=== PATIENT | female | born 1965 | race Caucasian/White ===

== ENCOUNTER 2020-03-07 06:01 | Outpatient (REF) | payer BC, SELFPAY ==
[2020-03-07 11:52] LABS: Alanine Aminotransferase 17 U/L (0-31); Albumin Level 4.3 g/dL (3.5-5.0); Alkaline Phosphatase 74 U/L (39-117); Anion Gap 11 (12-20); Aspartate Amino Transferase 17 U/L (5-31); Bilirubin Total 0.5 mg/dL (0.0-1.0); Blood Urea Nitrogen 16 mg/dL (9-16); Carbon Dioxide 29 mmol/L (22-29); Chloride 108 mmol/L (96-108); Cholesterol 180 mg/dL; Estimated Glomerular Filt Rate > 60; Glucose Fasting 98 mg/dL (60-99); HDL Cholesterol 67 mg/dL; LDL Cholesterol Calculated 104 mg/dl; Potassium 4.6 mmol/l (3.3-5.1); Sodium 143 mmol/L (135-145); Total Protein 6.8 g/dL (6.5-8.0); Triglycerides 48 mg/dL
[2020-03-07 12:01] LABS: TSH reflex Free T4 0.71 mIU/mL (0.32-4.0)
[2020-03-08 12:53] LABS: Triiodothyronine T3 Free 2.9 pg/mL (2.3-4.2)
== END 2020-03-07 06:02 | disposition home or self-care (01) ==
LOC: HO.HMGCLDS 06:01
PROVIDERS: PCP Internal Medicine; Visit Provider Nurse Practitioner Family
DX: Z00.00 Encounter for general adult medical examination without abnormal findings (principal)
CPT/HCPCS: 80053; 80061; 84443; 84481

== ENCOUNTER 2020-03-07 16:26 | Outpatient (REF) | payer BC, SELFPAY | END 2020-03-07 16:27 | disposition home or self-care (01) | LOC: HO.LAB 16:26 | PROVIDERS: Visit Provider Nurse Practitioner Family | DX: Z20.828 Contact with and (suspected) exposure to other viral communicable diseases (principal) | CPT/HCPCS: U0003 ==

== ENCOUNTER 2020-03-08 11:19 | Outpatient (REF) | payer BC, SELFPAY | END 2020-03-08 11:20 | disposition home or self-care (01) | LOC: HO.LNP 11:19 | PROVIDERS: Visit Provider Nurse Practitioner Family | DX: Z13.89 Encounter for screening for other disorder (principal) ==

== ENCOUNTER 2022-03-24 06:05 | Outpatient (REF) | payer BC, SELFPAY ==
[2022-03-24 11:20] LABS: MANUAL DIFF FLAG NO
[2022-03-24 11:30] LABS: Basophils Absolute Auto 0.1 X10*3/uL (0.0-0.2); Basophils Percent Auto 0.8 % (0-2); Eosinophils Absolute Auto 0.4 X10*3/uL (0.0-0.4); Hematocrit 43.2 % (37.0-47.0); Hemoglobin 13.9 g/dl (12.0-16.0); Imm Gran Abs Auto 0.02 X10*3/uL (0.00-0.03); Imm Gran Pct Auto 0.2 % (0.0-0.4); Lymphocytes Absolute Auto 3.4 X10*3/uL (1.2-4.9); Lymphocytes Percent Auto 39.1 % (20-40); Mean Corpuscular HGB Conc 32.2 g/dl (31.0-35.0); Mean Corpuscular Hemoglobin 29.1 pg (27.0-33.0); Mean Corpuscular Volume 90.6 fL (80.0-98.0); Monocytes Absolute Auto 0.5 X10*3/uL (0.1-1.2); Monocytes Percent Auto 6.2 % (2-11); Neutrophils Absolute Auto 4.2 x10*3/uL (2.0-8.3); Neutrophils Percent Auto 48.7 % (45-73); Platelet Count 272 X10*3/uL (160-400); Red Blood Count 4.77 X10*6/uL (4.20-5.50); Red Cell Distribution Width 13.8 % (11.0-16.0); White Blood Count 8.6 X10*3/uL (4.8-10.8)
[2022-03-24 11:43] LABS: Appearance Urine Clear; Color Urine Yellow; Glucose Urine UA Negative (Negative); Leukocyte Esterase Urine Negative (Negative); Nitrite Urine Negative (Negative); PH 5.5 (5.0-9.0); Urine Blood Negative (Negative); Urine Ketones Negative (Negative); Urine Protein Negative (Neg-Trace)
[2022-03-24 11:46] LABS: Bacteria Urine None Seen (None Seen); Hyaline Casts Urine 0-2 /LPF (0-2); RBC Urine 0-2 /HPF (0-2); Squamous Epithelial Cell Urine 0-2 /HPF (0-2); WBC Urine 0-5 /HPF (0-5)
[2022-03-24 11:51] LABS: Anion Gap 14 (12-20)
[2022-03-24 11:56] LABS: Alanine Aminotransferase 14 U/L (0-31); Albumin Level 4.3 g/dL (3.5-5.0); Alkaline Phosphatase 80 U/L (39-117); Aspartate Amino Transferase 15 U/L (5-31); Bilirubin Total 0.3 mg/dL (0.0-1.0); Calcium 9.6 mg/dL (8.4-10.2); Carbon Dioxide 26 mmol/L (22-29); Chloride 109 mmol/L (96-108); Cholesterol 175 mg/dL; Estimated Glomerular Filt Rate 53; Glucose Fasting 96 mg/dL (60-99); HDL Cholesterol 49 mg/dL; LDL Cholesterol Calculated 109 mg/dl; Potassium 5.3 mmol/L (3.3-5.1); Sodium 144 mmol/L (135-145); Total Protein 6.9 g/dL (6.5-8.0); Triglycerides 89 mg/dL
[2022-03-24 12:28] LABS: Blood Urea Nitrogen 22 mg/dL (9-16)
[2022-03-24 12:32] LABS: TSH reflex Free T4 1.69 uIU/mL (0.32-4.0); Vitamin D 25-OH Total 51.1 ng/mL (>30)
== END 2022-03-24 06:06 | disposition home or self-care (01) ==
LOC: HO.HMGCLDS 06:05
PROVIDERS: PCP Internal Medicine; Visit Provider Internal Medicine
DX: Z00.00 Encounter for general adult medical examination without abnormal findings (principal); E03.9 Hypothyroidism, unspecified
CPT/HCPCS: 36415; 80053; 80061; 81001; 82306; 84443; 85025

== ENCOUNTER 2022-04-11 13:55 | Outpatient (REF) | payer BC, SELFPAY ==
[2022-04-11 16:49] LABS: Anion Gap 14 (12-20); Blood Urea Nitrogen 12 mg/dL (9-16); Carbon Dioxide 28 mmol/L (22-29); Chloride 106 mmol/L (96-108); Estimated Glomerular Filt Rate 54; Glucose Random 113 mg/dL (60-115); Potassium 4.9 mmol/L (3.3-5.1); Sodium 143 mmol/L (135-145)
== END 2022-04-11 13:56 | disposition home or self-care (01) ==
LOC: HO.HMGCLDS 13:55
PROVIDERS: Visit Provider Internal Medicine
DX: Z00.00 Encounter for general adult medical examination without abnormal findings (principal)
CPT/HCPCS: 36415; 80048

== ENCOUNTER 2022-10-02 11:50 | Outpatient (AMB) | payer BC, SELFPAY ==
[2022-10-02 11:59] VITALS: BP 104/64; PULSE 52; O2SAT 100; BMI 30.4
--- NOTE | 2022-10-02 11:59 | MHC.PC.OV ---
Vital Signs 10/02/22 11:59 Height 5 ft 2 in Weight 166 lb 8 oz BMI 30.4 BP 104/64 Blood Pressure Location Rt brachial Position Sitting Pulse 52 Pulse Source Pulse Oximeter Pulse Oximetry (%) 100 Oxygen Delivery Method Room Air Intake Visit Reasons: ER follow up Allergies sulfamethoxazole [From BACTRIM] Allergy (Unknown, Verified 10/02/22 11:59) RASH trimethoprim [From BACTRIM] Allergy (Unknown, Verified 10/02/22 11:59) RASH Medication List - Last Reconciled 10/02/22 by Alem Carter MD alprazolam 0.5 mg PO DAILY PRN buspirone 5 mg PO BID PRN cholecalciferol (vitamin D3) 125 mcg PO DAILY doxycycline hyclate 100 mg PO BID flu vacc [id number] 6mos up(PF) mL IM levothyroxine 88 mcg PO DAILY valacyclovir 1,000 mg PO DAILY 5 days Tobacco use date assessed: 10/02/22 Dental Screening Dental Screen Date: 10/02/22 Did you have a dental visit in the last 12 months?: Yes Did you have a dental problem in the last 6 months where you did not have access to dental care?: No Was dental information given to patient?: No HPI ER follow up HPI Details Pt presents for f/u ER visit for acute onset of bilateral shoulder pain and bilateral leg heaviness for 2 weeks. Patient denies joint swelling erythema or warmth or stiffness in hand joints. She was seen in [facility] and was given cortisone injections to both shoulders. The shoulders x-rays were negative. Patient feels better since the injections 2 days ago. Patient is concerned about PMR. Blood work including Lyme antibodies was negative. 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 How often do you have a drink containing alcohol?: Monthly or less 2. How many drinks containing alcohol do you have on a typical day when you are drinking?: 1 or 2 3. How often do you have six or more drinks on one occasion?: Never Total Score: 1 Score Reviewed/Action Taken: Yes CHARLEY-7 AMB Questionnaire CHARLEY-7 Date CHARLEY - 7 assessed: 03/21/22 Source: Developed by Drs. Esvin Marie, Radha Tello, Corky Ann and colleagues, with an educational alis from [employer]. Review of Systems Const All systems reviewed & are unremarkable except as noted in HPI and below Reports no additional complaints Eyes Reports no additional complaints ENT Reports no additional complaints Card Reports no additional complaints Resp Reports no additional complaints GI Reports no additional complaints Reports no additional complaints Physical exam (Primary Care) Vital Signs: Last Vital Signs Pulse 52 10/02/22 11:59 BP 104/64 10/02/22 11:59 Pulse Ox 100 10/02/22 11:59 Oxygen Delivery Method Room Air 10/02/22 11:59 BMI result Body Mass Index 30.4 Tobacco/Smoking Status: Tobacco use Status Tobacco use date assessed 10/02/22 10/02/22 12:02 Patient Tobacco Use Status Never used Tobacco 10/02/22 12:02 e-Cigarette/Vaping Use Never Used 10/02/22 12:02 Thrive Assessment: Date of Thrive Assessment Date Thrive assessed 03/21/22 10/02/22 12:02 Const General: no acute distress HENMT Head: Yes normal to inspection Mouth: Normal oral and palatal mucosa present Neck Neck: Yes supple Resp Effort & Inspection: normal respiratory effort Auscultation: clear to auscultation bilaterally Cardio Rhythm: regular rhythm Heart sounds: S1 normal heart sound present and S2 normal heart sound present GI Auscultation: normal bowel sounds Extrem Other: Both shoulders knees and ankles with full range of motion no joint erythema warmth or tenderness Assessment and Plan Assessment & Plan (1) Arthralgia: Code(s): M25.50 - Pain in unspecified joint Plan: Check arthritis panel including ESR Orders: Orders Rheumatoid Factor Today M25.50 - Pain in unspecified joint TSH reflex Free T4 Today M25.50 - Pain in unspecified joint Erythrocyte Sedimentation Rate Today M25.50 - Pain in unspecified joint JUHI Reflex Titer and Pattern Today M25.50 - Pain in unspecified joint Coding Level of Care Code Est Pt Level 3 (32209) Diagnoses Arthralgia M25.50
== END 2022-10-02 12:55 | disposition home or self-care (01) ==
PROVIDERS: PCP Internal Medicine; Visit Provider Internal Medicine
DX: M25.50 Pain in unspecified joint (principal)
CPT/HCPCS: 99213

== ENCOUNTER 2022-10-02 12:48 | Outpatient (REF) | payer BC, SELFPAY ==
[2022-10-02 17:00] LABS: TSH reflex Free T4 2.24 uIU/mL (0.32-4.0)
[2022-10-02 17:09] LABS: Rheumatoid Factor < 13.0 IU/mL (<15.0)
[2022-10-02 17:15] LABS: Erythrocyte Sedimentation Rate 16 MM/HR (0-20)
[2022-10-08 10:33] LABS: Anti Nuclear Antibody Screen NEGATIVE (NEGATIVE)
== END 2022-10-02 12:49 | disposition home or self-care (01) ==
LOC: HO.HMGCLDS 12:48
PROVIDERS: PCP Internal Medicine; Visit Provider Internal Medicine
DX: M25.50 Pain in unspecified joint (principal)
CPT/HCPCS: 36415; 84443; 85652; 86038; 86431

== ENCOUNTER 2022-10-06 14:54 | Outpatient (AMB) | payer BC, SELFPAY ==
--- NOTE | 2022-10-06 15:11 | AM.OFFWIN_ITS ---
Intake Vital Signs 10/06/22 15:13 Height 5 ft 2 in BP 120/70 Blood Pressure Location Lt brachial Position Sitting Pulse 78 Pulse Source Pulse Oximeter Pulse Oximetry (%) 97 Oxygen Delivery Method Room Air Intake Visit Reasons: EP weakness, body fatigue (lobby) Intake Note: Pt is here today for body ache. Patient Tobacco Use Status: Never used Tobacco Allergies sulfamethoxazole [From BACTRIM] Allergy (Unknown, Verified 10/06/22 15:15) RASH trimethoprim [From BACTRIM] Allergy (Unknown, Verified 10/06/22 15:15) RASH HPI HPI Comments History of Present Illness Details 56-year-old female presents with inability to move her arms and legs, has severe pain, and feels generally unwell and weak. She has had multiple workups at this facility, as well as an emergency department, with negative findings. Patient states that she cannot even stand, and is having a difficult time functioning. She does have a significant past medical history for factor 5 leiden deficiency, history of PE status post nephrectomy, patient was a kidney donor. She states to be cold all the time, and has a difficult time eating and drinking over the past few days. 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: House Patient Tobacco Use Status: Never used Tobacco e-Cigarette/Vaping Use: Never Used Current occupational status: employed Cognitive needs: No Hearing needs: No Vision needs: Yes Review of Systems Const Details: Constitutional: No Fever, positive Chills ENT/Mouth: No Ear Pain, No Hoarseness, No sore throat Eyes: No Eye Pain, No Swelling, No Redness, No Foreign Body Cardiovascular: No Chest Pain, No SOB Respiratory: No Cough, No Dyspnea Gastrointestinal: Positive Nausea, No Vomiting, No Diarrhea, No abdominal Pain Genitourinary: No Dysuria, No Hematuria Musculoskeletal: positive joint pain, positive Myalgias, No Joint Swelling Skin: No Skin lacerations, No rash Neuro: Positive Weakness, No Numbness, No Paresthesias, No Loss of Consciousness, No Dizziness, positive Headache All systems reviewed & are unremarkable except as noted in HPI and below Physical Exam Vital Signs: Last Vital Signs Pulse 78 10/06/22 15:13 BP 120/70 10/06/22 15:13 Pulse Ox 97 10/06/22 15:13 Oxygen Delivery Method Room Air 10/06/22 15:13 Appearance: Alert. Oriented X3. Moderate distress. Eyes: Pupils equal, round and reactive to light. EOMI. Sclera nonicteric. ENT: Pharynx normal. Moist mucous membranes. Neck: Normal inspection. Neck supple. CVS: Normal heart rate and rhythm. Pulses normal. Respiratory: No respiratory distress. Breath sounds normal. Skin: Skin warm and dry. Normal skin color. Normal skin turgor. Extremities: Decreased range of motion. Weak grasp bilaterally, decreased range of motion secondary to pain. Neuro: No motor deficit. No sensory deficit. Cranial nerves 2-12 intact. Assessment & Plan Assessment & Plan (1) Weakness: Code(s): R53.1 - Weakness Plan 56-year-old female presents for evaluation for worsening weakness, diffuse pain, inability to function, poor p.o. intake. States to have headaches, and nausea. She has worked up several times once at this facility, and in emergency department was tested negative for Lyme, and JUHI results are still pending. Patient did have some cortisone injections into her neck 2 weeks ago, which states to have improved her symptoms however, she has progressively declined to the point where she is having a difficult time walking, has a hard time lifting her legs, and can barely stand. She cannot lift her arms over her head, and she has weakened grasps. Patient states this is been progressive. She does have a significant history of factor 5 Leiden deficiency, history of PE status post nephrectomy, patient donated her kidney in June of 2021. She was given a course of doxycycline for suspicion of Lyme disease, however on 10/02/2022 her labs were reviewed and was determined that her Lyme test was negative and was discontinued on the doxycycline. While patient does not report fevers, she states to have chills, has a winter jacket even though the temperature is about 90 degrees outside. 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 At this time, patient is in moderate distress, is alert oriented x4, speaking in complete sentences with even unlabored respirations. Patient is polite, and answering questions to the best of her ability. GCS 15, NIH is 0. While patient has not reported any viral illnesses, I do have high suspicion for possible meningitis, verses Guillain-[place]. Patient states that she is too weak to drive to the emergency department. Patient would like to be treated at [facility]. I did call provider to provider report, and will be sending this patient to the emergency department by EMS. Patient does understand the emergent need for new presentation, and does understand that she needs further testing at a facility that has acute care. Orders: Orders SARS-CoV2/FLU/RSV Today R09.89 - Other specified symptoms and signs involving the circulatory and respiratory systems Patient Instructions: Please present to the emergency department for evaluation. Coding Level of Care Code Est Pt Level 3 (24119) Diagnoses Weakness R53.1
[2022-10-06 15:13] VITALS: BP 120/70; PULSE 78; O2SAT 97
== END 2022-10-06 16:14 | disposition home or self-care (01) ==
PROVIDERS: PCP Internal Medicine; Visit Provider Nurse Practitioner Family
DX: R53.1 Weakness (principal)
CPT/HCPCS: 99213

== ENCOUNTER 2022-10-06 16:33 | Emergency (ER) | payer BC, SELFPAY ==
--- NOTE | ~2022-10-06 | XR_ITS ---
EXAMINATION: XR CHEST CLINICAL INFORMATION: Weakness COMPARISON: Chest x-ray on 02/02/2018 TECHNIQUE: Frontal view of the chest was obtained. FINDINGS: No significant abnormality is noted involving the heart, lungs, mediastinum, bony thorax or soft tissues. XR/XR chest 1V IMPRESSION: Unremarkable examination.
--- NOTE | 2022-10-06 16:40 | ED_ITS ---
HPI - General Adult General Chief complaint: Weakness Stated complaint: neck, hip, and leg pain, per ems Time Seen by Provider: 10/06/22 16:35 Source: patient, EMS, RN notes reviewed and old records reviewed Mode of arrival: EMS History of Present Illness HPI narrative: 56-year-old female with a past medical history factor 5 Leiden, PE s/p nephrectomy for renal transplant, hypothyroidism, presenting to the ED via EMS from complaining bilateral shoulder and hip pain with upper and lower extremity weakness progressing over the past 6 weeks. Patient describes pain as burning. Was evaluated at [facility] ED, tested for Lyme, treated empirically with Doxycycline and lined came back negative. Has been seen by PCP, JUHI titers currently pending. Admits saw replenishment specialist last week, had bilateral shoulder steroid injections which resolved all symptoms, however symptoms returned today which prompted visit. Was transported to ED to rule out meningitis/Liza Lincoln. Admits to night sweats, mild neck soreness and low back pain. Denies fever, weight gain/loss, CP/SOB, abdominal pain, nausea/vomiting, diarrhea, incontinence/retention. Admits to suspected spider bite to right foot weeks ago, denies other new exposures or viral illness Onset (ago): week(s) Related Data Home Medications Medication Instructions Recorded Confirmed alprazolam 0.5 mg tablet 0.5 mg PO DAILY PRN 03/07/20 10/02/22 flu vacc [id number] 6mos up(PF) 60 ml IM 03/07/20 10/02/22 mcg(15 mcgx4)/0.5 mL IM syringe levothyroxine 88 mcg tablet 88 mcg PO DAILY 03/07/20 10/02/22 buspirone 5 mg tablet 5 mg PO BID PRN 03/13/21 10/02/22 cholecalciferol (vitamin D3) 125 125 mcg PO DAILY 03/13/21 10/02/22 mcg (5,000 unit) capsule doxycycline hyclate 100 mg capsule 100 mg PO BID 10/02/22 10/02/22 Previous Rx's Medication Instructions Recorded valacyclovir 1 gram tablet 1,000 mg PO DAILY 5 days #5 tabs 03/21/22 prednisone 20 mg tablet 40 mg PO DAILY 5 days #10 tabs 10/06/22 Allergies Allergy/AdvReac Type Severity Reaction Status Date / Time sulfamethoxazole Allergy Unknown RASH Verified 10/06/22 17:22 [From BACTRIM] trimethoprim [From BACTRIM] Allergy Unknown RASH Verified 10/06/22 17:22 Review of Systems Review of Systems: Constitutional: No Weight loss, No Fever, No Chills, + Night Sweats, + Fatigue, + Malaise ENT/Mouth: No Ear Pain, No Nasal Congestion, No sore throat, No Rhinorrhea, No Swallowing Difficulty Eyes: No Eye Pain, No Swelling, No Redness, No Vision Changes Cardiovascular: No Chest Pain, No SOB, No Edema, No Palpitations Respiratory: No Cough, No Sputum, No Dyspnea Gastrointestinal: No Nausea, No Vomiting, No Diarrhea, No Constipation, No Abdominal pain Genitourinary: No irregular bleeding, No Dysuria, No Urinary Frequency, No Hematuria, No Urinary Incontinence/retention, No Urgency, No Flank Pain Musculoskeletal: + joint pain, + Myalgias, No Joint Swelling Skin: No Skin Lesions, No rash Neuro: No Weakness, No Numbness, No Paresthesias, No Loss of Consciousness, No Dizziness, No Headache Yes all other systems are reviewed and are negative Constitutional: Constitutional: Reports as per HPI Neurologic: Denies Abnormal speech present and Denies Sensory deficit (Neuro) [facility] Past Medical History Attestation statement: The following information was validated with the patient. 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 Alcohol intake: current Alcohol intake frequency: holidays/special occasions only Patient Tobacco Use Status: Never used Tobacco Smoked in Last 30 Days: No e-Cigarette/Vaping Use: Never Used Use of substances other than those prescribed or required for medical reasons: No Advance Directives: No Advance Directives Information Provided: No Patient : No Current occupational status: employed Cognitive needs: No Hearing needs: No Vision needs: Yes Physical Exam ED Vital Signs: Vital Signs - 24 hr 10/06/22 17:03 10/06/22 17:22 10/06/22 19:18 Temperature 98.0 F 98.0 F Pulse Rate 73 71 73 Respiratory Rate 16 16 Blood Pressure 143/73 H 143/63 H 127/73 Pulse Oximetry 98 95 Oxygen Delivery Method Room Air Room Air 10/06/22 19:19 10/06/22 19:20 Temperature Pulse Rate 68 74 Respiratory Rate Blood Pressure 141/81 H 136/84 Pulse Oximetry Oxygen Delivery Method BMI result Body Mass Index 30.8 Const General: cooperative, healthy appearing, no acute distress, alert and awake Orientation/consciousness: patient oriented x3 Limitations: no limitations HENMT Head: Yes normal to inspection and Yes atraumatic Ears: hearing grossly normal bilaterally General nose exam: Normal external nose present Face and sinus: Yes normal facial exam Mouth: Normal oral and palatal mucosa present Throat: Yes posterior oropharynx normal, Yes tonsils normal and Yes uvula m idline Eyes General: appearance normal, both eyes and all related structures Pupils: Equal, round and reactive pupils present EOM: EOMs intact bilaterally Neck Neck: Yes normal visual inspection, Yes no meningeal signs, No anterior neck swelling and No torticollis Resp Effort & Inspection: normal respiratory effort and no respiratory distress Auscultation: clear to auscultation bilaterally, no crackles, no rales, no rhonchi and no wheezes Cardio Rate: regular rate Heart sounds: S1 normal heart sound present and S2 normal heart sound present Peripheral pulses: Peripheral pulses 2+ throughout GI Inspection: Yes normal to inspection Palpation (GI): Soft to palpation, nontender, no guarding and not rigid General: Yes no CVA tenderness Back/Spine/Pelvis Other: No midline cervical/thoracic/lumbar spinous tenderness/step-off or deformity Back: no CVA tenderness Skin Rashes: no rashes Wounds: no wounds Neuro Other: Ambulating with slow steady gait, no ataxia Mild decreased strength appreciated to LUE & LLE General: patient oriented x3, tone normal, moves all extremities, no meningeal signs, no focal motor deficits and CN's II-XI intact bilaterally Cranial nerves: Yes CN's II-XII intact bilaterally, Yes Equal, round and reactive pupils present and Yes Bilaterally intact EOM present Cognition (Neuro): normal cognition Speech: No Abnormal speech present Sensory Exam: No Sensory deficit (Neuro) Deep tendon reflexes (DTR's): Right patellar reflex intensity grade: 2+ and Left patellar reflex intensity grade: 2+ Extrem General: Yes normal to inspection, Yes full ROM and Yes capillary refill normal Course Course Course Narrative: -1907--mild leukocytosis of 13.2. BUN 22. Troponin negative. CRP mildly elevated to 3.9 -UA unremarkable. COVID-was/RSV negative XR chest 1V IMPRESSION: Unremarkable examination. ? -ESR WNL Results discussed with patient including worrisome signs and symptoms and strict return precautions, and when to return to the emergency department. Recommended close follow-up with PCP, Rheumatology and Neurology. They verbalized understanding and feel safe for discharge at this time. Medical Decision Making Medical Decision Making [facility] Narrative: 56-year-old female with a past medical history factor 5 Leiden, PE s/p nephrectomy for renal transplant, hypothyroidism, presenting to the ED via EMS from complaining bilateral shoulder and hip pain with upper and lower extremity weakness progressing over the past 6 weeks. On exam vital signs stable, NAD, nontoxic appearing, physical exam as noted above, no meningeal signs, ambulating with slow steady gait, mild left-sided weakness appreciated, patellar DTRs WNL. Concern for possible PMR vs viral syndrome. Low suspicion for meningitis, Liza Lincoln, MS, MG or ALS. Unlikely cauda equina/cord com pression. No evidence of septic joint. Case discussed with ED attending Dr. Bloom who is in agreement with assessment and plan Plan: EKG, labs, UA, CXR, tick-borne illness/Lyme, COVID/flu/RSV Please refer to course for remaining clinical decision making, interpretation of labs/imaging results, and discussions with consultants and/or family members. Differential Diagnosis Differential Diagnoses: The differential diagnosis associated with the presentation includes As above Admission/Observation Consideration of admission/observation: Escalation of care including admission/observation considered Consult Healthcare Provider ED Attending Dr. Bloom Lab Data [facility] Lab Attestation statement: I reviewed the patient's lab results. 10/06/22 18:06 10/06/22 18:06 Labs: Lab Results 10/06/22 10/06/22 10/06/22 Range/Units 18:06 18:06 18:06 WBC 13.2 H (4.8-10.8) X10*3/uL RBC 4.49 (4.20-5.50) X10*6/uL Hgb 13.0 (12.0-16.0) g/dl Hct 40.2 (37.0-47.0) % MCV 89.5 (80.0-98.0) fL MCH 29.0 (27.0-33.0) pg MCHC 32.3 (31.0-35.0) g/dl RDW 13.9 (11.0-16.0) % Plt Count 342 D (160-400) X10*3/uL MPV 10.6 (9.4-12.3) fL Immature Gran % (Auto) 0.6 H (0.0-0.4) % Neut % (Auto) 73.0 (45-73) % Lymph % (Auto) 19.3 L (20-40) % Ross % (Auto) 6.1 (2-11) % Eos % (Auto) 0.5 (0-4) % Baso % (Auto) 0.5 (0-2) % Lymph # (Auto) 2.5 (1.2-4.9) X10*3/uL Ross # (Auto) 0.8 (0.1-1.2) X10*3/uL Eos # (Auto) 0.1 (0.0-0.4) X10*3/uL Baso # (Auto) 0.1 (0.0-0.2) X10*3/uL Abs Immat Gran (auto) 0.08 H (0.00-0.03) X10*3/uL Absolute Neuts (auto) 9.6 H (2.0-8.3) x10*3/uL Absolute Nucleated RBC 0.000 (0.0-0.012) X10*3/uL Nucleated RBC % (auto) 0.0 (0.0-0.2) /100WBC ESR (0-20) MM/HR PT 10.5 (10.0-13.1) SEC INR 0.9 (0.9-1.1) Sodium 142 (135-145) mmol/L Potassium 3.8 D (3.3-5.1) mmol/L Chloride 108 (96-108) mmol/L Carbon Dioxide 25 (22-29) mmol/L Anion Gap 13 (12-20) BUN 22 H (9-16) mg/dL Creatinine 0.87 (0.5-1.4) mg/dL Estim Creat Clear Calc 70.7 Estimated GFR > 60 Random Glucose 105 (60-115) mg/dL Calcium 10.4 H (8.4-10.2) mg/dL Magnesium 2.3 (1.6-2.6) mg/dL Total Bilirubin 0.3 (0.0-1.0) mg/dL Direct Bilirubin 0.1 (0.0-0.5) mg/dL AST 17 (5-31) U/L ALT 18 (0-31) U/L Alkaline Phosphatase 84 (39-117) U/L Troponin I High Sens (<3.5-17.0) ng/L C-Reactive Protein 3.97 H (< or = 0.50) mg/dL Total Protein 7.5 (6.5-8.0) g/dL Albumin 4.3 (3.5-5.0) g/dL Urine Color Urine Appearance Urine pH (5.0-9.0) Ur Specific [place] (1.005-1.025) Urine Protein (Neg-Trace) mg/dL Urine Glucose (UA) (Negative) mg/dL Urine Ketones (Negative) mg/dL Urine Blood (Negative) Urine Nitrite (Negative) Ur Leukocyte Esterase (Negative) Urine RBC (0-2) /HPF Urine WBC (0-5) /HPF Ur Squamous Epith Cells (0-2) /HPF Urine Bacteria (None Seen) Hyaline Casts (0-2) /LPF Influenza Type A (PCR) (Negative) Influenza Type B (PCR) (Negative) RSV RNA Qual (PCR) (Negative) SARS-CoV-2 RNA (RT-PCR) (Negative) 10/06/22 10/06/22 10/06/22 Range/Units 18:18 18:19 18:19 WBC (4.8-10.8) X10*3/uL RBC (4.20-5.50) X10*6/uL Hgb (12.0-16.0) g/dl Hct (37.0-47.0) % MCV (80.0-98.0) fL MCH (27.0-33.0) pg MCHC (31.0-35.0) g/dl RDW (11.0-16.0) % Plt Count (160-400) X10*3/uL MPV (9.4-12.3) fL Immature Gran % (Auto) (0.0-0.4) % Neut % (Auto) (45-73) % Lymph % (Auto) (20-40) % Ross % (Auto) (2-11) % Eos % (Auto) (0-4) % Baso % (Auto) (0-2) % Lymph # (Auto) (1.2-4.9) X10*3/uL Ross # (Auto) (0.1-1.2) X10*3/uL Eos # (Auto) (0.0-0.4) X10*3/uL Baso # (Auto) (0.0-0.2) X10*3/uL Abs Immat Gran (auto) (0.00-0.03) X10*3/uL Absolute Neuts (auto) (2.0-8.3) x10*3/uL Absolute Nucleated RBC (0.0-0.012) X10*3/uL Nucleated RBC % (auto) (0.0-0.2) /100WBC ESR 12 (0-20) MM/HR PT (10.0-13.1) SEC INR (0.9-1.1) Sodium (135-145) mmol/L Potassium (3.3-5.1) mmol/L Chloride (96-108) mmol/L Carbon Dioxide (22-29) mmol/L Anion Gap (12-20) BUN (9-16) mg/dL Creatinine (0.5-1.4) mg/dL Estim Creat Clear Calc Estimated GFR Random Glucose (60-115) mg/dL Calcium (8.4-10.2) mg/dL Magnesium (1.6-2.6) mg/dL Total Bilirubin (0.0-1.0) mg/dL Direct Bilirubin (0.0-0.5) mg/dL AST (5-31) U/L ALT (0-31) U/L Alkaline Phosphatase (39-117) U/L Troponin I High Sens < 2.7 (<3.5-17.0) ng/L C-Reactive Protein (< or = 0.50) mg/dL Total Protein (6.5-8.0) g/dL Albumin (3.5-5.0) g/dL Urine Color Urine Appearance Urine pH (5.0-9.0) Ur Specific [place] (1.005-1.025) Urine Protein (Neg-Trace) mg/dL Urine Glucose (UA) (Negative) mg/dL Urine Ketones (Negative) mg/dL Urine Blood (Negative) Urine Nitrite (Negative) Ur Leukocyte Esterase (Negative) Urine RBC (0-2) /HPF Urine WBC (0-5) /HPF Ur Squamous Epith Cells (0-2) /HPF Urine Bacteria (None Seen) Hyaline Casts (0-2) /LPF Influenza Type A (PCR) NEGATIVE (Negative) Influenza Type B (PCR) NEGATIVE (Negative) RSV RNA Qual (PCR) NEGATIVE (Negative) SARS-CoV-2 RNA (RT-PCR) NEGATIVE (Negative) 10/06/22 Range/Units 18:19 WBC (4.8-10.8) X10*3/uL RBC (4.20-5.50) X10*6/uL Hgb (12.0-16.0) g/dl Hct (37.0-47.0) % MCV (80.0-98.0) fL MCH (27.0-33.0) pg MCHC (31.0-35.0) g/dl RDW (11.0-16.0) % Plt Count (160-400) X10*3/uL MPV (9.4-12.3) fL Immature Gran % (Auto) (0.0-0.4) % Neut % (Auto) (45-73) % Lymph % (Auto) (20-40) % Ross % (Auto) (2-11) % Eos % (Auto) (0-4) % Baso % (Auto) (0-2) % Lymph # (Auto) (1.2-4.9) X10*3/uL Ross # (Auto) (0.1-1.2) X10*3/uL Eos # (Auto) (0.0-0.4) X10*3/uL Baso # (Auto) (0.0-0.2) X10*3/uL Abs Immat Gran (auto) (0.00-0.03) X10*3/uL Absolute Neuts (auto) (2.0-8.3) x10*3/uL Absolute Nucleated RBC (0.0-0.012) X10*3/uL Nucleated RBC % (auto) (0.0-0.2) /100WBC ESR (0-20) MM/HR PT (10.0-13.1) SEC INR (0.9-1.1) Sodium (135-145) mmol/L Potassium (3.3-5.1) mmol/L Chloride (96-108) mmol/L Carbon Dioxide (22-29) mmol/L Anion Gap (12-20) BUN (9-16) mg/dL Creatinine (0.5-1.4) mg/dL Estim Creat Clear Calc Estimated GFR Random Glucose (60-115) mg/dL Calcium (8.4-10.2) mg/dL Magnesium (1.6-2.6) mg/dL Total Bilirubin (0.0-1.0) mg/dL Direct Bilirubin (0.0-0.5) mg/dL AST (5-31) U/L ALT (0-31) U/L Alkaline Phosphatase (39-117) U/L Troponin I High Sens (<3.5-17.0) ng/L C-Reactive Protein (< or = 0.50) mg/dL Total Protein (6.5-8.0) g/dL Albumin (3.5-5.0) g/dL Urine Color Yellow Urine Appearance Clear Urine pH 6.0 (5.0-9.0) Ur Specific [place] 1.020 (1.005-1.025) Urine Protein Negative (Neg-Trace) mg/dL Urine Glucose (UA) Negative (Negative) mg/dL Urine Ketones Negative (Negative) mg/dL Urine Blood Negative (Negative) Urine Nitrite Negative (Negative) Ur Leukocyte Esterase Trace H (Negative) Urine RBC 0-2 (0-2) /HPF Urine WBC 0-5 (0-5) /HPF Ur Squamous Epith Cells 0-2 (0-2) /HPF Urine Bacteria None Seen (None Seen) Hyaline Casts 0-2 (0-2) /LPF Influenza Type A (PCR) (Negative) Influenza Type B (PCR) (Negative) RSV RNA Qual (PCR) (Negative) SARS-CoV-2 RNA (RT-PCR) (Negative) Independent Interpretation I performed an independent interpretation of an: EKG (EKG normal sinus rhythm at a rate of 68. Pr interval 134. QTC 401. No significant change when compared to prior. No STEMI) Radiology Impression Discussion of test interpretation with radiology: I have reviewed the radiologist's reading. Independent Historian Clinical information obtained from an independent historian. History obtained from or confirmed by: EMS External Record Review External record reviewed: Inpatient record, Office record, Outpatient record, Prior outpatient labs, Prior outpatient radiology, Primary care record and Outside ED record Tests considered The following testing was considered but not selected: As above Prescription Management I considered prescription management with: Pain Medication Chronic Conditions Patient?s care impacted by: Other (Hypothyroid, renal transplant donor) Discharge Plan Discharge Clinical Impression: Polyarthralgia, Generalized weakness Patient Disposition: Home, Self-Care Instructions: Weakness (ED), Arthralgia (ED) Additional Instructions: Your blood work and chest x-ray were reassuring You need to follow-up with her primary care doctor, most importantly follow-up with neurology and rheumatology Prednisone as a steroid which will help with her arthralgia If symptoms persist or worsen, your unable to ambulate, have fever, or focal weakness return to the emergency department Prescriptions: New prednisone 20 mg tablet 40 mg PO DAILY 5 Days Qty: 10 0RF No Action Fluzone Quad [id number] (PF) 60 mcg (15 mcg x 4)/0.5 mL syringe IM levothyroxine 88 mcg tablet 88 mcg PO DAILY alprazolam 0.5 mg tablet 0.5 mg PO DAILY PRN buspirone 5 mg tablet 5 mg PO BID PRN cholecalciferol (vitamin D3) 125 mcg (5,000 unit) capsule 125 mcg PO DAILY valacyclovir 1 gram tablet 1,000 mg PO DAILY 5 Days Qty: 5 2RF doxycycline hyclate 100 mg capsule 100 mg PO BID Referrals: [facility] [place] [Provider Group] [facility] [place] [Provider Group] Interventions: ED Discharge Assessment Last Done: 10/06/22 20:00 Discharge Date/Time: 10/06/22 20:01
--- NOTE | 2022-10-06 17:02 | ECG_ITS ---
Test Reason : WEAKNESS Blood Pressure : / mmHG Vent. Rate : 068 BPM Atrial Rate : 068 BPM P-R Int : 134 ms QRS Dur : 086 ms QT Int : 378 ms P-R-T Axes : 037 -25 017 degrees QTc Int : 401 ms Normal sinus rhythm ST & T wave abnormality, consider anterior ischemia Abnormal ECG When compared with ECG of 10-FEB-2018 20:55, No significant change was found Referred By: Apurva Miranda Electronically Signed By:AYUSH CROWE MD
[2022-10-06 17:03] VITALS: BP 143/73; PULSE 73; RESP 16; TEMP 36.7; O2SAT 98
[2022-10-06 17:22] VITALS: BP 143/63; BP 192/120; PULSE 71; PULSE 82; RESP 16; TEMP 36.7; O2SAT 95; O2SAT 97; BMI 30.8
[2022-10-06 18:13] LABS: MANUAL DIFF FLAG NO
[2022-10-06 18:15] LABS: Basophils Absolute Auto 0.1 X10*3/uL (0.0-0.2); Basophils Percent Auto 0.5 % (0-2); Eosinophils Absolute Auto 0.1 X10*3/uL (0.0-0.4); Eosinophils Percent Auto 0.5 % (0-4); Hematocrit 40.2 % (37.0-47.0); Imm Gran Abs Auto 0.08 X10*3/uL (0.00-0.03); Imm Gran Pct Auto 0.6 % (0.0-0.4); Lymphocytes Absolute Auto 2.5 X10*3/uL (1.2-4.9); Lymphocytes Percent Auto 19.3 % (20-40); Mean Corpuscular HGB Conc 32.3 g/dl (31.0-35.0); Mean Corpuscular Volume 89.5 fL (80.0-98.0); Mean Platelet Volume 10.6 fL (9.4-12.3); Monocytes Absolute Auto 0.8 X10*3/uL (0.1-1.2); Monocytes Percent Auto 6.1 % (2-11); Neutrophils Absolute Auto 9.6 x10*3/uL (2.0-8.3); Platelet Count 342 X10*3/uL (160-400); Red Blood Count 4.49 X10*6/uL (4.20-5.50); Red Cell Distribution Width 13.9 % (11.0-16.0); White Blood Count 13.2 X10*3/uL (4.8-10.8)
[2022-10-06 18:26] LABS: INTERNATIONAL NORM RATIO 0.9 (0.9-1.1); Prothrombin Time 10.5 SEC (10.0-13.1)
[2022-10-06 18:27] LABS: Appearance Urine Clear; Color Urine Yellow; Glucose Urine UA Negative (Negative); Leukocyte Esterase Urine Trace (Negative); Nitrite Urine Negative (Negative); UMIC TRIGGER UACC YES; Urine Blood Negative (Negative); Urine Ketones Negative (Negative); Urine Protein Negative (Neg-Trace)
[2022-10-06 18:32] LABS: Bacteria Urine None Seen (None Seen); Hyaline Casts Urine 0-2 /LPF (0-2); RBC Urine 0-2 /HPF (0-2); Squamous Epithelial Cell Urine 0-2 /HPF (0-2); WBC Urine 0-5 /HPF (0-5)
[2022-10-06 18:35] LABS: Alanine Aminotransferase 18 U/L (0-31); Albumin Level 4.3 g/dL (3.5-5.0); Alkaline Phosphatase 84 U/L (39-117); Anion Gap 13 (12-20); Aspartate Amino Transferase 17 U/L (5-31); Bilirubin Direct 0.1 mg/dL (0.0-0.5); Bilirubin Total 0.3 mg/dL (0.0-1.0); Blood Urea Nitrogen 22 mg/dL (9-16); C Reactive Protein 3.97 mg/dL (< or = 0.50); Calcium 10.4 mg/dL (8.4-10.2); Carbon Dioxide 25 mmol/L (22-29); Chloride 108 mmol/L (96-108); Creatinine Clr Calc Pharmacy 70.7; Estimated Glomerular Filt Rate > 60; Glucose Random 105 mg/dL (60-115); Magnesium 2.3 mg/dL (1.6-2.6); Potassium 3.8 mmol/L (3.3-5.1); Sodium 142 mmol/L (135-145); Total Protein 7.5 g/dL (6.5-8.0)
[2022-10-06 18:52] LABS: Troponin-I High Sensitivity < 2.7 ng/L (<3.5-17.0)
[2022-10-06 19:03] LABS: Influenza A PCR NEGATIVE (Negative); Influenza B PCR NEGATIVE (Negative); Resp Syncy Virus RNA Qual PCR NEGATIVE (Negative); SARS COV2 PCR INHOUSE NEGATIVE (Negative)
[2022-10-06 19:08] LABS: Erythrocyte Sedimentation Rate 12 MM/HR (0-20)
[2022-10-06 19:18] VITALS: BP 127/73; PULSE 73
[2022-10-06 19:19] VITALS: BP 141/81; PULSE 68
[2022-10-06 19:20] VITALS: BP 136/84; PULSE 74
--- NOTE | 2022-10-06 19:59 | PC.NURSE ---
this rn assumed care of pt @ 1900. pt calm and cooperative. pt ambulatory at discharge. pt provided with discharge packet. pt verbalized understanding of discharge plan
[2022-10-07 17:18] LABS: Lyme Abs Screen <0.90 index
[2022-10-09 02:08] LABS: A. Phagocytphilium DNA,RT-PCR NOT DETECTED (NOT DETECTED); Babesia Microti DNA, RT-PCR NOT DETECTED (NOT DETECTED); Borrelia Miyamotoi,DNA RT-PCR NOT DETECTED (NOT DETECTED); E.Chaffeensis DNA RT-PCR NOT DETECTED (NOT DETECTED); Lyme(Borrelia ssp)DNA RT-PCR NOT DETECTED (NOT DETECTED)
== END 2022-10-06 20:01 | disposition home or self-care (01) ==
PROVIDERS: Physician Assistant; Emergency Provider Student in an Organized Health Care Education/Training Program
DX: R53.1 Weakness (principal); M25.512 Pain in left shoulder; M25.511 Pain in right shoulder; M25.552 Pain in left hip; M25.551 Pain in right hip; Z20.822 Contact with and (suspected) exposure to COVID-19; Z20.828 Contact with and (suspected) exposure to other viral communicable diseases; D68.51 Activated protein C resistance; Z86.711 Personal history of pulmonary embolism; Z79.899 Other long term (current) drug therapy
CPT/HCPCS: 0241U; 36415; 71045; 80048; 80076; 81001; 83735; 84484; 85025; 85610; 85652; 86140; 86617; 86618; 87798; 87801; 93005; 99283; 99285

== ENCOUNTER → 2022-10-06 17:02 | Outpatient (BNV) | payer BC, SELFPAY | PROVIDERS: Emergency Provider Student in an Organized Health Care Education/Training Program; Visit Provider Internal Medicine Cardiovascular Disease | DX: R53.1 Weakness (principal) | CPT/HCPCS: 93010 ==

== ENCOUNTER 2022-10-20 06:01 | Outpatient (REF) | payer BC, SELFPAY ==
[2022-10-20 12:29] LABS: C Reactive Protein 2.91 mg/dL (< or = 0.50)
[2022-10-20 12:52] LABS: TSH reflex Free T4 1.97 uIU/mL (0.32-4.0); Vitamin D 25-OH Total 95.8 ng/mL (>30)
[2022-10-22 13:48] LABS: Calcium (PTHI) 9.6 mg/dL (8.6-10.4); PTHI 59 pg/mL (16-77)
[2022-10-23 15:54] LABS: Calcium, Ionized 5.2 mg/dL (4.7-5.5)
== END 2022-10-20 06:02 | disposition home or self-care (01) ==
LOC: HO.HMGCLDS 06:01
PROVIDERS: PCP Internal Medicine; Visit Provider Internal Medicine
DX: E03.9 Hypothyroidism, unspecified (principal); E83.52 Hypercalcemia; M35.3 Polymyalgia rheumatica
CPT/HCPCS: 36415; 82306; 82330; 83970; 84443; 86140

== ENCOUNTER 2022-11-05 13:58 | Outpatient (AMB) | payer BC, SELFPAY ==
--- NOTE | 2022-11-05 14:10 | A.OFFPC_ITS ---
Vital Signs 11/05/22 14:11 Height 5 ft 2 in Weight 167 lb BMI 30.5 BP 120/76 Blood Pressure Location Rt brachial Position Sitting Pulse 85 Pulse Source Pulse Oximeter Pulse Oximetry (%) 99 Oxygen Delivery Method Room Air Intake Visit Reasons: ER follow up Intake Note: Pt is here today for ER follow up visit. Allergies sulfamethoxazole [From BACTRIM] Allergy (Unknown, Verified 11/05/22 14:12) RASH trimethoprim [From BACTRIM] Allergy (Unknown, Verified 11/05/22 14:12) RASH Medication List - Last Reconciled 11/05/22 by Alem Carter MD alprazolam 0.5 mg PO DAILY PRN buspirone 5 mg PO BID PRN cholecalciferol (vitamin D3) 125 mcg PO DAILY cholecalciferol (vitamin D3) 125 mcg PO DAILY flu vacc [id number] 6mos up(PF) mL IM levothyroxine (Synthroid) 88 mcg PO DAILY prednisone 10 mg PO DAILY prednisone 20 mg PO DAILY prednisone 30 mg (3 x 10 mg) PO DAILY valacyclovir 1,000 mg PO DAILY 5 days Tobacco use date assessed: 10/02/22 Dental Screening Dental Screen Date: 11/05/22 Did you have a dental visit in the last 12 months?: Yes Did you have a dental problem in the last 6 months where you did not have access to dental care?: No Was dental information given to patient?: Patient has dentist HPI ER follow up HPI Details Patient presents for the follow-up of ER visit for myalgia, general weakness. She was found to have elevated CRP level and was started on prednisone 40 mg with a rapid improvement of her symptoms. Patient has been taking 30 mg of prednisone for the last 2 weeks and feels well. She tried 20 mg for few days but developed recurrent myalgia. 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 Esvin Marie, Radha Tello, Corky Ann and colleagues, with an educational alis from [employer]. Review of Systems Const All systems reviewed & are unremarkable except as noted in HPI and below Reports no additional complaints Eyes Reports no additional complaints ENT Reports no additional complaints Card Reports no additional complaints Resp Reports no additional complaints GI Reports no additional complaints Reports no additional complaints Physical exam (Primary Care) Vital Signs: Last Vital Signs Pulse 85 11/05/22 14:11 BP 120/76 11/05/22 14:11 Pulse Ox 99 11/05/22 14:11 Oxygen Delivery Method Room Air 11/05/22 14:11 BMI result Body Mass Index 30.5 Tobacco/Smoking Status: Tobacco use Status Tobacco use date assessed 10/02/22 11/05/22 14:15 Patient Tobacco Use Status Never used Tobacco 11/05/22 14:15 e-Cigarette/Vaping Use Never Used 11/05/22 14:15 Thrive Assessment: Date of Thrive Assessment Date Thrive assessed 03/21/22 11/05/22 14:15 HENMT Head: Yes normal to inspection Face and sinus: Yes normal facial exam Eyes General: appearance normal, both eyes and all related structures Neck Neck: Yes supple Resp Effort & Inspection: normal respiratory effort Auscultation: clear to auscultation bilaterally Cardio Rhythm: regular rhythm Heart sounds: S1 normal heart sound present and S2 normal heart sound present Assessment and Plan Assessment & Plan (1) Hypothyroid: Code(s): E03.9 - Hypothyroidism, unspecified Plan: Continue levothyroxine 88 mcg and check TSH, FREE T3 and T4 in 2 months (2) PMR (polymyalgia rheumatica): Code(s): M35.3 - Polymyalgia rheumatica Plan: Continue 30 mg of prednisone. Will check CRP in 2 weeks and 1 month and patient will follow-up in 1 month. She has an appointment with solder sprayer in [facility] Orders: Orders TSH reflex Free T4 2 Months E03.9 - Hypothyroidism, unspecified, M35.3 - Polymyalgia rheumatica Free T4 (Free Thyroxine) 2 Months E03.9 - Hypothyroidism, unspecified, M35.3 - Polymyalgia rheumatica Triiodothyronine T3 Free 2 Months E03.9 - Hypothyroidism, unspecified, M35.3 - Polymyalgia rheumatica Comprehensive Met. Panel 2 Weeks E03.9 - Hypothyroidism, unspecified, M35.3 - Polymyalgia rheumatica C Reactive Protein 2 Weeks M35.3 - Polymyalgia rheumatica C Reactive Protein 1 Month M35.3 - Polymyalgia rheumatica Medications: New prednisone 30 mg (3 x 10 mg) PO DAILY 270 tabs 1RF Coding Level of Care Code Est Pt Level 3 (62341) Diagnoses Hypothyroid E03.9 PMR (polymyalgia rheumatica) M35.3
[2022-11-05 14:11] VITALS: BP 120/76; PULSE 85; O2SAT 99; BMI 30.5
== END 2022-11-05 14:43 | disposition home or self-care (01) ==
PROVIDERS: PCP Internal Medicine; Visit Provider Internal Medicine
DX: E03.9 Hypothyroidism, unspecified (principal); M35.3 Polymyalgia rheumatica
CPT/HCPCS: 99213

== ENCOUNTER 2022-11-25 06:00 | Outpatient (REF) | payer BC, SELFPAY ==
[2022-11-25 11:48] LABS: Alanine Aminotransferase 24 U/L (0-31); Albumin Level 4.1 g/dL (3.5-5.0); Alkaline Phosphatase 79 U/L (39-117); Anion Gap 12 (12-20); Aspartate Amino Transferase 16 U/L (5-31); Bilirubin Total 0.4 mg/dL (0.0-1.0); Blood Urea Nitrogen 11 mg/dL (9-16); Calcium 9.5 mg/dL (8.4-10.2); Carbon Dioxide 27 mmol/L (22-29); Chloride 109 mmol/L (96-108); Estimated Glomerular Filt Rate 58; Glucose Random 78 mg/dL (60-115); Potassium 4.3 mmol/L (3.3-5.1); Sodium 144 mmol/L (135-145); Total Protein 6.6 g/dL (6.5-8.0)
== END 2022-11-25 06:01 | disposition home or self-care (01) ==
LOC: HO.HMGCLDS 06:00
PROVIDERS: PCP Internal Medicine; Visit Provider Internal Medicine
DX: M35.3 Polymyalgia rheumatica (principal); E03.9 Hypothyroidism, unspecified
CPT/HCPCS: 36415; 80053; 86140

== ENCOUNTER 2022-12-09 14:49 | Outpatient (REF) | payer BC, SELFPAY ==
[2022-12-09 17:03] LABS: C Reactive Protein 1.65 mg/dL (< or = 0.50)
== END 2022-12-09 14:50 | disposition home or self-care (01) ==
LOC: HO.HMGCLDS 14:49
PROVIDERS: PCP Internal Medicine; Visit Provider Internal Medicine
DX: M35.3 Polymyalgia rheumatica (principal)
CPT/HCPCS: 36415; 86140

== ENCOUNTER 2022-12-15 13:40 | Outpatient (AMB) | payer BC, SELFPAY ==
--- NOTE | 2022-12-15 13:58 | A.OFFPC_ITS ---
Vital Signs 12/15/22 13:59 Height 5 ft 2 in Weight 168 lb BMI 30.7 BP 110/70 Blood Pressure Location Lt brachial Position Sitting Pulse 66 Pulse Source Pulse Oximeter Pulse Oximetry (%) 95 Oxygen Delivery Method Room Air Intake Visit Reasons: 1 month follow up PMR Intake Note: Pt is here today for 1 month follow up visit. Allergies sulfamethoxazole [From BACTRIM] Allergy (Unknown, Verified 12/15/22 14:01) RASH trimethoprim [From BACTRIM] Allergy (Unknown, Verified 12/15/22 14:01) RASH Medication List - Last Reconciled 12/15/22 by Alem Carter MD alprazolam 0.5 mg PO DAILY PRN buspirone 5 mg PO BID PRN cholecalciferol (vitamin D3) 125 mcg PO DAILY cholecalciferol (vitamin D3) 125 mcg PO DAILY flu vacc [id number] 6mos up(PF) mL IM prednisone 25 mg (2.5 x 10 mg) PO DAILY prednisone 4 mg (4 x 1 mg) PO DAILY propranolol 20 mg PO BID rivaroxaban (Xarelto) 20 mg PO DAILY valacyclovir 1,000 mg PO DAILY 5 days Tobacco use date assessed: 10/02/22 HPI 1 month follow up PMR HPI Details Pt presents for f/u visit. She was diagnosed paroxysmal A fib, started on Xarelto and Propanolol by Cardiology. Patient had Holter monitor but results are pending. Pt has been taking Prednisone 29 mg for PMR and arthralgia resolved but patient reports side effects from prednisone: gaining weight. CRP increased to 1.65 from 1.5 after decreasing prednisone dose from 30 mg to 29 mg. Pt has an appointment with rheumatology in 3 weeks. Patient follows up with psychiatrist and counselor for anxiety. 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 Esvin Marie, Radha Tello, Corky Ann and colleagues, with an educational alis from [employer]. Review of Systems Const All systems reviewed & are unremarkable except as noted in HPI and below Reports no additional complaints Eyes Reports no additional complaints ENT Reports no additional complaints Card Reports no additional complaints Resp Reports no additional complaints GI Reports no additional complaints Physical exam (Primary Care) Vital Signs: Last Vital Signs Pulse 66 12/15/22 13:59 BP 110/70 12/15/22 13:59 Pulse Ox 95 12/15/22 13:59 Oxygen Delivery Method Room Air 12/15/22 13:59 BMI result Body Mass Index 30.7 Tobacco/Smoking Status: Tobacco use Status Tobacco use date assessed 10/02/22 12/15/22 14:03 Patient Tobacco Use Status Never used Tobacco 12/15/22 14:03 e-Cigarette/Vaping Use Never Used 12/15/22 14:03 Thrive Assessment: Date of Thrive Assessment Date Thrive assessed 03/21/22 12/15/22 14:03 Const General: no acute distress HENMT Head: Yes normal to inspection Face and sinus: Yes normal facial exam Eyes General: appearance normal, both eyes and all related structures Resp Effort & Inspection: normal respiratory effort Auscultation: clear to auscultation bilaterally Cardio Rhythm: regular rhythm Heart sounds: S1 normal heart sound present and S2 normal heart sound present GI Inspection: Yes normal to inspection Palpation (GI): Soft to palpation Assessment and Plan Assessment & Plan (1) PMR (polymyalgia rheumatica): Code(s): M35.3 - Polymyalgia rheumatica Plan: cont Prednisone 29 mg for 2 weeks and recheck CRP, f/u with rheumatology for futher tx. check DEXA and start Pepcid for GI prophylaxis (2) Hypothyroid: Code(s): E03.9 - Hypothyroidism, unspecified Plan: cont Levothroxine (3) Paroxysmal A-fib: Comment: on propranolol and Xarelto, f/u with cardiology Code(s): I48.0 - Paroxysmal atrial fibrillation Orders: Orders XR DEXA axial skeleton Today Z78.0 - Asymptomatic menopausal state Coding Level of Care Code Est Pt Level 4 (80147) Diagnoses PMR (polymyalgia rheumatica) M35.3 Hypothyroid E03.9 Paroxysmal A-fib I48.0
[2022-12-15 13:59] VITALS: BP 110/70; PULSE 66; O2SAT 95; BMI 30.7
== END 2022-12-15 15:15 | disposition home or self-care (01) ==
PROVIDERS: PCP Internal Medicine; Visit Provider Internal Medicine
DX: M35.3 Polymyalgia rheumatica (principal); E03.9 Hypothyroidism, unspecified; I48.0 Paroxysmal atrial fibrillation
CPT/HCPCS: 99214

== ENCOUNTER 2022-12-31 07:16 | Outpatient (REF) | payer BC, SELFPAY ==
[2022-12-31 11:49] LABS: C Reactive Protein 1.72 mg/dL (< or = 0.50)
[2022-12-31 11:58] LABS: TSH reflex Free T4 7.38 uIU/mL (0.32-4.0)
[2023-01-01 08:20] LABS: Triiodothyronine T3 Free 2.3 pg/mL (2.3-4.2)
[2023-01-01 15:35] LABS: Alanine Aminotransferase 18 U/L (0-31); Albumin Level 3.9 g/dL (3.5-5.0); Alkaline Phosphatase 84 U/L (39-117); Anion Gap 17 (12-20); Aspartate Amino Transferase 16 U/L (5-31); Bilirubin Total 0.4 mg/dL (0.0-1.0); Blood Urea Nitrogen 18 mg/dL (9-16); Calcium 9.6 mg/dL (8.4-10.2); Carbon Dioxide 23 mmol/L (22-29); Chloride 107 mmol/L (96-108); Cholesterol 211 mg/dL (<200); Estimated Glomerular Filt Rate > 60; Glucose Fasting 70 mg/dL (60-99); HDL Cholesterol 62 mg/dL (>40); LDL Cholesterol Calculated 128 mg/dL (<100); Magnesium 2.6 mg/dL (1.6-2.6); Potassium 4.4 mmol/L (3.3-5.1); Sodium 143 mmol/L (135-145); Total Protein 6.8 g/dL (6.5-8.0); Triglycerides 106 mg/dL (<150)
[2023-01-01 15:48] LABS: Vitamin D 25-OH Total 56.3 ng/mL (>30)
== END 2022-12-31 07:17 | disposition home or self-care (01) ==
LOC: HO.HMGCLDS 07:16
PROVIDERS: PCP Internal Medicine; Visit Provider Internal Medicine
DX: E03.9 Hypothyroidism, unspecified (principal); M35.3 Polymyalgia rheumatica; M25.50 Pain in unspecified joint; R06.00 Dyspnea, unspecified; R53.1 Weakness
CPT/HCPCS: 36415; 80053; 80061; 82306; 83735; 84439; 84443; 84481; 86140

== ENCOUNTER 2023-01-02 12:40 | Outpatient (AMB) | payer BC, SELFPAY ==
[2023-01-02 12:51] VITALS: BP 118/64; PULSE 65; TEMP 36.2; O2SAT 98; BMI 30.5
--- NOTE | 2023-01-02 12:51 | MHC.OFFVIS ---
Intake Vital Signs 01/02/23 12:51 Height 5 ft 2 in Weight 166 lb 14.239 oz BMI 30.5 BP 118/64 Blood Pressure Location Rt brachial Position Sitting Pulse 65 Pulse Source Pulse Oximeter Temp 97.2 F Temp Source Skin Pulse Oximetry (%) 98 Intake Visit Reasons: PMR Intake Note: New pt presents today for PMR consult. 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 Required: No Accompanied by: Self / Same As Patient Allergies sulfamethoxazole [From BACTRIM] Allergy (Unknown, Verified 01/02/23 12:53) RASH trimethoprim [From BACTRIM] Allergy (Unknown, Verified 01/02/23 12:53) RASH Medication List - Last Reconciled 01/02/23 by Kimberly Torres MD alprazolam 0.5 mg PO DAILY PRN buspirone 5 mg PO BID PRN cholecalciferol (vitamin D3) 125 mcg PO DAILY cholecalciferol (vitamin D3) 125 mcg PO DAILY flecainide 50 mg PO BID flu vacc [id number] 6mos up(PF) mL IM levothyroxine 88 mcg PO DAILY prednisone 25 mg (2.5 x 10 mg) PO DAILY prednisone 4 mg (4 x 1 mg) PO DAILY propranolol 10 mg PO BID rivaroxaban (Xarelto) 20 mg PO DAILY valacyclovir 1,000 mg PO DAILY 5 days HPI HPI Comments History of Present Illness Details This is a 57-year-old female who presents for evaluation of PMR. In late July/early August she started having bilateral shoulder stiffness, worse in the morning, takes hours to loosen up. Then it started to affect both eyes. She was evaluated by Orthopedics and had bilateral shoulder x-rays and was told they were normal. She received bilateral shoulder injections which provided dramatic relief for about 4 days then everything came back with a vengeance. Back in September patient presented to the hospital with the same symptoms of bilateral shoulder and bilateral thigh stiffness, she denies any swollen joints. In September was found to have significantly elevated CRP and was started on prednisone. She had been on multiple doses of prednisone including 40 mg and 20 mg. She was starting to have side effects especially with mood changes and weight distribution changes. She had been on 20 mg of prednisone for 2 weeks then 27 mg for 2 weeks. Only today she started taking 25 mg daily. She would like to reduce the dose. She denies any swollen joints or skin rashes. She denies any history of psoriasis. She denies any headaches, jaw, extremity or tongue claudication. Denied blurry vision. She has a history of PE and was found to have factor 5 leiden mutation. She is currently on Xarelto. Mentions that her history has history of thyroid disease and eventually had to have thyroidectomy for thyroid cancer. In December 20 patient went to the ER and was found to be in AFib with RVR. They were getting ready to cardiovert her but she spontaneously converted back to sinus rhythm. A few days later she went back to the emergency room with AFib with RVR and had successful cardioversion. 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 [facility] Medical History (Updated 01/02/23 @ 13:51 by Kimberly Torres MD) Encounter for testing for latent tuberculosis infection Screening for viral disease COVID-19 Factor 5 Leiden mutation, heterozygous Pulmonary embolism MORGAN (dyspnea on exertion) Colon cancer screening Hypothyroidism (acquired) Normal breast exam Normal pelvic exam Anxiety Surgical History History of surgery History of rectal abscess History of hysterectomy History of lipoma [place] teeth removed History of foot surgery History of breast biopsy History of section Family History Father HTN (hypertension) Mother HTN (hypertension) Sister Cancer of thyroid Cady's disease Graves disease Social History Household Members: Family Housing: House Alcohol intake: current Alcohol intake frequency: holidays/special occasions only Patient Tobacco Use Status: Never used Tobacco e-Cigarette/Vaping Use: Never Used Current occupational status: employed 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[place] Cognitive needs: No Hearing needs: No Vision needs: Yes Female Reproductive History Menstrual Total pregnancies: 1 Number of Living Children: 1 Review of Systems Const Reports fatigue Card Reports irregular heart rhythm Musc Reports arthralgias, Denies joint swelling, Reports limited range of motion and Reports stiffness Skin/Breast Denies rash Psych Reports anxiety Endo Reports fatigue Physical Exam Vital Signs: Last Vital Signs Temp 97.2 F 01/02/23 12:51 Pulse 65 01/02/23 12:51 BP 118/64 01/02/23 12:51 Pulse Ox 98 01/02/23 12:51 BMI result Body Mass Index 30.5 Const General: cooperative, healthy appearing and comfortable Nutritional Appearance: overweight Orientation/consciousness: patient oriented x3 Limitations: no limitations HEENT Head: Yes normocephalic and Yes atraumatic Mouth: moist mucous membranes Resp Effort & Inspection: normal respiratory effort and able to speak in complete sentences Auscultation: clear to auscultation bilaterally Cardio Rate: regular rate Rhythm: regular rhythm Heart sounds: S1 normal heart sound present GI Inspection: No distended Palpation (GI): Soft to palpation Skin General skin exam: no rashes or lesions noted Neuro General: patient oriented x3 Extrem Other: Mild osteoarthritic changes of both hands with no active synovitis Normal range of motion of both hands, wrists, elbows, shoulders without pain Negative rotator cuff provocative maneuvers bilaterally Negative speed's test bilaterally Proximal muscle strength 5/5 bilaterally all 4 limbs Normal nailfold capillaroscopy Assessment & Plan Assessment & Plan (1) PMR (polymyalgia rheumatica): Code(s): M35.3 - Polymyalgia rheumatica Plan: This is a 57-year-old female who presents for evaluation of PMR. Some started in July with bilateral shoulder and thighs stiffness, symptoms improving with steroid injections and prednisone. No symptoms suggestive of GCA. No peripheral arthritis symptoms. No rashes noted. Will order comprehensive serology to rule out any overlap with other autoimmune rheumatic disease. Continue prednisone 25 mg daily for 2 weeks then reduce to 20 mg daily for 3 weeks. Labs in 2 weeks. Follow-up in 5 weeks Plan I spent 47 minutes reviewing patient's chart, evaluating patient, ordering diagnostic workup, counseling patient and documenting in the chart Orders: Orders Comprehensive Met. Panel 2 Weeks M35.3 - Polymyalgia rheumatica Hepatitis A,B,C Profile 2 Weeks Z11.59 - Encounter for screening for other viral diseases Anti Extractable Nuclear Ag 2 Weeks M25.50 - Pain in unspecified joint Complement C3 2 Weeks M25.50 - Pain in unspecified joint Protein Creatinine Ratio, Ur 2 Weeks M25.50 - Pain in unspecified joint Sjogren's Antibodies 2 Weeks M25.50 - Pain in unspecified joint Complete Blood Count Auto Diff 2 Weeks M35.3 - Polymyalgia rheumatica C Reactive Protein 2 Weeks M35.3 - Polymyalgia rheumatica Erythrocyte Sedimentation Rate 2 Weeks M35.3 - Polymyalgia rheumatica Creatine Kinase Total 2 Weeks R53.1 - Weakness ANCA Vasculitides 2 Weeks M35.3 - Polymyalgia rheumatica Immunofixation Pnl, Serum 2 Weeks M35.3 - Polymyalgia rheumatica T Spot TB 2 Weeks Z11.7 - Encounter for testing for latent tuberculosis infection Cyclic Citrullinated Peptide 2 Weeks M25.50 - Pain in unspecified joint Anti DNA DS Antibody 2 Weeks M25.50 - Pain in unspecified joint Complement C4 2 Weeks M25.50 - Pain in unspecified joint DNA Double Stranded-Crithidia 2 Weeks M25.50 - Pain in unspecified joint UA w Microscopic 2 Weeks M25.50 - Pain in unspecified joint Medications: New prednisone 20 mg (4 x 5 mg) PO DAILY 120 tabs 0RF Coding Level of Care Code New Pt Level 4 (37453) Diagnoses PMR (polymyalgia rheumatica) M35.3
== END 2023-01-02 13:37 | disposition home or self-care (01) ==
PROVIDERS: PCP Internal Medicine; Visit Provider Student in an Organized Health Care Education/Training Program
DX: M35.3 Polymyalgia rheumatica (principal)
CPT/HCPCS: 99204

== ENCOUNTER → 2023-01-02 12:40 | Outpatient (BNVA) | payer BC, SELFPAY | PROVIDERS: PCP Internal Medicine; Visit Provider Student in an Organized Health Care Education/Training Program ==

== ENCOUNTER 2023-01-06 14:37 | Outpatient (REF) | payer BC, SELFPAY ==
--- NOTE | ~2023-01-06 | MM_ITS ---
EXAMINATION: BONE DENSITOMETRY CLINICAL INDICATION: Asymptomatic menopausal state. COMPARISON: This is the patient's baseline examination. TECHNIQUE: Using a Dr [employer] DXA System (software version: 13.1) manufactured by [employer], dual-energy x-ray absorptiometry was performed of the lumbar spine and left hip. The images are of good technical quality. Summary results are attached. FINDINGS: LEFT FEMUR, NECK: BMD 0.860 g/cm2, Z-score -0.5, T-score -1.3, osteopenia. LEFT FEMUR, TOTAL: BMD 0.885 g/cm2, Z-score -0.6, T-score -1.0, normal. AP SPINE L1-L4: BMD 1.241 g/cm2, Z-score 1.0, T-score 0.5, normal. IDENTIFIED RISK FACTORS: Early menopause, secondary osteoporosis, hysterectomy, left oophorectomy, glucocorticoids. HISTORY OF FRACTURE: None listed. MEDICATIONS: Vitamin D. MM/XR DEXA axial skeleton IMPRESSION: 1. DIAGNOSIS: Osteopenia based on the lowest T-score value of -1.3 in the femoral neck applying World Health Organization criteria. 2. 10-YEAR FRACTURE RISK PREDICTION, FRAX: Major osteoporotic fracture (clinical spine, forearm, hip or shoulder) 9.8%. Hip fracture 0.7%. 3. Treatment Recommendations: NOF guidelines recommend consideration for treatment in postmenopausal women and men age 50 and older presenting with the following: -A hip or vertebral (clinical or morphometric) fracture. -T-score less than or equal to -2.5 at the femoral neck or spine after appropriate evaluation to exclude secondary causes. -Low bone mass at the hip or spine and a 10-year fracture probability by FRAX of greater than or equal to 3% for hip fracture or greater than or equal to 20% for major osteoporotic fracture based on the [place] adapted WHO algorithm. 4. Other Recommendations: All treatment decisions require clinical judgment and consideration of individual patient factors, including patient preferences, comorbidities, previous drug use, risk factors not captured in the FRAX model (e.g. frailty, falls, vitamin D deficiency, increased bone turnover, interval significant decline in bone density) and possible under or overestimation of fracture risk by FRAX. Additional medical evaluation for secondary cause of low bone mineral density may be appropriate. FUTURE SCAN RECOMMENDATION: People with diagnosed cases of osteoporosis or at high risk for fracture should have regular bone mineral density tests. For patients eligible for Medicare, routine testing is allowed once every 2 years. The testing frequency can be increased to one year for patients who have rapidly progressing disease, those who are receiving or discontinuing medical therapy to restore bone mass, or have additional risk factors.
== END 2023-01-06 14:38 | disposition home or self-care (01) ==
LOC: HO.MAMMO 14:37
PROVIDERS: PCP Internal Medicine; Visit Provider Internal Medicine
DX: Z13.820 Encounter for screening for osteoporosis (principal); Z78.0 Asymptomatic menopausal state
CPT/HCPCS: 77080

== ENCOUNTER 2023-01-16 14:38 | Outpatient (REF) | payer BC, SELFPAY ==
[2023-01-16 16:06] LABS: MANUAL DIFF FLAG NO
[2023-01-16 16:15] LABS: Basophils Percent Auto 0.2 % (0-2); Eosinophils Percent Auto 0.1 % (0-4); Hematocrit 43.4 % (37.0-47.0); Hemoglobin 13.6 g/dl (12.0-16.0); Imm Gran Abs Auto 0.11 X10*3/uL (0.00-0.03); Lymphocytes Absolute Auto 1.4 X10*3/uL (1.2-4.9); Lymphocytes Percent Auto 13.2 % (20-40); Mean Corpuscular HGB Conc 31.3 g/dl (31.0-35.0); Mean Corpuscular Hemoglobin 29.2 pg (27.0-33.0); Mean Corpuscular Volume 93.1 fL (80.0-98.0); Mean Platelet Volume 10.6 fL (9.4-12.3); Monocytes Absolute Auto 0.5 X10*3/uL (0.1-1.2); Monocytes Percent Auto 4.3 % (2-11); Neutrophils Absolute Auto 8.8 x10*3/uL (2.0-8.3); Neutrophils Percent Auto 81.2 % (45-73); Platelet Count 308 X10*3/uL (160-400); Red Blood Count 4.66 X10*6/uL (4.20-5.50); Red Cell Distribution Width 15.2 % (11.0-16.0); White Blood Count 10.8 X10*3/uL (4.8-10.8)
[2023-01-16 16:27] LABS: Appearance Urine Clear; Color Urine Yellow; Glucose Urine UA Negative (Negative); Leukocyte Esterase Urine Negative (Negative); Nitrite Urine Negative (Negative); Specific Gravity - Urine 1.015 (1.005-1.025); Urine Blood Negative (Negative); Urine Ketones Negative (Negative); Urine Protein Negative (Neg-Trace)
[2023-01-16 16:35] LABS: Bacteria Urine None Seen (None Seen); Hyaline Casts Urine 0-2 /LPF (0-2); RBC Urine 0-2 /HPF (0-2); Squamous Epithelial Cell Urine 0-2 /HPF (0-2); WBC Urine 0-5 /HPF (0-5)
[2023-01-16 16:41] LABS: Alanine Aminotransferase 16 U/L (0-31); Albumin Level 4.4 g/dL (3.5-5.0); Alkaline Phosphatase 90 U/L (39-117); Anion Gap 12 (12-20); Aspartate Amino Transferase 12 U/L (5-31); Bilirubin Total 0.3 mg/dL (0.0-1.0); Blood Urea Nitrogen 19 mg/dL (9-16); C Reactive Protein 1.79 mg/dL (< or = 0.50); Calcium 9.9 mg/dL (8.4-10.2); Carbon Dioxide 28 mmol/L (22-29); Chloride 104 mmol/L (96-108); Estimated Glomerular Filt Rate > 60; Glucose Random 95 mg/dL (60-115); Potassium 4.2 mmol/L (3.3-5.1); Sodium 140 mmol/L (135-145); Total Protein 7.1 g/dL (6.5-8.0)
[2023-01-16 17:08] LABS: Erythrocyte Sedimentation Rate 11 MM/HR (0-20)
[2023-01-16 17:19] LABS: Creatinine Urine 57.52 mg/dL; Total Protein Urine Random < 7 mg/dL (<12)
[2023-01-19 05:43] LABS: HBS Num1 52.23 mIU/mL (0-7.99); HBc Num1 0.05 S/CO (0.00-0.79); HBsAGNum1 0.43 S/CO (0.00-0.99); Hepatitis B Core Antibody Nonreactive (Nonreactive); Hepatitis B Surface Antigen Negative (Negative); ~HepC Num1 0.03 S/CO (0.00-0.79); ~Hepatitis A Antibody IgM Nonreactive (Nonreactive); ~Hepatitis B Surface Antibody REACTIVE (Nonreactive); ~Hepatitis C Antibody Nonreactive (Nonreactive)
[2023-01-19 11:48] LABS: Complement C3 147 mg/dL (83-193)
[2023-01-19 12:33] LABS: Cyclic Citrullinated Peptide <16 UNITS
[2023-01-20 12:38] LABS: IgA 164 mg/dL (47-310); IgG 637 mg/dL (600-1640); IgM 66 mg/dL (50-300)
[2023-01-20 13:14] LABS: Anti DNA DS Antibody <1 IU/mL; Antibody to SS-A Antigen <1.0 NEG AI (<1.0 NEG); Antibody to SS-B Antigen <1.0 NEG AI (<1.0 NEG); Myeloperoxidase Antibody <1.0 AI; Proteinase 3 PR3 Antibodies <1.0 AI; SM/Ribonucleoprotein Ab <1.0 NEG AI (<1.0 NEG); Smith Protein <1.0 NEG AI (<1.0 NEG)
[2023-01-21 14:43] LABS: DNAds, Crithidia Antibody Negative (Negative)
== END 2023-01-16 14:39 | disposition home or self-care (01) ==
LOC: HO.HMGCLDS 14:38
PROVIDERS: PCP Internal Medicine; Visit Provider Student in an Organized Health Care Education/Training Program
DX: Z11.59 Encounter for screening for other viral diseases (principal); M35.3 Polymyalgia rheumatica; R53.1 Weakness; M25.50 Pain in unspecified joint; Z72.89 Other problems related to lifestyle
CPT/HCPCS: 36415; 80053; 81001; 82550; 82570; 82784; 84156; 85025; 85652; 86021; 86140; 86160; 86200; 86225; 86235; 86255; 86334; 86704; 86706; 86709; 86803; 87340

== ENCOUNTER 2023-02-09 10:47 | Outpatient (REF) | payer BC, SELFPAY ==
[2023-02-11 17:19] LABS: TS Negative Control Passed; TS Panel A 0; TS Panel B 0; TS Positive Control Passed; TSpotTB Negative (Negative)
== END 2023-02-09 10:48 | disposition home or self-care (01) ==
LOC: HO.HMGCLDS 10:47
PROVIDERS: PCP Internal Medicine; Visit Provider Student in an Organized Health Care Education/Training Program
DX: Z11.7 Encounter for testing for latent tuberculosis infection (principal)
CPT/HCPCS: 36415; 86481

== ENCOUNTER 2023-02-13 15:27 | Outpatient (AMB) | payer BC, SELFPAY ==
--- NOTE | 2023-02-13 15:29 | MHC.OFFVIS ---
Intake Vital Signs 02/13/23 15:32 Height 5 ft 2 in Weight 171 lb 15.369 oz BMI 31.4 BP 116/64 Blood Pressure Location Rt brachial Position Sitting Temp 97.5 F Temp Source Skin Intake Visit Reasons: PMR Intake Note: Pt last seen 01/02/23, presents today for follow up and test results. States she feels better but states she does not like the weight gain and the fact that prednisone is messing with her mood. 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 Accompanied by: Self / Same As Patient Allergies sulfamethoxazole [From BACTRIM] Allergy (Unknown, Verified 02/13/23 15:42) RASH trimethoprim [From BACTRIM] Allergy (Unknown, Verified 02/13/23 15:42) RASH Medication List - Last Reconciled 02/13/23 by Kimberly Torres MD alprazolam 0.5 mg PO DAILY PRN buspirone 5 mg PO BID cholecalciferol (vitamin D3) 125 mcg PO DAILY flecainide 100 mg PO BID flu vacc [id number] 6mos up(PF) mL IM levothyroxine 88 mcg PO DAILY prednisone 20 mg (4 x 5 mg) PO DAILY propranolol 10 mg PO BID rivaroxaban (Xarelto) 20 mg PO DAILY valacyclovir 1,000 mg PO DAILY 5 days HPI HPI Comments History of Present Illness Details 57-year-old female with PMR returns for follow-up. She is on 20 mg daily for the last 3-4 weeks. States that the stiffness and pain of her shoulders has not recurred. She has minimal right thigh stiffness, slightly worse in the morning. She feels that she wants to unlock her right hip all the time. She denies any significant joint pain or stiffness. Per patient in 2016 she had bilateral breast reduction surgery, in the operative specimen, LCIS was found. She was evaluated by an oncologist and she had 3 options either do bilateral mastectomy, take tamoxifen for 5 years or just to active surveillance. In 2018 she was found to have a lesion in 1 of her breasts, she does not remember which side, she had a biopsy and it turned out to be benign. This year however, breast MRI showed a 4 mm nodule on the right breast, this could not be confirmed by ultrasound . Patient states that she might be going for a breast biopsy sometime soon. Initial history: This is a 57-year-old female who presents for evaluation of PMR. In late July/early August she started having bilateral shoulder stiffness, worse in the morning, takes hours to loosen up. Then it started to affect both eyes. She was evaluated by Orthopedics and had bilateral shoulder x-rays and was told they were normal. She received bilateral shoulder injections which provided dramatic relief for about 4 days then everything came back with a vengeance. Back in September patient presented to the hospital with the same symptoms of bilateral shoulder and bilateral thigh stiffness, she denies any swollen joints. In September was found to have significantly elevated CRP and was started on prednisone. She had been on multiple doses of prednisone including 40 mg and 20 mg. She was starting to have side effects especially with mood changes and weight distribution changes. She had been on 20 mg of prednisone for 2 weeks then 27 mg for 2 weeks. Only today she started taking 25 mg daily. She would like to reduce the dose. She denies any swollen joints or skin rashes. She denies any history of psoriasis. She denies any headaches, jaw, extremity or tongue claudication. Denied blurry vision. She has a history of PE and was found to have factor 5 leiden mutation. She is currently on Xarelto. Mentions that her history has history of thyroid disease and eventually had to have thyroidectomy for thyroid cancer. In December 20 patient went to the ER and was found to be in AFib with RVR. They were getting ready to cardiovert her but she spontaneously converted back to sinus rhythm. A few days later she went back to the emergency room with AFib with RVR and had successful cardioversion. Currently she follows up with a forging machine hand and is wearing a monitor. [facility] Medical History (Updated 02/13/23 @ 16:07 by Kimberly Torres MD) Lobular carcinoma in situ (LCIS) of left breast COVID-19 Factor 5 Leiden mutation, heterozygous Pulmonary embolism MORGAN (dyspnea on exertion) Colon cancer screening Hypothyroidism (acquired) Normal breast exam Normal pelvic exam Anxiety Surgical History History of surgery History of rectal abscess History of hysterectomy History of lipoma [place] teeth removed History of foot surgery History of breast biopsy History of section Family History Father HTN (hypertension) Mother HTN (hypertension) Sister Cancer of thyroid Cady's disease Graves disease Social History Household Members: Family Housing: House Alcohol intake: current Alcohol intake frequency: holidays/special occasions only Patient Tobacco Use Status: Never used Tobacco e-Cigarette/Vaping Use: Never Used Current occupational status: employed 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[place] Cognitive needs: No Hearing needs: No Vision needs: Yes Review of Systems Musc Denies joint swelling and Reports stiffness Skin/Breast Denies rash Psych Reports anxiety Physical Exam Vital Signs: Last Vital Signs Temp 97.5 F 02/13/23 15:32 BP 116/64 02/13/23 15:32 BMI result Body Mass Index 31.4 Const General: cooperative, healthy appearing and comfortable Nutritional Appearance: overweight Orientation/consciousness: patient oriented x3 Limitations: no limitations HEENT Head: Yes normocephalic and Yes atraumatic Mouth: moist mucous membranes Resp Effort & Inspection: normal respiratory effort and able to speak in complete sentences Auscultation: clear to auscultation bilaterally Cardio Rate: regular rate Rhythm: regular rhythm Heart sounds: S1 normal heart sound present GI Inspection: No distended Palpation (GI): Soft to palpation Skin General skin exam: no rashes or lesions noted Neuro General: patient oriented x3 Extrem Other: Mild osteoarthritic changes of both hands with no active synovitis Normal range of motion of both hands, wrists, elbows, shoulders without pain Negative rotator cuff provocative maneuvers bilaterally Negative speed's test bilaterally Proximal muscle strength 5/5 bilaterally all 4 limbs Normal range of motion of both hips without pain Normal nailfold capillaroscopy Assessment & Plan Assessment & Plan (1) PMR (polymyalgia rheumatica): Code(s): M35.3 - Polymyalgia rheumatica Plan: This is a 57-year-old female who presents for evaluation of PMR. Symptoms started in July with bilateral shoulder and thighs stiffness, symptoms improving with steroid injections and prednisone. No symptoms suggestive of GCA. No peripheral arthritis symptoms. No rashes noted. Comprehensive serology is unrevealing. Patient mentions that she was found to have LCIS left breast incidentally after breast reduction surgery in 2016, since then she has been doing active surveillance. Most recently breast MRI showed a right breast mass. Patient states that she will be going for a biopsy soon. Request records from patient's oncologist Today patient is on prednisone 20 mg daily for the last 3-4 weeks. I do not see any signs of inflammatory arthritis on exam. Will reduce prednisone to 15 mg daily for 1 month then 10 mg daily for 1 month. Labs before next visit in 2 weeks Plan I spent 27 minutes reviewing patient's chart, evaluating patient, ordering diagnostic workup, counseling patient and documenting in the chart Orders: Orders Comprehensive Met. Panel 2 Months M35.3 - Polymyalgia rheumatica Complete Blood Count Auto Diff 2 Months M35.3 - Polymyalgia rheumatica C Reactive Protein 2 Months M35.3 - Polymyalgia rheumatica Erythrocyte Sedimentation Rate 2 Months M35.3 - Polymyalgia rheumatica Coding Level of Care Code Est Pt Level 4 (93096) Diagnoses PMR (polymyalgia rheumatica) M35.3
[2023-02-13 15:32] VITALS: BP 116/64; TEMP 36.4; BMI 31.4
== END 2023-02-13 16:00 | disposition home or self-care (01) ==
PROVIDERS: PCP Internal Medicine; Visit Provider Student in an Organized Health Care Education/Training Program
DX: M35.3 Polymyalgia rheumatica (principal)
CPT/HCPCS: 99214

== ENCOUNTER → 2023-02-13 15:27 | Outpatient (BNVA) | payer BC, SELFPAY | PROVIDERS: PCP Internal Medicine; Visit Provider Student in an Organized Health Care Education/Training Program ==

== ENCOUNTER 2023-03-24 15:07 | Outpatient (REF) | payer BC, SELFPAY ==
[2023-03-24 17:11] LABS: MANUAL DIFF FLAG NO
[2023-03-24 17:30] LABS: Basophils Absolute Auto 0.1 X10*3/uL (0.0-0.2); Basophils Percent Auto 0.6 % (0-2); Eosinophils Absolute Auto 0.1 X10*3/uL (0.0-0.4); Eosinophils Percent Auto 0.9 % (0-4); Hematocrit 45.2 % (37.0-47.0); Hemoglobin 14.6 g/dl (12.0-16.0); Imm Gran Abs Auto 0.06 X10*3/uL (0.00-0.03); Imm Gran Pct Auto 0.5 % (0.0-0.4); Lymphocytes Absolute Auto 2.8 X10*3/uL (1.2-4.9); Lymphocytes Percent Auto 23.9 % (20-40); Mean Corpuscular HGB Conc 32.3 g/dl (31.0-35.0); Mean Corpuscular Hemoglobin 29.4 pg (27.0-33.0); Mean Corpuscular Volume 91.1 fL (80.0-98.0); Mean Platelet Volume 10.7 fL (9.4-12.3); Monocytes Absolute Auto 0.7 X10*3/uL (0.1-1.2); Monocytes Percent Auto 6.1 % (2-11); Neutrophils Absolute Auto 7.9 x10*3/uL (2.0-8.3); Platelet Count 296 X10*3/uL (160-400); Red Blood Count 4.96 X10*6/uL (4.20-5.50); Red Cell Distribution Width 13.2 % (11.0-16.0); White Blood Count 11.6 X10*3/uL (4.8-10.8)
[2023-03-24 17:45] LABS: Alanine Aminotransferase 16 U/L (0-31); Albumin Level 4.3 g/dL (3.5-5.0); Alkaline Phosphatase 83 U/L (39-117); Anion Gap 15 (12-20); Aspartate Amino Transferase 16 U/L (5-31); Bilirubin Total 0.3 mg/dL (0.0-1.0); Blood Urea Nitrogen 17 mg/dL (9-16); C Reactive Protein 2.94 mg/dL (< or = 0.50); Carbon Dioxide 26 mmol/L (22-29); Chloride 104 mmol/L (96-108); Estimated Glomerular Filt Rate 59; Glucose Random 97 mg/dL (60-115); Potassium 4.1 mmol/L (3.3-5.1); Sodium 141 mmol/L (135-145); Total Protein 7.4 g/dL (6.5-8.0)
[2023-03-24 18:18] LABS: Erythrocyte Sedimentation Rate 11 MM/HR (0-20)
== END 2023-03-24 15:08 | disposition home or self-care (01) ==
LOC: HO.HMGCLDS 15:07
PROVIDERS: PCP Internal Medicine; Visit Provider Student in an Organized Health Care Education/Training Program
DX: M35.3 Polymyalgia rheumatica (principal)
CPT/HCPCS: 36415; 80053; 85025; 85652; 86140

== ENCOUNTER 2023-03-30 13:19 | Outpatient (AMB) | payer BC, SELFPAY ==
--- NOTE | 2023-03-30 13:21 | MHC.OFFVIS ---
Intake Vital Signs 03/30/23 13:22 Height 5 ft 2 in Weight 169 lb 12.095 oz BMI 31.0 BP 110/70 Blood Pressure Location Rt brachial Position Sitting Pulse 84 Pulse Source Pulse Oximeter Temp 97 F Temp Source Skin Pulse Oximetry (%) 96 Oxygen Delivery Method Room Air Intake Visit Reasons: PMR Intake Note: Pt last seen 02/13/23 presents today due to flare up. Currently on Prednisone 10 mg QD. Nail Technician Required: No Accompanied by: Self / Same As Patient Allergies sulfamethoxazole [From BACTRIM] Allergy (Unknown, Verified 03/30/23 13:25) RASH trimethoprim [From BACTRIM] Allergy (Unknown, Verified 03/30/23 13:25) RASH Medication List - Last Reconciled 03/30/23 by Kimberly Torres MD alprazolam 0.5 mg PO DAILY PRN buspirone 5 mg PO BID cholecalciferol (vitamin D3) 125 mcg PO DAILY flecainide 100 mg PO BID flu vacc [id number] 6mos up(PF) mL IM levothyroxine 88 mcg PO DAILY prednisone 20 mg (4 x 5 mg) PO DAILY propranolol 10 mg PO BID rivaroxaban (Xarelto) 20 mg PO DAILY valacyclovir 1,000 mg PO DAILY 5 days HPI HPI Comments History of Present Illness Details 57-year-old female with PMR returns for follow-up. Patient states that since she lowered prednisone to 15 mg daily she has been having significant aching and weakness of her shoulders, both lower extremities, worse on the right. He is having morning stiffness lasting 8 hours or so. Recently she has been having right ankle swelling, pain and stiffness. Denies any rashes. She states that she had a breast biopsy and it was benign. Initial history: This is a 57-year-old female who presents for evaluation of PMR. In late July/early August she started having bilateral shoulder stiffness, worse in the morning, takes hours to loosen up. Then it started to affect both eyes. She was evaluated by Orthopedics and had bilateral shoulder x-rays and was told they were normal. She received bilateral shoulder injections which provided dramatic relief for about 4 days then everything came back with a vengeance. Back in September patient presented to the hospital with the same symptoms of bilateral shoulder and bilateral thigh stiffness, she denies any swollen joints. In September was found to have significantly elevated CRP and was started on prednisone. She had been on multiple doses of prednisone including 40 mg and 20 mg. She was starting to have side effects especially with mood changes and weight distribution changes. She had been on 20 mg of prednisone for 2 weeks then 27 mg for 2 weeks. Only today she started taking 25 mg daily. She would like to reduce the dose. She denies any swollen joints or skin rashes. She denies any history of psoriasis. She denies any headaches, jaw, extremity or tongue claudication. Denied blurry vision. She has a history of PE and was found to have factor 5 leiden mutation. She is currently on Xarelto. Mentions that her history has history of thyroid disease and eventually had to have thyroidectomy for thyroid cancer. In December 20 patient went to the ER and was found to be in AFib with RVR. They were getting ready to cardiovert her but she spontaneously converted back to sinus rhythm. A few days later she went back to the emergency room with AFib with RVR and had successful cardioversion. Currently she follows up with a scientific photographer and is wearing a monitor. [facility] Medical History Lobular carcinoma in situ (LCIS) of left breast COVID-19 Factor 5 Leiden mutation, heterozygous Pulmonary embolism MORGAN (dyspnea on exertion) Colon cancer screening Hypothyroidism (acquired) Normal breast exam Normal pelvic exam Anxiety Surgical History History of surgery History of rectal abscess History of hysterectomy History of lipoma [place] teeth removed History of foot surgery History of breast biopsy History of section Family History Father HTN (hypertension) Mother HTN (hypertension) Sister Cancer of thyroid Cady's disease Graves disease Social History Household Members: Family Housing: House Alcohol intake: current Alcohol intake frequency: a few times a week Patient Tobacco Use Status: Never used Tobacco e-Cigarette/Vaping Use: Never Used Current occupational status: employed 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[place] Cognitive needs: No Hearing needs: No Vision needs: Yes Review of Systems Const Reports weakness Musc Reports arthralgias, Reports joint swelling, Reports limited range of motion and Reports stiffness Neuro Reports weakness Physical Exam Vital Signs: Last Vital Signs Temp 97 F 03/30/23 13:22 Pulse 84 03/30/23 13:22 BP 110/70 03/30/23 13:22 Pulse Ox 96 03/30/23 13:22 Oxygen Delivery Method Room Air 03/30/23 13:22 BMI result Body Mass Index 31.0 Const General: cooperative, healthy appearing and comfortable Nutritional Appearance: overweight Orientation/consciousness: patient oriented x3 Limitations: no limitations HEENT Head: Yes normocephalic and Yes atraumatic Mouth: moist mucous membranes Resp Effort & Inspection: normal respiratory effort and able to speak in complete sentences Auscultation: clear to auscultation bilaterally Cardio Rate: regular rate Rhythm: regular rhythm Heart sounds: S1 normal heart sound present GI Inspection: No distended Palpation (GI): Soft to palpation Skin General skin exam: no rashes or lesions noted Neuro General: patient oriented x3 Extrem Other: Mild osteoarthritic changes of both hands with no active synovitis Pain with active and passive range of motion of both shoulders but able to fully abduct her shoulders Bilateral anterior deltoid tenderness Positive Speed's test bilaterally Negative rotator cuff productive maneuvers bilaterally Right knee pain with full flexion Right ankle swelling and warmth Negative MTP tenderness Normal range of motion of both hands, wrists, elbows without pain Proximal muscle strength 5/5 bilaterally all 4 limbs Normal range of motion of both hips without pain Normal nailfold capillaroscopy Assessment & Plan Assessment & Plan (1) PMR (polymyalgia rheumatica): Comment: onset 07/2022 ESR nl elevated CRP improved with prednisone Code(s): M35.3 - Polymyalgia rheumatica Plan: This is a 57-year-old female who presents for PMR follow-up. Patient is having recurrent bilateral shoulder and hip pain and stiffness and she is also developed peripheral synovitis including right knee and right ankle. This happened when prednisone was tapered down from 20 mg to 15 mg, symptoms worse on 10 mg. CRP significantly elevated. ESR normal. Her serologies are negative Her clinical picture at this point is rather consistent with a seronegative arthritis such as seronegative RA or a seronegative spondyloarthropathy such as psoriatic arthritis Will need to start DMARDs. Discussed risks and benefits of methotrexate. Patient is agreeable but will have to discuss with her oncologist Dr. Rodriguez given her history of LCIS. Increase prednisone to 20 mg daily for 2 weeks then 17.5 mg daily for 2 weeks then remain on 15 mg daily Check baseline x-rays of involved joints. Labs before next visit in 2 months Plan I spent 27 minutes reviewing patient's chart, evaluating patient, ordering diagnostic workup, counseling patient and documenting in the chart Orders: Orders XR ankle LT min 3V Today M13.80 - Other specified arthritis, unspecified site XR ankle RT min 3V Today M13.80 - Other specified arthritis, unspecified site Complete Blood Count Auto Diff 2 Months M13.80 - Other specified arthritis, unspecified site C Reactive Protein 2 Months M13.80 - Other specified arthritis, unspecified site XR hand wrist LT Today M13.80 - Other specified arthritis, unspecified site XR hand wrist RT Today M13.80 - Other specified arthritis, unspecified site XR foot LT min 3V Today M13.80 - Other specified arthritis, unspecified site XR foot RT min 3V Today M13.80 - Other specified arthritis, unspecified site Comprehensive Met. Panel 2 Months M13.80 - Other specified arthritis, unspecified site Erythrocyte Sedimentation Rate 2 Months M13.80 - Other specified arthritis, unspecified site Medications: New prednisone Take 4 tabs by mouth daily for 2 weeks then 3.5 tabs daily for 2 weeks then remain on 3 tabs daily 189 tabs 0RF Coding Level of Care Code Est Pt Level 4 (59364) Diagnoses PMR (polymyalgia rheumatica) M35.3
[2023-03-30 13:22] VITALS: BP 110/70; PULSE 84; TEMP 36.1; O2SAT 96; BMI 31.0
== END 2023-03-30 14:17 | disposition home or self-care (01) ==
PROVIDERS: PCP Internal Medicine; Visit Provider Student in an Organized Health Care Education/Training Program
DX: M35.3 Polymyalgia rheumatica (principal)
CPT/HCPCS: 99214

== ENCOUNTER → 2023-03-30 13:19 | Outpatient (BNVA) | payer BC, SELFPAY | PROVIDERS: PCP Internal Medicine; Visit Provider Student in an Organized Health Care Education/Training Program ==

== ENCOUNTER 2023-04-03 12:35 | Outpatient (REF) | payer BC, SELFPAY ==
--- NOTE | ~2023-04-03 | XR_ITS ---
EXAMINATION: XR WRIST, HAND, FOOT, ANKLE, RIGHT XR WRIST, HAND, FOOT, ANKLE, LEFT CLINICAL INFORMATION: Other specified arthritis. COMPARISON: None available. TECHNIQUE: 5 views each of the bilateral hands and feet. 3 views each of the bilateral hands. FINDINGS: LEFT ANKLE/FOOT: Minimal calcification at the dorsal aspect of the calcaneus at the site of the Achilles tendon insertion. There is wavy cortical/periosteal thickening and irregularity with step off along the lateral aspect of the distal diaphysis of the tibia of uncertain etiology, possibly due to prior trauma or other process. Mild degenerative changes with hypertrophic change in the 1st metatarsophalangeal joint. Alignment preserved. Amorphous soft tissue calcifications/ossicles along the medial aspects of the 2nd and 5th metatarsal heads. RIGHT ANKLE/FOOT: Prominent spur along the lateral aspect of the talus. Mild degenerative changes 1st metatarsophalangeal joint with mild hypertrophic change. Alignment preserved. Ossicle along the base of the 5th metatarsal of indeterminate age and etiology, possibly related to prior trauma. Amorphous soft tissue calcifications/ossicles along the medial aspects of the 2nd and 5th metatarsal heads. LEFT HAND: Moderate degenerative changes in the 1st carpometacarpal joint with joint space narrowing and hypertrophic change. Ossicle along the radial aspect of the left wrist of indeterminate age, possibly related to prior trauma or chronic process. Punctate calcification in the soft tissue at the volar aspect of the wrist. Correlation with clinical exam recommended to determine further management. RIGHT HAND: Advanced degenerative changes in the 1st carpometacarpal joint with joint space narrowing and hypertrophic change. Corticated ossicle distal to the right ulnar styloid may represent prior avulsion fracture. XR/XR ankle LT min 3V IMPRESSION: 1. Advanced degenerative changes in bilateral 1st metatarsophalangeal joints. 2. Amorphous soft tissue calcifications/ossicles along the medial aspects of the 2nd and 5th metatarsal heads bilaterally. 3. Ossicle along the radial aspect of the left wrist of indeterminate age, possibly related to prior trauma or chronic process. 4. Corticated ossicle distal to the right ulnar styloid may represent prior avulsion fracture. 5. Correlation with clinical exam recommended to determine further management including possible additional imaging with follow up films in 10-14 days or MRI.
== END 2023-04-03 12:36 | disposition home or self-care (01) ==
LOC: HO.HMGCX 12:35
PROVIDERS: PCP Internal Medicine; Visit Provider Student in an Organized Health Care Education/Training Program
DX: M13.80 Other specified arthritis, unspecified site (principal)
CPT/HCPCS: 73110; 73130; 73610; 73630

== ENCOUNTER 2023-05-07 13:52 | Outpatient (AMB) | payer BC, SELFPAY ==
[2023-05-07 13:52] VITALS: BP 120/78; PULSE 94; TEMP 36.4; O2SAT 97; BMI 30.5
--- NOTE | 2023-05-07 13:52 | AM.OFFWIN_ITS ---
Intake Vital Signs 05/07/23 13:52 Height 5 ft 2 in Weight 167 lb BMI 30.5 BP 120/78 Blood Pressure Location Lt brachial Position Sitting Pulse 94 Pulse Source Pulse Oximeter Temp 97.6 F Temp Source Temporal Artery Scan Pulse Oximetry (%) 97 Oxygen Delivery Method Room Air Intake Visit Reasons: EP sore throat ear pain cough Intake Note: pt is here today sore throat ear pain cough started 1 week ago Patient Tobacco Use Status: Never used Tobacco Allergies sulfamethoxazole [From BACTRIM] Allergy (Unknown, Verified 05/07/23 13:52) RASH trimethoprim [From BACTRIM] Allergy (Unknown, Verified 05/07/23 13:52) RASH nsaid Allergy (Unknown, Uncoded 05/07/23 14:03) Unknown Do you need a note to return to daycare/school/sports/work: No HPI EP sore throat ear pain cough HPI Details This is a 57-year-old female patient who presents today with a 10 day history of sore throat, ear pain, and cough. Also having some sinus pressure. Reports cough is usually dry, however occasionally is able to bring up some yellow sputum. This is worse at nighttime. On Xarelto for history of DVT and AFib. 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 She denies any shortness of breath. Denies any fever or chills. Denies GI symptoms. [facility] Medical History Lobular carcinoma in situ (LCIS) of left breast COVID-19 Factor 5 Leiden mutation, heterozygous Pulmonary embolism MORGAN (dyspnea on exertion) Colon cancer screening Hypothyroidism (acquired) Normal breast exam Normal pelvic exam Anxiety Surgical History History of surgery History of rectal abscess History of hysterectomy History of lipoma [employer] teeth removed History of foot surgery History of breast biopsy History of section Family History Father HTN (hypertension) Mother HTN (hypertension) Sister Cancer of thyroid Cady's disease Graves disease Social History Household Members: Family Housing: House Alcohol intake: current Alcohol intake frequency: a few times a week Patient Tobacco Use Status: Never used Tobacco e-Cigarette/Vaping Use: Never Used Current occupational status: employed 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[place] Cognitive needs: No Hearing needs: No Vision needs: Yes Review of Systems Const All systems reviewed & are unremarkable except as noted in HPI and below Physical Exam Const General: cooperative and no acute distress Nutritional Appearance: average body habitus HEENT Head: Yes normal to inspection Ears: hearing grossly normal bilaterally, external ears normal and TM's normal bilaterally General nose exam: Normal external nose present and Normal nasal mucous membranes and turbinates present Face and sinus: Yes normal facial exam and Yes sinus tenderness (maxillary) Mouth: Normal oral and palatal mucosa present Throat: Yes posterior oropharynx abnormal (mild erythema) Neck Neck: Yes no lymphadenopathy Resp Effort & Inspection: normal respiratory effort Auscultation: clear to auscultation bilaterally Cardio Palpation: normal PMI Rate: regular rate Rhythm: regular rhythm Skin General skin exam: no rashes or lesions noted Extrem General: Yes capillary refill normal and Yes no clubbing, cyanosis or edema Psych Appearance: grossly normal Mental Status: mental status grossly normal Speech and movement: Normal speech and movement present Results AMB Rapid Strep AMB Rapid Strep Negative Last Edit by Santo Moody CMA on 05/07/23 14 :13 Assessment & Plan Assessment & Plan (1) Upper respiratory infection: Code(s): J06.9 - Acute upper respiratory infection, unspecified Qualifiers: URI type: unspecified URI Qualified Code(s): J06.9 - Acute upper respiratory infection, unspecified Plan: Patient has done well previously on azithromycin. Will send over Z-pack. We reviewed indications, use, possible risks/side effects of this. Also encouraged her to continue with adequate hydration, rest, vitamin and healthy food intake. Can use [id number] Tylenol as needed. If she does not improve with time and these measures, she can return to the clinic for further evaluation. She verbalizes understanding and agrees to plan. Orders: Orders AMB Rapid Strep Screen Today Z13.9 - Encounter for screening, unspecified Medications: New azithromycin For 250 mg dose pack: take 500 mg today (day 1), then 250 mg for 4 days (days 2-5) PO 6 tabs 0RF J06.9 - Acute upper respiratory infection, unspecified Coding Level of Care Code Est Pt Level 3 (02121) Diagnoses Upper respiratory tract infection, unspecified type J06.9 URI type: unspecified URI
== END 2023-05-07 14:51 | disposition home or self-care (01) ==
PROVIDERS: PCP Internal Medicine; Visit Provider Nurse Practitioner Family
DX: J06.9 Acute upper respiratory infection, unspecified (principal); J02.9 Acute pharyngitis, unspecified
CPT/HCPCS: 87880; 99213

== ENCOUNTER 2023-05-25 06:45 | Outpatient (REF) | payer BC, SELFPAY ==
[2023-05-25 11:21] LABS: MANUAL DIFF FLAG NO
[2023-05-25 11:48] LABS: Basophils Absolute Auto 0.1 X10*3/uL (0.0-0.2); Basophils Percent Auto 0.5 % (0-2); Eosinophils Absolute Auto 0.2 X10*3/uL (0.0-0.4); Eosinophils Percent Auto 2.2 % (0-4); Hematocrit 41.9 % (37.0-47.0); Hemoglobin 13.5 g/dl (12.0-16.0); Imm Gran Abs Auto 0.04 X10*3/uL (0.00-0.03); Imm Gran Pct Auto 0.4 % (0.0-0.4); Lymphocytes Absolute Auto 4.3 X10*3/uL (1.2-4.9); Lymphocytes Percent Auto 41.3 % (20-40); Mean Corpuscular HGB Conc 32.2 g/dl (31.0-35.0); Mean Corpuscular Hemoglobin 29.8 pg (27.0-33.0); Mean Corpuscular Volume 92.5 fL (80.0-98.0); Mean Platelet Volume 10.6 fL (9.4-12.3); Monocytes Absolute Auto 0.6 X10*3/uL (0.1-1.2); Monocytes Percent Auto 5.7 % (2-11); Neutrophils Absolute Auto 5.2 x10*3/uL (2.0-8.3); Neutrophils Percent Auto 49.9 % (45-73); Platelet Count 291 X10*3/uL (160-400); Red Blood Count 4.53 X10*6/uL (4.20-5.50); Red Cell Distribution Width 15.3 % (11.0-16.0); White Blood Count 10.4 X10*3/uL (4.8-10.8)
[2023-05-25 12:19] LABS: Alanine Aminotransferase 17 U/L (0-31); Albumin Level 3.9 g/dL (3.5-5.0); Alkaline Phosphatase 69 U/L (39-117); Anion Gap 13 (12-20); Aspartate Amino Transferase 15 U/L (5-31); Bilirubin Total 0.3 mg/dL (0.0-1.0); Blood Urea Nitrogen 19 mg/dL (9-16); Calcium 9.3 mg/dL (8.4-10.2); Carbon Dioxide 26 mmol/L (22-29); Chloride 111 mmol/L (96-108); Estimated Glomerular Filt Rate 54; Glucose Random 75 mg/dL (60-115); Potassium 3.8 mmol/L (3.3-5.1); Sodium 146 mmol/L (135-145); Total Protein 6.5 g/dL (6.5-8.0)
[2023-05-25 12:44] LABS: Erythrocyte Sedimentation Rate 12 MM/HR (0-20)
== END 2023-05-25 06:46 | disposition home or self-care (01) ==
LOC: HO.HMGCLDS 06:45
PROVIDERS: PCP Internal Medicine; Visit Provider Student in an Organized Health Care Education/Training Program
DX: M13.80 Other specified arthritis, unspecified site (principal)
CPT/HCPCS: 36415; 80053; 85025; 85652; 86140

== ENCOUNTER 2023-06-02 15:22 | Outpatient (AMB) | payer BC, SELFPAY ==
--- NOTE | 2023-06-02 15:31 | MHC.OFFVIS ---
Intake Vital Signs 06/02/23 15:32 Height 5 ft 2 in Weight 166 lb 0.129 oz BMI 30.4 BP 118/62 Blood Pressure Location Rt brachial Position Sitting Pulse 90 Pulse Source Pulse Oximeter Pulse Oximetry (%) 98 Oxygen Delivery Method Room Air Intake Visit Reasons: RA Intake Note: Patient last seen 03/30/23 presents today for follow up and test results. Public Works Director Required: No Allergies sulfamethoxazole [From BACTRIM] Allergy (Unknown, Verified 06/02/23 15:42) RASH trimethoprim [From BACTRIM] Allergy (Unknown, Verified 06/02/23 15:42) RASH nsaid Allergy (Unknown, Uncoded 06/02/23 15:42) Unknown Medication List - Last Reconciled 06/02/23 by Kimberly Torres MD alprazolam 0.5 mg PO DAILY PRN bupropion HCl 150 mg PO QAM buspirone 5 mg PO BID cholecalciferol (vitamin D3) 125 mcg PO DAILY flecainide 100 mg PO BID folic acid 1 mg PO DAILY levothyroxine 88 mcg PO DAILY methotrexate sodium 20 mg (8 x 2.5 mg) PO QWEEK prednisone Take 4 tabs by mouth daily for 2 weeks then 3.5 tabs daily for 2 weeks then remain on 3 tabs daily propranolol 20 mg PO BID rivaroxaban (Xarelto) 20 mg PO DAILY HPI HPI Comments History of Present Illness Details 57-year-old female with PMR/seronegative RA returns for follow-up. She is currently on prednisone 15 mg daily and methotrexate 20 mg weekly plus folic acid 1 mg daily. She stated that for the 1st couple of doses of methotrexate she felt some fatigue that lasts until the next day. No other side effects reported. They she is doing well with no joint pain, swelling or stiffness. Initial history: This is a 57-year-old female who presents for evaluation of PMR. In late July/early August she started having bilateral shoulder stiffness, worse in the morning, takes hours to loosen up. Then it started to affect both eyes. She was evaluated by Orthopedics and had bilateral shoulder x-rays and was told they were normal. She received bilateral shoulder injections which provided dramatic relief for about 4 days then everything came back with a vengeance. Back in September patient presented to the hospital with the same symptoms of bilateral shoulder and bilateral thigh stiffness, she denies any swollen joints. In September was found to have significantly elevated CRP and was started on prednisone. She had been on multiple doses of prednisone including 40 mg and 20 mg. She was starting to have side effects especially with mood changes and weight distribution changes. She had been on 20 mg of prednisone for 2 weeks then 27 mg for 2 weeks. Only today she started taking 25 mg daily. She would like to reduce the dose. She denies any swollen joints or skin rashes. She denies any history of psoriasis. She denies any headaches, jaw, extremity or tongue claudication. Denied blurry vision. She has a history of PE and was found to have factor 5 leiden mutation. She is currently on Xarelto. Mentions that her history has history of thyroid disease and eventually had to have thyroidectomy for thyroid cancer. In December 20 patient went to the ER and was found to be in AFib with RVR. They were getting ready to cardiovert her but she spontaneously converted back to sinus rhythm. A few days later she went back to the emergency room with AFib with RVR and had successful cardioversion. Currently she follows up with a test lab technician and is wearing a monitor. [facility] Medical History Lobular carcinoma in situ (LCIS) of left breast COVID-19 Factor 5 Leiden mutation, heterozygous Pulmonary embolism MORGAN (dyspnea on exertion) Colon cancer screening Hypothyroidism (acquired) Normal breast exam Normal pelvic exam Anxiety Surgical History History of surgery History of rectal abscess History of hysterectomy History of lipoma [place] teeth removed History of foot surgery History of breast biopsy History of section Family History Father HTN (hypertension) Mother HTN (hypertension) Sister Cancer of thyroid Cady's disease Graves disease Social History Household Members: Family Housing: House Alcohol intake: current Alcohol intake frequency: a few times a week Patient Tobacco Use Status: Never used Tobacco e-Cigarette/Vaping Use: Never Used Current occupational status: employed 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[place] Cognitive needs: No Hearing needs: No Vision needs: Yes Review of Systems Musc Denies arthralgias, Denies joint swelling, Denies limited range of motion and Denies stiffness Physical Exam Vital Signs: Last Vital Signs Pulse 90 06/02/23 15:32 BP 118/62 06/02/23 15:32 Pulse Ox 98 06/02/23 15:32 Oxygen Delivery Method Room Air 06/02/23 15:32 BMI result Body Mass Index 30.4 Const General: cooperative, healthy appearing and comfortable Nutritional Appearance: overweight Orientation/consciousness: patient oriented x3 Limitations: no limitations HEENT Head: Yes normocephalic and Yes atraumatic Resp Effort & Inspection: normal respiratory effort and able to speak in complete sentences Skin General skin exam: no rashes or lesions noted Neuro General: patient oriented x3 Extrem Other: Mild osteoarthritic changes of both hands with no active synovitis Normal range of motion of hands, fingers, wrists, elbows and shoulders without pain Negative empty can test and negative Speed's test bilaterally Proximal muscle strength 5/5 bilaterally all 4 limbs Normal range of motion of both hips without pain No ankle swelling or tenderness bilaterally No MTP tenderness Negative MTP squeeze test Normal nailfold capillaroscopy Assessment & Plan Assessment & Plan (1) PMR (polymyalgia rheumatica): Comment: ? Seroneg RA onset 07/2022 ESR nl elevated CRP improved with prednisone Code(s): M35.3 - Polymyalgia rheumatica Plan: This is a 57-year-old female with PMR/seronegative RA who returns for follow-up. She is on methotrexate 20 mg weekly, folic acid 1 mg daily and prednisone 15 mg daily. She is doing well overall with no active synovitis on exam. Inflammatory markers improving. Continue with methotrexate 20 mg weekly plus folic acid 1 mg daily Reduce prednisone to 12.5 mg daily for 2 weeks, 10 mg daily for 2 weeks then remain on 7.5 mg daily Labs before next visit in 2 months (2) group home methotrexate user: Code(s): Z79.631 - superintendent container terminal (current) use of antimetabolite agent Plan: Monitor safety labs Plan I spent 27 minutes reviewing patient's chart, evaluating patient, ordering diagnostic workup, counseling patient and documenting in the chart Orders: Orders Complete Blood Count Auto Diff 2 Months M13.80 - Other specified arthritis, unspecified site, Z79.631 - group home (current) use of antimetabolite agent Comprehensive Met. Panel 2 Months M13.80 - Other specified arthritis, unspecified site, Z79.631 - superintendent container terminal (current) use of antimetabolite agent C Reactive Protein 2 Months M13.80 - Other specified arthritis, unspecified site, Z79.631 - group home (current) use of antimetabolite agent Erythrocyte Sedimentation Rate 2 Months M13.80 - Other specified arthritis, unspecified site, Z79.631 - superintendent container terminal (current) use of antimetabolite agent Medications: New prednisone 2.5 mg PO DAILY 100 tabs 0RF Refilled methotrexate sodium 20 mg (8 x 2.5 mg) PO QWEEK 104 tabs 0RF Discontinued prednisone Discontinued Reason: Doctor's Order Take 4 tabs by mouth daily for 2 weeks then 3.5 tabs daily for 2 weeks then remain on 3 tabs daily 189 tabs 0RF Coding Level of Care Code Est Pt Level 4 (87615) Diagnoses PMR (polymyalgia rheumatica) M35.3 superintendent container terminal methotrexate user Z79.636
[2023-06-02 15:32] VITALS: BP 118/62; PULSE 90; O2SAT 98; BMI 30.4
== END 2023-06-02 16:05 | disposition home or self-care (01) ==
PROVIDERS: PCP Internal Medicine; Visit Provider Student in an Organized Health Care Education/Training Program
DX: M35.3 Polymyalgia rheumatica (principal); Z79.631 Long term (current) use of antimetabolite agent
CPT/HCPCS: 99214

== ENCOUNTER → 2023-06-02 15:22 | Outpatient (BNVA) | payer BC, SELFPAY | PROVIDERS: PCP Internal Medicine; Visit Provider Student in an Organized Health Care Education/Training Program ==

== ENCOUNTER 2023-06-16 08:54 | Outpatient (AMB) | payer BC, SELFPAY ==
[2023-06-16 08:59] VITALS: BP 106/74; PULSE 61; O2SAT 99; BMI 30.2
--- NOTE | 2023-06-16 08:59 | A.OFFPC_ITS ---
Vital Signs 06/16/23 08:59 Height 5 ft 2 in Weight 165 lb BMI 30.2 BP 106/74 Blood Pressure Location Lt brachial Position Sitting Pulse 61 Pulse Source Pulse Oximeter Pulse Oximetry (%) 99 Oxygen Delivery Method Room Air Intake Visit Reasons: PE Intake Note: Pt is here today for PE. Allergies sulfamethoxazole [From BACTRIM] Allergy (Unknown, Verified 06/16/23 09:02) RASH trimethoprim [From BACTRIM] Allergy (Unknown, Verified 06/16/23 09:02) RASH nsaid Allergy (Unknown, Uncoded 06/16/23 09:02) Unknown Medication List - Last Reconciled 06/16/23 by Alem Carter MD alprazolam 0.5 mg PO DAILY PRN bupropion HCl 150 mg PO QAM buspirone 5 mg PO BID cholecalciferol (vitamin D3) 125 mcg PO DAILY flecainide 100 mg PO BID folic acid 1 mg PO DAILY levothyroxine 88 mcg PO DAILY methotrexate sodium 20 mg (8 x 2.5 mg) PO QWEEK prednisone 10 mg PO DAILY propranolol 10 mg PO BID rivaroxaban (Xarelto) 20 mg PO DAILY Tobacco use date assessed: 06/16/23 Dental Screening Dental Screen Date: 06/16/23 Did you have a dental visit in the last 12 months?: Yes Did you have a dental problem in the last 6 months where you did not have access to dental care?: No Was dental information given to patient?: Patient has dentist HPI PE HPI Details Patient presents for a physical. She is feeling better arthralgia or muscle stiffness improved since patient started taking methotrexate with prednisone. 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 Patient denies any recurrent palpitations chest pain no shortness of breath. she follows up with cardiology for paroxysmal AFib, controlled on flecainide and propranolol. [facility] Medical History (Updated 06/16/23 @ 09:45 by Alem Carter MD) Lobular carcinoma in situ (LCIS) of left breast COVID-19 Factor 5 Leiden mutation, heterozygous Pulmonary embolism MORGAN (dyspnea on exertion) Colon cancer screening Hypothyroidism (acquired) Normal breast exam Normal pelvic exam Anxiety Surgical History History of surgery History of rectal abscess History of hysterectomy History of lipoma [place] teeth removed History of foot surgery History of breast biopsy History of section Family History Father HTN (hypertension) Mother HTN (hypertension) Sister Cancer of thyroid Cady's disease Graves disease Social History Household Members: Family Housing: House Alcohol intake: current Alcohol intake frequency: a few times a week Patient Tobacco Use Status: Never used Tobacco e-Cigarette/Vaping Use: Never Used Current occupational status: employed 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 1. Little interest or pleasure in doing things: several days 2. Feeling down, depressed, or hopeless: several days 3. Trouble falling or staying asleep, or sleeping too much: nearly every day 4. Feeling tired or having little energy: not at all 5. Poor appetite or overeating: not at all 6. Feeling bad about yourself - or that you are a failure or have let yourself or your family down: not at all 7. Trouble concentrating on things, such as reading the newspaper or watching television: not at all 8. Moving or speaking so slowly that other people could have noticed. Or the opposite - being so fidgety or restless that you have been moving around a lot more than usual: not at all 9. Thoughts that you would be better off or of hurting yourself in some way: not at all Total score: 5 Depression Screening Interpretation: Negative Depression Screening Done: Yes Source: Developed by Drs. Esvin Marie, Radha Tello, Corky Ann and colleagues, with an educational alis from [employer]. Thrive Questionnaire Date Thrive assessed: 06/16/23 I am a: Patient What is your living situation today?: I have a steady place to live Within the past 12 months, did the food you bought not last and you didn't have the money to get more?: Never true Within the past 12 months, did you worry whether your food would run out before you got money to buy more?: Never true Do you have trouble paying for medicines?: No Do you have trouble getting transportation to medical appointments?: No Do you have trouble paying your heating and electricity bill?: No Do you have trouble taking care of your child, family member or friend?: No Do you have trouble with day-to-day activities such as bathing, preparing meals, shopping, managing finances, etc.?: No Are you currently unemployed and looking for a job?: No Are you interested in more education?: No Please select the resources that you would like help with: None Currently or been in a relationship where the following occur: no concerns reported THRIVE Score: 0 AUDIT C Alcohol Use Questionnaire (AUDIT-C) 1. How often do you have a drink containing alcohol?: Monthly or less 2. How many drinks containing alcohol do you have on a typical day when you are drinking?: 1 or 2 3. How often do you have six or more drinks on one occasion?: Never Total Score: 1 CHARLEY-7 AMB Questionnaire CHARLEY-7 Date CHARLEY - 7 assessed: 06/16/23 Feeling nervous, anxious, or on edge: 2 = More than half the days Not being able to stop or control worryin = More than half the days Worrying too much about different things: 2 = More than half the days Trouble relaxin = More than half the days Being so restless that it is hard to sit still: 0 = Not at all Becoming easily annoyed or irritable: 2 = More than half the days Feeling afraid as if something awful might happen: 0 = Not at all Total CHARLEY-7 score (0-4 normal; 5-9 mild; 10-14 moderate; 15-21 severe): 10 Source: Developed by Drs. Esvin Marie, Radha Tello, Corky Ann and colleagues, with an educational alis from [employer]. CHARLEY-7 Assessment Billing CHARLEY-7 Assessment Tool: CHARLEY-7 Assessment 24635 Review of Systems Const All systems reviewed & are unremarkable except as noted in HPI and below Reports no additional complaints Eyes Reports no additional complaints ENT Reports no additional complaints Card Reports no additional complaints Resp Reports no additional complaints GI Reports no additional complaints Reports no additional complaints Physical exam (Primary Care) Vital Signs: Last Vital Signs Pulse 61 06/16/23 08:59 BP 106/74 06/16/23 08:59 Pulse Ox 99 06/16/23 08:59 Oxygen Delivery Method Room Air 06/16/23 08:59 BMI result Body Mass Index 30.2 Tobacco/Smoking Status: Tobacco use Status Tobacco use date assessed 06/16/23 06/16/23 09:05 Patient Tobacco Use Status Never used Tobacco 06/16/23 09:05 e-Cigarette/Vaping Use Never Used 06/16/23 09:01 PHQ-9: PHQ-9 Score PHQ-9: Total score 5 06/16/23 09:11 Depression Screening Interpretation: Negative Thrive Assessment: Date of Thrive Assessment Date Thrive assessed 06/16/23 06/16/23 09:11 Currently or been in a relationship where the following occur: no concerns reported Const General: no acute distress HENMT Head: Yes normal to inspection Ears: hearing grossly normal bilaterally General nose exam: Normal external nose present Face and sinus: Yes normal facial exam Mouth: Normal oral and palatal mucosa present Throat: Yes posterior oropharynx normal Eyes General: appearance normal, both eyes and all related structures Neck Neck: Yes no lymphadenopathy and Yes supple Resp Effort & Inspection: normal respiratory effort Auscultation: clear to auscultation bilaterally Cardio Rhythm: regular rhythm Heart sounds: S1 normal heart sound present and S2 normal heart sound present GI Inspection: Yes normal to inspection Palpation (GI): Soft to palpation Percussion: Yes normal to percussion Auscultation: normal bowel sounds Assessment and Plan Assessment & Plan (1) Paroxysmal A-fib: Comment: on propranolol flecainide and Xarelto, f/u with cardiology Code(s): I48.0 - Paroxysmal atrial fibrillation Plan: Follow-up with cardiology (2) Factor 5 Leiden mutation, heterozygous: Comment: On Xarelto Code(s): D68.51 - Activated protein C resistance (3) Physical exam: Code(s): Z00.00 - Encounter for general adult medical examination without abnormal findings Plan: Well-balanced diet regular physical activity discussed with the patient she is up-to-date with mammogram pelvic exam by union steward. Patient declined colonoscopy Cologuard will be ordered (4) Anxiety: Comment: Code(s): F41.9 - Anxiety disorder, unspecified Plan: Follow-up with Psychiatry continue current medications (5) Postmenopausal: Code(s): Z78.0 - Asymptomatic menopausal state Plan: Check FSH (6) Colon cancer screening: Comment: negative Cologuard 03/2020 Code(s): Z12.11 - Encounter for screening for malignant neoplasm of colon Plan: Cologuard ordered (7) Hypothyroidism (acquired): Comment: s/p thyroidectomy 2019, for Graves disease, follows up with [facility] Code(s): E03.9 - Hypothyroidism, unspecified (8) PMR (polymyalgia rheumatica): Comment: ? Seroneg RA onset 07/2022 ESR nl elevated CRP improved with prednisone Code(s): M35.3 - Polymyalgia rheumatica Plan: Follow-up with rheumatology Orders: Orders Lipid Panel Today D68.51 - Activated protein C resistance, F41.9 - Anxiety disorder, unspecified, I48.0 - Paroxysmal atrial fibrillation, Z00.00 - Encounter for general adult medical examination without abnormal findings Vitamin D 25-OH Total Today D68.51 - Activated protein C resistance, F41.9 - Anxiety disorder, unspecified, I48.0 - Paroxysmal atrial fibrillation, Z00.00 - Encounter for general adult medical examination without abnormal findings Complete Blood Count Auto Diff Today D68.51 - Activated protein C resistance, F41.9 - Anxiety disorder, unspecified, I48.0 - Paroxysmal atrial fibrillation, Z00.00 - Encounter for general adult medical examination without abnormal findings Comprehensive [place]. Panel Fast Today D68.51 - Activated protein C resistance, F41.9 - Anxiety disorder, unspecified, I48.0 - Paroxysmal atrial fibrillation, Z00.00 - Encounter for general adult medical examination without abnormal findings Follicle Stimulating Hormone Today Z78.0 - Asymptomatic menopausal state Referrals Cologuard Test Z12.11 - Encounter for screening for malignant neoplasm of colon, Z12.12 - Encounter for screening for malignant neoplasm of rectum Medications: Changed From prednisone 2.5 mg PO DAILY 100 tabs 0RF To prednisone 10 mg PO DAILY Coding Level of Care Code Est Pt Prev Care 40-64y(97137) Diagnoses Paroxysmal A-fib I48.0 Factor 5 Leiden mutation, heterozygous D68.51 Physical exam Z00.00 Anxiety F41.9 Postmenopausal Z78.0 Colon cancer screening Z12.11 Hypothyroidism (acquired) E03.9 PMR (polymyalgia rheumatica) M35.3 Additional Codes CHARLEY-7 Assessment Billing - CHARLEY-7 Assessment Tool: CHARLEY-7 Assessment 36074 ([id number])
== END 2023-06-16 09:47 | disposition home or self-care (01) ==
PROVIDERS: PCP Internal Medicine; Visit Provider Internal Medicine
DX: Z00.00 Encounter for general adult medical examination without abnormal findings (principal); I48.0 Paroxysmal atrial fibrillation; D68.51 Activated protein C resistance; M35.3 Polymyalgia rheumatica; F41.9 Anxiety disorder, unspecified; Z78.0 Asymptomatic menopausal state; E03.9 Hypothyroidism, unspecified
CPT/HCPCS: 99396

== ENCOUNTER 2023-06-20 09:08 | Outpatient (REF) | payer BC, SELFPAY ==
[2023-06-20 11:23] LABS: Basophils Absolute Auto 0.1 X10*3/uL (0.0-0.2); Basophils Percent Auto 0.6 % (0-2); Eosinophils Absolute Auto 0.3 X10*3/uL (0.0-0.4); Eosinophils Percent Auto 3.3 % (0-4); Hemoglobin 13.8 g/dl (12.0-16.0); Imm Gran Abs Auto 0.03 X10*3/uL (0.00-0.03); Imm Gran Pct Auto 0.3 % (0.0-0.4); Lymphocytes Absolute Auto 3.8 X10*3/uL (1.2-4.9); Lymphocytes Percent Auto 38.4 % (20-40); MANUAL DIFF FLAG NO; Mean Corpuscular HGB Conc 32.1 g/dl (31.0-35.0); Mean Corpuscular Volume 93.5 fL (80.0-98.0); Mean Platelet Volume 10.6 fL (9.4-12.3); Monocytes Absolute Auto 0.5 X10*3/uL (0.1-1.2); Neutrophils Absolute Auto 5.1 x10*3/uL (2.0-8.3); Neutrophils Percent Auto 52.4 % (45-73); Platelet Count 288 X10*3/uL (160-400); Red Cell Distribution Width 16.3 % (11.0-16.0); White Blood Count 9.8 X10*3/uL (4.8-10.8)
[2023-06-20 11:42] LABS: Alanine Aminotransferase 19 U/L (0-31); Albumin Level 4.1 g/dL (3.5-5.0); Alkaline Phosphatase 84 U/L (39-117); Anion Gap 13 (12-20); Aspartate Amino Transferase 16 U/L (5-31); Bilirubin Total 0.4 mg/dL (0.0-1.0); Blood Urea Nitrogen 21 mg/dL (9-16); Calcium 9.6 mg/dL (8.4-10.2); Carbon Dioxide 29 mmol/L (22-29); Chloride 109 mmol/L (96-108); Cholesterol 194 mg/dL (<200); Estimated Glomerular Filt Rate 48; Glucose Fasting 81 mg/dL (60-99); HDL Cholesterol 56 mg/dL (>40); LDL Cholesterol Calculated 119 mg/dL (<100); Potassium 4.2 mmol/L (3.3-5.1); Sodium 147 mmol/L (135-145); Total Protein 6.7 g/dL (6.5-8.0); Triglycerides 97 mg/dL (<150)
[2023-06-20 11:59] LABS: Vitamin D 25-OH Total 106.5 ng/mL (>30)
[2023-06-21 10:18] LABS: Follicle Stimulating Hormone 102.6 mIU/mL
== END 2023-06-20 09:09 | disposition home or self-care (01) ==
LOC: HO.HMGCLDS 09:08
PROVIDERS: PCP Internal Medicine; Visit Provider Internal Medicine
DX: Z00.00 Encounter for general adult medical examination without abnormal findings (principal); Z13.6 Encounter for screening for cardiovascular disorders; I48.0 Paroxysmal atrial fibrillation; D68.51 Activated protein C resistance; F41.9 Anxiety disorder, unspecified; Z78.0 Asymptomatic menopausal state
CPT/HCPCS: 36415; 80053; 80061; 82306; 83001; 85025

== ENCOUNTER 2023-06-30 14:50 | Outpatient (REF) | payer BC, SELFPAY ==
[2023-06-30 16:51] LABS: Anion Gap 13 (12-20); Blood Urea Nitrogen 20 mg/dL (9-16); Calcium 9.9 mg/dL (8.4-10.2); Carbon Dioxide 27 mmol/L (22-29); Chloride 107 mmol/L (96-108); Estimated Glomerular Filt Rate 49; Glucose Random 90 mg/dL (60-115); Potassium 4.8 mmol/L (3.3-5.1); Sodium 142 mmol/L (135-145)
== END 2023-06-30 14:51 | disposition home or self-care (01) ==
LOC: HO.HMGCLDS 14:50
PROVIDERS: PCP Internal Medicine; Visit Provider Internal Medicine
DX: E87.0 Hyperosmolality and hypernatremia (principal)
CPT/HCPCS: 36415; 80048

== ENCOUNTER 2023-07-04 10:37 | Outpatient (REF) | payer BC, SELFPAY ==
[2023-07-04 14:00] LABS: Appearance Urine Clear; Color Urine Yellow; Glucose Urine UA Negative (Negative); Leukocyte Esterase Urine Negative (Negative); Nitrite Urine Negative (Negative); Specific Gravity - Urine <= 1.005 (1.005-1.025); Urine Blood Negative (Negative); Urine Ketones Negative (Negative); Urine Protein Negative (Neg-Trace)
[2023-07-04 14:03] LABS: Bacteria Urine None Seen (None Seen); Hyaline Casts Urine 0-2 /LPF (0-2); RBC Urine 0-2 /HPF (0-2); Squamous Epithelial Cell Urine 0-2 /HPF (0-2); WBC Urine 0-5 /HPF (0-5)
== END 2023-07-04 10:38 | disposition home or self-care (01) ==
LOC: HO.HMGCLDS 10:37
PROVIDERS: PCP Internal Medicine; Visit Provider Internal Medicine
DX: N28.9 Disorder of kidney and ureter, unspecified (principal)
CPT/HCPCS: 81001

== ENCOUNTER 2023-07-07 16:04 | Outpatient (REF) | payer BC, SELFPAY ==
--- NOTE | ~2023-07-07 | US_ITS ---
EXAMINATION: US RETROPERITONEAL LIMITED (RENAL ONLY) CLINICAL INFORMATION: Disorder of kidney and ureter, unspecified. Donated right kidney. COMPARISON: CT abdomen and pelvis 02/09/2018. TECHNIQUE: Real-time imaging of the solitary left kidney. FINDINGS: RIGHT KIDNEY: Surgically absent. LEFT KIDNEY: 10.4 x 5 x 4.4 cm (SAG x AP x TRV). The kidney is normal in size, contour, and echogenicity. Renal cortical thickness is normal. No calculi or focal parenchymal lesions. No hydronephrosis. US/US renal BI IMPRESSION: Right nephrectomy no visible abnormality in the right renal fossa. Normal-appearing left kidney.
== END 2023-07-07 16:05 | disposition home or self-care (01) ==
LOC: HO.US 16:04
PROVIDERS: PCP Internal Medicine; Visit Provider Internal Medicine
DX: N28.9 Disorder of kidney and ureter, unspecified (principal)
CPT/HCPCS: 76775

== ENCOUNTER 2023-07-08 14:04 | Outpatient (AMB) | payer BC, SELFPAY ==
[2023-07-08 14:09] VITALS: BP 98/64; PULSE 65; O2SAT 98; BMI 30.4
--- NOTE | 2023-07-08 14:09 | HO.NEPHOV ---
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 She also developed atrial fibrillation and she is on beta blockers for rate control. Her baseline creatinine has been around 0.8 or 0.9 mg/dL. Recently she was started on prednisone for seronegative rheumatoid arthritis. BUN is bumped up to 20 mg/dL the creatinine was 1.17 which is slightly higher than her baseline. Corresponding serum sodium was 147 mg/dL. She has been increased see her fluid intake the repeat serum creatinine was 1.15 and she is here for further evaluation. She underwent a renal ultrasonogram which showed solitary kidney without any hydronephrosis or masses. Today she has no specific complaints. No headache nausea vomiting. No polyuria polydipsia. No diarrhea. No abdominal pain. No edema no fever no rash. [facility] Medical History (Updated 07/08/23 @ 14:46 by John Barajas MD) Lobular carcinoma in situ (LCIS) of left breast COVID-19 Factor 5 Leiden mutation, heterozygous Pulmonary embolism MORGAN (dyspnea on exertion) Colon cancer screening Hypothyroidism (acquired) Normal breast exam Normal pelvic exam Anxiety Surgical History History of surgery History of rectal abscess History of hysterectomy History of lipoma [place] teeth removed History of foot surgery History of breast biopsy History of section Family History Father HTN (hypertension) Mother HTN (hypertension) Sister Cancer of thyroid Cady's disease Graves disease Social History Household Members: Family Housing: House Alcohol intake: current Alcohol intake frequency: a few times a week Patient Tobacco Use Status: Never used Tobacco e-Cigarette/Vaping Use: Never Used Current occupational status: employed 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[place] Cognitive needs: No Hearing needs: No Vision needs: Yes Physical Exam Vital Signs: Last Vital Signs Pulse 65 07/08/23 14:09 BP 98/64 07/08/23 14:09 Pulse Ox 98 07/08/23 14:09 Oxygen Delivery Method Room Air 07/08/23 14:09 BMI result Body Mass Index 30.4 Const General: comfortable Nutritional Appearance: well nourished Orientation/consciousness: patient oriented x3 HEENT Head: No normal to inspection Mouth: moist mucous membranes Neck Neck: Yes supple and Yes no JVD Resp Auscultation: clear to auscultation bilaterally, no rales and rub present Cardio Jugular venous distension: no JVD Palpation: no palpable S3 and no palpable S4 Heart sounds: no rubs GI Palpation (GI): Soft to palpation and nontender Percussion: No Fluid wave present General: Yes no CVA tenderness Back/Spine/Pelvis Back: no CVA tenderness Skin General skin exam: no rashes or lesions noted Neuro General: patient oriented x3 Extrem General: Yes no pedal edema and No clubbing Results Reviewed Nephrology Results: Hgb 13.8 g/dl (12.0-16.0) 06/20/23 WBC 9.8 X10*3/uL (4.8-10.8) 06/20/23 Plt Count 288 X10*3/uL (160-400) 06/20/23 Sodium 142 mmol/L (135-145) 06/30/23 Potassium 4.8 mmol/L (3.3-5.1) 06/30/23 Chloride 107 mmol/L (96-108) 06/30/23 Carbon Dioxide 27 mmol/L (22-29) 06/30/23 BUN 20 mg/dL (9-16) H 06/30/23 Creatinine 1.15 mg/dL (0.5-1.4) 06/30/23 Calcium 9.9 mg/dL (8.4-10.2) 06/30/23 Urine Protein Negative mg/dL (Neg-Trace) 07/04/23 Renal US 07/07/23 Assessment & Plan Assessment & Plan (1) Hypernatremia: Code(s): E87.0 - Hyperosmolality and hypernatremia Category: Medical (2) Elevated serum creatinine: Code(s): R79.89 - Other specified abnormal findings of blood chemistry Category: Medical Plan Destiny is a 56-year-old woman with the solitary kidney with mild elevation serum creatinine and mild hypernatremia. Destiny most likely has elevation in serum creatinine due to volume depletion. Free water deficit could explain hypernatremia Workup initiated including 24 hour urine collection for total volume and creatinine clearance. Encouraged her to increase her fluid intake. Further workup will be based on the 24 hour urine collection. Once the prednisone is tapered and discontinued the BUN should return to baseline. Orders: Orders Basic Metabolic Panel 1 Week E87.0 - Hyperosmolality and hypernatremia, R79.89 - Other specified abnormal findings of blood chemistry Creatinine Clearance Urine 24U 1 Week E87.0 - Hyperosmolality and hypernatremia, R79.89 - Other specified abnormal findings of blood chemistry Creatinine, 24 Hr Group 1 Week E87.0 - Hyperosmolality and hypernatremia, R79.89 - Other specified abnormal findings of blood chemistry Coding Level of Care Code New Pt Level 4 (05469) Diagnoses Hypernatremia E87.0 Elevated serum creatinine R79.89
== END 2023-07-08 14:58 | disposition home or self-care (01) ==
PROVIDERS: PCP Internal Medicine; Referring Provider Internal Medicine; Visit Provider Internal Medicine Hypertension Specialist
DX: E87.0 Hyperosmolality and hypernatremia (principal); R79.89 Other specified abnormal findings of blood chemistry
CPT/HCPCS: 99204

== ENCOUNTER → 2023-07-08 14:04 | Outpatient (BNVA) | payer BC, SELFPAY | PROVIDERS: PCP Internal Medicine; Referring Provider Internal Medicine; Visit Provider Internal Medicine Hypertension Specialist ==

== ENCOUNTER 2023-07-20 06:01 | Outpatient (REF) | payer BC, SELFPAY ==
[2023-07-20 10:32] LABS: MANUAL DIFF FLAG NO
[2023-07-20 10:46] LABS: Basophils Absolute Auto 0.1 X10*3/uL (0.0-0.2); Basophils Percent Auto 0.7 % (0-2); Eosinophils Absolute Auto 0.3 X10*3/uL (0.0-0.4); Eosinophils Percent Auto 2.7 % (0-4); Hematocrit 43.9 % (37.0-47.0); Hemoglobin 14.1 g/dl (12.0-16.0); Imm Gran Abs Auto 0.04 X10*3/uL (0.00-0.03); Imm Gran Pct Auto 0.3 % (0.0-0.4); Lymphocytes Absolute Auto 4.4 X10*3/uL (1.2-4.9); Lymphocytes Percent Auto 37.7 % (20-40); Mean Corpuscular HGB Conc 32.1 g/dl (31.0-35.0); Mean Corpuscular Hemoglobin 31.1 pg (27.0-33.0); Mean Corpuscular Volume 96.7 fL (80.0-98.0); Monocytes Absolute Auto 0.8 X10*3/uL (0.1-1.2); Monocytes Percent Auto 6.9 % (2-11); Neutrophils Percent Auto 51.7 % (45-73); Platelet Count 298 X10*3/uL (160-400); Red Blood Count 4.54 X10*6/uL (4.20-5.50); Red Cell Distribution Width 16.1 % (11.0-16.0); White Blood Count 11.6 X10*3/uL (4.8-10.8)
[2023-07-20 10:55] LABS: Alanine Aminotransferase 23 U/L (0-31); Albumin Level 4.3 g/dL (3.5-5.0); Alkaline Phosphatase 75 U/L (39-117); Anion Gap 17 (12-20); Aspartate Amino Transferase 20 U/L (5-31); Bilirubin Total 0.4 mg/dL (0.0-1.0); Blood Urea Nitrogen 16 mg/dL (9-16); C Reactive Protein 1.11 mg/dL (< or = 0.50); Calcium 10.6 mg/dL (8.4-10.2); Carbon Dioxide 28 mmol/L (22-29); Chloride 107 mmol/L (96-108); Estimated Glomerular Filt Rate 48; Glucose Random 81 mg/dL (60-115); Potassium 4.5 mmol/L (3.3-5.1); Sodium 147 mmol/L (135-145); Total Protein 7.2 g/dL (6.5-8.0)
[2023-07-20 11:43] LABS: Erythrocyte Sedimentation Rate 7 MM/HR (0-20)
[2023-07-20 11:58] LABS: Total Volume 24 Hour Urine 2450 mL
[2023-07-20 11:59] LABS: Creatinine (CrCl) 1.18 mg/dL (0.5-1.4)
[2023-07-20 12:13] LABS: Creatinine Clearance 50.6 mL/min (85-125); Creatinine, 24Hr Urine 0.9 G/Day (1.0-2.0); Creatinine, mg/dL 35.11
== END 2023-07-20 06:02 | disposition home or self-care (01) ==
LOC: HO.HMGCLDS 06:01
PROVIDERS: PCP Internal Medicine; Referring Provider Internal Medicine Hypertension Specialist; Visit Provider Student in an Organized Health Care Education/Training Program
DX: M13.80 Other specified arthritis, unspecified site (principal); Z79.631 Long term (current) use of antimetabolite agent; E87.0 Hyperosmolality and hypernatremia; R79.89 Other specified abnormal findings of blood chemistry
CPT/HCPCS: 36415; 80053; 82575; 85025; 85652; 86140

== ENCOUNTER → 2023-07-22 15:47 | Outpatient (AMB) | payer BC, SELFPAY ==
--- NOTE | 2023-07-22 15:49 | MHC.OFFVIS ---
Vital Signs 07/22/23 15:52 Height 5 ft 2 in Weight 165 lb 5.547 oz BMI 30.2 BP 118/58 L Blood Pressure Location Lt brachial Position Sitting Pulse 64 Intake Visit Reasons: Colonoscopy screening Intake Note: Destiny presents in the office as a new patient colonoscopy screening CC: Rajinder Aleman attempted her colonoscopy at 52 and it was a whole ordeal. She was told that her colon has a sharp curve and was unable to get in there and she ended up with aspiration pneumonia. She tried again with another office but she cancelled due to being unable to finish the prep so now she has anxiety about it. Allergies sulfamethoxazole [From BACTRIM] Allergy (Unknown, Verified 07/30/23 15:35) RASH trimethoprim [From BACTRIM] Allergy (Unknown, Verified 07/30/23 15:35) RASH nsaid Allergy (Unknown, Uncoded 07/30/23 15:35) Unknown HPI HPI Colonoscopy screening: Details: 57-year-old female with past medical history of hypernatremia, PAF, acute renal insufficiency, hypercalcemia, PMR, hypothyroidism after thyroidectomy, factor 5 hassan den mutation on Xarelto, PE after nephrectomy in 2021 after renal transplant (kidney donor) is here today for initial consultation. Patient is due for colonoscopy. Patient reports that she had colonoscopy when she turned 52 and the colonoscopy was unable to be finished. Patient reports that she was sick after and was what admitted with aspiration pneumonia. Patient reports that she was told that her colon had sharp turn and they were not able to intubate further. Patient is fearful about going for colonoscopy at this time and would rather do Cologuard. [facility] Medical History (Updated 08/13/23 @ 20:05 by Hazel Lema, [facility]) Lobular carcinoma in situ (LCIS) of left breast COVID-19 Factor 5 Leiden mutation, heterozygous Pulmonary embolism MORGAN (dyspnea on exertion) Colon cancer screening Hypothyroidism (acquired) Normal breast exam Normal pelvic exam Anxiety Surgical History History of surgery History of rectal abscess History of hysterectomy History of lipoma [place] teeth removed History of foot surgery History of breast biopsy History of section Family History Father HTN (hypertension) Mother HTN (hypertension) Sister Cancer of thyroid Cady's disease Graves disease Social History Household Members: Family Housing: House Alcohol intake: current Alcohol intake frequency: a few times a week Patient Tobacco Use Status: Never used Tobacco e-Cigarette/Vaping Use: Never Used Current occupational status: employed 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[place] Cognitive needs: No Hearing needs: No Vision needs: Yes Review of Systems Const Denies weight gain and Denies weight loss ENT Reports no additional complaints, Denies dysphagia and Denies odynophagia Card Reports no additional complaints Resp Reports no additional complaints GI Denies abdominal pain, Denies belching, Denies melena, Denies bloating, Denies change in bowel habits, Denies dysphagia, Denies excessive flatus, Denies dyspepsia, Denies heartburn, Denies diarrhea, Denies loose stools, Denies nausea, Denies odynophagia and Denies vomiting Reports no additional complaints Musc Reports no additional complaints Neuro Reports no additional complaints Psych Reports no additional complaints Endo Reports no additional complaints Physical Exam Vital Signs: Last Vital Signs Pulse 64 07/22/23 15:52 BP 118/58 L 07/22/23 15:52 BMI result Body Mass Index 30.2 Const General: healthy appearing and no acute distress Nutritional Appearance: obese Orientation/consciousness: patient oriented x3 Resp Effort & Inspection: normal respiratory effort, able to speak in complete sentences, no tracheal deviation and symmetric chest movement Auscultation: clear to auscultation bilaterally Cardio Rate: regular rate GI Inspection: Yes normal to inspection, No distended and Yes obesity Palpation (GI): Soft to palpation, not firm, nontender and No hepatosplenomegaly present Auscultation: normal bowel sounds General: Yes no CVA tenderness Back/Spine/Pelvis Back: no CVA tenderness Skin General skin exam: elasticity normal, turgor normal and dry skin Neuro General: patient oriented x3 Psych Appearance: grossly normal Mental Status: mental status grossly normal Assessment & Plan Assessment & Plan (1) Colon cancer screening: Code(s): Z12.11 - Encounter for screening for malignant neoplasm of colon Category: Medical Plan Patient wants Cologuard and will think about going for colonoscopy. Patient will follow-up in 3 months, sooner on as needed basis. She is agreeable to this plan and verbalizes understanding of instructions. She was given the opportunity to ask questions and all questions answered. Thank you for allowing me to participate in her care Coding Level of Care Code New Pt Level 3 (42635) Diagnoses Colon cancer screening Z12.11 Time Spent (min) 40 Comment 30 minutes spent with patient and additional 10 minutes spent reviewing her records
[2023-07-22 15:52] VITALS: BP 118/58; PULSE 64; BMI 30.2
== END ==
PROVIDERS: PCP Internal Medicine; Visit Provider Nurse Practitioner Family
DX: Z01.818 Encounter for other preprocedural examination (principal); Z12.11 Encounter for screening for malignant neoplasm of colon
CPT/HCPCS: S0285

== ENCOUNTER → 2023-07-22 15:47 | Outpatient (BNVA) | payer BC, SELFPAY | PROVIDERS: PCP Internal Medicine; Visit Provider Nurse Practitioner Family ==

== ENCOUNTER 2023-07-28 14:08 | Outpatient (REF) | payer BC, SELFPAY ==
[2023-07-28 16:37] LABS: Anion Gap 12 (12-20); Blood Urea Nitrogen 17 mg/dL (9-16); Calcium 9.5 mg/dL (8.4-10.2); Carbon Dioxide 26 mmol/L (22-29); Chloride 108 mmol/L (96-108); Estimated Glomerular Filt Rate > 60; Glucose Random 88 mg/dL (60-115); Phosphorus 3.3 mg/dL (2.7-4.5); Potassium 4.3 mmol/L (3.3-5.1); Sodium 142 mmol/L (135-145)
[2023-07-28 16:47] LABS: Parathyroid Hormone Intact 93.9 pg/mL (8.7-77.1)
== END 2023-07-28 14:09 | disposition home or self-care (01) ==
LOC: HO.HMGCLDS 14:08
PROVIDERS: PCP Internal Medicine; Visit Provider Internal Medicine Hypertension Specialist
DX: E83.52 Hypercalcemia (principal); E87.0 Hyperosmolality and hypernatremia
CPT/HCPCS: 36415; 80048; 83970; 84100

== ENCOUNTER 2023-07-30 14:45 | Outpatient (AMB) | payer BC, SELFPAY ==
[2023-07-30 14:46] VITALS: BP 110/70; PULSE 61; O2SAT 98; BMI 30.2
--- NOTE | 2023-07-30 14:46 | HO.NEPHOV_ITS ---
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 She also developed atrial fibrillation and she is on beta blockers for rate control. Her baseline creatinine has been around 0.8 or 0.9 mg/dL. Recently she was started on prednisone for seronegative rheumatoid arthritis. BUN is bumped up to 20 mg/dL the creatinine was 1.17 which is slightly higher than her baseline. Corresponding serum sodium was 147 mg/dL. She has been increased see her fluid intake the repeat serum creatinine was 1.15 and she is here for further evaluation. She underwent a renal ultrasonogram which showed solitary kidney without any hydronephrosis or masses. Today she has no specific complaints. No headache nausea vomiting. No polyuria polydipsia. No diarrhea. No abdominal pain. No edema no fever no rash. [facility] Medical History Lobular carcinoma in situ (LCIS) of left breast COVID-19 Factor 5 Leiden mutation, heterozygous Pulmonary embolism MORGAN (dyspnea on exertion) Colon cancer screening Hypothyroidism (acquired) Normal breast exam Normal pelvic exam Anxiety Surgical History History of surgery History of rectal abscess History of hysterectomy History of lipoma [place] teeth removed History of foot surgery History of breast biopsy History of section Family History Father HTN (hypertension) Mother HTN (hypertension) Sister Cancer of thyroid Cady's disease Graves disease Social History Household Members: Family Housing: House Alcohol intake: current Alcohol intake frequency: a few times a week Patient Tobacco Use Status: Never used Tobacco e-Cigarette/Vaping Use: Never Used Current occupational status: employed 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[place] Cognitive needs: No Hearing needs: No Vision needs: Yes Physical Exam Vital Signs: Last Vital Signs Pulse 61 07/30/23 14:46 BP 110/70 07/30/23 14:46 Pulse Ox 98 07/30/23 14:46 Oxygen Delivery Method Room Air 07/30/23 14:46 BMI result Body Mass Index 30.2 Const General: comfortable Nutritional Appearance: well nourished Orientation/consciousness: patient oriented x3 HEENT Head: No normal to inspection Mouth: moist mucous membranes Neck Neck: Yes supple and Yes no JVD Resp Auscultation: clear to auscultation bilaterally, no rales and rub present Cardio Jugular venous distension: no JVD Palpation: no palpable S3 and no palpable S4 Heart sounds: no rubs GI Palpation (GI): Soft to palpation and nontender Percussion: No Fluid wave present General: Yes no CVA tenderness Back/Spine/Pelvis Back: no CVA tenderness Skin General skin exam: no rashes or lesions noted Neuro General: patient oriented x3 Extrem General: Yes no pedal edema and No clubbing Results Reviewed Nephrology Results: Hgb 14.1 g/dl (12.0-16.0) 07/20/23 WBC 11.6 X10*3/uL (4.8-10.8) H 07/20/23 Plt Count 298 X10*3/uL (160-400) 07/20/23 Sodium 142 mmol/L (135-145) 07/28/23 Potassium 4.3 mmol/L (3.3-5.1) 07/28/23 Chloride 108 mmol/L (96-108) 07/28/23 Carbon Dioxide 26 mmol/L (22-29) 07/28/23 BUN 17 mg/dL (9-16) H 07/28/23 Creatinine 0.95 mg/dL (0.5-1.4) 07/28/23 Calcium 9.5 mg/dL (8.4-10.2) 07/28/23 Phosphorus 3.3 mg/dL (2.7-4.5) 07/28/23 PTH Intact 93.9 pg/mL (8.7-77.1) H 07/28/23 Urine Protein Negative mg/dL (Neg-Trace) 07/04/23 Renal US 07/07/23 Assessment & Plan Assessment & Plan (1) Elevated serum creatinine: Code(s): R79.89 - Other specified abnormal findings of blood chemistry Category: Medical (2) Hypercalcemia: Code(s): E83.52 - Hypercalcemia Category: Medical (3) Hypernatremia: Code(s): E87.0 - Hyperosmolality and hypernatremia Category: Medical Plan Destiny is a 56-year-old woman with the solitary kidney with mild elevation serum creatinine and mild hypernatremia. Destiny most likely has elevation in serum creatinine due to volume depletion. Free water deficit could explain hypernatremia Renal ultrasonogram was unremarkable She was on high dose of vitamin-D supplementation. This lead to hypercalcemia. Once vitamin-D was discontinued hypercalcemia resolved. Repeat PTH level was 96. Serum creatinine is returned to baseline of 0.96 once hypercalcemia resolved. At this point we will hold off on using vitamin-D and monitor the serum calcium and PTH. I will monitor renal function every 6 months. Encouraged her to increase her p.o. fluid intake and stay on low-sodium diet. Orders: Orders Basic Metabolic Panel 2 Weeks E83.52 - Hypercalcemia, R79.89 - Other specified abnormal findings of blood chemistry Parathyroid Hormone Intact 6 Months E83.52 - Hypercalcemia Parathyroid Hormone Intact 1 Year E83.52 - Hypercalcemia Parathyroid Hormone Intact 2 Weeks E83.52 - Hypercalcemia, R79.89 - Other specified abnormal findings of blood chemistry Basic Metabolic Panel 6 Months E83.52 - Hypercalcemia Basic Metabolic Panel 1 Year E83.52 - Hypercalcemia Coding Level of Care Code Est Pt Level 4 (02018) Diagnoses Elevated serum creatinine R79.89 Hypercalcemia E83.52 Hypernatremia E87.0
== END 2023-07-30 15:03 | disposition home or self-care (01) ==
PROVIDERS: PCP Internal Medicine; Visit Provider Internal Medicine Hypertension Specialist
DX: R79.89 Other specified abnormal findings of blood chemistry (principal); E83.52 Hypercalcemia; E87.0 Hyperosmolality and hypernatremia
CPT/HCPCS: 99214

== ENCOUNTER → 2023-07-30 14:45 | Outpatient (BNVA) | payer BC, SELFPAY | PROVIDERS: PCP Internal Medicine; Visit Provider Internal Medicine Hypertension Specialist ==

== ENCOUNTER 2023-07-30 15:05 | Outpatient (AMB) | payer BC, SELFPAY ==
--- NOTE | 2023-07-30 15:27 | A.OFFVIS_ITS ---
Vital Signs 07/30/23 15:35 Height 5 ft 2 in Weight 165 lb BMI 30.2 BP 124/62 Blood Pressure Location Rt brachial Position Sitting Pulse 64 Pulse Source Pulse Oximeter Pulse Oximetry (%) 98 Oxygen Delivery Method Room Air Intake Visit Reasons: RA Intake Note: Patient last seen 06/02/23 presents today for follow up and test results. 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 Accompanied by: Self / Same As Patient Allergies sulfamethoxazole [From BACTRIM] Allergy (Unknown, Verified 07/30/23 15:35) RASH trimethoprim [From BACTRIM] Allergy (Unknown, Verified 07/30/23 15:35) RASH nsaid Allergy (Unknown, Uncoded 07/30/23 15:35) Unknown Medication List - Last Reconciled 07/30/23 by Kimberly Torres MD acetaminophen (Tylenol Extra Strength) 500 mg PO Q6H PRN alprazolam 0.5 mg PO DAILY PRN bupropion HCl XL 150 mg PO QAM buspirone 5 mg PO BID PRN flecainide 100 mg PO BID levothyroxine 88 mcg PO DAILY prednisone 7.5 mg PO DAILY propranolol 10 mg PO BID rivaroxaban (Xarelto) 20 mg PO DAILY HPI Comments Details: 57-year-old female with PMR returns for follow-up. She is currently on prednisone 7.5 mg daily. Last month there was a bump in her creatinine, at that time it was suspected to be due to methotrexate. Methotrexate has been discontinued now. Her creatinine has recovered. She states that since methotrexate was discontinued she has been feeling worse. She has been having worsening stiffness of her shoulders, lasting 3-4 hours. Continues to have fatigue. Initial history: This is a 57-year-old female who presents for evaluation of PMR. In late July/early August she started having bilateral shoulder stiffness, worse in the morning, takes hours to loosen up. Then it started to affect both eyes. She was evaluated by Orthopedics and had bilateral shoulder x-rays and was told they were normal. She received bilateral shoulder injections which provided dramatic relief for about 4 days then everything came back with a vengeance. Back in September patient presented to the hospital with the same symptoms of bilateral shoulder and bilateral thigh stiffness, she denies any swollen joints. In September was found to have significantly elevated CRP and was st arted on prednisone. She had been on multiple doses of prednisone including 40 mg and 20 mg. She was starting to have side effects especially with mood changes and weight distribution changes. She had been on 20 mg of prednisone for 2 weeks then 27 mg for 2 weeks. Only today she started taking 25 mg daily. She would like to reduce the dose. She denies any swollen joints or skin rashes. She denies any history of psoriasis. She denies any headaches, jaw, extremity or tongue claudication. Denied blurry vision. She has a history of PE and was found to have factor 5 leiden mutation. She is currently on Xarelto. Mentions that her history has history of thyroid disease and eventually had to have thyroidectomy for thyroid cancer. In December 20 patient went to the ER and was found to be in AFib with RVR. They were getting ready to cardiovert her but she spontaneously converted back to sinus rhythm. A few days later she went back to the emergency room with AFib with RVR and had successful cardioversion. Currently she follows up with a auger press operator and is wearing a monitor. [facility] Medical History (Updated 07/30/23 @ 16:21 by Kimberly Torres MD) Lobular carcinoma in situ (LCIS) of left breast COVID-19 Factor 5 Leiden mutation, heterozygous Pulmonary embolism MORGAN (dyspnea on exertion) Colon cancer screening Hypothyroidism (acquired) Normal breast exam Normal pelvic exam Anxiety Surgical History History of surgery History of rectal abscess History of hysterectomy History of lipoma [place] teeth removed History of foot surgery History of breast biopsy History of section Family History Father HTN (hypertension) Mother HTN (hypertension) Sister Cancer of thyroid Cady's disease Graves disease Social History Household Members: Family Housing: House Alcohol intake: current Alcohol intake frequency: a few times a week Patient Tobacco Use Status: Never used Tobacco e-Cigarette/Vaping Use: Never Used Current occupational status: employed 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[place] Cognitive needs: No Hearing needs: No Vision needs: Yes Review of Systems Musc Denies arthralgias, Denies joint swelling, Denies limited range of motion and Reports stiffness Physical Exam Vital Signs: Last Vital Signs Pulse 64 07/30/23 15:35 BP 124/62 07/30/23 15:35 Pulse Ox 98 07/30/23 15:35 Oxygen Delivery Method Room Air 07/30/23 15:35 BMI result Body Mass Index 30.2 Const General: cooperative, healthy appearing and comfortable Nutritional Appearance: overweight Orientation/consciousness: patient oriented x3 Limitations: no limitations HEENT Head: Yes normocephalic and Yes atraumatic Resp Effort & Inspection: normal respiratory effort and able to speak in complete sentences Skin General skin exam: no rashes or lesions noted Neuro General: patient oriented x3 Extrem Other: Mild osteoarthritic changes of both hands with no active synovitis Normal range of motion of hands, fingers, wrists, elbows and shoulders without pain Negative empty can test and negative Speed's test bilaterally Proximal muscle strength 5/5 bilaterally all 4 limbs Normal range of motion of both hips without pain No ankle swelling or tenderness bilaterally No MTP tenderness Negative MTP squeeze test Normal nailfold capillaroscopy Assessment & Plan Assessment & Plan (1) PMR (polymyalgia rheumatica): Comment: onset 07/2022 ESR nl elevated CRP improved with prednisone MTX 03/2023 DC 06/2023 due to Cr elevation Code(s): M35.3 - Polymyalgia rheumatica Category: Medical Plan: This is a 57-year-old female with PMR/seronegative RA who returns for follow-up. She is on prednisone 7.5 mg daily. Methotrexate was discontinued last month due to creatinine elevation. Her creatinine has recovered back to her baseline now. However she is having return of the morning stiffness of her shoulders and thighs. She is having morning stiffness lasting 3-4 hours. CRP remains elevated. Patient needs another DMARD. Kevzara was approved for PMR. As risks and benefits of Kevzara. Patient agreed to proceed. Will start prior authorization for Kevzara Continue prednisone 7.5 mg daily until 2 weeks after the 1st Kevzara injection then reduce to 5 mg daily Labs before next visit 2 months (2) High risk medication use: Code(s): Z79.899 - Other intermediate (current) drug therapy Category: Medical Plan: Discussed risks and benefits of Kevzara including increased risk of infections, slightly increased risk of malignancy, injection site reactions. Patient is aware of risk. Plan I spent 27 minutes reviewing patient's chart, evaluating patient, ordering diagnostic workup, counseling patient and documenting in the chart Coding Level of Care Code Est Pt Level 4 (76412) Diagnoses PMR (polymyalgia rheumatica) M35.3 High risk medication use Z79.899
[2023-07-30 15:35] VITALS: BP 124/62; PULSE 64; O2SAT 98; BMI 30.2
== END 2023-07-30 16:15 | disposition home or self-care (01) ==
PROVIDERS: PCP Internal Medicine; Visit Provider Student in an Organized Health Care Education/Training Program
DX: M35.3 Polymyalgia rheumatica (principal); Z79.899 Other long term (current) drug therapy
CPT/HCPCS: 99214

== ENCOUNTER 2023-08-12 14:55 | Outpatient (REF) | payer BC, SELFPAY ==
[2023-08-12 17:13] LABS: Anion Gap 12 (12-20); Blood Urea Nitrogen 20 mg/dL (9-16); Calcium 9.8 mg/dL (8.4-10.2); Carbon Dioxide 28 mmol/L (22-29); Chloride 106 mmol/L (96-108); Estimated Glomerular Filt Rate 55; Glucose Random 114 mg/dL (60-115); Potassium 4.5 mmol/L (3.3-5.1); Sodium 141 mmol/L (135-145)
[2023-08-12 17:30] LABS: Parathyroid Hormone Intact 92.6 pg/mL (8.7-77.1)
== END 2023-08-12 14:56 | disposition home or self-care (01) ==
LOC: HO.HMGCLDS 14:55
PROVIDERS: PCP Internal Medicine; Visit Provider Internal Medicine Hypertension Specialist
DX: R79.89 Other specified abnormal findings of blood chemistry (principal); E83.52 Hypercalcemia
CPT/HCPCS: 36415; 80048; 83970

== ENCOUNTER 2023-08-28 11:52 | Outpatient (AMB) | payer BC, SELFPAY ==
[2023-08-28 11:55] VITALS: BP 118/70; PULSE 61; TEMP 36.4; O2SAT 99; BMI 30.4
--- NOTE | 2023-08-28 11:55 | MHC.OFFWIV ---
Intake Vital Signs 08/28/23 11:55 Height 5 ft 2 in Weight 166 lb BMI 30.4 BP 118/70 Blood Pressure Location Lt brachial Position Sitting Pulse 61 Pulse Source Pulse Oximeter Temp 97.5 F Temp Source Temporal Artery Scan Pulse Oximetry (%) 99 Oxygen Delivery Method Room Air Intake Visit Reasons: EP Right Groin Pain Intake Note: pt is here today for rt groin pain started 2 weeks ago Patient Tobacco Use Status: Never used Tobacco Allergies sulfamethoxazole [From BACTRIM] Allergy (Unknown, Verified 08/28/23 11:59) RASH trimethoprim [From BACTRIM] Allergy (Unknown, Verified 08/28/23 11:59) RASH nsaid Allergy (Unknown, Uncoded 08/28/23 11:59) Unknown Do you need a note to return to daycare/school/sports/work: No HPI HPI Comments History of Present Illness Details This is a 57-year-old female with past medical history significant for pulmonary embolism and paroxysmal atrial fibrillation with secondary hypercoagulable state on anti-coagulation with rivaroxaban, polymyalgia rheumatica versus rheumatoid arthritis who presents with recurrent right-sided groin pain. Patient states her pain first started approximately 1 year ago. Patient was evaluated by dean of girls who diagnosed her with polymyalgia rheumatica versus rheumatoid arthritis. Patient was placed on steroid therapy with prednisone and she states that the pain essentially resolved. However, the patient's dean of girls has been tapering her prednisone and her pain has been worsening as her prednisone dose is lowered. Patient does report occasional swelling of her right lower extremity. She states the pain is constant without any alleviating factors. She states the pain is exacerbated with certain movements. She denies any fevers or chills. She denies any chest pain or shortness of breath. [facility] Medical History (Updated 08/13/23 @ 20:05 by Hazel Lema [facility]) Lobular carcinoma in situ (LCIS) of left breast COVID-19 Factor 5 Leiden mutation, heterozygous Pulmonary embolism MORGAN (dyspnea on exertion) Colon cancer screening Hypothyroidism (acquired) Normal breast exam Normal pelvic exam Anxiety Surgical History History of surgery History of rectal abscess History of hysterectomy History of lipoma [place] teeth removed History of foot surgery History of breast biopsy History of section Family History Father HTN (hypertension) Mother HTN (hypertension) Sister Cancer of thyroid Cady's disease Graves disease Social History Household Members: Family Housing: House Alcohol intake: current Alcohol intake frequency: a few times a week Patient Tobacco Use Status: Never used Tobacco e-Cigarette/Vaping Use: Never Used Current occupational status: employed 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[place] Cognitive needs: No Hearing needs: No Vision needs: Yes Review of Systems Const All systems reviewed & are unremarkable except as noted in HPI and below Reports no additional complaints Eyes Reports no additional complaints ENT Reports no additional complaints Card Reports no additional complaints Resp Reports no additional complaints GI Reports no additional complaints Reports no additional complaints Musc Reports no additional complaints Skin/Breast Reports system reviewed and no additional complaints, except as documented Neuro Reports no additional complaints Psych Reports no additional complaints Endo Reports no additional complaints Carroll/Lymph Reports no additional complaints Aller/Immun Reports no additional complaints Physical Exam Vital Signs: Last Vital Signs Temp 97.5 F 08/28/23 11:55 Pulse 61 08/28/23 11:55 BP 118/70 08/28/23 11:55 Pulse Ox 99 08/28/23 11:55 Oxygen Delivery Method Room Air 08/28/23 11:55 BMI result Body Mass Index 30.4 Const Other: Vital signs reviewed. Constitutional: Non-toxic appearing. No acute distress. Well-developed and well-nourished. HEENT: Normocephalic and atraumatic. EOMI. Skin: Warm and dry. No rashes or lesions noted. Neck: Full and painless range of motion. No cervical lymphadenopathy. Cardio: Regular rate. No lower extremity edema. Pulmonary: No respiratory distress. No accessory muscle usage. Gastrointestinal: Soft, nontender, and nondistended in all 4 quadrants. Musculoskeletal: Decreased range of motion of the right hip with flexion and abduction. She has a slightly antalgic gait. Neuro: Alert and oriented x4. Cranial nerves 2-12 grossly intact. No focal deficits appreciated. Psych: Normal mood and affect. Assessment & Plan Assessment & Plan (1) Pain and swelling of right lower extremity: Code(s): M79.604 - Pain in right leg; M79.89 - Other specified soft tissue disorders Plan: 57-year-old female with past medical history significant for pulmonary embolism and paroxysmal atrial fibrillation with secondary hypercoagulable state on anti-coagulation with rivaroxaban, polymyalgia rheumatica versus rheumatoid arthritis who presents with recurrent right-sided groin pain and occasional swelling of the right lower extremity. Patient states that her right groin has worsened as her prednisone dose has been lowered; however, she states it feels different than her PMR versus RA pain and it is unilateral which is different than her PMR-related pain. Patient is very concerned that she could possibly have a blood clot. I explained to the patient that it is very unlikely that she has a blood clot given she is on anticoagulation and does not currently have any swelling of her right lower extremity at this time. However, patient is requesting an ultrasound to rule out a blood clot. A stat ultrasound venous duplex of the right lower extremity was ordered to rule out a blood clot. If negative, I have encouraged the patient to follow-up with her primary care physician as well as her dean of girls for further management. I also offered the patient a physical therapy referral; however, she declined at this time. Orders: Orders US venous duplex LE RT Today M79.604 - Pain in right leg, M79.89 - Other specified soft tissue disorders Coding Level of Care Code Est Pt Level 3 (99912) Diagnoses Pain and swelling of right lower extremity M79.604; M79.89
== END 2023-08-28 13:06 | disposition home or self-care (01) ==
PROVIDERS: PCP Internal Medicine; Visit Provider Physician Assistant Medical
DX: M79.604 Pain in right leg (principal); M79.89 Other specified soft tissue disorders
CPT/HCPCS: 99213

== ENCOUNTER 2023-08-28 12:28 | Outpatient (REF) | payer BC, SELFPAY ==
--- NOTE | ~2023-08-28 | US_ITS ---
EXAMINATION: US VENOUS ULTRASOUND WITH DOPPLER LOWER EXTREMITY, RIGHT CLINICAL INFORMATION: Pain and swelling COMPARISON: None available. TECHNIQUE: Ultrasound of the deep veins is performed from the hip to the calf with compression sonography and color and pulse Doppler assessment. Spectral analysis with color-flow imaging is performed. FINDINGS: There is normal venous compression and respiratory variation and augmented flow. The visualized common femoral vein, superficial femoral vein, profunda femoral vein, popliteal vein, and the trifurcation region shows no evidence of deep venous thrombosis. There is no significant popliteal fossa cyst. If the patient's symptoms persist, followup ultrasound in 5 days 7 days might be of value to exclude proximal propagation from a non-visualized calf vein. US/US venous duplex LE RT IMPRESSION: No DVT demonstrated in the right lower extremity.
== END 2023-08-28 12:29 | disposition home or self-care (01) ==
LOC: HO.HMGCX 12:28
PROVIDERS: PCP Internal Medicine; Visit Provider Physician Assistant Medical
DX: M79.604 Pain in right leg (principal); M79.89 Other specified soft tissue disorders
CPT/HCPCS: 93971

== ENCOUNTER 2023-09-25 06:01 | Outpatient (REF) | payer BC, SELFPAY ==
[2023-09-25 10:21] LABS: MANUAL DIFF FLAG NO
[2023-09-25 10:33] LABS: Basophils Absolute Auto 0.1 X10*3/uL (0.0-0.2); Eosinophils Absolute Auto 0.1 X10*3/uL (0.0-0.4); Eosinophils Percent Auto 2.3 % (0-4); Hematocrit 41.2 % (37.0-47.0); Hemoglobin 13.5 g/dl (12.0-16.0); Imm Gran Abs Auto 0.01 X10*3/uL (0.00-0.03); Imm Gran Pct Auto 0.2 % (0.0-0.4); Lymphocytes Absolute Auto 3.2 X10*3/uL (1.2-4.9); Lymphocytes Percent Auto 54.3 % (20-40); Mean Corpuscular HGB Conc 32.8 g/dl (31.0-35.0); Mean Corpuscular Hemoglobin 31.3 pg (27.0-33.0); Mean Corpuscular Volume 95.4 fL (80.0-98.0); Mean Platelet Volume 10.9 fL (9.4-12.3); Monocytes Absolute Auto 0.5 X10*3/uL (0.1-1.2); Monocytes Percent Auto 7.9 % (2-11); Neutrophils Absolute Auto 2.1 x10*3/uL (2.0-8.3); Neutrophils Percent Auto 34.3 % (45-73); Platelet Count 228 X10*3/uL (160-400); Red Blood Count 4.32 X10*6/uL (4.20-5.50); Red Cell Distribution Width 13.9 % (11.0-16.0)
[2023-09-25 10:36] LABS: Alanine Aminotransferase 16 U/L (0-31); Alkaline Phosphatase 73 U/L (39-117); Anion Gap 10 (12-20); Aspartate Amino Transferase 16 U/L (5-31); Bilirubin Total 0.2 mg/dL (0.0-1.0); Blood Urea Nitrogen 23 mg/dL (9-16); C Reactive Protein 0.87 mg/dL (< or = 0.50); Calcium 9.7 mg/dL (8.4-10.2); Carbon Dioxide 26 mmol/L (22-29); Chloride 111 mmol/L (96-108); Cholesterol 195 mg/dL (<200); Estimated Glomerular Filt Rate 51; Glucose Random 87 mg/dL (60-115); HDL Cholesterol 51 mg/dL (>40); LDL Cholesterol Calculated 118 mg/dL (<100); Potassium 4.2 mmol/L (3.3-5.1); Sodium 143 mmol/L (135-145); Total Protein 6.4 g/dL (6.5-8.0); Triglycerides 134 mg/dL (<150)
[2023-09-25 11:08] LABS: Erythrocyte Sedimentation Rate 4 MM/HR (0-20)
== END 2023-09-25 06:02 | disposition home or self-care (01) ==
LOC: HO.HMGCLDS 06:01
PROVIDERS: PCP Internal Medicine; Visit Provider Student in an Organized Health Care Education/Training Program
DX: M35.3 Polymyalgia rheumatica (principal); E78.5 Hyperlipidemia, unspecified; Z79.899 Other long term (current) drug therapy
CPT/HCPCS: 36415; 80053; 80061; 85025; 85652; 86140

== ENCOUNTER 2023-09-29 14:40 | Outpatient (AMB) | payer BC, SELFPAY ==
--- NOTE | 2023-09-29 14:52 | MHC.OFFVIS ---
Vital Signs 09/29/23 14:58 Height 5 ft 2 in Weight 165 lb 12.602 oz BMI 30.3 BP 116/62 Blood Pressure Location Lt brachial Position Sitting Pulse 63 Pulse Source Pulse Oximeter Pulse Oximetry (%) 97 Oxygen Delivery Method Room Air Intake Visit Reasons: PMR/cm Intake Note: Patient presents for PMR. for the past three nights feeling itching all over Allergies sulfamethoxazole [From BACTRIM] Allergy (Unknown, Verified 09/29/23 14:56) RASH trimethoprim [From BACTRIM] Allergy (Unknown, Verified 09/29/23 14:56) RASH nsaid Allergy (Unknown, Uncoded 08/28/23 11:59) Unknown Medication List - Last Reconciled 09/29/23 by Kimberly Torres MD acetaminophen (Tylenol Extra Strength) 500 mg PO Q6H PRN alprazolam 0.5 mg PO DAILY PRN bupropion HCl XL 150 mg PO QAM buspirone 5 mg PO BID PRN flecainide 100 mg PO BID Kevzara (sarilumab) 200 mg (1.14 mL) subcut Q2W NS levothyroxine 88 mcg PO DAILY prednisone 5 mg PO DAILY propranolol 10 mg PO BID rivaroxaban (Xarelto) 20 mg PO DAILY HPI Comments Details: 57-year-old female with PMR returns for follow-up. After last visit she started Kevzara. She took a couple of doses, last of which was 08/25, then it was held in preparation for her right thumb surgery which will performed on 09/10. She resumed her Kevzara on 09/22. She can not think of any side effects related to Kevzara. She is on prednisone 5 mg daily for about a month now. She states that her overall stiffness and pain has improved. She feels that she gets stiff if she remains take down for some time. She has noticed itching overall over for the last 3 nights. She does not believe she has hives. Initial history: This is a 57-year-old female who presents for evaluation of PMR. In late July/early August she started having bilateral shoulder stiffness, worse in the morning, takes hours to loosen up. Then it started to affect both eyes. She was evaluated by Orthopedics and had bilateral shoulder x-rays and was told they were normal. She received bilateral shoulder injections which provided dramatic relief for about 4 days then everything came back with a vengeance. Back in September patient presented to the hospital with the same symptoms of bilateral shoulder and bilateral thigh stiffness, she denies any swollen joints. In September was found to have significantly elevated CRP and was started on prednisone. She had been on multiple doses of prednisone including 40 mg and 20 mg. She was starting to have side effects especially with mood changes and weight distribution changes. She had been on 20 mg of prednisone for 2 weeks then 27 mg for 2 weeks. Only today she started taking 25 mg daily. She would like to reduce the dose. She denies any swollen joints or skin rashes. She denies any history of psoriasis. She denies any headaches, jaw, extremity or tongue claudication. Denied blurry vision. She has a history of PE and was found to have factor 5 leiden mutation. She is currently on Xarelto. Mentions that her history has history of thyroid disease and eventually had to have thyroidectomy for thyroid cancer. In December 20 patient went to the ER and was found to be in AFib with RVR. They were getting ready to cardiovert her but she spontaneously converted back to sinus rhythm. A few days later she went back to the emergency room with AFib with RVR and had successful cardioversion. Currently she follows up with a mental health social worker and is wearing a monitor. [facility] Medical History Lobular carcinoma in situ (LCIS) of left breast COVID-19 Factor 5 Leiden mutation, heterozygous Pulmonary embolism MORGAN (dyspnea on exertion) Colon cancer screening Hypothyroidism (acquired) Normal breast exam Normal pelvic exam Anxiety Surgical History H/O thumb surgery History of surgery History of rectal abscess History of hysterectomy History of lipoma [place] teeth removed History of foot surgery History of breast biopsy History of section Family History Father HTN (hypertension) Mother HTN (hypertension) Sister Cancer of thyroid Cady's disease Graves disease Social History Household Members: Family Housing: House Alcohol intake: current Alcohol intake frequency: a few times a week Patient Tobacco Use Status: Never used Tobacco e-Cigarette/Vaping Use: Never Used Current occupational status: employed 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[place] Cognitive needs: No Hearing needs: No Vision needs: Yes Female Reproductive History Menstrual Total pregnancies: 1 Number of Living Children: 1 Review of Systems Musc Denies arthralgias, Denies joint swelling, Denies limited range of motion and Reports stiffness Skin/Breast Reports pruritus and Reports rash Physical Exam Vital Signs: Last Vital Signs Pulse 63 09/29/23 14:58 BP 116/62 09/29/23 14:58 Pulse Ox 97 09/29/23 14:58 Oxygen Delivery Method Room Air 09/29/23 14:58 BMI result Body Mass Index 30.3 Const General: cooperative, healthy appearing and comfortable Nutritional Appearance: overweight Orientation/consciousness: patient oriented x3 Limitations: no limitations HEENT Head: Yes normocephalic and Yes atraumatic Resp Effort & Inspection: normal respiratory effort and able to speak in complete sentences Skin General skin exam: no rashes or lesions noted Neuro General: patient oriented x3 Extrem Other: Mild osteoarthritic changes of both hands with no active synovitis Normal range of motion of hands, fingers, wrists, elbows and shoulders without pain Negative empty can test and negative Speed's test bilaterally Proximal muscle strength 5/5 bilaterally all 4 limbs Normal range of motion of both hips without pain No ankle swelling or tenderness bilaterally No MTP tenderness Negative MTP squeeze test Normal nailfold capillaroscopy Assessment & Plan Assessment & Plan (1) PMR (polymyalgia rheumatica): Comment: onset 07/2022 ESR nl elevated CRP improved with prednisone MTX 03/2023 DC 06/2023 due to Cr elevation Kevzara 08/2023 Code(s): M35.3 - Polymyalgia rheumatica Category: Medical Plan: This is a 57-year-old female with PMR/seronegative RA who returns for follow-up. She is on prednisone 5 mg daily and Kevzara every other week. She has not been taking her Kevzara regularly as it had to be held for her right thumb surgery. She is doing better overall however. Less overall stiffness. 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 Patient is aware of risk. Plan I spent 27 minutes reviewing patient's chart, evaluating patient, ordering diagnostic workup, counseling patient and documenting in the chart Orders: Orders C Reactive Protein 2 Months M35.3 - Polymyalgia rheumatica Erythrocyte Sedimentation Rate 2 Months M35.3 - Polymyalgia rheumatica Complete Blood Count Auto Diff 2 Months M35.3 - Polymyalgia rheumatica Comprehensive Met. Panel 2 Months M35.3 - Polymyalgia rheumatica Coding Level of Care Code Est Pt Level 4 (44917) Diagnoses PMR (polymyalgia rheumatica) M35.3 High risk medication use Z79.899
[2023-09-29 14:58] VITALS: BP 116/62; PULSE 63; O2SAT 97; BMI 30.3
== END 2023-09-29 15:22 | disposition home or self-care (01) ==
PROVIDERS: PCP Internal Medicine; Visit Provider Student in an Organized Health Care Education/Training Program
DX: M35.3 Polymyalgia rheumatica (principal); Z79.899 Other long term (current) drug therapy
CPT/HCPCS: 99214

== ENCOUNTER → 2023-09-29 14:40 | Outpatient (BNVA) | payer BC, SELFPAY | PROVIDERS: PCP Internal Medicine; Visit Provider Student in an Organized Health Care Education/Training Program ==

== ENCOUNTER 2023-10-26 15:17 | Outpatient (AMB) | payer BC, SELFPAY ==
[2023-10-26 15:20] VITALS: BP 101/56; PULSE 66; BMI 30.7
--- NOTE | 2023-10-26 15:20 | MHC.OFFVIS ---
Vital Signs 10/26/23 15:20 Height 5 ft 2 in Weight 167 lb 15.876 oz BMI 30.7 BP 101/56 L Blood Pressure Location Lt brachial Position Sitting Pulse 66 Intake Visit Reasons: Follow up 3 months Intake Note: Destiny returns to in office 3 months follow up of Cologuard. CC: Patient denies having any GI symptoms today. 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 Patient will follow-up in 3 months, sooner on as needed basis. She is agreeable to this plan and verbalizes understanding of instructions. She was given the opportunity to ask questions and all questions answered. ? TODAY'S VISIT Patient is here today for follow-up and to discuss her Cologuard results. Patient had negative Cologuard. She will hold off on going for colonoscopy at this time. Patient denies any melena, hematochezia, unintentional weight loss or ribbon like stools. Patient denies any acid reflux, dyspepsia, dysphagia or odynophagia. Patient reports that she has been doing fairly well and denies any GI concerning symptoms. [facility] TO [facility] Medical History Lobular carcinoma in situ (LCIS) of left breast COVID-19 Factor 5 Leiden mutation, heterozygous Pulmonary embolism MORGAN (dyspnea on exertion) Colon cancer screening Hypothyroidism (acquired) Normal breast exam Normal pelvic exam Anxiety Surgical History H/O thumb surgery History of surgery History of rectal abscess History of hysterectomy History of lipoma [place] teeth removed History of foot surgery History of breast biopsy History of section Family History Father HTN (hypertension) Mother HTN (hypertension) Sister Cancer of thyroid Cady's disease Graves disease Social History Household Members: Family Housing: House Alcohol intake: current Alcohol intake frequency: a few times a week Patient Tobacco Use Status: Never used Tobacco e-Cigarette/Vaping Use: Never Used Current occupational status: employed 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[place] Cognitive needs: No Hearing needs: No Vision needs: Yes Review of Systems Const Denies weight gain and Denies weight loss ENT Reports no additional complaints, Denies dysphagia and Denies odynophagia Card Reports no additional complaints Resp Reports no additional complaints GI Denies abdominal pain, Denies belching, Denies melena, Denies bloating, Denies change in bowel habits, Denies dysphagia, Denies excessive flatus, Denies dyspepsia, Denies heartburn, Denies diarrhea, Denies loose stools, Denies nausea, Denies odynophagia and Denies vomiting Reports no additional complaints Musc Reports no additional complaints Neuro Reports no additional complaints Psych Reports no additional complaints Endo Reports no additional complaints Physical Exam Vital Signs: Last Vital Signs Pulse 66 10/26/23 15:20 BP 101/56 L 10/26/23 15:20 BMI result Body Mass Index 30.7 Const General: healthy appearing and no acute distress Nutritional Appearance: obese Orientation/consciousness: patient oriented x3 Resp Effort & Inspection: normal respiratory effort, able to speak in complete sentences, no tracheal deviation and symmetric chest movement Auscultation: clear to auscultation bilaterally Cardio Rate: regular rate GI Inspection: Yes normal to inspection, No distended and Yes obesity Palpation (GI): Soft to palpation, not firm, nontender and No hepatosplenomegaly present Auscultation: normal bowel sounds General: Yes no CVA tenderness Back/Spine/Pelvis Back: no CVA tenderness Skin General skin exam: elasticity normal, turgor normal and dry skin Neuro General: patient oriented x3 Psych Appearance: grossly normal Mental Status: mental status grossly normal Assessment & Plan Assessment & Plan (1) Colon cancer screening: Code(s): Z12.11 - Encounter for screening for malignant neoplasm of colon Category: Medical Plan Follow-up in the office on as needed basis. Another Cologuard in 3 years unless patient will decide going for colonoscopy. Patient was encouraged to try to think about it. She is agreeable to current plan of care and verbalizes understanding of instructions. She was given the opportunity to ask questions and all questions answered thank for allowing me to participate in her care Coding Level of Care Code Est Pt Level 3 (02504) Diagnoses Colon cancer screening Z12.11 Time Spent (min) 25 Comment 15 minutes spent with patient and additional 10 minutes spent reviewing her records
== END 2023-10-26 16:07 | disposition home or self-care (01) ==
PROVIDERS: PCP Internal Medicine; Visit Provider Nurse Practitioner Family
DX: Z01.818 Encounter for other preprocedural examination (principal); Z12.11 Encounter for screening for malignant neoplasm of colon
CPT/HCPCS: 99024

== ENCOUNTER → 2023-10-26 15:17 | Outpatient (BNVA) | payer BC, SELFPAY | PROVIDERS: PCP Internal Medicine; Visit Provider Nurse Practitioner Family ==

== ENCOUNTER 2023-11-09 13:07 | Outpatient (REF) | payer BC, SELFPAY ==
--- NOTE | ~2023-11-09 | XR_ITS ---
EXAMINATION: XR hip RT min 2V (accession [id number]), XR hip LT min 2V (accession [id number]) CLINICAL INFORMATION: M25.50 - Pain in unspecified joint COMPARISON: None. TECHNIQUE: Two views of the bilateral hips FINDINGS: * No acute fracture or dislocation. * Joint spaces are maintained without significant degenerative change. * No soft tissue abnormality. XR/XR hip RT min 2V IMPRESSION: Unremarkable examination of the bilateral hips. Electronically signed by: Lazara Prince MD 11/09/2023 06:19 PM EDT
--- NOTE | ~2023-11-09 | XR_ITS ---
EXAMINATION: XR SACROILIAC JOINTS CLINICAL INFORMATION: Pain COMPARISON: None available. TECHNIQUE: 3 views of the sacroiliac joints FINDINGS: Bones and soft tissues are normal. No fracture. Alignment is anatomic. Sacroiliac joint spaces are well-maintained without erosions or surrounding sclerosis. XR/XR sacroiliac joint min 3V IMPRESSION: Normal sacroiliac joints. Electronically signed by: Lazara Prince MD 11/09/2023 06:19 PM EDT
--- NOTE | ~2023-11-09 | XR_ITS ---
EXAMINATION: XR lumbar spine 4V min CLINICAL INFORMATION: M25.50 - Pain in unspecified joint COMPARISON: None TECHNIQUE: 5 views of the lumbar spine FINDINGS: Transitional anatomy. There are 4 nonrib-bearing lumbar-type vertebral bodies with sacralization of L5 and rudimentary L5-S1 disc space. Vertebral body heights are maintained. Alignment is maintained. Disc space heights are maintained. Surgical clips adjacent to the right aspect L2 vertebral body. XR/XR lumbar spine 4V min IMPRESSION: * Sacralization of the L5 vertebral body. * No significant spondylosis, as above detailed. Electronically signed by: Lazara Prince MD 11/09/2023 06:21 PM EDT
--- NOTE | ~2023-11-09 | XR_ITS ---
EXAMINATION: XR hip RT min 2V (accession [id number]), XR hip LT min 2V (accession [id number]) CLINICAL INFORMATION: M25.50 - Pain in unspecified joint COMPARISON: None. TECHNIQUE: Two views of the bilateral hips FINDINGS: * No acute fracture or dislocation. * Joint spaces are maintained without significant degenerative change. * No soft tissue abnormality. XR/XR hip LT min 2V IMPRESSION: Unremarkable examination of the bilateral hips. Electronically signed by: Lazara Prince MD 11/09/2023 06:19 PM EDT
== END 2023-11-09 13:08 | disposition home or self-care (01) ==
LOC: HO.XRAY 13:07
PROVIDERS: PCP Internal Medicine; Visit Provider Student in an Organized Health Care Education/Training Program
DX: M25.551 Pain in right hip (principal); M25.552 Pain in left hip; M54.50 Low back pain, unspecified; M53.3 Sacrococcygeal disorders, not elsewhere classified
CPT/HCPCS: 72110; 72202; 73502

== ENCOUNTER 2023-11-30 15:09 | Outpatient (REF) | payer BC, SELFPAY ==
[2023-11-30 15:57] LABS: MANUAL DIFF FLAG NO
[2023-11-30 16:12] LABS: Basophils Absolute Auto 0.1 X10*3/uL (0.0-0.2); Eosinophils Absolute Auto 0.1 X10*3/uL (0.0-0.4); Eosinophils Percent Auto 1.9 % (0-4); Hematocrit 40.7 % (37.0-47.0); Hemoglobin 13.5 g/dl (12.0-16.0); Imm Gran Abs Auto 0.02 X10*3/uL (0.00-0.03); Imm Gran Pct Auto 0.3 % (0.0-0.4); Lymphocytes Absolute Auto 2.6 X10*3/uL (1.2-4.9); Lymphocytes Percent Auto 42.3 % (20-40); Mean Corpuscular HGB Conc 33.2 g/dl (31.0-35.0); Mean Corpuscular Hemoglobin 31.3 pg (27.0-33.0); Mean Corpuscular Volume 94.2 fL (80.0-98.0); Monocytes Absolute Auto 0.6 X10*3/uL (0.1-1.2); Neutrophils Absolute Auto 2.7 x10*3/uL (2.0-8.3); Neutrophils Percent Auto 44.5 % (45-73); Platelet Count 200 X10*3/uL (160-400); Red Blood Count 4.32 X10*6/uL (4.20-5.50); Red Cell Distribution Width 13.7 % (11.0-16.0); White Blood Count 6.2 X10*3/uL (4.8-10.8)
[2023-11-30 16:47] LABS: Alanine Aminotransferase 25 U/L (0-31); Albumin Level 4.3 g/dL (3.5-5.0); Alkaline Phosphatase 68 U/L (39-117); Anion Gap 11 (12-20); Aspartate Amino Transferase 19 U/L (5-31); Bilirubin Total 0.3 mg/dL (0.0-1.0); Blood Urea Nitrogen 21 mg/dL (9-16); C Reactive Protein 0.12 mg/dL (< or = 0.50); Calcium 9.8 mg/dL (8.4-10.2); Carbon Dioxide 26 mmol/L (22-29); Chloride 109 mmol/L (96-108); Estimated Glomerular Filt Rate 47; Glucose Random 99 mg/dL (60-115); Potassium 4.1 mmol/L (3.3-5.1); Sodium 142 mmol/L (135-145); Total Protein 6.4 g/dL (6.5-8.0)
[2023-11-30 17:22] LABS: Erythrocyte Sedimentation Rate 2 MM/HR (0-20)
[2023-12-01 23:19] LABS: Rubella IgG Antibody 1.57 Index
== END 2023-11-30 15:10 | disposition home or self-care (01) ==
LOC: HO.HMGCLDS 15:09
PROVIDERS: PCP Internal Medicine; Visit Provider Student in an Organized Health Care Education/Training Program
DX: M35.3 Polymyalgia rheumatica (principal); Z78.9 Other specified health status
CPT/HCPCS: 36415; 80053; 85025; 85652; 86140; 86735; 86762; 86765; 86787

== ENCOUNTER 2023-12-07 15:05 | Outpatient (AMB) | payer BC, SELFPAY ==
[2023-12-07 15:27] VITALS: BP 124/64; PULSE 66; O2SAT 98; BMI 30.8
--- NOTE | 2023-12-07 15:27 | A.OFFVIS_ITS ---
Vital Signs 12/07/23 15:27 Height 5 ft 2 in Weight 168 lb 3.403 oz BMI 30.8 BP 124/64 Blood Pressure Location Lt brachial Position Sitting Pulse 66 Pulse Source Pulse Oximeter Pulse Oximetry (%) 98 Intake Visit Reasons: PMR Intake Note: Patient last seen by Doctor Kimberly Torres on 09/29/23. Patient presents today for PMR follow up and test results. Allergies NSAIDS (Non-Steroidal Anti-Inflamma Allergy (Unknown, Verified 12/07/23 15:30) Unknown sulfamethoxazole [From BACTRIM] Allergy (Unknown, Verified 12/07/23 15:30) RASH trimethoprim [From BACTRIM] Allergy (Unknown, Verified 12/07/23 15:30) RASH Medication List - Last Reconciled 12/07/23 by Kimberly Torres MD acetaminophen (Tylenol Extra Strength) 500 mg PO Q6H PRN alprazolam 0.5 mg PO DAILY PRN bupropion HCl XL 150 mg PO QAM buspirone 5 mg PO BID PRN flecainide 100 mg PO BID Kevzara (sarilumab) 200 mg (1.14 mL) subcut Q2W NS levothyroxine 88 mcg PO DAILY prednisone 5 mg PO DAILY propranolol 10 mg PO BID rivaroxaban (Xarelto) 20 mg PO DAILY HPI Comments Details: 58-year-old female with PMR returns for follow-up. She is on Kevzara 200 mg every other week and prednisone 2.5 mg daily. About a month ago after patient lowered her prednisone to 2.5 mg daily she starting having right hip pain, discomfort, difficulty with movement. Pain is in the inside of her right hip, towards the groin as well as the outside of her right hip, she has minimal pain on the outside of her left hip. Is worse with activity and certain movements. She walks with difficultly and can not run. She denies any lower back pain. She denies any stiffness or pain of her shoulders. Initial history: This is a 57-year-old female who presents for evaluation of PMR. In late July/early August she started having bilateral shoulder stiffness, worse in the morning, takes hours to loosen up. Then it started to affect both eyes. She was evaluated by Orthopedics and had bilateral shoulder x-rays and was told they were normal. She received bilateral shoulder injections which provided dramatic relief for about 4 days then everything came back with a vengeance. Back in September patient presented to the hospital with the same symptoms of bilateral shoulder and bilateral thigh stiffness, she denies any swollen joints. In September was found to have significantly elevated CRP and was started on prednisone. She had been on multiple doses of prednisone including 40 mg and 20 mg. She was starting to have side effects especially with mood changes and weight distribution changes. She had been on 20 mg of prednisone for 2 weeks then 27 mg for 2 weeks. Only today she started taking 25 mg daily. She would like to reduce the dose. She denies any swollen joints or skin rashes. She denies any history of psoriasis. She denies any headaches, jaw, extremity or tongue claudication. Denied blurry vision. She has a history of PE and was found to have factor 5 leiden mutation. She is currently on Xarelto. Mentions that her history has history of thyroid disease and eventually had to have thyroidectomy for thyroid cancer. In December 20 patient went to the ER and was found to be in AFib with RVR. They were getting ready to cardiovert her but she spontaneously converted back to sinus rhythm. A few days later she went back to the emergency room with AFib with RVR and had successful cardioversion. 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 [facility] Medical History Lobular carcinoma in situ (LCIS) of left breast COVID-19 Factor 5 Leiden mutation, heterozygous Pulmonary embolism MORGAN (dyspnea on exertion) Colon cancer screening Hypothyroidism (acquired) Normal breast exam Normal pelvic exam Anxiety Surgical History H/O thumb surgery History of surgery History of rectal abscess History of hysterectomy History of lipoma [place] teeth removed History of foot surgery History of breast biopsy History of section Family History Father HTN (hypertension) Mother HTN (hypertension) Sister Cancer of thyroid Cady's disease Graves disease Social History Household Members: Family Housing: House Alcohol intake: current Alcohol intake frequency: a few times a week Patient Tobacco Use Status: Never used Tobacco e-Cigarette/Vaping Use: Never Used Current occupational status: employed 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[place] Cognitive needs: No Hearing needs: No Vision needs: Yes Female Reproductive History Menstrual Total pregnancies: 1 Number of Living Children: 1 Review of Systems [facility] Reports arthralgias, Denies joint swelling, Reports limited range of motion and Reports stiffness Physical Exam Vital Signs: Last Vital Signs Pulse 66 12/07/23 15:27 BP 124/64 12/07/23 15:27 Pulse Ox 98 12/07/23 15:27 BMI result Body Mass Index 30.8 Const General: cooperative, healthy appearing and comfortable Nutritional Appearance: overweight Orientation/consciousness: patient oriented x3 Limitations: no limitations HEENT Head: Yes normocephalic and Yes atraumatic Resp Effort & Inspection: normal respiratory effort and able to speak in complete sentences Auscultation: clear to auscultation bilaterally Cardio Rate: regular rate Rhythm: regular rhythm Skin General skin exam: no rashes or lesions noted Neuro General: patient oriented x3 Extrem Other: Mild osteoarthritic changes of both hands with no active synovitis Normal range of motion of hands, fingers, wrists, elbows and shoulders without pain Negative empty can test bilaterally Proximal muscle strength 5/5 bilaterally all 4 limbs Left hip crepitus with manipulation, minimal left trochanteric bursa area tenderness with negative Guru's test Right groin pain with hip manipulation Right trochanteric bursa area tenderness with negative Guru's test No knee pain with flexion-extension bilaterally No ankle swelling or tenderness bilaterally negative straight leg raise test bilaterally Normal nailfold capillaroscopy Results Reviewed Results Reviewed: Ordering Physician: Kimberly Torres MD Date of Service: 11/09/23 Procedure(s): XR sacroiliac joint min 3V Accession Number(s): [id number] cc: Alem Carter MD; Kimberly Torres MD~ EXAMINATION: XR SACROILIAC JOINTS CLINICAL INFORMATION: Pain COMPARISON: None available. TECHNIQUE: 3 views of the sacroiliac joints FINDINGS: Bones and soft tissues are normal. No fracture. Alignment is anatomic. Sacroiliac joint spaces are well-maintained without erosions or surrounding sclerosis. XR/XR sacroiliac joint min 3V IMPRESSION: Normal sacroiliac joints. XR/XR lumbar spine 4V min IMPRESSION: * Sacralization of the L5 vertebral body. * No significant spondylosis, as above detailed. EXAMINATION: XR hip RT min 2V (accession [id number]), XR hip LT min 2V (accession [id number]) CLINICAL INFORMATION: M25.50 - Pain in unspecified joint COMPARISON: None. TECHNIQUE: Two views of the bilateral hips FINDINGS: * No acute fracture or dislocation. * Joint spaces are maintained without significant degenerative change. * No soft tissue abnormality. XR/XR hip LT min 2V IMPRESSION: Unremarkable examination of the bilateral hips. Assessment & Plan Assessment & Plan (1) PMR (polymyalgia rheumatica): Comment: onset 07/2022 ESR nl elevated CRP improved with prednisone MTX 03/2023 DC 06/2023 due to Cr elevation Kevzara 08/2023 Code(s): M35.3 - Polymyalgia rheumatica Category: Medical Plan: This is a 57-year-old female with PMR/seronegative RA who returns for follow-up. She is on prednisone 2.5 mg daily and Kevzara 200 mg every other week. Since patient lowered her prednisone to 2.5 mg daily last month she has noted some right hip pain and stiffness, pain with certain movements. Bilateral hip x- rays, bilateral SI joint x-rays and L-spine x-rays are unremarkable. This may be an internal derangement of her right hip joints such as a labral tear versus a mild PMR flare. I will order right hip MRI to evaluate for internal derangement Increase prednisone to 5 mg daily and reduce by 1 mg every 3 weeks Continue Kevzara 200 mg every other week Labs before next visit 2 months (2) High risk medication use: Code(s): Z79.899 - Other correction (current) drug therapy Category: Medical Plan: Discussed risks and benefits of Kevzara including increased risk of infections, slightly increased risk of malignancy, injection site reactions. Patient is aware of risk. (3) Pain in right hip: Code(s): M25.551 - Pain in right hip Category: Medical Plan: There is definitely a component of trochanteric bursitis however patient has pain on the inside of the hip towards the groin, x-rays were unremarkable, I would like to rule out internal derangement. Right hip MRI ordered Plan I spent 27 minutes reviewing patient's chart, evaluating patient, ordering diagnostic workup, counseling patient and documenting in the chart Orders: Orders Comprehensive Met. Panel 10 Weeks M35.3 - Polymyalgia rheumatica MR hip RT wo con Today S73.191A - Other sprain of right hip, initial encounter Complete Blood Count Auto Diff 10 Weeks M35.3 - Polymyalgia rheumatica C Reactive Protein 10 Weeks M35.3 - Polymyalgia rheumatica Erythrocyte Sedimentation Rate 10 Weeks M35.3 - Polymyalgia rheumatica Medications: Changed From prednisone 2.5 mg PO DAILY To prednisone 5 mg PO DAILY 21 tabs 0RF Coding Level of Care Code Est Pt Level 4 (34762) Diagnoses PMR (polymyalgia rheumatica) M35.3 High risk medication use Z79.899 Pain in right hip M25.551
== END 2023-12-07 16:13 | disposition home or self-care (01) ==
PROVIDERS: PCP Internal Medicine; Visit Provider Student in an Organized Health Care Education/Training Program
DX: M35.3 Polymyalgia rheumatica (principal); Z79.899 Other long term (current) drug therapy; M25.551 Pain in right hip
CPT/HCPCS: 99214

== ENCOUNTER → 2023-12-07 15:05 | Outpatient (BNVA) | payer BC, SELFPAY | PROVIDERS: PCP Internal Medicine; Visit Provider Student in an Organized Health Care Education/Training Program ==

== ENCOUNTER 2024-01-02 19:16 | Outpatient (REF) | payer BC, SELFPAY ==
--- NOTE | ~2024-01-02 | MR_ITS ---
EXAMINATION: MR HIP WITHOUT CONTRAST, RIGHT CLINICAL INFORMATION: Right hip pain and limited range of motion. Increasing symptoms. COMPARISON: Right hip radiographs dated 11/09/2023. CT abdomen/pelvis dated 02/09/2018. TECHNIQUE: MRI of the right hip was obtained using routine sequences on a high-field strength magnet. FINDINGS: ACETABULAR LABRUM: Mild degenerative intrasubstance signal without a displaced labral tear. ARTICULAR CARTILAGE/BONE: Diffuse articular cartilage thinning with full thickness loss at the superolateral aspect of the femoral head as well as at the adjacent lateral aspect of the acetabulum. Underlying acetabular subchondral cystic change and marrow edema. Small to moderate marginal osteophytes. No femoral stress reaction, fracture, or avascular necrosis. No concerning lytic or blastic osseous lesion. More mild left hip osteoarthritis. Degenerative disc disease and facet arthropathy partially visualized within the lower lumbar spine. MUSCLES/TENDONS: Mild gluteus medius and gluteus minimus tendinosis. No transverse tendon tear or tendon retraction. JOINT FLUID/BURSA: Small to moderate right hip joint effusion. INTRAPELVIC STRUCTURES: Unremarkable. MR/MR hip RT wo con IMPRESSION: 1. Moderate right hip osteoarthritis with a small to moderate joint effusion. No femoral stress reaction, fracture, or avascular necrosis. More mild left hip osteoarthritis. 2. Mild degenerative intrasubstance signal within the labrum without a displaced labral tear. 3. Mild gluteus medius and gluteus minimus tendinosis. 4. Partially visualized degenerative disc disease and facet arthropathy within the lower lumbar spine. Electronically signed by: Eriberto Pascal MD 01/07/2024 11:52 AM EDT
== END 2024-01-02 19:17 | disposition home or self-care (01) ==
LOC: HO.MRI 19:16
PROVIDERS: PCP Internal Medicine; Visit Provider Student in an Organized Health Care Education/Training Program
DX: S73.191A Other sprain of right hip, initial encounter (principal)
CPT/HCPCS: 73721

== ENCOUNTER 2024-01-25 08:03 | Outpatient (REF) | payer BC, SELFPAY ==
[2024-01-25] MEDS: Triamcinolone Acetonide 40 MG/ML VIAL INTRAARTIC (09:09)
[2024-01-25] MEDS: Lidocaine HCl 1 % MPF 5 ML VIAL SUBCUT (09:19)
--- NOTE | 2024-01-25 11:01 | PM.PROC ---
Brief Operative Note Date of procedure: 01/25/24 Pre-op diagnosis: Arthritis of right hip Post-op diagnosis: same Procedure: Date: 01/25/2024 Study Type: Limited Ultrasound with Guidance of needle placement Indication: Right hip pain Study Site: Right hip Equipment: Findings: ?Orthogonal views of the anterior aspect of the right hip was obtained in grayscale and Doppler. There was a small fluid collection noted at the right femoral neck The femur was intact with no erosions or osterophytes noted The overlying iliopsoas was intact Procedure: ?After obtaining informed consent for an ultrasound-guided aspiration and glucocorticoid injection of the right hip, the femoral neck was imaged with ultrasound and revealed minimal effusion. The area of interest was marked with a sterile skin pen. The right groin was sterilely prepped with chlorhexidine and anesthetized with lidocaine spray. ?A 22 gauge 1.5 in needle was advanced into the synovial cavity under direct ultrasound visualization using in plane technique. ?2cc of 2% Lidocaine was used to anesthetize the needle track and the subcutaneous tissue. Less than 0.5cc bloody fluid was aspirated and 40mg of triamcinolone was injected through the same needle. ?The procedure was well tolerated. Impressions: ?Small fluid collection that when aspirated was bloody. ?Prior muscle or labral tear. Fluid not sent for evaluation. No evidence of OA Anesthesia: local Pathology: none sent Condition: stable
== END 2024-01-25 08:04 | disposition home or self-care (01) ==
LOC: HO.US 08:03
PROVIDERS: PCP Internal Medicine; Visit Provider Student in an Organized Health Care Education/Training Program
DX: M16.11 Unilateral primary osteoarthritis, right hip (principal)
CPT/HCPCS: 20611; J2003; J3301

== ENCOUNTER → 2024-01-25 08:03 | Outpatient (BNV) | payer BC, SELFPAY | PROVIDERS: PCP Internal Medicine; Visit Provider Student in an Organized Health Care Education/Training Program | DX: M16.11 Unilateral primary osteoarthritis, right hip (principal) | CPT/HCPCS: 76942 ==

== ENCOUNTER 2024-02-12 09:52 | Outpatient (REF) | payer BC, SELFPAY ==
[2024-02-12 13:38] LABS: MANUAL DIFF FLAG NO
[2024-02-12 13:45] LABS: Basophils Absolute Auto 0.1 X10*3/uL (0.0-0.2); Eosinophils Absolute Auto 0.1 X10*3/uL (0.0-0.4); Eosinophils Percent Auto 2.3 % (0-4); Hematocrit 44.7 % (37.0-47.0); Imm Gran Abs Auto 0.01 X10*3/uL (0.00-0.03); Imm Gran Pct Auto 0.2 % (0.0-0.4); Lymphocytes Absolute Auto 3.1 X10*3/uL (1.2-4.9); Lymphocytes Percent Auto 49.8 % (20-40); Mean Corpuscular HGB Conc 33.6 g/dl (31.0-35.0); Mean Corpuscular Hemoglobin 32.1 pg (27.0-33.0); Mean Corpuscular Volume 95.5 fL (80.0-98.0); Monocytes Absolute Auto 0.5 X10*3/uL (0.1-1.2); Monocytes Percent Auto 8.8 % (2-11); Neutrophils Absolute Auto 2.3 x10*3/uL (2.0-8.3); Neutrophils Percent Auto 37.9 % (45-73); Platelet Count 203 X10*3/uL (160-400); Red Blood Count 4.68 X10*6/uL (4.20-5.50); Red Cell Distribution Width 12.7 % (11.0-16.0); White Blood Count 6.2 X10*3/uL (4.8-10.8)
[2024-02-12 14:12] LABS: Parathyroid Hormone Intact 55.5 pg/mL (8.7-77.1)
[2024-02-12 14:21] LABS: Alanine Aminotransferase 33 U/L (0-31); Albumin Level 4.2 g/dL (3.5-5.0); Alkaline Phosphatase 59 U/L (39-117); Anion Gap 13 (12-20); Aspartate Amino Transferase 29 U/L (5-31); Bilirubin Total 0.5 mg/dL (0.0-1.0); Blood Urea Nitrogen 17 mg/dL (9-16); C Reactive Protein < 0.10 mg/dL (< or = 0.50); Calcium 9.1 mg/dL (8.4-10.2); Carbon Dioxide 24 mmol/L (22-29); Chloride 109 mmol/L (96-108); Estimated Glomerular Filt Rate 45; Glucose Random 109 mg/dL (60-115); Potassium 4.1 mmol/L (3.3-5.1); Sodium 142 mmol/L (135-145); Total Protein 6.7 g/dL (6.5-8.0)
[2024-02-12 14:27] LABS: Erythrocyte Sedimentation Rate 1 MM/HR (0-20)
== END 2024-02-12 09:53 | disposition home or self-care (01) ==
LOC: HO.HMGCLDS 09:52
PROVIDERS: PCP Internal Medicine; Referring Provider Student in an Organized Health Care Education/Training Program; Visit Provider Internal Medicine Hypertension Specialist
DX: M35.3 Polymyalgia rheumatica (principal); E83.52 Hypercalcemia
CPT/HCPCS: 36415; 80053; 83970; 85025; 85652; 86140

== ENCOUNTER 2024-02-17 14:38 | Outpatient (AMB) | payer BC, SELFPAY ==
--- NOTE | 2024-02-17 14:56 | A.OFFVIS_ITS ---
Vital Signs 02/17/24 14:59 Height 5 ft 2 in Weight 172 lb 2.896 oz BMI 31.5 BP 112/70 Blood Pressure Location Rt brachial Position Sitting Respiration 16 Pulse 71 Pulse Source Pulse Oximeter Pulse Oximetry (%) 97 Oxygen Delivery Method Room Air Intake Visit Reasons: PMR Intake Note: Patient presents for PMR. Allergies NSAIDS (Non-Steroidal Anti-Inflamma Allergy (Unknown, Verified 12/07/23 15:30) Unknown sulfamethoxazole [From BACTRIM] Allergy (Unknown, Verified 12/07/23 15:30) RASH trimethoprim [From BACTRIM] Allergy (Unknown, Verified 12/07/23 15:30) RASH Medication List - Last Reconciled 02/17/24 by Kibmerly Torres MD acetaminophen (Tylenol Extra Strength) 500 mg PO Q6H PRN alprazolam 0.5 mg PO DAILY PRN bupropion HCl XL 150 mg PO QAM buspirone 5 mg PO BID PRN flecainide 100 mg PO BID Kevzara (sarilumab) 200 mg (1.14 mL) subcut Q2W NS levothyroxine 88 mcg PO DAILY prednisone 5 mg PO DAILY propranolol 10 mg PO BID rivaroxaban (Xarelto) 20 mg PO DAILY HPI Comments Details: 58-year-old female with PMR returns for follow-up. She is on Kevzara 200 mg every other week and prednisone 2 mg daily. Just lowered her prednisone to 2 mg yesterday. She has been tapering by 1 mg every 3 weeks. She received an injection by Dr. Lopez last month and has noticed about 95% improvement in her right hip pain. She feels well otherwise Initial history: This is a 57-year-old female who presents for evaluation of PMR. In late July/early August she started having bilateral shoulder stiffness, worse in the morning, takes hours to loosen up. Then it started to affect both eyes. She was evaluated by Orthopedics and had bilateral shoulder x-rays and was told they were normal. She received bilateral shoulder injections which provided dramatic relief for about 4 days then everything came back with a vengeance. Back in September patient presented to the hospital with the same symptoms of bilateral shoulder and bilateral thigh stiffness, she denies any swollen joints. In September was found to have significantly elevated CRP and was started on prednisone. She had been on multiple doses of prednisone including 40 mg and 20 mg. She was starting to have side effects especially with mood changes and weight distribution changes. She had been on 20 mg of prednisone for 2 weeks then 27 mg for 2 weeks. Only today she started taking 25 mg daily. She would like to reduce the dose. She denies any swollen joints or skin rashes. She denies any history of psoriasis. She denies any headaches, jaw, extremity or tongue claudication. Denied blurry vision. She has a history of PE and was found to have factor 5 leiden mutation. She is currently on Xarelto. Mentions that her history has history of thyroid disease and eventually had to have thyroidectomy for thyroid cancer. In December 20 patient went to the ER and was found to be in AFib with RVR. They were getting ready to cardiovert her but she spontaneously converted back to sinus rhythm. A few days later she went back to the emergency room with AFib with RVR and had successful cardioversion. Currently she follows up with a toll lineman and is wearing a monitor. [facility]LY [facility], [facility] Medical History Lobular carcinoma in situ (LCIS) of left breast COVID-19 Factor 5 Leiden mutation, heterozygous Pulmonary embolism MORGAN (dyspnea on exertion) Colon cancer screening Hypothyroidism (acquired) Normal breast exam Normal pelvic exam Anxiety Surgical History H/O thumb surgery History of surgery History of rectal abscess History of hysterectomy History of lipoma [place] teeth removed History of foot surgery History of breast biopsy History of section Family History Father HTN (hypertension) Mother HTN (hypertension) Sister Cancer of thyroid Cady's disease Graves disease Social History Household Members: Family Housing: House Alcohol intake: current Alcohol intake frequency: a few times a week Patient Tobacco Use Status: Never used Tobacco e-Cigarette/Vaping Use: Never Used Current occupational status: employed 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[place] Cognitive needs: No Hearing needs: No Vision needs: Yes Review of Systems [place] Reports arthralgias, Denies joint swelling and Reports stiffness Physical Exam Vital Signs: Last Vital Signs Pulse 71 02/17/24 14:59 Resp 16 12/04/24 14:59 BP 112/70 02/17/24 14:59 Pulse Ox 97 02/17/24 14:59 Oxygen Delivery Method Room Air 02/17/24 14:59 BMI result Body Mass Index 31.5 Const General: cooperative, healthy appearing and comfortable Nutritional Appearance: overweight Orientation/consciousness: patient oriented x3 Limitations: no limitations HEENT Head: Yes normocephalic and Yes atraumatic Resp Effort & Inspection: normal respiratory effort and able to speak in complete sentences Cardio Rate: regular rate Rhythm: regular rhythm Skin General skin exam: no rashes or lesions noted Neuro General: patient oriented x3 Extrem Other: Mild osteoarthritic changes of both hands with no active synovitis Normal range of motion of hands, fingers, wrists, elbows and shoulders without pain Negative empty can test bilaterally Proximal muscle strength 5/5 bilaterally all 4 limbs Bilateral hip crepitus with range of motion of the hip Minimal right groin pain with hip manipulation No knee pain with flexion-extension bilaterally No ankle swelling or tenderness bilaterally negative straight leg raise test bilaterally Normal nailfold capillaroscopy Assessment & Plan Assessment & Plan (1) PMR (polymyalgia rheumatica): Comment: onset 07/2022 ESR nl elevated CRP improved with prednisone MTX 03/2023 DC 06/2023 due to Cr elevation Kevzara 08/2023 Code(s): M35.3 - Polymyalgia rheumatica Category: Medical Plan: This is a 58-year-old female with PMR/seronegative RA who returns for follow-up. She is on prednisone 2 mg daily and Kevzara 200 mg every other week. Doing well overall. Inflammatory markers are normal. Continue current meds. Continues with taper prednisone by 1 mg every 3 weeks It was unclear whether the pain in her right hip is precipitated by inflammatory arthritis versus degenerative arthritis, unfortunately no hip fluid could be aspirated. 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 Patient is aware of risk. (3) Arthritis of right hip: Code(s): M16.11 - Unilateral primary osteoarthritis, right hip Category: Medical Plan: Right hip MRI did not show labral tear, it did show moderate osteoarthritis and a hip effusion. She has received a steroid injection last month with 95% improvement Start for right hip osteoarthritis Plan I spent 27 minutes reviewing patient's chart, evaluating patient, ordering diagnostic workup, counseling patient and documenting in the chart Orders: Orders Complete Blood Count Auto Diff 3 Months M35.3 - Polymyalgia rheumatica Comprehensive Met. Panel 3 Months M35.3 - Polymyalgia rheumatica C Reactive Protein 3 Months M35.3 - Polymyalgia rheumatica Erythrocyte Sedimentation Rate 3 Months M35.3 - Polymyalgia rheumatica PT Evaluation and Treatment Today M16.11 - Unilateral primary osteoarthritis, right hip Coding Level of Care Code Est Pt Level 4 (92138) Complex EM visit Add On G2211 Diagnoses PMR (polymyalgia rheumatica) M35.3 High risk medication use Z79.899 Arthritis of right hip M16.11
[2024-02-17 14:59] VITALS: BP 112/70; PULSE 71; RESP 16; O2SAT 97; BMI 31.5
== END 2024-02-17 15:38 | disposition home or self-care (01) ==
PROVIDERS: PCP Internal Medicine; Visit Provider Student in an Organized Health Care Education/Training Program
DX: M35.3 Polymyalgia rheumatica (principal); Z79.899 Other long term (current) drug therapy; M16.11 Unilateral primary osteoarthritis, right hip
CPT/HCPCS: 99214

== ENCOUNTER 2024-03-11 13:42 | Outpatient (REF) | payer BC, SELFPAY ==
[2024-03-11 16:18] LABS: Blood Urea Nitrogen 18 mg/dL (9-16); Estimated Glomerular Filt Rate 57
== END 2024-03-11 13:43 | disposition home or self-care (01) ==
LOC: HO.HMGCLDS 13:42
PROVIDERS: PCP Internal Medicine; Visit Provider Internal Medicine Hypertension Specialist
DX: N18.4 Chronic kidney disease, stage 4 (severe) (principal); R79.89 Other specified abnormal findings of blood chemistry
CPT/HCPCS: 36415; 82565; 84520

== ENCOUNTER 2024-03-14 14:39 | Outpatient (REF) | payer BC, SELFPAY ==
[2024-03-14 15:24] LABS: MANUAL DIFF FLAG NO
[2024-03-14 15:32] LABS: Basophils Absolute Auto 0.1 X10*3/uL (0.0-0.2); Basophils Percent Auto 0.9 % (0-2); Eosinophils Absolute Auto 0.1 X10*3/uL (0.0-0.4); Eosinophils Percent Auto 1.9 % (0-4); Hemoglobin 14.2 g/dl (12.0-16.0); Imm Gran Abs Auto 0.01 X10*3/uL (0.00-0.03); Imm Gran Pct Auto 0.2 % (0.0-0.4); Lymphocytes Absolute Auto 2.3 X10*3/uL (1.2-4.9); Lymphocytes Percent Auto 39.3 % (20-40); Mean Corpuscular HGB Conc 33.8 g/dl (31.0-35.0); Mean Corpuscular Hemoglobin 31.9 pg (27.0-33.0); Mean Corpuscular Volume 94.4 fL (80.0-98.0); Mean Platelet Volume 10.4 fL (9.4-12.3); Monocytes Absolute Auto 0.7 X10*3/uL (0.1-1.2); Monocytes Percent Auto 12.3 % (2-11); Neutrophils Absolute Auto 2.6 x10*3/uL (2.0-8.3); Neutrophils Percent Auto 45.4 % (45-73); Platelet Count 200 X10*3/uL (160-400); Red Blood Count 4.45 X10*6/uL (4.20-5.50); Red Cell Distribution Width 12.6 % (11.0-16.0); White Blood Count 5.8 X10*3/uL (4.8-10.8)
[2024-03-14 16:18] LABS: Erythrocyte Sedimentation Rate 2 MM/HR (0-20)
== END 2024-03-14 14:40 | disposition home or self-care (01) ==
LOC: HO.LAB 14:39
PROVIDERS: PCP Internal Medicine; Visit Provider Student in an Organized Health Care Education/Training Program
DX: M35.3 Polymyalgia rheumatica (principal); M45.9 Ankylosing spondylitis of unspecified sites in spine; E87.0 Hyperosmolality and hypernatremia; R79.89 Other specified abnormal findings of blood chemistry
CPT/HCPCS: 36415; 85025; 85652; 86812

== ENCOUNTER 2024-03-23 11:01 | Outpatient (AMB) | payer BC, SELFPAY ==
--- NOTE | 2024-03-23 11:18 | A.OFFVIS_ITS ---
Vital Signs 03/23/24 11:21 Height 5 ft 2 in Weight 172 lb BMI 31.5 BP 112/70 Blood Pressure Location Rt brachial Position Sitting Pulse 59 Pulse Source Pulse Oximeter Pulse Oximetry (%) 97 Oxygen Delivery Method Room Air Intake Visit Reasons: PMR Intake Note: Patient presents for PMR. Allergies NSAIDS (Non-Steroidal Anti-Inflamma Allergy (Unknown, Verified 03/23/24 11:21) Unknown sulfamethoxazole [From BACTRIM] Allergy (Unknown, Verified 03/23/24 11:21) RASH trimethoprim [From BACTRIM] Allergy (Unknown, Verified 03/23/24 11:21) RASH Medication List - Last Reconciled 03/23/24 by Kimberly Torres MD acetaminophen (Tylenol Extra Strength) 500 mg PO Q6H PRN alprazolam 0.5 mg PO DAILY PRN bupropion HCl XL 150 mg PO QAM buspirone 5 mg PO BID PRN flecainide 100 mg PO BID Kevzara (sarilumab) 200 mg (1.14 mL) subcut Q2W NS levothyroxine 88 mcg PO DAILY propranolol 10 mg PO BID rivaroxaban (Xarelto) 20 mg PO DAILY tramadol 50 mg PO DAILY PRN HPI Comments Details: 58-year-old female with PMR returns for follow-up. She is on Kevzara 200 mg every other week and tapered prednisone off a few days ago. She is here for an urgent visit. Her right hip pain is back. The right hip steroid injection helped for 3-4 weeks. Now her right hip pain is back. It is more anteriorly towards the groin associated with significantly limited range of motion, needs a cane walking long distances. She denies any other joint pain swelling or stiffness Initial history: This is a 57-year-old female who presents for evaluation of PMR. In late July/early August she started having bilateral shoulder stiffness, worse in the morning, takes hours to loosen up. Then it started to affect both eyes. She was evaluated by Orthopedics and had bilateral shoulder x-rays and was told they were normal. She received bilateral shoulder injections which provided dramatic relief for about 4 days then everything came back with a vengeance. Back in September patient presented to the hospital with the same symptoms of bilateral shoulder and bilateral thigh stiffness, she denies any swollen joints. In September was found to have significantly elevated CRP and was started on prednisone. She had been on multiple doses of prednisone including 40 mg and 20 mg. She was starting to have side effects especially with mood changes and weight distribution changes. She had been on 20 mg of prednisone for 2 weeks then 27 mg for 2 weeks. Only today she started taking 25 mg daily. She would like to reduce the dose. She denies any swollen joints or skin rashes. She denies any history of psoriasis. She denies any headaches, jaw, extremity or tongue claudication. Denied blurry vision. She has a history of PE and was found to have factor 5 leiden mutation. She is currently on Xarelto. Mentions that her history has history of thyroid disease and eventually had to have thyroidectomy for thyroid cancer. In December 20 patient went to the ER and was found to be in AFib with RVR. They were getting ready to cardiovert her but she spontaneously converted back to sinus rhythm. A few days later she went back to the emergency room with AFib with RVR and had successful cardioversion. Currently she follows up with a quality technician and is wearing a monitor. [facility] Medical History Lobular carcinoma in situ (LCIS) of left breast COVID-19 Factor 5 Leiden mutation, heterozygous Pulmonary embolism MORGAN (dyspnea on exertion) Colon cancer screening Hypothyroidism (acquired) Normal breast exam Normal pelvic exam Anxiety Surgical History H/O thumb surgery History of surgery History of rectal abscess History of hysterectomy History of lipoma [place] teeth removed History of foot surgery History of breast biopsy History of section Family History Father HTN (hypertension) Mother HTN (hypertension) Sister Cancer of thyroid Cady's disease Graves disease Social History Household Members: Family Housing: House Alcohol intake: current Alcohol intake frequency: a few times a week Patient Tobacco Use Status: Never used Tobacco e-Cigarette/Vaping Use: Never Used Current occupational status: employed 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[place] Cognitive needs: No Hearing needs: No Vision needs: Yes Female Reproductive History Menstrual Total pregnancies: 1 Number of Living Children: 1 Review of Systems [facility] Reports arthralgias, Denies joint swelling, Reports limited range of motion and Reports stiffness Physical Exam Vital Signs: Last Vital Signs Pulse 59 03/23/24 11:21 BP 112/70 03/23/24 11:21 Pulse Ox 97 03/23/24 11:21 Oxygen Delivery Method Room Air 03/23/24 11:21 BMI result Body Mass Index 31.5 Const General: cooperative, healthy appearing and comfortable Nutritional Appearance: overweight Orientation/consciousness: patient oriented x3 Limitations: ambulation with cane HEENT Head: Yes normocephalic and Yes atraumatic Resp Effort & Inspection: normal respiratory effort and able to speak in complete sentences Cardio Rate: regular rate Rhythm: regular rhythm Skin General skin exam: no rashes or lesions noted Neuro General: patient oriented x3 Extrem Other: Antalgic gait Mild osteoarthritic changes of both hands with no active synovitis Normal range of motion of hands, fingers, wrists, elbows and shoulders without pain Negative empty can test bilaterally Bilateral hip crepitus with range of motion of the hip Right groin pain with any range of motion of the hip Tenderness elicited with right hip flexion and external rotation No knee pain with flexion-extension bilaterally No ankle swelling or tenderness bilaterally negative straight leg raise test bilaterally Normal nailfold capillaroscopy Assessment & Plan Assessment & Plan (1) PMR (polymyalgia rheumatica): Comment: onset 07/2022 ESR nl elevated CRP improved with prednisone MTX 03/2023 DC 06/2023 due to Cr elevation Kevzara 08/2023, prednisone tapered off 03/2024 Code(s): M35.3 - Polymyalgia rheumatica Category: Medical Plan: This is a 58-year-old female with PMR/seronegative RA who returns for follow-up. She is on Kevzara 200 mg every other week. Prednisone has been tapered off. Her main complaint today is her right hip pain, the steroid injection only helped for about 3-4 weeks. Otherwise patient is doing well. I do not see any signs suggestive of inflammatory arthritis. I think her right hip symptomatology is likely degenerative and mechanical in nature. I will refer her to Orthopedics for eval uation I have a low suspicion that patient may be having some form of inflammatory spondyloarthropathy potentially involving 1 joint, can consider switching to a different DMARDs in the future such as a TNF inhibitor. 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 Patient is aware of risk. (3) Arthritis of right hip: Code(s): M16.11 - Unilateral primary osteoarthritis, right hip Category: Medical Plan: Right hip MRI did not show labral tear, it did show moderate osteoarthritis and a hip effusion. As mentioned above she had significant improvement with steroid injection but symptoms returned after 3-4 weeks. I referred her to Orthopedics for evaluation Can take tramadol 50 mg once daily as needed for significant pain Plan I spent 27 minutes reviewing patient's chart, evaluating patient, ordering diagnostic workup, counseling patient and documenting in the chart Orders: Orders Complete Blood Count Auto Diff 2 Months M35.3 - Polymyalgia rheumatica Erythrocyte Sedimentation Rate 2 Months M35.3 - Polymyalgia rheumatica HLA B27 2 Months M45.9 - Ankylosing spondylitis of unspecified sites in spine Comprehensive Met. Panel 2 Months M35.3 - Polymyalgia rheumatica C Reactive Protein 2 Months M35.3 - Polymyalgia rheumatica Referrals Orthopedics Referral M16.11 - Unilateral primary osteoarthritis, right hip Medications: New tramadol 50 mg PO DAILY PRN 15 tabs 0RF pain Discontinued prednisone Discontinued Reason: Doctor's Order 5 mg PO DAILY 21 tabs 0RF prednisone Discontinued Reason: Patient Completed Course 1 mg PO DAILY 30 tabs 0RF Coding Level of Care Code Est Pt Level 4 (43174) Complex EM visit Add On G2211 Diagnoses PMR (polymyalgia rheumatica) M35.3 High risk medication use Z79.899 Arthritis of right hip M16.11
[2024-03-23 11:21] VITALS: BP 112/70; PULSE 59; O2SAT 97; BMI 31.5
== END 2024-03-23 12:22 | disposition home or self-care (01) ==
PROVIDERS: PCP Internal Medicine; Visit Provider Student in an Organized Health Care Education/Training Program
DX: M35.3 Polymyalgia rheumatica (principal); Z79.899 Other long term (current) drug therapy; M16.11 Unilateral primary osteoarthritis, right hip
CPT/HCPCS: 99214

== ENCOUNTER 2024-04-18 13:15 | Outpatient (AMB) | payer BC, SELFPAY ==
--- NOTE | 2024-04-18 13:32 | MHC.OFFVIS ---
Vital Signs 04/18/24 13:39 Height 5 ft 2 in Weight 172 lb BMI 31.5 Intake Visit Reasons: [employer]-OA right hip Intake Note: Destiny is a 58 year old female who presents today for a new patient evaluation of right hip pain. Patient reports bilateral hip pain with the right hip being the worse. She was seen by her Health Economist who ordered x-rays and an MRI. She was also given prednisone and a cortisone injection that provided her with relief for about 2 weeks. Her pain is constant that fluctuates in intensity and is located in her groin area. Limited ROM. She has difficulty with stair use and uses a cane with prolong walking. Allergies NSAIDS (Non-Steroidal Anti-Inflamma Allergy (Unknown, Verified 04/18/24 13:42) Unknown sulfamethoxazole [From BACTRIM] Allergy (Unknown, Verified 04/18/24 13:42) RASH trimethoprim [From BACTRIM] Allergy (Unknown, Verified 04/18/24 13:42) RASH Medication List - Last Reconciled 04/18/24 by Lyndsay Perez PA-C acetaminophen (Tylenol Extra Strength) 500 mg PO Q6H PRN alprazolam 0.5 mg PO DAILY PRN bupropion HCl XL 150 mg PO QAM buspirone 5 mg PO BID PRN flecainide 100 mg PO BID Kevzara (sarilumab) 200 mg (1.14 mL) subcut Q2W NS levothyroxine 88 mcg PO DAILY propranolol 10 mg PO BID rivaroxaban (Xarelto) 20 mg PO DAILY tramadol 50 mg PO DAILY PRN HPI HPI [employer]-OA right hip: Details: 58-year-old female presents to the office today for right hip pain. She sees rheumatology for PMR and was also seen them for her right hip pain. They diagnosed her with right hip arthritis and performed an intra-articular injection on her right hip which she states she had full relief for 3 days. Shortly after the pain returned. She states the pain is worse with prolonged standing walking and lifting the leg. Pain is located in the anterior portion of the hip but it does not extend into the deep groin region of the joint. No pain laterally or along the buttock region. No numbness or tingling. [facility] Medical History Lobular carcinoma in situ (LCIS) of left breast COVID-19 Factor 5 Leiden mutation, heterozygous Pulmonary embolism MORGAN (dyspnea on exertion) Colon cancer screening Hypothyroidism (acquired) Normal breast exam Normal pelvic exam Anxiety Surgical History H/O thumb surgery History of surgery History of rectal abscess History of hysterectomy History of lipoma [place] teeth removed History of foot surgery History of breast biopsy History of section Family History Father HTN (hypertension) Mother HTN (hypertension) Sister Cancer of thyroid Cady's disease Graves disease Social History Household Members: Family Housing: House Alcohol intake: current Alcohol intake frequency: a few times a week Patient Tobacco Use Status: Never used Tobacco e-Cigarette/Vaping Use: Never Used Current occupational status: employed 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 She has no pain with range of motion of the hip. She does have tenderness along the hip flexors and discomfort with flexion of the right leg at the level of the hip. No pain with hip abduction or adduction. No tenderness over the greater troch. Neurovascularly intact. Results Reviewed Results Reviewed: XR hip RT min 2V IMPRESSION: Unremarkable examination of the bilateral hips. XR hip LT min 2V IMPRESSION: Unremarkable examination of the bilateral hips. MR hip RT wo con IMPRESSION: 1. Moderate right hip osteoarthritis with a small to moderate joint effusion. No femoral stress reaction, fracture, or avascular necrosis. More mild left hip osteoarthritis. 2. Mild degenerative intrasubstance signal within the labrum without a displaced labral tear. 3. Mild gluteus medius and gluteus minimus tendinosis. 4. Partially visualized degenerative disc disease and facet arthropathy within the lower lumbar spine. Assessment & Plan Assessment & Plan (1) Tendonitis of right hip flexor: Code(s): M76.891 - Other specified enthesopathies of right lower limb, excluding foot Category: Medical Plan: We discussed options today which include physical therapy to help work on strengthening and stretching exercises. I did explain the it I do not feel the source of her pain is in the deep groin/joint region. I feel as though this is the hip flexors of the leg given I am able to reproduce the pain with flexion and deep palpation. Therapy order was placed today and she will contact our office if symptoms persist or worsen otherwise follow-up as needed. Orders: Orders PT Evaluation and Treatment Today M76.891 - Other specified enthesopathies of right lower limb, excluding foot Coding Level of Care Code New Pt Level 3 (46957) Complex EM visit Add On G2211 Diagnoses Tendonitis of right hip flexor M76.891
[2024-04-18 13:39] VITALS: BMI 31.5
--- OUTSIDE RECORDS SUMMARY | 2024-04-18 14:31 | XMS_ITS | Clinical Summary ---
Author Organization [facility] Address [address] [place] [address] Phone Care Team Providers Care Veteran Appeals Reviewer Name Role Phone Alem Carter MD Primary Care Provider Allergies Active Allergy Reactions Criticality Noted Date Comments Nsaids (Non-Steroidal Anti-Inflammatory Drug) 06/04/2023 only has 1 kidney Sulfamethoxazole-Trimethoprim Other 2018 Medications Medication Sig Dispensed Refills Start Date End Date Status ALPRAZolam (XANAX) 0.5 mg tablet TAKE 1 TABLET BY MOUTH TWICE A DAY NEEDED 10/17/2021 Active buPROPion XL (WELLBUTRIN XL) 150 mg 24 hr tablet TAKE 1 TABLET BY MOUTH EVERY DAY IN THE MORNING 04/14/2023 Active buspirone HCl (BUSPAR ORAL) Take 5 mg by mouth. 04/16/2021 Activ e busPIRone (BUSPAR) 5 mg tablet TAKE 1 TABLET BY MOUTH TWICE A DAY NEEDED 10/17/2021 Active flecainide (TAMBOCOR) 100 mg tablet Take 1 Tablet by mouth 2 times daily. 01/28/2023 Active hydrOXYzine pamoate (VISTARIL) 25 mg capsule TAKE 1-2 CAPSULES BY MOUTH EVERY DAY AT BEDTIME NEEDED 11/10/2023 Active levothyroxine (Synthroid) 88 mcg tablet Take 1 Tablet by mouth daily. 10/15/2023 Active oxyCODONE (ROXICODONE) 5 mg immediate release tablet TAKE 1 TABLET BY MOUTH EVERY 4 HOURS NEEDED FOR 3 DAYS 09/11/2023 Active predniSONE 5 mg tablets,dose pack Take 1 Tablet by mouth daily. Active propranoloL (INDERAL) 10 mg tablet Take 1 Tablet by mouth 2 Times Daily. 12/05/2022 Active rivaroxaban (XARELTO) 20 mg tablet Take by mouth. Active sarilumab (Kevzara) 150 mg/1.14 mL injection Inject 1 Dose into the skin every 14 days. Active Active Problems Problem Noted Date Diagnosed Date Factor V Leiden 11/19/2021 Pulmonary embolism 11/19/2021 Hypothyroidism 04/20/2019 Overview (02/23/2024): S/P Thyroidectomy; Dr. 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 Atypical lobular hyperplasia (ALH) of left breas t 05/06/2018 Lobular carcinoma in situ (LCIS) of breast 05/06 Encounters Date Type Department Care Team Description 03/10/2024 3:33 PM EST - 03/10/2024 11:59 PM EST Hospital Encounter [facility] MRI [address] [place] [address] At high risk for breast cancer; History of lobular carcinoma in situ (LCIS) of breast Discharge Disposition: Home or Self Care from Last 3 Months Surgical History Surgery Date Site/Laterality Comments BREAST REDUCTION 02/25/2016 Bilateral PROCEDURE: CO BREAST REDUCTION HYSTERECTOMY 2011 PROCEDURE: HISTORICAL HYSTERECTOMY; COMMENT: Removal of 1 ovary SECTION PROCEDURE: HISTORICAL STEREOTACTIC BREAST BIOPSY 05/27/2012 Right PROCEDURE: STEREOTACTIC BREAST BIOPSY; COMMENT: FEA BREAST BIOPSY 2011 Left PROCEDURE: BX BREAST; PERC NEEDLE CORE W/IMAG GUID; COMMENT: Benign Medical History Medical History Date Comments Lobular carcinoma in situ (L CIS) of breast 05/06/2018 DX:Lobular carcinoma in situ (LCIS) of breast At high risk for breast cancer 05/06/2018 D X:At high risk for breast cancer Atypical lobular hyperplasia (ALH) of left breast 05/06/2018 DX:Atypical lobular hyperpla nadia (ALH) of left breast BRCA gene mutation negative 10/22/2018 DX:B RCA gene mutation negative; COMMENT: BRCA 1 and BRCA 2 Family History Medical History Relation Name Comments Breast cancer Aunt 1 paternal 40s Colon cancer Aunt 2 paternal in her 60's 50s Lung cancer Maternal Grandmother age 57 Breast cancer Mother lobular carcinoma Other: thyroid ca Sister Relation Name Status Comments Aunt 1 paternal Alive Aunt 2 paternal in her 60's Alive Maternal Grandmother age 57 Mother lobular carcinoma Alive Sister Social History Tobacco Use Types Packs/Day Years Used Date Smoking Tobacco: Never Smokeless Tobacco: Never Alcohol Use Standard Drinks/Week Comments Yes 0 (1 standard drink = 0.6 oz pur e alcohol) Sex and Gender Information Value Date Recorded Sex Assigned at Not on file Gender Identity Not on file Sexual Orientation Not on file Obstetrics History Last Filed Vital Signs Vital Sign Reading Time Taken Comments Blood Pressure 105/72 12/08/2023 3:08 PM EDT Pulse 70 12/08/2023 3:08 PM EDT Temperature - - Respiratory Rate - - Oxygen Saturation - - Inhaled Oxygen Concentration - - Weight 74.4 kg (164 lb) 12/08/2023 3:08 PM EDT Height 157.5 cm (5' 2 ) 10/15/2023 2:48 PM EDT Body Mass Index 30 10/15/2023 2:48 PM EDT Plan of Treatment Upcoming Encounters Date Type Department Care Team (Late st Contact Info) Description 06/07/2024 3:40 PM EDT Office Visit [facility] [address] [place] [id number] Avery Rodriguez MD [address] [facility] [address] [place] [address] Health Maintenance Due Date Last Done Comments Pneumococcal Vaccine: Pediatrics (0 to 5 Years) and At-Risk Patients (6 to 64 Years) (1 of 2 - PCV) 11/26/1973 Hepatitis B Vaccines (1 of 3 - 19+ 3-dose series) 11/26/1986 Zoster Vaccines (1 of 2) 11/26/1986 Cervical Cancer Screening: Pap Smear 11/26/1988 Depression Screening 02/22/2022 HIV Screening 02/22/2022 Hepatitis C Screening 02/22/2022 Social Influencers of Health Screening 02/22/2022 COVID-19 Vaccine ( season) 2023 09/30/2021, 01/13/2021, 04/27/2020, Additional history exists Influenza Vaccine (#1) 2023 02/05/2020 Breast Cancer Screening 12/13/2025 12/14/19 24, 05/18/2023, 05/08/2022, Additional history exists DTaP,Tdap,and Td Vaccines (2 - Td or Tdap) 02/12/2026 02/13/2016 Colorectal Cancer Screening: FIT-DNA (Cologuard) 08/01/2026 08/02/2023, 08/02/2023, 04/15/2020 HIB Vaccines Aged Out No longer eligi ble based on patient's age to complete this topic HPV Vaccines Aged Out No longer eligi ble based on patient's age to complete this topic Hepatitis A Vaccines Aged Out No long er eligible based on patient's age to complete this topic IPV Vaccines Aged Out No longer eligi ble based on patient's age to complete this topic MMR Vaccines Aged Out No longer eligi ble based on patient's age to complete this topic Meningococcal ACWY Vaccine Aged Out N o longer eligible based on patient's age to complete this topic RSV Immunization Patients Under 20 months Aged Out No longer eligible based on patient's age to complete this topic Varicella Vaccines Aged Out No longer eligible based on patient's age to complete this topic Procedures Procedure Name Priority Date/Time Associated Diagnosis Comments MR BREAST WO AND W CONTRAST BILAT Routine 03/10/2024 4:52 PM EST At high risk for breast cancer History of lobular carcinoma in situ (LCIS) of breast DOREEN SCREENING DIGITAL Routine 05/18/2023 3:52 PM EST Encounter for screening mammogram for malignant neoplasm of breast from Last 3 Months or Most Recently Relevant to Health Maintenance Results * MR Breast wo and w Contrast bilat (03/10/2024 4:52 PM EST) Anatomical Region Laterality Modality Breast Bilateral Magnetic Resonan ce 03/15/2024 2:34 PM EST Impressions 03/15/2024 3:04 PM EST No evidence of malignancy in the breasts. ??BIRADS 2-benign. BI-RADS 2 -- benign findings -------- FINAL REPORT -------- Dictated By: JESENIA YOUNG Dictated Date: 03/15/2024 14:34 ET Assigned Physician: JESENIA YOUNG Reviewed and Electronically Signed By: JESENIA YOUNG Signed Date: 03/15/2024 15:04 ET Workstation ID: [id number] Transcribed By: Self Edit Transcribed Date: 03/15/2024 14:34 ET Narrative 03/15/2024 3:04 PM EST PROCEDURE: Breast MRI INDICATION: Breast cancer screening, high-risk screening, prior LCIS on biopsy TECHNIQUE: Multiplanar, multisequence MRI of the breast without and with contrast. ??20 mL Dotarem injected intravenously without complication COMPARISON: ??MRI 01/15/2023 FINDINGS: Right: The right breast is almost entirely fat. ??No significant background parenchymal enhancement. ??No suspicious mass or nonmass enhancement. ??Previously previously described enhancing focus in the right breast is no longer visualized and there is a postbiopsy tissue marker in its place. ??No significant cystic change. ??Foci of susceptibility artifact within the upper breast compatible with prior postbiopsy tissue markers and/or surgical clips. Left: The left breast is almost entirely fat. ??No significant background parenchymal enhancement. ??No suspicious mass or nonmass enhancement. ??No significant cystic change. ??Foci of susceptibility artifact in the upper right breast compatible with postbiopsy tissue marker or surgical clips. Other: No axillary or internal mammary lymphadenopathy. ??The visualized upper abdominal and intrathoracic structures are within normal limits. ??No suspicious bone lesions Procedure Note Jesenia Young MD - 03/15/2024 PROCEDURE: Breast MRI INDICATION: Breast cancer screening, high-risk screening, prior LCIS onbiopsy TECHNIQUE: Multiplanar, multisequence MRI of the breast without and withcontrast. 20 mL Dotarem injected intravenously without complication COMPARISON: MRI 01/15/2023 FINDINGS: Right: The right breast is almost entirely fat. No significant backgroundparenchymal enhancement. No suspicious mass or nonmass enhancement.Previously previously described enhancing focus in the right breast is nolonger visualized and there is a postbiopsy tissue marker in its place.No significant cystic change. Foci of susceptibility artifact within theupper breast compatible with prior postbiopsy tissue markers and/orsurgical clips. Left: The left breast is almost entirely fat. No significant backgroundparenchymal enhancement. No suspicious mass or nonmass enhancement. Nosignificant cystic change. Foci of susceptibility artifact in the upperright breast compatible with postbiopsy tissue marker or surgical clips. Other: No axillary or internal mammary lymphadenopathy. The visualized upperabdominal and intrathoracic structures are within normal limits. Nosuspicious bone lesions IMPRESSION: No evidence of malignancy in the breasts. BIRADS 2-benign. BI-RADS 2 -- benign findings -------- FINAL REPORT -------- Dictated By: JESENIA YOUNG Dictated Date: 03/15/2024 14:34 ET Assigned Physician: JESENIA YOUNG Reviewed and Electronically Signed By: JESENIA YOUNG Signed Date: 03/15/2024 15:04 ET Workstation ID: [id number] Transcribed By: Self Edit Transcribed Date: 03/15/2024 14:34 ET Avery Rodriguez MD IMG MRI PROCEDURES * DORENE SCREENING DIGITAL (05/18/2023 3:52 PM EST) Anatomical Region Laterality Modality Mammography 05/18/2023 3:01 PM EST Narrative 05/18/2023 3:52 PM EST [facility] Diagnostic Imaging Department [address] [place] [address] Patient: ??DEL LEON ?/Age/Sex: 1965 - 57 - F Unit#: ??[id number] ? Location/Status: ??SPDIMAM/REG CLI ? Mnemonic/Ordering Site: ??DIGSC/SPMAM Ordering Physician: ??AVERY RODRIGUEZ MD [facility] Screening Digital - 05/18/23 - 9572 Report Status:Signed EXAM: [facility] Screening Digital EXAM DATE AND TIME: 05/18/2023 3:26 PM HISTORY: ??Screening. Reduction mammoplasty in 2016. Left breast LCIS found during reduction mammoplasty procedure. Patient declined tamoxifen. Previous MR guided right breast biopsies yielding benign pathology. COMPARISON: ??02/27/23, 05/07/22, 04/25/21, 04/23/20, 04/20/19 TECHNIQUE: Bilateral digital breast tomosynthesis was performed in the CC and MLO projections. Computer aided detection with Nifti 3D 3.1 was employed. TISSUE DENSITY: a. The breasts are almost entirely fatty. FINDINGS: Reduction mammoplasty sequelae are again noted. No suspicious masses, grouped microcalcifications, or developing architectural distortion are seen. Biopsy markers are again seen in the anterior right breast. The skin and vascularity are unremarkable. IMPRESSION: Stable mammographic appearance of the breasts. ??No evidence of malignancy is seen. A negative mammogram in the presence of a clinically suspicious palpable abnormality does not preclude the possibility of malignancy or alter the indications for biopsy. BI-RADS: ??Category 2: Benign RECOMMENDATION(S): 1: Routine screening mammogram BILATERAL in 1 year. Dictating Physician: ??ANNETTE AGUSTIN MD Electronically Signed by: ??ANNETTE AGUSTIN MD Dic Date/Time: ??05/18/23 1551 Sign date/Time: ??05/18/23 1552 Procedure Note Annette Agustin MD - 11/02/2023 [facility] Diagnostic Imaging Department [address] [place] [id number] Patient: DEL LEON/Age/Sex: 1965 - 57 - F Unit#: [id number] Location/Status: SPDIMAM/REG CLI Mnemonic/Ordering Site: [facility] Ordering Physician: AVERY RODRIGUEZ MD [facility] Screening Digital - 05/18/23 - 1525 Report Status:Signed EXAM: [facility] Screening Digital EXAM DATE AND TIME: 05/18/2023 3:26 PM HISTORY: Screening. Reduction mammoplasty in 2015. Left breast LCISfound during reduction mammoplasty procedure. Patient declined tamoxifen.Previous MR guided right breast biopsies yielding benign pathology. COMPARISON: 02/27/23, 05/07/22, 04/25/21, 04/23/20, 04/20/19 TECHNIQUE: Bilateral digital breast tomosynthesis was performed in the CCand MLO projections. Computer aided detection with Nifti 3D 3.1was employed. TISSUE DENSITY: a. The breasts are almost entirely fatty. FINDINGS: Reduction mammoplasty sequelae are again noted. No suspicious masses,grouped microcalcifications, or developing architectural distortion are seen.Biopsy markers are again seen in the anterior right breast. The skin andvascularity are unremarkable. IMPRESSION: Stable mammographic appearance of the breasts. No evidence of malignancyis seen. A negative mammogram in the presence of a clinically suspicious palpable abnormality does not preclude the possibility of malignancy or alter the indications for biopsy. BI-RADS: Category 2: Benign RECOMMENDATION(S): 1: Routine screening mammogram BILATERAL in 1 year. Dictating Physician: ANNETTE AGUSTIN MD Electronically Signed by: ANNETTE AGUSTIN MD Dic Date/Time: 05/18/23 155 Sign date/Time: 05/18/231551 Avery Rodriguez MD IMG BI PROCEDURES from Last 3 Months or Most Recently Relevant to Health Maintenance Care Teams Veteran Appeals Reviewer Relationship Specialty Start Date End Date Alem Carter MD PCP - General Internal Medicine 04/12/19
--- OUTSIDE RECORDS SUMMARY | 2024-04-18 14:31 | XMS_ITS | Clinical Summary ---
Author Organization [facility] Address [address] [place] [address] Care Team Providers Care Break Out Worker Name Role Phone Unavailable Primary Care Provider Unavailabl e Social History Tobacco Use Types Packs/Day Years Used Date Smoking Tobacco: Never Assessed Comments Unknown Sex and Gender Information Value Date Recorded Sex Assigned at Not on file Legal Sex Female 7:56 AM EDT Gender Identity Not on file Sexual Orientation Not on file Plan of Treatment Health Maintenance Due Date Last Done Comments Breast Cancer Screening 1965 Hepatitis B Vaccine (1 of 3 - 19+ 3-dose series) 11/26/1986 Colorectal Cancer Screening: Annual FOBT 11/26/2016 Colorectal Cancer Screening: Colonoscopy 11/26/2016 Colorectal Cancer Screening: Sigmoidoscopy 11/26/2016 Influenza Vaccine (#1) 2023 Pneumococcal Vaccine: Pediat rics (0 to 5 Years) and At-Risk Patients (6 to 64 Years) Aged Out No longer eligible b ased on patient's age to complete [place] [id number] [facility] [employer] ATTN: [place] [address] [facility] [address] [facility] [employer] [place] [place] [address] Amanda PETERMEHRDADBrenda JAY [id number]
== END 2024-04-18 14:19 | disposition home or self-care (01) ==
PROVIDERS: PCP Internal Medicine; Visit Provider Physician Assistant
DX: M76.891 Other specified enthesopathies of right lower limb, excluding foot (principal)
CPT/HCPCS: 99203

== ENCOUNTER 2024-05-17 11:46 | Outpatient (REF) | payer BC, SELFPAY ==
[2024-05-17 13:19] LABS: MANUAL DIFF FLAG NO
[2024-05-17 13:26] LABS: Basophils Absolute Auto 0.1 X10*3/uL (0.0-0.2); Eosinophils Absolute Auto 0.1 X10*3/uL (0.0-0.4); Eosinophils Percent Auto 1.6 % (0-4); Hematocrit 42.8 % (37.0-47.0); Hemoglobin 14.4 g/dl (12.0-16.0); Imm Gran Abs Auto 0.02 X10*3/uL (0.00-0.03); Imm Gran Pct Auto 0.3 % (0.0-0.4); Lymphocytes Absolute Auto 2.1 X10*3/uL (1.2-4.9); Lymphocytes Percent Auto 35.7 % (20-40); Mean Corpuscular HGB Conc 33.6 g/dl (31.0-35.0); Mean Corpuscular Hemoglobin 31.9 pg (27.0-33.0); Mean Corpuscular Volume 94.9 fL (80.0-98.0); Mean Platelet Volume 11.4 fL (9.4-12.3); Monocytes Absolute Auto 0.5 X10*3/uL (0.1-1.2); Neutrophils Absolute Auto 3.1 x10*3/uL (2.0-8.3); Neutrophils Percent Auto 53.4 % (45-73); Platelet Count 182 X10*3/uL (160-400); Red Blood Count 4.51 X10*6/uL (4.20-5.50); Red Cell Distribution Width 12.3 % (11.0-16.0); White Blood Count 5.8 X10*3/uL (4.8-10.8)
[2024-05-17 13:50] LABS: Alanine Aminotransferase 32 U/L (0-31); Albumin Level 4.2 g/dL (3.5-5.0); Alkaline Phosphatase 59 U/L (39-117); Anion Gap 11 (12-20); Aspartate Amino Transferase 25 U/L (5-31); Bilirubin Total 0.6 mg/dL (0.0-1.0); Blood Urea Nitrogen 17 mg/dL (9-16); C Reactive Protein < 0.10 mg/dL (< or = 0.50); Calcium 9.2 mg/dL (8.4-10.2); Carbon Dioxide 28 mmol/L (22-29); Chloride 110 mmol/L (96-108); Estimated Glomerular Filt Rate 53; Glucose Random 106 mg/dL (60-115); Potassium 4.7 mmol/L (3.3-5.1); Sodium 144 mmol/L (135-145); Total Protein 6.7 g/dL (6.5-8.0)
[2024-05-17 14:14] LABS: Erythrocyte Sedimentation Rate 1 MM/HR (0-20)
--- OUTSIDE RECORDS SUMMARY | 2024-05-17 14:59 | XMS_ITS | Clinical Summary ---
Author Organization [facility] Address [address] [place] [address] Phone Care Team Providers Care Lan Manager Name Role Phone Alem Carter MD Primary Care Provider [phone] Allergies Active Allergy Reactions Criticality Noted Date Comments Nsaids (Non-Steroidal Anti-Inflammatory Drug) 06/04/2023 only has 1 kidney Sulfamethoxazole-Trimethoprim Other 2018 Medications ALPRAZolam (XANAX) 0.5 mg tablet TAKE 1 TABLET BY MOUTH TWICE A DAY NEEDED 10/17/2021 Active buPROPion XL (WELLBUTRIN XL) 150 mg 24 hr tablet TAKE 1 TABLET BY MOUTH EVERY DAY IN THE MORNING 04/14/2023 Active buspirone HCl (BUSPAR ORAL) Take 5 mg by mouth. 04/16/2021 Active busPIRone (BUSPAR) 5 mg tablet TAKE 1 [...] - 03/10/2024 11:59 PM EST Hospital Encounter [facility] MRI [address] [place] [address] At high risk for breast cancer; History of lobular carcinoma in situ (LCIS) of breast Discharge Disposition: Home or Self Care from Last 3 Months Surgical History Surgery Date Site/Laterality Comments BREAST REDUCTION 02/25/2016 Bilateral PROCEDURE: DC BREAST REDUCTION HYSTERECTOMY 2011 PROCEDURE: HISTORICAL HYSTERECTOMY; [...] drink = 0.6 oz pur e alcohol) Comments Unknown Sex and Gender Information Value Date Recorded Sex Assigned at Not on file Legal Sex Female 3:46 PM EST Gender Identity Not on file Sexual Orientation [...] PM EDT Office Visit [facility] [address] [place] [id number] Avery Rodriguez MD [address] [place] [address] Health Maintenance Due Date Last Done Comments Hepatitis B Vaccines (1 of 3 - 19+ 3-dose series) 11/26/1986 Pneumococcal Vaccine: 50+ Years (1 of 2 - PCV) 11/26/1986 Pneumococcal Vaccine: Pediatrics (0 to 5 Years) and At-Risk Patients (6 to 64 Years) (1 of 2 - PCV) 11/26/1986 Zoster Vaccines (1 of 2) 11/26/1986 [...] patient's age to complete this topic Meningococcal B Vacine Aged Out No lo nger eligible based on patient's age to complete [...] lobular carcinoma in situ (LCIS) of breast CELINA SCREENING DIGITAL Routine 05/18/2023 3:52 PM EST [...] Signed Date: 03/15/2024 15:04 ET Workstation ID: [id number] Transcribed By: Self Edit Transcribed Date: 03/15/2024 [...] Signed Date: 03/15/2024 15:04 ET Workstation ID: [id number] Transcribed By: Self Edit Transcribed Date: 03/15/2024 14:34 ET Avery Rodriguez MD IMG MRI PROCEDURES Final Result * CELINA SCREENING DIGITAL (05/18/2023 3:52 PM EST) Anatomical Region Laterality Modality Mammography 05/18/2023 3:01 PM EST Narrative 05/18/2023 3:52 PM EST [facility] Diagnostic Imaging Department [address] [place] [address] Patient: ??DEL LEON ?/Age/Sex: 1965 - 57 - F Unit#: ??[id number] ? Location/Status: ??SPDIMAM/REG CLI ? Mnemonic/Ordering Site: ??DIGSC/SPMAM Ordering Physician: ??AVERY RODRIGUEZ MD Celina Screening Digital - 05/18/23 - 1525 Report Status:Signed EXAM: [facility] Screening Digital EXAM DATE AND TIME: 05/18/2023 3:26 PM HISTORY: ??Screening. Reduction mammoplasty in 2016. Left breast LCIS found during reduction mammoplasty procedure. Patient declined tamoxifen. Previous MR guided right breast biopsies yielding benign pathology. COMPARISON: ??02/27/23, 05/07/22, 04/25/21, 04/23/20, 04/20/19 TECHNIQUE: Bilateral digital breast tomosynthesis was performed in the CC and MLO projections. Computer aided detection with [employer] 3D 3.1 was employed. TISSUE DENSITY: a. [...] Procedure Note Annette Agustin MD - 11/02/2023 [facility] Diagnostic Imaging Department [address] [place] [address] Patient: DEL LEON /Age/Sex: 1965 - 57 - F Unit#: [id number] Location/Status: SPDIMAM/REG CLI Mnemonic/Ordering Site: [facility] Ordering Physician: AVERY RODRIGUEZ MD [facility] Screening Digital - 05/18/23 - 1525 Report Status:Signed EXAM: [facility] Screening Digital EXAM DATE AND TIME: 05/18/2023 3:26 PM HISTORY: Screening. Reduction mammoplasty in 2015. Left breast LCISfound during reduction mammoplasty procedure. Patient declined tamoxifen.Previous MR guided right breast biopsies yielding benign pathology. COMPARISON: 02/27/23, 05/07/22, 04/25/21, 04/23/20, 04/20/19 TECHNIQUE: Bilateral digital breast tomosynthesis was performed in the CCand MLO projections. Computer aided detection with [employer] 3D 3.1was employed. TISSUE DENSITY: a. The [...] by: ANNETTE AGUSTIN MD Dic Date/Time: 05/18/23 1551 Sign date/Time: 05/18/23 1552 Avery Rodriugez MD IMG BI PROCEDURES Final Result from Last 3 Months or Most Recently Relevant to Health Maintenance Insurance ([facility]) Care Teams Lan Manager Relationship Specialty Start Date End Date Alem Carter MD PCP - General Internal Medicine 04/12/19
--- OUTSIDE RECORDS SUMMARY | 2024-05-17 14:59 | XMS_ITS | Clinical Summary ---
Author Organization [facility] Address [address] [place] [address] Care Team Providers Care Personal Lines Sales Rep Name Role Phone Unavailable Primary Care Provider [...] complete [place] [address] [facility] TRANS[employer] PROGRAM ATTN: [place] [address] [facility] [address] [facility] TRANS[employer] PROGRAM ATTN: [place] [address] Amanda PETERMEHRDADBrenda JAY [id number]
--- OUTSIDE RECORDS SUMMARY | 2024-05-17 14:59 | XMS_ITS | Patient Health Record ---
Author Organization [facility] Address [address] [place] [address] Care Team Providers Care Bartenders Name Role Phone DR ISACC PICKARD Primary Care Provider Unavaila Jennifer Paul Unavailable [phone] Allergies Allergen (clinical drug ingredient) Drug/Non Drug Allergy documented on EMR Reaction Allergy Type Onset Date Status Bactrim DS Rash Drug Allergy Active Reason For Referral No Information Medications Medication SIG (Take, Route, Frequency, Duration) Notes Start Date End Date Status Ventolin HFA 108 (90 Base) MCG/ACT 2 puffs as needed Inhalation every 6 hrs Active Temovate 0.05 % 1 application to aff ected area Externally ONCE DAILY for 30 days 03/26/2018 Active Social History Tobacco Use: Social History Observation Description Date Details (start date - stop date) Never Smoker NA - NA Tobacco Use/Smoking Question Answer Notes Are you a nonsmoker Alcohol Screen (Audit-C) Question Answer Notes Did you have a drink contain ing alcohol in the past year? Yes How often did you have a dri nk containing alcohol in the past year? 2 to 3 times a week (3 points) How many drinks did you have on a typical day when you were drinking in the past year? 3 or 4 drinks (1 point) Points 4 Interpretation Positive Sexual History Question Answer Notes Had sex in the past 12 months (vaginal, oral, or anal)? No Problems Problem Type SNOMED Code ICD Code Onset Dates Problem Status W/U Status Risk Notes Problem Depressive disorder (23842562) Depressive disorder, not elsewhere classified (311) Active confirmed Problem Human papilloma virus deoxyribonucleic acid test positive, high risk on vaginal specimen (286678588504466) Cervical high risk human papillomavirus (HPV) DNA test positive (R87.810) Active confirmed Problem Carcinoma in situ of breast (295076144) Lobular carcinoma in situ of unspecified breast (D05.00) Active confirmed Problem Lobular carcinoma in situ of right breast (751275078026239) Lobular carcinoma in situ of right breast (D05.01) Active confirmed Problem Localized morphea (644193652) 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) Active confirmed Problem Unspecified menopausal and perimenopausal disorder (N95.9) Active confirmed Problem Abnormal findings on diagnostic imaging of breast (926769351) Other abnormal and inconclusive findings on diagnostic imaging of breast (R92.8) Active confirmed Problem History of dysplasia of cervix (816374871) Personal history of cervical dysplasia (Z87.410) Active confirmed Problem Leiomyoma of uterus (77017640) Leiomyoma of uterus, unspecified (218.9) Active confirmed Major Problem Mild dysplasia of cervix (005672250) Mild dysplasia of cervix (622.11) Active confirmed Diag Problem Gynecological examination normal (018344768720990) Routine gynecological examination (V72.31) Active confirmed Diag Problem Screening for malignant neoplasm of cervix (469321962) Screening for malignant neoplasm of the cervix (V76.2) Active confirmed Diag Plan Of Treatment Pending Test Test Name Order Date CEA 04/12/2014 hCG,Beta Subunit,Qnt,Serum 04/12/2014 CA 125, Serum (Serial) 04/12/2014 MM Digital Mammo Screening 01/28/2017 MM Digital Mammo Screening 01/24/2016 Screening Bilateral Mammogra m, Right Diagnostic Mammogram, Right Breast Ultrasound 03/30/2017 Insurance Providers Payer Name Payer Address Payer Phone Subscriber Number Group Number Insured Name Patient Relationship to Insured Coverage Start Date Coverage End Date [employer] [address] [place] [phone] [id number] DEL LEON Self - patient is the insured Medical (General) History Medical History History ICD Code Mild cervical dysplasia N87.0 Major depressive disorder, single episod e, unspecified F32.9 Leiomyoma of uterus, unspecified D25.9 Follicular cyst of ovary, unspecified si de N83.00 Moderate cervical dysplasia N87.1 Low grade squamous intraepit helial lesion on cytologic smear of cervix (LGSIL) R87.612 Other ovarian cyst, right side N83.291 Lobular carcinoma in situ of right breas t D05.01 Lichen sclerosus et atrophicus L90.0 Unspecified menopausal and perimenopausa l disorder N95.9 Surgical History Surgery Date(Month/Year) x1 Colposcopy Left Foot Surgery Right Foot Surgery Lumpectomy 06/2012 SLOANE/LSO For Fibroma of Left Ovary & Fibr oids Leep 2001 Right Breast Biopsy, Precancerous LCIS 1 04/27/15 Breast Reduction 02/25/16 Hospitalization History Reason Date(Month/Year) See Surgical Hx Aspirated During Colonoscopy, ASP Pnumon itis 02/09/18
[2024-05-23 10:58] LABS: HLA B27 Negative (Negative)
== END 2024-05-17 11:47 | disposition home or self-care (01) ==
LOC: HO.HMGCLDS 11:46
PROVIDERS: PCP Internal Medicine; Visit Provider Student in an Organized Health Care Education/Training Program
DX: M35.3 Polymyalgia rheumatica (principal); M45.9 Ankylosing spondylitis of unspecified sites in spine
CPT/HCPCS: 36415; 80053; 85025; 85652; 86140; 86812

== ENCOUNTER 2024-05-24 15:34 | Outpatient (AMB) | payer BC, SELFPAY ==
--- NOTE | 2024-05-24 15:40 | A.OFFVIS_ITS ---
Vital Signs 05/24/24 15:44 Height 5 ft 2 in Weight 174 lb 9.698 oz BMI 31.9 BP 115/80 Blood Pressure Location Lt brachial Position Sitting Pulse 71 Pulse Source Pulse Oximeter Pulse Oximetry (%) 95 Oxygen Delivery Method Room Air Intake Visit Reasons: PMR Intake Note: Patient presents for PMR. Allergies NSAIDS (Non-Steroidal Anti-Inflamma Allergy (Unknown, Verified 05/24/24 15:43) Unknown sulfamethoxazole [From BACTRIM] Allergy (Unknown, Verified 05/24/24 15:43) RASH trimethoprim [From BACTRIM] Allergy (Unknown, Verified 05/24/24 15:43) RASH Medication List - Last Reconciled 05/24/24 by Ivette Lopez MD acetaminophen (Tylenol Extra Strength) 500 mg PO Q6H PRN alprazolam 0.5 mg PO DAILY PRN bupropion HCl XL 150 mg PO QAM buspirone 5 mg PO BID PRN flecainide 100 mg PO BID Kevzara (sarilumab) 200 mg (1.14 mL) subcut Q2W NS levothyroxine 88 mcg PO DAILY propranolol 10 mg PO BID rivaroxaban (Xarelto) 20 mg PO DAILY tramadol 50 mg PO DAILY PRN HPI Comments Details: Patient is a 58-year-old female with hypothyroidism, paroxysmal AFib on Eliquis, factor 5 Leiden mutation complicated by PE, and polyarthralgias attributed to PMR here today for follow up Interval History: Patient last seen 03/23/[address] Torres. At that time she was on Kevzara 200 mg every other week and prednisolone has been tapered off a few days prior to the visit. She was there for an urgent visit due to right hip pain returning. At that time there was no evidence of acute inflammation or synovitis She then referred to ortho for further eval Saw ortho 04/2024 who evaluated and thought patient had mainly a right hip flexor tendonitis and was sent to PT States that PT has been having some progress but still with days that she can't get out of bed because she is so sore. Of note her dad was recently diagnosed with incurable lung cancer and she has had to assume a care giving role as well Rheumatologic History: Initial history: This is a 57-year-old female who presents for evaluation of PMR. In late July/early August she started having bilateral shoulder stiffness, worse in the morning, takes hours to loosen up. Then it started to affect both eyes. She was evaluated by Orthopedics and had bilateral shoulder x-rays and was told they were normal. She received bilateral shoulder injections which provided dramatic relief for about 4 days then everything came back with a vengeance. Back in September patient presented to the hospital with the same symptoms of bilateral shoulder and bilateral thigh stiffness, she denies any swollen joints. In September was found to have significantly elevated CRP and was started on prednisone. She had been on multiple doses of prednisone including 40 mg and 20 mg. She was starting to have side effects especially with mood changes and weight distribution changes. She had been on 20 mg of prednisone for 2 weeks then 27 mg for 2 weeks. Only today she started taking 25 mg daily. She would like to reduce the dose. She denies any swollen joints or skin rashes. She denies any history of psoriasis. She denies any headaches, jaw, extremity or tongue claudication. Denied blurry vision. She has a history of PE and was found to have factor 5 leiden mutation. She is currently on Xarelto. Mentions that her history has history of thyroid disease and eventually had to have thyroidectomy for thyroid cancer. In December 20 patient went to the ER and was found to be in AFib with RVR. They were getting ready to cardiovert her but she spontaneously converted back to sinus rhythm. A few days later she went back to the emergency room with AFib with RVR and had successful cardioversion. Currently she follows up with a dashboard developer and is wearing a monitor. Current Rheumatology Medication(s): Kevzara 200mg every other week Tylenol prn OTC Tramadol 50mg bid prn PFSH Medical History Lobular carcinoma in situ (LCIS) of left breast COVID-19 Factor 5 Leiden mutation, heterozygous Pulmonary embolism MORGAN (dyspnea on exertion) Colon cancer screening Hypothyroidism (acquired) Normal breast exam Normal pelvic exam Anxiety Surgical History H/O thumb surgery History of surgery History of rectal abscess History of hysterectomy History of lipoma [place] teeth removed History of foot surgery History of breast biopsy History of section Family History (Updated 05/24/24 @ 15:43 by JESSE Copeland) Father HTN (hypertension) Cancer Mother HTN (hypertension) Sister Cancer of thyroid Cady's disease Graves disease Social History Household Members: Family Housing: House Alcohol intake: current Alcohol intake frequency: a few times a week Patient Tobacco Use Status: Never used Tobacco e-Cigarette/Vaping Use: Never Used Current occupational status: employed 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[place] Cognitive needs: No Hearing needs: No Vision needs: Yes Review of Systems Const Details: Review of Systems Constitutional: Denies fever, chills, weight loss ENT: Denies vision changes, eye pain or eye redness, dental caries, dry mouth GI: Denies nausea, vomiting, diarrhea, abdominal pain, change in BM Pulm: Denies SOB, MORGAN, hemoptysis, wheezing Cards: Denies chest pain, palpitations Skin: Denies Raynaud's, rash, nail changes, photosensitivity, ADULT FAMILY HOME PROGRAM MANAGER: Denies headaches, weakness, paresthesias, recurrent falls MSK: as per HPI All other systems reviewed and are unremarkable except noted above Physical Exam Vital Signs: Last Vital Signs Pulse 71 05/24/24 15:44 BP 115/80 05/24/24 15:44 Pulse Ox 95 05/24/24 15:44 Oxygen Delivery Method Room Air 05/24/24 15:44 BMI result Body Mass Index 31.9 Vital signs reviewed Physical Examination CONSTITUITIONAL Patient alert and cooperative. Well appearing and in no apparent painful distress HEENT Conjunctiva and sclera clear. ?Pupils equal round and reactive to light. ?No lymphadenopathy. ? CHEST/RESPIRATORY SYSTEM Normal respiratory effort and able to speak in complete sentences. ?Clear to auscultation bilaterally. ?No crackles, rales, rhonchi, wheezes heard. CARDIAC SYSTEM Regular rate and rhythm. ?S1 and S2 heard no murmurs. ?Radial pulses intact bilaterally MSK Hands: ?Good dish up person strength bilaterally. No deformities noted. ?No synovitis noted to the MCPs, PIPs or DIPs. ?No tenderness to palpation of these joints. Wrists: ?Full range of motion at the wrists without pain. ?No tenderness to palpation or synovitis noted to the wrists. Elbows: Full range of motion without pain. No tenderness, weakness, swelling, increased warmth or erythema. Shoulders: Full range of motion without pain. No tenderness, weakness, swelling, increased warmth or erythema. Hips: Full range of motion. No pain elicited on STEPHEN maneuver but FLAIR maneuver reproduced pain in the groin and not in the SI joint Hip bursa: No tenderness to palpation Knees: ?Full range of motion. ?No tenderness, swelling, increased warmth or erythema.?No effusion or crepitations Ankles: Full range of motion. ?No tenderness, swelling, increased warmth or erythema.? Feet: ?Negative squeeze test. ?No tenderness to palpation or swelling of the MTPs. Tender points:?No tenderness to palpation of the bilateral trapezius, supraspinatus, greater trochanters, anterior costochondral junctions, bilateral gluteal areas, bilateral suboccipital muscle insertions SKIN Skin intact without rashes. Results Reviewed Results Reviewed: Laboratory Tests 05/17/24 11:50 WBC 5.8 RBC 4.51 Hgb 14.4 Hct 42.8 Plt Count 182 ESR 1 Sodium 144 Potassium 4.7 Chloride 110 H Carbon Dioxide 28 BUN 17 H Creatinine 1.07 AST 25 ALT 32 H C-Reactive Protein < 0.10 Infectious serologies 01/16/23 02/09/23 14:45 10:50 Hepatitis A IgM Ab Nonreactive Hep Bs Antigen Negative Hep Bs Antibody REACTIVE Hep B Core Total Ab Nonreactive Hepatitis C Ab (EIA) Nonreactive TB Test (T-Spot) Com Negative Assessment & Plan Assessment & Plan (1) PMR (polymyalgia rheumatica): Comment: onset 07/2022 ESR nl elevated CRP improved with prednisone MTX 03/2023 DC 06/2023 due to Cr elevation Kevzara 08/2023, prednisone tapered off 03/2024 Code(s): M35.3 - Polymyalgia rheumatica Category: Medical Plan: #PMR Patient is a 58-year-old female with polymyalgia rheumatica currently on Kevzara and has been tapered off of Prednisone since 03/2024. Remains in remission. ESR and CRP are both normal. Her current hip pains are currently being evaluated by Orthopedics and she is currently undergoing physical therapy. I do not believe these pains are related to her PMR. Discussed with the patient that ideally we will at least need to be on Kevzara for 1 year without prednisolone and then we can possibly consider tapering. Plan - Continue Kevzara 200mg every 2 weeks SC - Monitor off prednisone - RTC 4 months - Labs before visit: CBC, CMP, ESR, CRP, hepatitis panel, T spot, lipid panel (2) Arthritis of right hip: Code(s): M16.11 - Unilateral primary osteoarthritis, right hip Category: Medical Plan: #OA of the right hip Patient with relief from the steroid injection however this was transient. 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 ? Benefits include decreased pain, improved mortality, improved quality of life Risks include LFT abnormalities, elevated triglycerides, GI perforations Contraindicated in a patient with history of diverticulitis Monitoring: ?CBC, CMP, triglycerides Plan I spent 30 minutes reviewing the record and labs, taking a history, examining the patient, discussing the treatment plan, ordering diagnostic work up and documenting in the medical record Orders: Orders Comprehensive Met. Panel 3 Months M35.3 - Polymyalgia rheumatica C Reactive Protein 3 Months M35.3 - Polymyalgia rheumatica Complete Blood Count Auto Diff 3 Months M35.3 - Polymyalgia rheumatica Lipid Panel 3 Months M35.3 - Polymyalgia rheumatica Erythrocyte Sedimentation Rate 3 Months M35.3 - Polymyalgia rheumatica Hepatitis A,B,C Profile 3 Months M35.3 - Polymyalgia rheumatica T Spot TB 3 Months M35.3 - Polymyalgia rheumatica Medications: Changed From Kevzara (sarilumab) 200 mg (1.14 mL) subcut Q2W 2 mL 2RF NS M35.3 - Polymyalgia rheumatica To Kevzara (sarilumab) 200 mg (1.14 mL) subcut Q2W 28 days 2.28 mL 4RF NS M35.3 - Polymyalgia rheumatica Coding Level of Care Code Est Pt Level 4 (81180) Complex EM visit Add On G2211 Diagnoses PMR (polymyalgia rheumatica) M35.3 Arthritis of right hip M16.11 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
[2024-05-24 15:44] VITALS: BP 115/80; PULSE 71; O2SAT 95; BMI 31.9
--- OUTSIDE RECORDS SUMMARY | 2024-05-24 18:55 | XMS_ITS | Clinical Summary ---
Author Organization [facility] Address [address] [place] [address] Phone Care Team Providers Care Strategic Client Executive Name Role Phone Alem Carter MD Primary Care Provider [phone] Allergies Active Allergy Reactions Criticality Noted Date [...] Dr. 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's thyroiditis 11/05/2018 Atypical lobular hyperplasia (ALH) of left breas t 05/06/2018 Lobular carcinoma in situ (LCIS) of breast 05/06 Encounters Date Type Department Care Team Description 03/10/2024 3:33 PM EST - 03/10/2024 11:59 PM EST Hospital Encounter [facility] MRI [address] [place] [address] At high risk for breast cancer; History of lobular carcinoma in situ (LCIS) of breast Discharge Disposition: Home or Self Care from Last 3 Months Surgical History Surgery Date Site/Laterality Comments BREAST REDUCTION 02/25/2016 Bilateral PROCEDURE: MO BREAST REDUCTION HYSTERECTOMY 2011 PROCEDURE: HISTORICAL HYSTERECTOMY; [...] EDT Office Visit [facility] [address] [place] [id number] Avery Rodriguez MD [address] [place] [address] Health Maintenance Due Date Last Done Comments [...] Signed Date: 03/15/2024 15:04 ET Workstation ID: [id number] Transcribed By: Self Edit Transcribed Date: 03/15/2024 [...] Signed Date: 03/15/2024 15:04 ET Workstation ID: [id number] Transcribed By: Self Edit Transcribed Date: 03/15/2024 14:34 ET Avery Rodriguez MD IMG MRI PROCEDURES Final Result * CELINA SCREENING DIGITAL (05/18/2023 3:52 PM EST) Anatomical Region Laterality Modality Mammography 05/18/2023 3:01 PM EST Narrative 05/18/2023 3:[address] [facility] Diagnostic Imaging Department [address] [place] [address] Patient: ??DEL LEON ?/Age/Sex: 1965 - 57 - F Unit#: ??[id number] ? Location/Status: ??SPDIMAM/REG CLI ? Mnemonic/Ordering Site: ??DIGSC/SPMAM Ordering Physician: ??AVERY RODRIGUEZ MD Celina Screening Digital - 05/18/23 - 1525 Report Status:Signed EXAM: [facility] Screening Digital EXAM DATE AND TIME: 05/18/2023 3:26 PM HISTORY: ??Screening. Reduction mammoplasty in 2016. Left breast LCIS found during reduction mammoplasty procedure. Patient declined tamoxifen. Previous MR guided right breast biopsies yielding benign pathology. COMPARISON: ??02/27/23, 05/07/22, 04/25/21, 04/23/20, 04/20/19 TECHNIQUE: Bilateral digital breast tomosynthesis was performed in the CC and MLO projections. Computer aided detection with Gozent 3D 3.1 was employed. TISSUE DENSITY: a. [...] Procedure Note Annette Agustin MD - 11/02/2023 [facility] Diagnostic Imaging Department [address] [place] [address] Patient: DEL LEON /Age/Sex: 1965 - 57 - F Unit#: [id number] Location/Status: SPDIMAM/REG CLI Mnemonic/Ordering Site: [facility] Ordering Physician: AVERY RODRIGUEZ MD [facility] Screening Digital - 05/18/23 - 1525 Report Status:Signed EXAM: [facility] Screening Digital EXAM DATE AND TIME: 05/18/2023 3:26 PM HISTORY: Screening. Reduction mammoplasty in 2015. Left breast LCISfound during reduction mammoplasty procedure. Patient declined tamoxifen.Previous MR guided right breast biopsies yielding benign pathology. COMPARISON: 02/27/23, 05/07/22, 04/25/21, 04/23/20, 04/20/19 TECHNIQUE: Bilateral digital breast tomosynthesis was performed in the CCand MLO projections. Computer aided detection with Gozent 3D 3.1was employed. TISSUE DENSITY: a. The [...] 05/18/23 1551 Sign date/Time: 05/18/23 1552 Avery Rodriguez MD IMG BI PROCEDURES Final Result from Last 3 Months or Most Recently Relevant to Health Maintenance Insurance ([facility]) Care Teams Strategic Client Executive Relationship Specialty Start Date End Date Alem Carter MD PCP - General Internal Medicine 04/12/19
--- OUTSIDE RECORDS SUMMARY | 2024-05-24 18:55 | XMS_ITS | Clinical Summary ---
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 [address] [facility] [employer] ATTN: [place] [address] Amanda PETERMEHRDADBrenda JAY [id number]
--- OUTSIDE RECORDS SUMMARY | 2024-05-24 18:55 | XMS_ITS ---
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
--- OUTSIDE RECORDS SUMMARY | 2024-05-24 18:55 | XMS_ITS | Patient Health Record ---
Author Organization [facility] Address [address] [place] [address] Care Team Providers Care Edge Beader Name Role Phone DR ISACC PICKARD Primary Care Provider Unavaila Jennifer Paul Unavailable [phone] Allergies Allergen (clinical drug ingredient) Drug/Non Drug [...] W/U Status Risk Notes Problem Depressive disorder (27754157) Depressive disorder, not elsewhere classified (311) Active confirmed Problem Human papilloma virus deoxyribonucleic acid test positive, high risk on vaginal specimen (575286345869755) Cervical high risk human papillomavirus (HPV) DNA test positive (R87.810) Active confirmed Problem Carcinoma in situ of breast (655466021) Lobular carcinoma in situ of unspecified breast (D05.00) Active confirmed Problem Lobular carcinoma in situ of right breast (556739306268022) Lobular carcinoma in situ of right breast (D05.01) Active confirmed Problem Localized morphea (789295497) 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) Active confirmed Problem Unspecified menopausal and perimenopausal disorder (N95.9) Active confirmed Problem Abnormal findings on diagnostic imaging of breast (436247370) Other abnormal and inconclusive findings on diagnostic imaging of breast (R92.8) Active confirmed Problem History of dysplasia of cervix (554585890) Personal history of cervical dysplasia (Z87.410) Active confirmed Problem Leiomyoma of uterus (99284255) Leiomyoma of uterus, unspecified (218.9) Active confirmed Major Problem Mild dysplasia of cervix (046471667) Mild dysplasia of cervix (622.11) Active confirmed Diag Problem Gynecological examination normal (866797185491842) Routine gynecological examination (V72.31) Active confirmed Diag Problem Screening for malignant neoplasm of cervix (168154308) Screening for malignant neoplasm of the cervix (V76.2) Active confirmed Diag Plan Of Treatment Pending Test Test Name Order Date CEA 04/12/2014 hCG,Beta Subunit,Qnt,Serum 04/12/2014 CA 125, Serum (Serial) 04/12/2014 MM Digital Mammo Screening 01/24/2016 MM Digital Mammo Screening 01/28/2017 Screening Bilateral Mammogra m, Right Diagnostic Mammogram, Right Breast Ultrasound 03/30/2017 Insurance Providers Payer Name Payer Address Payer Phone Subscriber Number Group Number Insured Name Patient Relationship to Insured Coverage Start Date Coverage End Date [employer] [place] [address] [place] [address] [id number] DEL LEON Self - patient is the [...]
== END 2024-05-24 16:30 | disposition home or self-care (01) ==
PROVIDERS: PCP Internal Medicine; Visit Provider Student in an Organized Health Care Education/Training Program
DX: M35.3 Polymyalgia rheumatica (principal); M16.11 Unilateral primary osteoarthritis, right hip; Z79.620 Long term (current) use of immunosuppressive biologic
CPT/HCPCS: 99214

== ENCOUNTER 2024-05-30 13:11 | Outpatient (AMB) | payer BC, SELFPAY ==
--- NOTE | 2024-05-30 13:14 | MHC.OFFVIS ---
Vital Signs 05/30/24 13:19 Height 5 ft 2 in Weight 174 lb BMI 31.8 Intake Visit Reasons: OV: Tendonitis of right hip flexor Intake Note: Destiny is a 58 year old female who presents today for a follow up visit for her tendonitis of right hip flexor. Patient has been attending physical therapy with very little relief. States PT and Rheumatology suggested she return due to ongoing bilateral hip pain, as well as lower back pain. She had a RT hip injection with Rheumatology in January, which provided only about 2 weeks of relief. Allergies NSAIDS (Non-Steroidal Anti-Inflamma Allergy (Unknown, Verified 05/30/24 13:19) Unknown sulfamethoxazole [From BACTRIM] Allergy (Unknown, Verified 05/30/24 13:19) RASH trimethoprim [From BACTRIM] Allergy (Unknown, Verified 05/30/24 13:19) RASH Medication List - Last Reconciled 05/30/24 by Lyndsay Perez PA-C acetaminophen (Tylenol Extra Strength) 500 mg PO Q6H PRN alprazolam 0.5 mg PO DAILY PRN bupropion HCl XL 150 mg PO QAM buspirone 5 mg PO BID PRN flecainide 100 mg PO BID Kevzara (sarilumab) 200 mg (1.14 mL) subcut Q2W 28 days NS levothyroxine 88 mcg PO DAILY propranolol 10 mg PO BID rivaroxaban (Xarelto) 20 mg PO DAILY tramadol 50 mg PO DAILY PRN HPI HPI OV: Tendonitis of right hip flexor: Details: 58-year-old female presents to the office today for a follow-up right hip pain. I had seen her in the past for right hip pain and send her to physical therapy for hip flexor tendinitis. She had some relief however she continues to have discomfort in the low back which radiates down the leg she also has continued discomfort in the anterior portion of the hip which is worse with any type of lifting. She had an injection in the hip joint with Rheumatology back in January which she will helped for a couple of days. [facility] Medical History Lobular carcinoma in situ (LCIS) of left breast COVID-19 Factor 5 Leiden mutation, heterozygous Pulmonary embolism MORGAN (dyspnea on exertion) Colon cancer screening Hypothyroidism (acquired) Normal breast exam Normal pelvic exam Anxiety Surgical History H/O thumb surgery History of surgery History of rectal abscess History of hysterectomy History of lipoma [place] teeth removed History of foot surgery History of breast biopsy History of section Family History (Updated 05/24/24 @ 15:43 by Eloisa Kunz [facility]) Father HTN (hypertension) Cancer Mother HTN (hypertension) Sister Cancer of thyroid Cady's disease Graves disease Social History (Reviewed 05/30/24 @ 13:19 by Mindy Schaeffer [facility]) Household Members: Family Housing: House Alcohol intake: current Alcohol intake frequency: a few times a week Patient Tobacco Use Status: Never used Tobacco e-Cigarette/Vaping Use: Never Used Current occupational status: employed 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 She has no pain with range of motion of the hip. She does have tenderness along the hip flexors and discomfort with flexion of the right leg at the level of the hip. No pain with hip abduction or adduction. No tenderness over the greater troch. Neurovascularly intact. Assessment & Plan Assessment & Plan (1) Tendonitis of right hip flexor: Code(s): M76.891 - Other specified enthesopathies of right lower limb, excluding foot Category: Medical Plan: We have exhausted all conservative management of her right hip pain as she continues to have discomfort in the hip which also stems from the SI joint region. I did recommend an appointment with Dr. Livingston for further assessment. She is content with this plan. Coding Level of Care Code Est Pt Level 3 (40969) Complex EM visit Add On G2211 Diagnoses Tendonitis of right hip flexor M76.891
[2024-05-30 13:19] VITALS: BMI 31.8
== END 2024-05-30 13:59 | disposition home or self-care (01) ==
LOC: HO.HOS 13:12
PROVIDERS: PCP Internal Medicine; Visit Provider Physician Assistant
DX: M76.891 Other specified enthesopathies of right lower limb, excluding foot (principal)
CPT/HCPCS: 99213

== ENCOUNTER → 2024-05-30 13:11 | Outpatient (BNVA) | payer BC, SELFPAY | PROVIDERS: PCP Internal Medicine; Visit Provider Physician Assistant ==

== ENCOUNTER 2024-06-18 10:16 | Outpatient (REF) | payer BC, SELFPAY ==
--- OUTSIDE RECORDS SUMMARY | 2024-06-18 10:19 | XMS_ITS | Patient Health Record ---
Author Organization [facility] Address [address] [place] [address] Care Team Providers Care Test Engine Operator Name Role Phone DR ISACC PICKARD Primary Care Provider UnavailJennifer Eugene Unavailable [phone] Allergies Allergen (clinical drug ingredient) Drug/Non Drug Allergy documented on EMR Reaction Allergy Type Onset Date Status sulfamethoxazole / trimethoprim Bactrim DS Rash Drug Allergy Active Reason [...] W/U Status Risk Notes Problem Depressive disorder (51428082) Depressive disorder, not elsewhere classified (311) Active confirmed Problem Human papilloma virus deoxyribonucleic acid test positive, high risk on vaginal specimen (383226113096622) Cervical high risk human papillomavirus (HPV) DNA test positive (R87.810) Active confirmed Problem Carcinoma in situ of breast (555117467) Lobular carcinoma in situ of unspecified breast (D05.00) Active confirmed Problem Lobular carcinoma in situ of right breast (532367930695138) Lobular carcinoma in situ of right breast (D05.01) Active confirmed Problem Localized morphea (695192410) 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) Active confirmed Problem Unspecified menopausal and perimenopausal disorder (N95.9) Active confirmed Problem Abnormal findings on diagnostic imaging of breast (716553030) Other abnormal and inconclusive findings on diagnostic imaging of breast (R92.8) Active confirmed Problem History of dysplasia of cervix (766256411) Personal history of cervical dysplasia (Z87.410) Active confirmed Problem Leiomyoma of uterus (96000505) Leiomyoma of uterus, unspecified (218.9) Active confirmed Major Problem Mild dysplasia of cervix (189878710) Mild dysplasia of cervix (622.11) Active confirmed Diag Problem Gynecological examination normal (219260767387704) Routine gynecological examination (V72.31) Active confirmed Diag Problem Screening for malignant neoplasm of cervix (667988695) Screening for malignant neoplasm of the cervix [...] End Date [employer] [place] [address] [place] [address] [id number] DEL LEON Self - patient is the [...]
--- OUTSIDE RECORDS SUMMARY | 2024-06-18 10:19 | XMS_ITS | Clinical Summary ---
Author Organization [facility] Address [address] [place] [address] Care Team Providers Care Director Of Program Management Name Role Phone Unavailable Primary Care Provider [...] Colorectal Cancer Screening: Sigmoidoscopy 11/26/2016 Influenza Vaccine (Season Ended) 2024 Pneumococcal Vaccine: Pediat rics (0 to 5 Years) and At-Risk Patients (6 to 64 Years) Aged Out No longer eligible b ased on patient's age to complete [place] [id number] [facility] [employer] ATTN: [place] [address] [facility] [address] [facility] [employer] ATTN: [place] [address] Amanda PETERMEHRDADBrenda JAY [id number]
--- OUTSIDE RECORDS SUMMARY | 2024-06-18 10:19 | XMS_ITS | Clinical Summary ---
Author Organization [facility] Address [address] [place] [address] Phone Care Team Providers Care Senior Sales Assistant Name Role Phone Alem Carter MD Primary Care Provider [phone] Allergies Active Allergy Reactions Criticality Noted Date Comments Nsaids (Non-Steroidal Anti-Inflammatory Drug) 06/04/2023 only has 1 kidney Sulfamethoxazole-Trimethoprim Other 2018 Medications ALPRAZolam (XANAX) 0.5 mg tablet TAKE 1 TABLET BY MOUTH TWICE A DAY NEEDED 2 Active buPROPion XL (WELLBUTRIN XL) 150 mg 24 hr tablet TAKE 1 TABLET BY MOUTH EVERY DAY IN THE MORNING 4 Active busPIRone (BUSPAR) 5 mg tablet TAKE 1 TABLET BY MOUTH TWICE A DAY NEEDED 2 Active flecainide (TAMBOCOR) 100 mg tablet Take 1 Tablet by mouth 2 times daily. 3 Active hydrOXYzine pamoate (VISTARIL) 25 mg capsule TAKE 1-2 CAPSULES BY MOUTH EVERY DAY AT BEDTIME NEEDED 4 Active levothyroxine (Synthroid) 88 mcg tablet Take 1 Tablet by mouth daily. 4 Active propranoloL (INDERAL) 10 mg tablet Take 1 Tablet by mouth 2 Times Daily. 3 Active rivaroxaban (XARELTO) 20 mg tablet Take by mouth. Active sarilumab (Kevzara) 150 mg/1.14 mL injection Inject 1 Dose into the skin every 14 days. Active buspirone HCl (BUSPAR ORAL) Take 5 mg by mouth. 2 025 Discontinued oxyCODONE (ROXICODONE) 5 mg immediate release tablet TAKE 1 TABLET BY MOUTH EVERY 4 HOURS NEEDED FOR 3 DAYS 4 025 Discontinued predniSONE 5 mg tablets,dose pack Take 1 Tablet by mouth daily. 025 Discontinued Active Problems Problem Noted Date Diagnosed Date Factor V Leiden 11/19/2021 Pulmonary embolism 11/19/2021 Hypothyroidism 04/20/2019 Overview (02/23/2024): S/P Thyroidectomy; Dr. 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 Atypical lobular hyperplasia (ALH) of left breas t 05/06/2018 Lobular carcinoma in situ (LCIS) of breast 05/06 Encounters Date Type Department Care Team Description 06/07/2024 3:40 PM EDT Office Visit [address] [place] [address] Avery Rodriguez MD [place] of upper inner quadrant of left breast (Primary Dx); At high risk for breast cancer; Lobular carcinoma in situ (LCIS) of left breast from Last 3 Months Surgical History Surgery Date Site/Laterality Comments BREAST REDUCTION 02/25/2016 Bilateral PROCEDURE: [place] BREAST REDUCTION HYSTERECTOMY 2011 PROCEDURE: HISTORICAL HYSTERECTOMY; [...] Family History Medical History Relation Name Comments Lung cancer Father Breast cancer Father's Sister 1 40s Colon cancer Father's Sister 2 50s Lung cancer Maternal Grandmother age 57 Breast cancer Mother Lobular carcin gale Thyroid cancer Sister Relation Name Status Comments Father Alive Father's Sister 1 Alive Father's Sister 2 Alive Maternal Grandmother age 57 Mother Alive Sister Social History Tobacco Use Types [...] Sign Reading Time Taken Comments Blood Pressure 112/70 06/07/2024 3:31 PM EDT Pulse 59 06/07/2024 3:31 PM EDT Temperature 35.9 ??C (96.7 ??F) 06/07/2024 3:31 PM ED T Respiratory Rate - - Oxygen Saturation - - Inhaled Oxygen Concentration - - Weight 74.4 kg (164 lb) 06/07/2024 3:31 PM EDT Height 157.5 cm (5' 2 ) 10/15/2023 2:48 PM EDT Body Mass Index 30 10/15/2023 2:48 PM EDT Plan of Treatment Upcoming Encounters Date Type Department Care Team (Late st Contact Info) Description 06/30/2024 10:00 AM EDT Procedure visit [facility] [address] [place] [phone] Avery Rodriguez MD [address] [place] [address] Health Maintenance Due Date Last Done Comments [...] Procedure Name Priority Date/Time Associated Diagnosis Comments [facility] SCREENING DIGITAL Routine 05/18/2023 3:52 PM EST Encounter for screening mammogram for malignant neoplasm of breast from Last 3 Months or Most Recently Relevant to Health Maintenance Results * DOREEN SCREENING DIGITAL (05/18/2023 3:52 PM EST) Anatomical Region Laterality Modality Mammography 05/18/2023 3:01 PM EST Narrative 05/18/2023 3:52 PM EST [facility] Diagnostic Imaging Department [address] [place] [id number] Patient: ??DEL LEON ?/Age/Sex: 1965 - 57 - F Unit#: ??[id number] ? Location/Status: ??SPDIMAM/REG CLI ? Mnemonic/Ordering Site: ??DIGSC/SPMAM Ordering Physician: ??AVERY RODRIGUEZ MD [facility] Screening Digital - 05/18/23 - 1525 Report Status:Signed EXAM: [facility] Screening Digital EXAM DATE AND TIME: 05/18/2023 3:26 PM HISTORY: ??Screening. Reduction mammoplasty in 2016. Left breast LCIS found during reduction mammoplasty procedure. Patient declined tamoxifen. Previous MR guided right breast biopsies yielding benign pathology. COMPARISON: ??02/27/23, 05/07/22, 04/25/21, 04/23/20, 04/20/19 TECHNIQUE: Bilateral digital breast tomosynthesis was performed in the CC and MLO projections. Computer aided detection with No Chains 3D 3.1 was employed. TISSUE DENSITY: a. [...] Procedure Note Annette Agustin MD - 11/02/2023 [facility] Diagnostic Imaging Department [address] [place] [id number] Patient: CAROLYNDEL /Age/Sex: 1965 - 57 - F Unit#: [id number] Location/Status: [facility] CLI Mnemonic/Ordering Site: [facility] Ordering Physician: AVERY RODRIGUEZ MD [facility] Screening Digital - 05/18/23 - 1525 Report Status:Signed EXAM: [facility] Screening Digital EXAM DATE AND TIME: 05/18/2023 3:26 PM HISTORY: Screening. Reduction mammoplasty in 2016. Left breast LCISfound during reduction mammoplasty procedure. Patient declined tamoxifen.Previous MR guided right breast biopsies yielding benign pathology. COMPARISON: 02/27/23, 05/07/22, 04/25/21, 04/23/20, 04/20/19 TECHNIQUE: Bilateral digital breast tomosynthesis was performed in the CCand MLO projections. Computer aided detection with No Chains 3D 3.1was employed. TISSUE DENSITY: a. The [...] Dic Date/Time: 05/18/23 1551 Sign date/Time: 05/18/23 155 Avery Rodriguez MD IMG BI PROCEDURES Final Result from Last 3 Months or Most Recently Relevant to Health Maintenance Insurance [employer] [place] ([place]) Care Teams Senior Sales Assistant Relationship Specialty Start Date End Date Alem Carter MD PCP - General Internal Medicine 04/12/19
[2024-06-18 11:46] LABS: MANUAL DIFF FLAG NO
[2024-06-18 12:06] LABS: Basophils Absolute Auto 0.1 X10*3/uL (0.0-0.2); Eosinophils Absolute Auto 0.1 X10*3/uL (0.0-0.4); Eosinophils Percent Auto 1.2 % (0-4); Hematocrit 42.3 % (37.0-47.0); Hemoglobin 14.2 g/dl (12.0-16.0); Imm Gran Abs Auto 0.01 X10*3/uL (0.00-0.03); Imm Gran Pct Auto 0.2 % (0.0-0.4); Lymphocytes Percent Auto 38.2 % (20-40); Mean Corpuscular HGB Conc 33.6 g/dl (31.0-35.0); Mean Corpuscular Hemoglobin 31.5 pg (27.0-33.0); Mean Corpuscular Volume 93.8 fL (80.0-98.0); Mean Platelet Volume 11.7 fL (9.4-12.3); Monocytes Absolute Auto 0.4 X10*3/uL (0.1-1.2); Monocytes Percent Auto 7.8 % (2-11); Neutrophils Absolute Auto 2.7 x10*3/uL (2.0-8.3); Neutrophils Percent Auto 51.6 % (45-73); Platelet Count 178 X10*3/uL (160-400); Red Blood Count 4.51 X10*6/uL (4.20-5.50); Red Cell Distribution Width 12.4 % (11.0-16.0); White Blood Count 5.2 X10*3/uL (4.8-10.8)
[2024-06-18 12:21] LABS: Alanine Aminotransferase 28 U/L (0-31); Albumin Level 4.2 g/dL (3.5-5.0); Alkaline Phosphatase 59 U/L (39-117); Anion Gap 11 (12-20); Aspartate Amino Transferase 25 U/L (5-31); Bilirubin Total 0.5 mg/dL (0.0-1.0); Blood Urea Nitrogen 15 mg/dL (9-16); C Reactive Protein < 0.10 mg/dL (< or = 0.50); Calcium 9.4 mg/dL (8.4-10.2); Carbon Dioxide 24 mmol/L (22-29); Chloride 112 mmol/L (96-108); Estimated Glomerular Filt Rate 49; Glucose Random 103 mg/dL (60-115); Potassium 4.1 mmol/L (3.3-5.1); Sodium 143 mmol/L (135-145); Total Protein 6.3 g/dL (6.5-8.0)
[2024-06-18 12:48] LABS: Erythrocyte Sedimentation Rate 1 MM/HR (0-20)
== END 2024-06-18 10:17 | disposition home or self-care (01) ==
LOC: HO.HMGCLDS 10:16
PROVIDERS: PCP Internal Medicine; Visit Provider Student in an Organized Health Care Education/Training Program
DX: M16.12 Unilateral primary osteoarthritis, left hip (principal)
CPT/HCPCS: 36415; 80053; 85025; 85652; 86140

== ENCOUNTER → 2024-06-23 19:00 | Outpatient (BNV) | payer BC, SELFPAY | PROVIDERS: PCP Internal Medicine; Visit Provider Radiology Diagnostic Radiology | DX: M51.16 Intervertebral disc disorders with radiculopathy, lumbar region (principal); M16.12 Unilateral primary osteoarthritis, left hip; M67.452 Ganglion, left hip | CPT/HCPCS: 72148; 73721 ==

== ENCOUNTER 2024-06-23 19:11 | Outpatient (REF) | payer BC, SELFPAY ==
--- NOTE | ~2024-06-23 | MR_ITS ---
EXAMINATION: MR LUMBAR SPINE WITHOUT CONTRAST CLINICAL INFORMATION: Back pain with radiculopathy. COMPARISON: No prior MRI. Lumbar radiographs 11/09/2023. TECHNIQUE: Multiplanar multisequence MR imaging of the lumbar spine was done without IV contrast. Examination was performed on a 1.5 Michelle Siemens magnet, utilizing standard sequences. FINDINGS: CORONAL ALIGNMENT: -There is a mild right convex scoliosis, apex at L3. SAGITTAL ALIGNMENT: -There is a normal lordosis. -There is a 2 mm degenerative type retrolisthesis of L2 on L3, and L4 on L5. Alignment is otherwise anatomic. LUMBOSACRAL JUNCTION: -Normal. There are 5 [id number] lumbar-type vertebral bodies. VERTEBRAL BODIES/BONE MARROW: -There is mild endplate edema at L2-3. There is no additional regional bone marrow edema, or abnormal infiltrating bone marrow signal. -There are fatty type endplate changes at L4-5. DISCS: -Severe loss of disc height and signal at L4-5. There is moderate loss at L2-3, L3-4, and L5-S1. -T12-L1, and L1-L2 discs appear normal. SPINAL CANAL: -No abnormal developmental findings. CONUS MEDULLARIS: -Terminates at superior endplate L2. Morphology and signal is normal. INTRADURAL NERVE ROOTS: - Within normal limits. Axial Disc Space Images: T12-L1: No central canal or neural foraminal narrowing. Normal facets. L1-L2: No central canal or neural foraminal narrowing. Normal facets. L2-L3: Shallow concentric disc bulge extending into both foraminal zones. There is a superimposed small left lateral protrusion of disc material. This contacts but does not impinge the traversing left L3 roots. There is a mild central canal stenosis. There is mild left neural foraminal stenosis. L3-L4: Shallow concentric disc bulge present, minimally indenting upon the ventral thecal sac but not contacting nerve roots. There is minimal central canal stenosis. There is mild hypertrophic facet change bilaterally. There is mild bilateral neural foraminal narrowing. L4-L5: There is a shallow concentric disc bulge which is asymmetrically prominent to the right, into the right neural foramen and lateral to foramen. This indents upon the ventral thecal sac, but does not contact nerve roots. Mild hypertrophic facet changes bilaterally. There is mild central canal stenosis, mild right subarticular recess stenosis, and mild right greater than left neural foraminal stenosis. L5-S1: Shallow concentric disc bulge present with central annular fissuring. No significant mass effect upon the thecal sac or nerve roots. Mild degenerative hypertrophic facet changes bilaterally. No central canal stenosis, no subarticular recess stenosis, and there is mild to moderate left and mild right neural foraminal stenosis. There is contact of the exiting left L5 nerve root without evidence of nerve root impingement. IMAGED SI JOINTS: -Mild degenerative arthritis bilaterally. PARAVERTEBRAL AND INCLUDED EXTRASPINAL SOFT TISSUES: -The right kidney is not seen. -The paravertebral and paraspinous soft tissues appear normal. --- Aorta is normal in caliber. MR/MR lumbar spine wo con IMPRESSION: 1. Mild to moderate spondylosis of the lumbar spine as detailed above. There is no high-grade central canal or neural foraminal stenosis. 2. At L2-3, a left lateral disc protrusion contacts but does not impinge the traversing left L3 roots. 3. At L5-S1, there is mild to moderate left neural foraminal stenosis, with contact but no impingement of the exiting left L5 nerve root. Electronically signed by: Trey Sierra MD 06/24/2024 09:05 AM EDT
--- NOTE | ~2024-06-23 | MR_ITS ---
CLINICAL HISTORY: M16.12 - Unilateral primary osteoarthritis, left hip MR left hip without gadolinium Comparison: CR/SR - XR HIP LT MIN 2V - 11/09/23 13:34 EDT Findings: No fractures. No pathologic bone lesions. Acetabulum and femoral neck unremarkable. No acetabular retroversion. No effusion. Ganglion cysts are seen along the anterosuperior aspect of the acetabulum possibly paralabral. A discrete tear of the labrum is not identified. There is tendinosis of the gluteus minimus tendon associated with mild peritrochanteric edema and splitting of some of the distal fibers of the tendon. IMPRESSION: 1. Ganglion cysts are seen along the anterosuperior aspect of the acetabulum possibly paralabral. A discrete tear of the labrum is not identified. 2. There is tendinosis of the gluteus minimus tendon associated with mild peritrochanteric edema and splitting of some of the distal fibers of the tendon. This document has been electronically signed by: Abdoulaye Acuna MD on 06/24/2024 11:19:32
== END 2024-06-23 19:12 | disposition home or self-care (01) ==
LOC: HO.MRI 19:11
PROVIDERS: PCP Internal Medicine; Visit Provider Student in an Organized Health Care Education/Training Program
DX: M51.16 Intervertebral disc disorders with radiculopathy, lumbar region (principal); M16.12 Unilateral primary osteoarthritis, left hip
CPT/HCPCS: 72148; 73721

== ENCOUNTER 2024-06-27 11:46 | Outpatient (AMB) | payer BC, SELFPAY ==
[2024-06-27 12:14] VITALS: BP 100/66; PULSE 68; RESP 18; TEMP 36.8; O2SAT 97; BMI 31.6
--- NOTE | 2024-06-27 12:14 | MHC.PC.OV ---
Vital Signs 06/27/24 12:14 Height 5 ft 2 in Weight 173 lb BMI 31.6 BP 100/66 Blood Pressure Location Rt brachial Position Sitting Respiration 18 Pulse 68 Pulse Source Pulse Oximeter Temp 98.2 F Temp Source Oral Pulse Oximetry (%) 97 Oxygen Delivery Method Room Air Intake Visit Reasons: Annual PE Intake Note: Pt is here today for PE. Allergies NSAIDS (Non-Steroidal Anti-Inflamma Allergy (Unknown, Verified 06/27/24 12:20) Unknown sulfamethoxazole [From BACTRIM] Allergy (Unknown, Verified 06/27/24 12:20) RASH trimethoprim [From BACTRIM] Allergy (Unknown, Verified 06/27/24 12:20) RASH Medication List - Last Reconciled 06/27/24 by Alem Carter MD acetaminophen (Tylenol Extra Strength) 500 mg PO Q6H PRN alprazolam 0.5 mg PO DAILY PRN bupropion HCl XL 150 mg PO QAM buspirone 5 mg PO BID PRN flecainide 100 mg PO BID Kevzara (sarilumab) 200 mg (1.14 mL) subcut Q2W 28 days NS levothyroxine 88 mcg PO DAILY propranolol 10 mg PO BID rivaroxaban (Xarelto) 20 mg PO DAILY tramadol 50 mg PO DAILY PRN Tobacco use date assessed: 06/27/24 Dental Screening Dental Screen Date: 06/27/24 Did you have a dental visit in the last 12 months?: Yes Did you have a dental problem in the last 6 months where you did not have access to dental care?: No Was dental information given to patient?: Patient has dentist HPI Annual PE HPI Details Patient presents for physical. She complains of persistent pain in the left leg and lower back. Patient tried physical therapy was evaluated by golf cart repairer and orthopedic surgeon. Patient had a MRI of left hip consistent with tendinitis but no osteoarthritis and lumbar spine MRI showed degenerative changes but no significant disc herniation or nerve compression. 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 She would like to apply for 3 month continous FMLA. [facility] Medical History (Updated 06/27/24 @ 15:20 by Alem Carter MD) Lobular carcinoma in situ (LCIS) of left breast Factor 5 Leiden mutation, heterozygous Pulmonary embolism MORGAN (dyspnea on exertion) Colon cancer screening Hypothyroidism (acquired) Normal pelvic exam Anxiety Surgical History H/O thumb surgery History of surgery History of rectal abscess History of hysterectomy History of lipoma [place] teeth removed History of foot surgery History of breast biopsy History of section Family History Father HTN (hypertension) Cancer Mother HTN (hypertension) Sister Cancer of thyroid Cady's disease Graves disease Social History Household Members: Family Housing: House Alcohol intake: current Alcohol intake frequency: a few times a week Patient Tobacco Use Status: Never used Tobacco e-Cigarette/Vaping Use: Never Used service: No Current occupational status: employed 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 1. Little interest or pleasure in doing things: several days 2. Feeling down, depressed, or hopeless: several days 3. Trouble falling or staying asleep, or sleeping too much: nearly every day 4. Feeling tired or having little energy: not at all 5. Poor appetite or overeating: not at all 6. Feeling bad about yourself - or that you are a failure or have let yourself or your family down: not at all 7. Trouble concentrating on things, such as reading the newspaper or watching television: not at all 8. Moving or speaking so slowly that other people could have noticed. Or the opposite - being so fidgety or restless that you have been moving around a lot more than usual: not at all 9. Thoughts that you would be better off or of hurting yourself in some way: not at all Total score: 5 Depression Screening Interpretation: Negative Depression Screening Done: Yes 96996 - PHQ-9 Billing: Yes Source: Developed by Drs. Esvin Marie, Radha Tello, Corky Ann and colleagues, with an educational alis from [employer]. Thrive Questionnaire Date Thrive assessed: 06/27/24 I am a: Patient What is your living situation today?: I have a steady place to live Within the past 12 months, did the food you bought not last and you didn't have the money to get more?: Never true Within the past 12 months, did you worry whether your food would run out before you got money to buy more?: Never true Do you have trouble paying for medicines?: No Do you have trouble getting transportation to medical appointments?: No Do you have trouble paying your heating and electricity bill?: No Do you have trouble taking care of your child, family member or friend?: No Do you have trouble with day-to-day activities such as bathing, preparing meals, shopping, managing finances, etc.?: Yes Are you currently unemployed and looking for a job?: No Are you interested in more education?: No Please select the resources that you would like help with: None Currently or been in a relationship where the following occur: No concerns reported THRIVE Score: 0 AUDIT C Alcohol Use Questionnaire (AUDIT-C) 1. How often do you have a drink containing alcohol?: 2-3 times a week 2. How many drinks containing alcohol do you have on a typical day when you are drinking?: 1 or 2 3. How often do you have six or more drinks on one occasion?: Never Total Score: 3 CHARLEY-7 AMB Questionnaire CHARLEY-7 Date CHARLEY - 7 assessed: 06/27/24 Feeling nervous, anxious, or on edge: 2 = More than half the days Not being able to stop or control worryin = More than half the days Worrying too much about different things: 2 = More than half the days Trouble relaxin = Nearly every day Being so restless that it is hard to sit still: 1 = Several days Becoming easily annoyed or irritable: 1 = Several days Feeling afraid as if something awful might happen: 0 = Not at all Total CHARLEY-7 score (0-4 normal; 5-9 mild; 10-14 moderate; 15-21 severe): 11 Source: Developed by Drs. Esvin Marie, Radha Tello, Corky Ann and colleagues, with an educational alis from [employer]. CHARLEY-7 Assessment Billing CHARLEY-7 Assessment Tool: CHARLEY-7 Assessment 67323 Review of Systems Const All systems reviewed & are unremarkable except as noted in HPI and below Eyes Reports no additional complaints ENT Reports no additional complaints Card Reports no additional complaints Resp Reports no additional complaints GI Reports no additional complaints Reports no additional complaints Physical exam (Primary Care) Vital Signs: Last Vital Signs Temp 98.2 F 06/27/24 12:14 Pulse 68 06/27/24 12:14 Resp 18 06/27/24 12:14 BP 100/66 06/27/24 12:14 Pulse Ox 97 06/27/24 12:14 Oxygen Delivery Method Room Air 06/27/24 12:14 BMI result Body Mass Index 31.6 Tobacco/Smoking Status: Tobacco use Status Tobacco use date assessed 06/27/24 06/27/24 12:25 Patient Tobacco Use Status Never used Tobacco 06/27/24 12:15 e-Cigarette/Vaping Use Never Used 06/27/24 12:15 PHQ-9: PHQ-9 Score PHQ-9: Total score 5 06/27/24 12:25 Depression Screening Interpretation: Negative Thrive Assessment: Date of Thrive Assessment Date Thrive assessed 06/27/24 06/27/24 12:25 Currently or been in a relationship where the following occur: No concerns reported Const General: no acute distress HENMT Head: Yes normal to inspection Ears: hearing grossly normal bilaterally Throat: Yes posterior oropharynx normal Neck Neck: Yes no lymphadenopathy and Yes supple Resp Effort & Inspection: normal respiratory effort Auscultation: clear to auscultation bilaterally Cardio Rhythm: regular rhythm Heart sounds: S1 normal heart sound present and S2 normal heart sound present GI Inspection: Yes normal to inspection Palpation (GI): Soft to palpation Percussion: Yes normal to percussion Auscultation: normal bowel sounds Coding Level of Care Code Complex EM visit Add On G2211 Diagnoses Factor 5 Leiden mutation, heterozygous D68.51 Hypothyroidism (acquired) E03.9 Annual physical exam Z00.00 Paroxysmal A-fib I48.0 Anxiety and depression F41.9; F32.A PMR (polymyalgia rheumatica) M35.3 Chronic kidney disease, stage 3 N18.30 Lyudmila-trochanteric left hip tendinitis M70.62 Additional Codes CHARLEY-7 Assessment Billing - CHARLEY-7 Assessment Tool: CHARLEY-7 Assessment 88811 ([id number]) PHQ-9 - 95542 - PHQ-9 Billing: Yes ([id number]) Assessment & Plan Assessment & Plan (1) Factor 5 Leiden mutation, heterozygous: Comment: On Xarelto Code(s): D68.51 - Activated protein C resistance Category: Medical Plan: Continue Xarelto (2) Hypothyroidism (acquired): Comment: s/p thyroidectomy 2019, for Graves disease, follows up with [facility] Code(s): E03.9 - Hypothyroidism, unspecified Category: Medical Plan: Continue levothyroxine (3) Annual physical exam: Code(s): Z00.00 - Encounter for general adult medical examination without abnormal findings Category: Medical Plan: Well-balanced diet regular physical activity discussed with the patient she is up-to-date with the mammogram and colonoscopy and established with loading and unloading supervisor for Pap smear (4) Paroxysmal A-fib: Comment: on propranolol flecainide and Xarelto, f/u with cardiology Code(s): I48.0 - Paroxysmal atrial fibrillation Category: Medical Plan: controlled on flecainide and propranolol, established with Cardiology (5) Anxiety and depression: Comment: Established with Psychiatry Code(s): F41.9 - Anxiety disorder, unspecified; F32.A - Depression, unspecified Category: Medical Plan: Continue current medications (6) PMR (polymyalgia rheumatica): Comment: onset 07/2022 ESR nl elevated CRP improved with prednisone MTX 03/2023 DC 06/2023 due to Cr elevation Kevzara 08/2023, prednisone tapered off 03/2024 Code(s): M35.3 - Polymyalgia rheumatica Category: Medical Plan: Continue Kevzara established with Rheumatology (7) Chronic kidney disease, stage 3: Comment: 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 Panel Fast 1 Year E03.9 - Hypothyroidism, unspecified, I26.99 - Other pulmonary embolism without acute cor pulmonale, N18.30 - Chronic kidney disease, stage 3 unspecified TSH reflex Free T4 1 Year E03.9 - Hypothyroidism, unspecified, I26.99 - Other pulmonary embolism without acute cor pulmonale, N18.30 - Chronic kidney disease, stage 3 unspecified Lipid Panel 1 Year E03.9 - Hypothyroidism, unspecified, I26.99 - Other pulmonary embolism without acute cor pulmonale, N18.30 - Chronic kidney disease, stage 3 unspecified Complete Blood Count Auto Diff 1 Year E03.9 - Hypothyroidism, unspecified, I26.99 - Other pulmonary embolism without acute cor pulmonale, N18.30 - Chronic kidney disease, stage 3 unspecified Vitamin D 25-OH Total 1 Year E03.9 - Hypothyroidism, unspecified, I26.99 - Other pulmonary embolism without acute cor pulmonale, N18.30 - Chronic kidney disease, stage 3 unspecified
--- OUTSIDE RECORDS SUMMARY | 2024-06-27 13:49 | XMS_ITS | Clinical Summary ---
Author Organization [facility] [place] [facility] Address [address] [place] [address] Phone Care Team Providers Care Dimensional Integration Engineer Name Role Phone Alem Carter MD Primary Care Provider [phone] Allergies Active Allergy Reactions Criticality Noted Date [...] Noted Date Diagnosed Date Factor V Leiden ([facility] V24) 11/19/2021 Pulmonary embolism ([facility] V24, [facility] V28) Hypothyroidism 04/20/2019 Overview (02/23/2024): S/P Thyroidectomy; Dr. 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 Atypical lobular hyperplasia (ALH) of left breas t 05/06/2018 Lobular carcinoma in situ (LCIS) of breast 05/06 Encounters Date Type Department Care Team Description 06/07/2024 3:40 PM EDT Office Visit Breast [address] [place] [address] Avery Rodriguez MD [place] of upper inner quadrant of left breast (Primary Dx); At high risk for breast cancer; Lobular carcinoma in situ (LCIS) of left breast from Last 3 Months Surgical History Surgery Date Site/Laterality Comments BREAST REDUCTION 02/25/2016 Bilateral PROCEDURE: OR BREAST REDUCTION HYSTERECTOMY 2011 PROCEDURE: HISTORICAL HYSTERECTOMY; [...] AM EDT Procedure visit [facility] [address] [place] [phone] Avery Rodriguez MD [address] [place] [address] Health Maintenance Due Date Last Done Comments [...] 01/13/2021, 04/27/2020, Additional history exists Influenza Vaccine (Season Ended) 2024 02/05/2020 Breast Cancer Screening 12/13/2025 12/14/19 24, [...] age to complete this topic Meningococcal B Vaccine Aged Out No l onger eligible based on patient's age to complete this topic RSV Immunization Patients Under 20 months Aged Out No longer eligible based on patient's age to complete this topic Varicella Vaccines Aged Out No longer eligible based on patient's age to complete this topic Procedures Procedure Name Priority Date/Time Associated Diagnosis Comments DOREEN SCREENING DIGITAL Routine 05/18/2023 3:52 PM EST Encounter for screening mammogram for malignant neoplasm of breast from Last 3 Months or Most Recently Relevant to Health Maintenance Results * DOREEN SCREENING DIGITAL (05/18/2023 3:52 PM EST) Anatomical Region Laterality Modality Mammography 05/18/2023 3:01 PM EST Narrative 05/18/2023 3:52 PM EST [facility] Diagnostic Imaging Department [address] [place] [id number] Patient: ??DEL LEON ?/Age/Sex: 1965 - 57 - F Unit#: ??[id number] ? Location/Status: ??SPDIMAM/REG CLI ? Mnemonic/Ordering Site: ??DIGSC/SPMAM Ordering Physician: ??AVERY RODRIGUEZ MD [facility] Screening Digital - 05/18/23 - 1525 Report Status:Signed EXAM: [facility] Screening Digital EXAM DATE AND TIME: 05/18/2023 3:26 PM HISTORY: ??Screening. Reduction mammoplasty in 2015. Left breast LCIS found during reduction mammoplasty procedure. Patient declined tamoxifen. Previous MR guided right breast biopsies yielding benign pathology. COMPARISON: ??02/27/23, 05/07/22, 04/25/21, 04/23/20, 04/20/19 TECHNIQUE: Bilateral digital breast tomosynthesis was performed in the CC and MLO projections. Computer aided detection with [employer] 3D 3.1 was employed. TISSUE DENSITY: a. [...] Procedure Note Annette Agustin MD - 11/02/2023 [facility] Diagnostic Imaging Department [address] [place] [address] Patient: CAROLYNDEL /Age/Sex: 1965 - 57 - F Unit#: [id number] Location/Status: [facility] Mnemonic/Ordering Site: [facility] Ordering Physician: AVERY RODRIGUEZ MD [facility] Screening Digital - 05/18/23 - 1525 Report Status:Signed EXAM: [facility] Screening Digital EXAM DATE AND TIME: 05/18/2023 3:26 PM HISTORY: Screening. Reduction mammoplasty in 2015. Left breast LCISfound during reduction mammoplasty procedure. Patient declined tamoxifen.Previous MR guided right breast biopsies yielding benign pathology. COMPARISON: 02/27/23, 05/07/22, 04/25/21, 04/23/20, 04/20/19 TECHNIQUE: Bilateral digital breast tomosynthesis was performed in the CCand MLO projections. Computer aided detection with [employer] 3D 3.1was employed. TISSUE DENSITY: a. The [...] Most Recently Relevant to Health Maintenance Insurance [facility]) Care Teams Dimensional Integration Engineer Relationship Specialty Start Date End Date Alem Carter MD PCP - General Internal Medicine 04/12/19
--- OUTSIDE RECORDS SUMMARY | 2024-06-27 13:49 | XMS_ITS | Clinical Summary ---
Author Organization [facility] Facility Address [address] [place] [id number] Care Team Providers Care Street Light Mechanic Name Role Phone Unavailable Primary Care [...] (1 of 3 - 19+ 3-dose series) 11/26 Colorectal Cancer Screening: Annual FOBT 11/26/2016 Colorectal Cancer Screening: Colonoscopy 11/26/2016 Colorectal Cancer Screening: Sigmoidoscopy 11/26/2016 Pneumococcal Vaccine: 50+ Years (1 of 1 - PCV) 018 Influenza Vaccine (Season Ended) [address] [place] [address] [facility] [address] ATTN: [place] [address] [place] [address] [facility] ATTN: [place] [address]
--- OUTSIDE RECORDS SUMMARY | 2024-06-27 13:49 | XMS_ITS | Patient Health Record ---
Author Organization [facility] Address [address] [place] [address] Care Team Providers Care Pharmacology Teacher Name Role Phone DR ISACC PICKARD Primary Care Provider UnavailJennifer Eugene Unavailable [phone] Allergies Allergen (clinical drug ingredient) Drug/Non Drug [...] W/U Status Risk Notes Problem Depressive disorder (68072260) Depressive disorder, not elsewhere classified (311) Active confirmed Problem Human papilloma virus deoxyribonucleic acid test positive, high risk on vaginal specimen (333310647176062) Cervical high risk human papillomavirus (HPV) DNA test positive (R87.810) Active confirmed Problem Carcinoma in situ of breast (566558083) Lobular carcinoma in situ of unspecified breast (D05.00) Active confirmed Problem Lobular carcinoma in situ of right breast (477435021373689) Lobular carcinoma in situ of right breast (D05.01) Active confirmed Problem Localized morphea (518444916) 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) Active confirmed Problem Unspecified menopausal and perimenopausal disorder (N95.9) Active confirmed Problem Abnormal findings on diagnostic imaging of breast (784488455) Other abnormal and inconclusive findings on diagnostic imaging of breast (R92.8) Active confirmed Problem History of dysplasia of cervix (823015755) Personal history of cervical dysplasia (Z87.410) Active confirmed Problem Leiomyoma of uterus (80292027) Leiomyoma of uterus, unspecified (218.9) Active confirmed Major Problem Mild dysplasia of cervix (160535499) Mild dysplasia of cervix (622.11) Active confirmed Diag Problem Gynecological examination normal (080772997772532) Routine gynecological examination (V72.31) Active confirmed Diag Problem Screening for malignant neoplasm of cervix (691551415) Screening for malignant neoplasm of the cervix [...] End Date [employer] [place] [address] [place] [phone] [id number] DEL LEON Self - patient is the [...]
== END 2024-06-27 13:07 | disposition home or self-care (01) ==
LOC: HO.HMCC 11:46
PROVIDERS: PCP Internal Medicine; Visit Provider Internal Medicine
DX: D68.51 Activated protein C resistance (principal); E03.9 Hypothyroidism, unspecified; Z00.00 Encounter for general adult medical examination without abnormal findings; I48.0 Paroxysmal atrial fibrillation; F41.9 Anxiety disorder, unspecified; F32.A Depression, unspecified; M35.3 Polymyalgia rheumatica; N18.30 Chronic kidney disease, stage 3 unspecified; M70.62 Trochanteric bursitis, left hip

== ENCOUNTER → 2024-06-27 11:46 | Outpatient (BNVA) | payer BC, SELFPAY | PROVIDERS: PCP Internal Medicine; Visit Provider Internal Medicine | DX: Z00.00 Encounter for general adult medical examination without abnormal findings (principal); D68.51 Activated protein C resistance; E89.0 Postprocedural hypothyroidism; I48.0 Paroxysmal atrial fibrillation; F41.9 Anxiety disorder, unspecified; F32.A Depression, unspecified; M35.3 Polymyalgia rheumatica; N18.30 Chronic kidney disease, stage 3 unspecified; M70.62 Trochanteric bursitis, left hip; Z79.01 Long term (current) use of anticoagulants; Z79.899 Other long term (current) drug therapy | CPT/HCPCS: 96127 ==

== ENCOUNTER 2024-07-14 09:15 | Outpatient (AMB) | payer BC, SELFPAY ==
[2024-07-14 09:30] VITALS: BP 108/70; PULSE 69; RESP 18; TEMP 36.8; O2SAT 95; BMI 31.6
--- NOTE | 2024-07-14 09:30 | MHC.PC.OV ---
Vital Signs 07/14/24 09:30 Height 5 ft 2 in Weight 173 lb BMI 31.6 BP 108/70 Blood Pressure Location Rt brachial Position Sitting Respiration 18 Pulse 69 Pulse Source Pulse Oximeter Temp 98.2 F Temp Source Oral Pulse Oximetry (%) 95 Oxygen Delivery Method Room Air Intake Visit Reasons: Leg and Hip Pain Intake Note: Pt is here today for a sick visit. Pt c/o bilateral hip pain L worst. Allergies NSAIDS (Non-Steroidal Anti-Inflamma Allergy (Unknown, Verified 07/14/24 09:37) Unknown sulfamethoxazole [From BACTRIM] Allergy (Unknown, Verified 07/14/24 09:37) RASH trimethoprim [From BACTRIM] Allergy (Unknown, Verified 07/14/24 09:37) RASH Tobacco use date assessed: 06/27/24 Dental Screening Dental Screen Date: 06/27/24 HPI Leg and Hip Pain HPI Details Patient presents complaining of worsening for few weeks chronic lower extremities weakness and pain mainly in the left groin radiating to left inner thigh, worse when trying to walk and also at night. Patient has an appointment with break up worker and 2nd opinion orthopedic surgeon next month. She has been in physical therapy for 2 months and has not noticed any significant improvement. She had a MRI of lumbar spine consistent with chronic degenerative changes but spinal stenosis. Left hip MRI without significant osteoarthritis, showed ganglion cysts in the anterior superior of aspect acetabulum and tendinosis of gluteus minimus. [facility] Medical History (Updated 07/14/24 @ 10:54 by Alem Carter MD) Lobular carcinoma in situ (LCIS) of left breast Factor 5 Leiden mutation, heterozygous Pulmonary embolism MORGAN (dyspnea on exertion) Colon cancer screening Hypothyroidism (acquired) Normal pelvic exam Anxiety Surgical History H/O thumb surgery History of surgery History of rectal abscess History of hysterectomy History of lipoma [place] teeth removed History of foot surgery History of breast biopsy History of section Family History Father HTN (hypertension) Cancer Mother HTN (hypertension) Sister Cancer of thyroid Cady's disease Graves disease Social History Household Members: Family Housing: House Alcohol intake: current Alcohol intake frequency: a few times a week Patient Tobacco Use Status: Never used Tobacco e-Cigarette/Vaping Use: Never Used service: No Current occupational status: employed 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[place] Cognitive needs: No Hearing needs: No Vision needs: Yes Questionnaire Thrive Questionnaire Date Thrive assessed: 06/24/24 I am a: Patient What is your living situation today?: I have a steady place to live Within the past 12 months, did the food you bought not last and you didn't have the money to get more?: Never true Within the past 12 months, did you worry whether your food would run out before you got money to buy more?: Never true Do you have trouble paying for medicines?: No Do you have trouble getting transportation to medical appointments?: No Do you have trouble paying your heating and electricity bill?: No Do you have trouble taking care of your child, family member or friend?: No Do you have trouble with day-to-day activities such as bathing, preparing meals, shopping, managing finances, etc.?: Yes Are you currently unemployed and looking for a job?: No Are you interested in more education?: No Please select the resources that you would like help with: None Currently or been in a relationship where the following occur: No concerns reported THRIVE Score: 0 CHARLEY-7 AMB Questionnaire CHARLEY-7 Date CHARLEY - 7 assessed: 06/27/24 Source: Developed by Drs. Esvin Marie, Radha Tello, Corky Ann and colleagues, with an educational alis from [employer] Review of Systems Const All systems reviewed & are unremarkable except as noted in HPI and below Eyes Reports no additional complaints ENT Reports no additional complaints Card Reports no additional complaints Resp Reports no additional complaints GI Reports no additional complaints Reports no additional complaints Physical exam (Primary Care) Vital Signs: Last Vital Signs Temp 98.2 F 07/14/24 09:30 Pulse 69 07/14/24 09:30 Resp 18 07/14/24 09:30 BP 108/70 07/14/24 09:30 Pulse Ox 95 07/14/24 09:30 Oxygen Delivery Method Room Air 07/14/24 09:30 BMI result Body Mass Index 31.6 Tobacco/Smoking Status: Tobacco use Status Tobacco use date assessed 06/27/24 07/14/24 09:32 Patient Tobacco Use Status Never used Tobacco 07/14/24 09:32 e-Cigarette/Vaping Use Never Used 07/14/24 09:32 PHQ-9: PHQ-9 Score PHQ-9: Total score 12 07/14/24 09:32 Thrive Assessment: Date of Thrive Assessment Date Thrive assessed 06/24/24 07/14/24 09:32 Currently or been in a relationship where the following occur: No concerns reported Const General: no acute distress HENMT Head: Yes normal to inspection Face and sinus: Yes normal facial exam Neck Neck: Yes supple Resp Effort & Inspection: normal respiratory effort Auscultation: clear to auscultation bilaterally Cardio Rhythm: regular rhythm Heart sounds: S1 normal heart sound present and S2 normal heart sound present Neuro Other: Motor strength 4/5 in proximal lower extremities left less than right, deep tendon reflexes 2+ bilaterally Coding Level of Care Code Est Pt Level 4 (68392) Diagnoses Weakness of both lower extremities R29.898 Paroxysmal A-fib I48.0 Lyudmila-trochanteric left hip tendinitis M70.62 Assessment & Plan Assessment & Plan (1) Weakness of both lower extremities: Code(s): R29.898 - Other symptoms and signs involving the musculoskeletal system Category: Medical Plan: for bilateral progressing lower extremity weakness obtain EMG to evaluate (2) Paroxysmal A-fib: Comment: on propranolol flecainide and Xarelto, f/u with cardiology Code(s): I48.0 - Paroxysmal atrial fibrillation Category: Medical Plan: Continue current medications and follow-up with the Cardiology (3) Lyudmila-trochanteric left hip tendinitis: Code(s): M70.62 - Trochanteric bursitis, left hip Category: Medical Plan: Follow-up with physiatry and orthopedic surgeons Orders: Orders NE nerve conduction velocity Today R29.898 - Other symptoms and signs involving the musculoskeletal system NE electromyogram (EMG) Today R29.898 - Other symptoms and signs involving the musculoskeletal system
--- OUTSIDE RECORDS SUMMARY | 2024-07-14 10:01 | XMS_ITS | Clinical Summary ---
Author Organization [facility] Address [address] [place] [address] Phone Care Team Providers Care Automotive Buyer Name Role Phone Alem Carter MD Primary Care Provider [phone] Allergies Active Allergy Reactions Criticality Noted Date Comments Nsaids (Non-Steroidal Anti-Inflammatory Drug) 06/04/2023 only has 1 kidney Sulfamethoxazole-Trimethoprim Other,Rash 2018 Medications ALPRAZolam (XANAX) 0.5 mg tablet [...] 20 mg tablet Take by mouth. Active acetaminophen (Tylenol Arthritis Pain) 650 mg 8 hr tablet Take 2 tablets (1,300 mg total) by mouth. 4 Active traMADoL (ULTRAM) 50 mg tablet Take 1 tablet (50 mg total) by mouth 1 (one) time each day if needed. for pain Max Daily Amount: 50 mg 5 Active sarilumab (Kevzara) 150 mg/1.14 mL injection Inject 1 Dose into the skin every 14 days. 025 Discontinued Active Problems Problem Noted Date Diagnosed Date Factor V Leiden ([facility]) 11/19/2021 Pulmonary embolism ([facility], [facility] V28) Hypothyroidism 04/20/2019 Overview (02/23/2024): S/P Thyroidectomy; Dr. 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 Atypical lobular hyperplasia (ALH) of left breas t 05/06/2018 Lobular carcinoma in situ (LCIS) of breast 05/06 Encounters Date Type Department Care Team Description 06/30/2024 10:00 AM EDT Procedure visit [address] [place] [phone] Avery Rodriguez MD Mass of upper inner quadrant of left breast (Primary Dx); Lobular carcinoma in situ (LCIS) of left breast; At high risk for breast cancer 06/07/2024 3:40 PM EDT Office Visit [address] [phone] Avery Rodriguez MD Mass of upper inner quadrant of left breast (Primary Dx); At high risk for breast cancer; Lobular carcinoma in situ (LCIS) of left breast from Last 3 Months Surgical History Surgery Date Site/Laterality Comments BREAST REDUCTION 02/25/2016 Bilateral PROCEDURE: [place] BREAST REDUCTION HYSTERECTOMY 2011 PROCEDURE: HISTORICAL HYSTERECTOMY; [...] Sign Reading Time Taken Comments Blood Pressure 114/70 06/30/2024 10:02 AM EDT Pulse 58 06/30/2024 10:02 AM EDT Temperature 35.8 ??C (96.4 ??F) 06/30/2024 10:02 AM E DT Respiratory Rate - - Oxygen Saturation - - Inhaled Oxygen Concentration - - Weight 74.4 kg (164 lb) 06/30/2024 10:02 AM EDT Height 157.5 cm (5' 2 ) 10/15/2023 2:48 PM EDT Body Mass Index 30 10/15/2023 2:48 PM EDT Plan of Treatment Upcoming Encounters Date Type Department Care Team (Late st Contact Info) Description 10/18/2024 1:15 PM EDT Office Visit Endocrinology - [address] [phone] Chika Benedict PA [address] [place] [address] 12/13/2024 9:00 AM EDT Office Visit [facility] [place] [address] [facility] [address] [facility] [address] [place] [phone] Avery Rodriguez MD [address] [facility] [address] [place] [address] Health Maintenance Due Date Last Done Comments [...] Procedure Name Priority Date/Time Associated Diagnosis Comments TISSUE EXAM Routine 06/30/2024 11:14 AM EDT Lobular carcinoma in situ (LCIS) of left breast Mass of upper inner quadrant of left breast BIOPSY BREAST Routine 06/30/2024 10:36 AM EDT Lobular carcinoma in situ (LCIS) of left breast Mass of upper inner quadrant of left breast At high risk for breast cancer CELINA SCREENING DIGITAL Routine 05/18/2023 3:52 PM EST Encounter for screening mammogram for malignant neoplasm of breast from Last 3 Months or Most Recently Relevant to Health Maintenance Results * Tissue exam (06/30/2024 11:14 AM EDT) Final Diagnosis Left breast, upper inner quadrant, core biopsy: - Predominantly adipose tissue with scant collagenous stroma and delicate, branching blood vessels that lack intravascular thrombi. - A rare benign-appearing terminal duct lobular unit. (See note.) - No atypical hyperplasia, no carcinoma in situ, and no invasive carcinoma identified. Note: Although the predominance of mature adipose tissue raises the consideration of sampling of an adipocytic lesion (such as a lipoma), a definite mass lesion is not identified. Correlation with clinical and imaging findings is recommended to ensure that the targeted area has been adequately sampled. 07/01/2024 9:46 AM EDT [facility] Gross Description A. Breast, Left, upper inner quadrant core biopsy: Labeled breast L . Received in formalin, is a 1.0 x 0.7 x 0.1 cm aggregate of soft to friable yellow-white, thin, fibrofatty tissue cores, which are submitted in toto, between sponges, in one cassette, multiple pieces, x 3. Time put in formalin (cold ischemia ends): 11:14 AM (per container) Time tissue exits final stage of formalin on tissue processor: 12:00 PM 07/01/2024 Total fixation time (Ideally greater than 6 hours and less than 72 hours): Approximately 12.5 hours TS 07/01/2024 9:[address] [facility] Disclaimer Unless otherwise specified, all tissue is 10% NB formalin fixed and paraffin embedded. 07/01/2024 9:[address] [facility] Tissue Left breast structure / Unknown Non-blood Collection / Unknown 06/30/2024 11:14 AM EDT 06/30/2024 12:11 PM EDT us Avery Rodriguez MD LAB PATHOLOGY ORDERABLES Final R esult [facility]) [facility] [address] [place] [address], * Core needle biopsy of left breast mass (06/30/2024 10:36 AM EDT) Narrative Avery Rodriguez MD - 06/30/2024 10:36 AM EDT Avery Rodriguez MD ? 06/30/2024 ??6:16 PM Core needle biopsy of left breast mass Date/Time: 06/30/2024 10:36 AM Performed by: Avery Rodriguez MD Authorized by: Avery Rodriguez MD ?? Consent: ??Consent obtained: ??Written ??Consent given by: ??Patient ??Risks, benefits, and alternatives were discussed: yes ?Risks discussed: ??Bleeding, infection and pain Indications: ??Indications: ??Left breast mass, enlarging in size, no radiology correlate, pain to palpation. Pre-procedure details: ??Skin preparation: ??Chlorhexidine ??Preparation: Patient was prepped and draped in the usual sterile fashion Sedation: ??Sedation type: ??None Anesthesia: ??Anesthesia method: ??Local infiltration ??Local anesthetic: ??Lidocaine 2% WITH epi Procedure specific details: ?? The indication, risks, benefits of procedure were discussed with the patient and consent was obtained. Breast exam demonstrated the previously identified mass at 11:00-12:00, 5cm FN. This appears more prominent, measure 3-4 cm, and increased in size from previous exam. ??The mass is tender to palpation. ?? The overlying skin was cleansed with Chlorhexidine 4%. ??Local anesthetic with 2% lidocaine with epinephrine was used to infiltrate the skin and subcutaneous tissues. ??A 3 mm skin incision was made with scalpel for introduction of the biopsy device. ?? 14G core needle biopsy device was used to obtain 4 biopsy cores ??fanning across the palpable mass. ?? Specimens were placed in formalin. ??Biopsy clip was not placed. There was minimal bleeding from the skin incision. ??Steri-strips were placed to re-approximate the skin incision, and was dressed with gauze and Tegaderm. ??Ice pack applied to breast for comfort. ??There were no immediate complications. ??The patient tolerated the procedure well. Specimen: 1. Left breast mass, 11:00, 5 cm from nipple. Post-procedure details: ??Procedure completion: ??Tolerated well, no immediate complications us Avery Rodriguez MD IN CLINIC/BEDSIDE ORDERABLES Fin al Result * CELINA SCREENING DIGITAL (05/18/2023 3:52 PM EST) Anatomical Region Laterality Modality Mammography 05/18/2023 3:01 PM EST Narrative 05/18/2023 3:52 PM EST [facility] Diagnostic Imaging Department [address] [place] [address] Patient: ??DESTINY LEON ?/Age/Sex: 1965 - 57 - F Unit#: ??[id number] ? Location/Status: ??SPDIMAM/REG CLI ? Mnemonic/Ordering Site: ??DIGSC/SPMAM Ordering Physician: ??AVERY RODRIGUEZ MD Celina Screening Digital - 05/18/23 - 1525 Report Status:Signed EXAM: [facility] Screening Digital EXAM DATE AND TIME: 05/18/2023 3:26 PM HISTORY: ??Screening. Reduction mammoplasty in 2016. Left breast LCIS found during reduction mammoplasty procedure. Patient declined tamoxifen. Previous MR guided right breast biopsies yielding benign pathology. COMPARISON: ??02/27/23, 05/07/22, 04/25/21, 04/23/20, 04/20/19 TECHNIQUE: Bilateral digital breast tomosynthesis was performed in the CC and MLO projections. Computer aided detection with [employer] 3D 3.1 was employed. TISSUE DENSITY: a. [...] mammogram BILATERAL in 1 year. Dictating Physician: ??ELHAM AGUSTIN MD Electronically Signed by: ??ELHAM AGUSTIN MD Dic Date/Time: ??05/18/23 1551 Sign date/Time: ??05/18/23 1552 Procedure Note Elham Agustin MD - 11/02/2023 [facility] Diagnostic Imaging Department [address] [place] [address] Patient: DESTINY LEON /Age/Sex: 1965 - 57 - F Unit#: [id number] Location/Status: SPDIMAM/REG CLI Mnemonic/Ordering Site: [facility] Ordering Physician: AVERY RODRIGUEZ MD [facility] Screening Digital - 05/18/23 - 1525 Report Status:Signed EXAM: [facility] Screening Digital EXAM DATE AND TIME: 05/18/2023 3:26 PM HISTORY: Screening. Reduction mammoplasty in 2015. Left breast LCISfound during reduction mammoplasty procedure. Patient declined tamoxifen.Previous MR guided right breast biopsies yielding benign pathology. COMPARISON: 02/27/23, 05/07/22, 04/25/21, 04/23/20, 04/20/19 TECHNIQUE: Bilateral digital breast tomosynthesis was performed in the CCand MLO projections. Computer aided detection with [employer] 3D 3.1was employed. TISSUE DENSITY: a. The [...] mammogram BILATERAL in 1 year. Dictating Physician: ELHAM AGUSTIN MD Electronically Signed by: ELHAM AGUSTIN MD Dic Date/Time: 05/18/23 1551 Sign date/Time: 05/18/23 1552 Avery Rodriguez MD IMG BI PROCEDURES Final Result from Last 3 Months or Most Recently Relevant to Health Maintenance Insurance [facility] ([place]) Care Teams Automotive Buyer Relationship Specialty Start Date End Date Alem Carter MD PCP - General Internal Medicine 04/12/19
--- OUTSIDE RECORDS SUMMARY | 2024-07-14 10:01 | XMS_ITS | Clinical Summary ---
Author Organization [facility] Address [address] [place] [id number] Care Team Providers Care Insole Lip Turner Name Role Phone Unavailable Primary Care Provider [...] (Season Ended) 2024 [place] [address] [facility] [address] ATTN: [place] [phone] [place] [address] [facility] ATTN: [place] [phone]
== END 2024-07-14 10:55 | disposition home or self-care (01) ==
LOC: HO.HMCC 09:16
PROVIDERS: PCP Internal Medicine; Visit Provider Internal Medicine
DX: R29.898 Other symptoms and signs involving the musculoskeletal system (principal); I48.0 Paroxysmal atrial fibrillation; M70.62 Trochanteric bursitis, left hip

== ENCOUNTER → 2024-07-14 09:15 | Outpatient (BNVA) | payer BC, SELFPAY | PROVIDERS: PCP Internal Medicine; Visit Provider Internal Medicine ==

== ENCOUNTER 2024-07-18 06:56 | Outpatient (REF) | payer BC, SELFPAY ==
--- OUTSIDE RECORDS SUMMARY | 2024-07-18 06:59 | XMS_ITS | Clinical Summary ---
Author Organization [facility] Address [address] [place] [address] Phone Care Team Providers Care Correspondent Name Role Phone Alem Carter MD Primary Care Provider [phone] Allergies Active Allergy Reactions Criticality Noted Date [...] Noted Date Diagnosed Date Factor V Leiden ([facility]24) 11/19/2021 Pulmonary embolism ([facility], [facility]28) Hypothyroidism 04/20/2019 Overview (02/23/2024): S/P Thyroidectomy; Dr. 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 Atypical lobular hyperplasia (ALH) of left breas t 05/06/2018 Lobular carcinoma in situ (LCIS) of breast 05/06 Encounters Date Type Department Care Team Description 06/30/2024 10:00 AM EDT Procedure visit [address] [place] [phone] Avery Rodriguez MD Mass of upper inner quadrant of left breast (Primary Dx); Lobular carcinoma in situ (LCIS) of left breast; At high risk for breast cancer 06/07/2024 3:40 PM EDT Office Visit [address] [phone] Avery Rodriguez MD Mass of upper inner quadrant of left breast (Primary Dx); At high risk for breast cancer; Lobular carcinoma in situ (LCIS) of left breast from Last 3 Months Surgical History Surgery Date Site/Laterality Comments BREAST REDUCTION 02/25/2016 Bilateral PROCEDURE: [place] BREAST REDUCTION HYSTERECTOMY 2011 PROCEDURE: HISTORICAL HYSTERECTOMY; [...] 1:15 PM EDT Office Visit Endocrinology - [address] [phone] Chika Benedict PA [address] [place] [address] 12/13/2024 9:00 AM EDT Office Visit [facility] [place] [address] [facility] [address] [facility] [address] [place] [phone] Avrey Rodriguez MD [address] [facility] [address] [facility] [address] [place] [address] Health Maintenance Due Date Last Done Comments [...] been adequately sampled. 07/01/2024 9:46 AM EDT [facility] Gross Description A. Breast, Left, upper [...] 12.5 hours TS 07/01/2024 9:46 AM EDT [facility] Disclaimer Unless otherwise specified, all tissue is 10% NB formalin fixed and paraffin embedded. 07/01/2024 9:46 AM EDT [facility] Tissue Left breast structure / Unknown Non-blood Collection / Unknown 06/30/2024 11:14 AM EDT 06/30/2024 12:11 PM EDT us Avery Rodriguez MD LAB PATHOLOGY ORDERABLES Final R esult [facility] [address] [place] [address], * Core needle biopsy of left breast [...] PM EST Narrative 05/18/2023 3:52 PM EST [facility] Diagnostic Imaging Department [address] [place] [address] Patient: ??DESTINY LEON ?/Age/Sex: 1965 - 57 - F Unit#: ??[id number] ? Location/Status: ??SPDIMAM/REG CLI ? Mnemonic/Ordering Site: ??DIGSC/SPMAM Ordering Physician: ??AVERY RODRIGUEZ MD Celina Screening Digital - 05/18/23 - 1525 Report Status:Signed EXAM: [facility] Screening Digital EXAM DATE AND TIME: 05/18/2023 3:26 PM HISTORY: ??Screening. Reduction mammoplasty in 2016. Left breast LCIS found during reduction mammoplasty procedure. Patient declined tamoxifen. Previous MR guided right breast biopsies yielding benign pathology. COMPARISON: ??02/27/23, 05/07/22, 04/25/21, 04/23/20, 04/20/19 TECHNIQUE: Bilateral digital breast tomosynthesis was performed in the CC and MLO projections. Computer aided detection with [employer] 3D 3.1 was employed. TISSUE DENSITY: a. [...] Procedure Note Elham Agustin MD - 11/02/2023 [facility] Diagnostic Imaging Department [address] [place] [address] Patient: DESTINY LEON /Age/Sex: 1965 - 57 - F Unit#: [id number] Location/Status: SPDIMAM/REG CLI Mnemonic/Ordering Site: [facility] Ordering Physician: AVERY RODRIGUEZ MD [facility] Screening Digital - 05/18/23 - 1525 Report Status:Signed EXAM: [facility] Screening Digital EXAM DATE AND TIME: 05/18/2023 3:26 PM HISTORY: Screening. Reduction mammoplasty in 2015. Left breast LCISfound during reduction mammoplasty procedure. Patient declined tamoxifen.Previous MR guided right breast biopsies yielding benign pathology. COMPARISON: 02/27/23, 05/07/22, 04/25/21, 04/23/20, 04/20/19 TECHNIQUE: Bilateral digital breast tomosynthesis was performed in the CCand MLO projections. Computer aided detection with [employer] 3D 3.1was employed. TISSUE DENSITY: a. The [...] Most Recently Relevant to Health Maintenance Insurance [facility] ([place]) Care Teams Correspondent Relationship Specialty Start Date End Date Alem Carter MD PCP - General Internal Medicine 04/12/19
--- OUTSIDE RECORDS SUMMARY | 2024-07-18 06:59 | XMS_ITS | Clinical Summary ---
Author Organization [facility] Facility Address [address] [place] [address] Care Team Providers Care Pss Delivery Professional Name Role Phone Unavailable Primary Care Provider [...] (Season Ended) 2024 [place] [address] [facility] [address] ATTN: [place] [phone] [place] [address] [facility] [place]: [place] [phone]
[2024-07-18 10:40] LABS: Anion Gap 13 (12-20); Blood Urea Nitrogen 17 mg/dL (9-16); Calcium 9.1 mg/dL (8.4-10.2); Carbon Dioxide 25 mmol/L (22-29); Chloride 109 mmol/L (96-108); Estimated Glomerular Filt Rate > 60; Glucose Random 86 mg/dL (60-115); Potassium 4.1 mmol/L (3.3-5.1); Sodium 143 mmol/L (135-145)
[2024-07-18 11:09] LABS: Parathyroid Hormone Intact 107.7 pg/mL (8.7-77.1)
[2024-07-18 13:01] LABS: Creatinine, mg/dL 40.52
[2024-07-18 14:10] LABS: Creatinine (CrCl) 0.94 mg/dL (0.5-1.4); Creatinine Clearance 68.1 mL/min (85-125); Creatinine, 24Hr Urine 0.9 G/Day (1.0-2.0); Total Volume 24 Hour Urine 2275 mL
[2024-07-19 10:59] LABS: Vitamin D 25-OH Total 24.4 ng/mL (>30)
== END 2024-07-18 06:57 | disposition home or self-care (01) ==
LOC: HO.HMGCLDS 06:56
PROVIDERS: PCP Internal Medicine; Visit Provider Internal Medicine Hypertension Specialist
DX: E87.0 Hyperosmolality and hypernatremia (principal); N18.30 Chronic kidney disease, stage 3 unspecified; Z78.0 Asymptomatic menopausal state
CPT/HCPCS: 36415; 80048; 82306; 82575; 83970

== ENCOUNTER 2024-07-19 07:38 | Outpatient (REF) | payer BC, SELFPAY ==
--- OUTSIDE RECORDS SUMMARY | 2024-07-19 07:41 | XMS_ITS | Patient Health Record ---
Author Organization [facility] Address [address] [place] [address] Care Team Providers Care Concentrator Operator Name Role Phone DR ISACC PICKARD Primary Care Provider UnavailJennifer Eugene Unavailable [phone] Allergies Allergen (clinical drug ingredient) Drug/Non Drug [...] W/U Status Risk Notes Problem Depressive disorder (31221742) Depressive disorder, not elsewhere classified (311) Active confirmed Problem Human papilloma virus deoxyribonucleic acid test positive, high risk on vaginal specimen (676380369643575) Cervical high risk human papillomavirus (HPV) DNA test positive (R87.810) Active confirmed Problem Carcinoma in situ of breast (123924842) Lobular carcinoma in situ of unspecified breast (D05.00) Active confirmed Problem Lobular carcinoma in situ of right breast (462375615185315) Lobular carcinoma in situ of right breast (D05.01) Active confirmed Problem Localized morphea (492245947) 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) Active confirmed Problem Unspecified menopausal and perimenopausal disorder (N95.9) Active confirmed Problem Abnormal findings on diagnostic imaging of breast (536353241) Other abnormal and inconclusive findings on diagnostic imaging of breast (R92.8) Active confirmed Problem History of dysplasia of cervix (603812680) Personal history of cervical dysplasia (Z87.410) Active confirmed Problem Leiomyoma of uterus (93795602) Leiomyoma of uterus, unspecified (218.9) Active confirmed Major Problem Mild dysplasia of cervix (780057574) Mild dysplasia of cervix (622.11) Active confirmed Diag Problem Gynecological examination normal (867535122539422) Routine gynecological examination (V72.31) Active confirmed Diag Problem Screening for malignant neoplasm of cervix (732641024) Screening for malignant neoplasm of the cervix [...] End Date [employer] [address] [place] [phone] [id number] DEL LEON Self - patient is the [...]
--- OUTSIDE RECORDS SUMMARY | 2024-07-19 07:41 | XMS_ITS | Clinical Summary ---
Author Organization [facility] Facility Address [address] [place] [address] Care Team Providers Care Woodwork Teacher Name Role Phone Unavailable Primary Care Provider [...] (Season Ended) [address] [place] [address] [facility] [address] ATTN: [place] [address] [place] [address] [facility] ATTN: [place] [address]
--- OUTSIDE RECORDS SUMMARY | 2024-07-19 07:41 | XMS_ITS | Clinical Summary ---
Author Organization [facility] Address [address] [place] [address] Phone Care Team Providers Care Manager Practice Name Role Phone Alem Carter MD Primary Care Provider [phone] Allergies Active Allergy Reactions Criticality Noted Date [...] Noted Date Diagnosed Date Factor V Leiden ([facility] V24) 11/19/2021 Pulmonary embolism ([facility] V24, [facility] V28) Hypothyroidism 04/20/2019 Overview (02/23/2024): S/P Thyroidectomy; Dr. 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 Atypical lobular hyperplasia (ALH) of left breas t 05/06/2018 Lobular carcinoma in situ (LCIS) of breast 05/06 Encounters Date Type Department Care Team Description 06/30/2024 10:00 AM EDT Procedure visit [address] [place] [phone] Avery Rodriguez MD Mass of upper inner quadrant of left breast (Primary Dx); Lobular carcinoma in situ (LCIS) of left breast; At high risk for breast cancer 06/07/2024 3:40 PM EDT Office Visit [address] [address] Avery Rodriguez MD Mass of upper inner quadrant of left breast (Primary Dx); At high risk for breast cancer; Lobular carcinoma in situ (LCIS) of left breast from Last 3 Months Surgical History Surgery Date Site/Laterality Comments BREAST REDUCTION 02/25/2016 Bilateral PROCEDURE: [place] BREAST REDUCTION HYSTERECTOMY 2011 PROCEDURE: HISTORICAL HYSTERECTOMY; [...] 1:15 PM EDT Office Visit Endocrinology - [address] [address] Chika Benedict PA [address] [place] [address] 12/13/2024 9:00 AM EDT Office Visit [facility] [place] [address] [place] [phone] Avery Rodriguez MD [address] [place] [address] Health Maintenance Due Date Last Done Comments [...] been adequately sampled. 07/01/2024 9:46 AM EDT [facility] Gross Description A. Breast, [...] 12.5 hours TS 07/01/2024 9:46 AM EDT [facility] Disclaimer Unless otherwise specified, all tissue is 10% NB formalin fixed and paraffin embedded. 07/01/2024 9:46 AM EDT [facility] Tissue Left breast structure / Unknown Non-blood Collection / Unknown 06/30/2024 11:14 AM EDT 06/30/2024 12:11 PM EDT us Avery Rodriguez MD LAB PATHOLOGY ORDERABLES Final R esult [facility]) [facility] [address] [place] [address], * Core needle biopsy of left breast [...] PM EST Narrative 05/18/2023 3:52 PM EST [facility] Diagnostic Imaging Department [address] [place] [address] Patient: ??DESTINY LEON ?/Age/Sex: 1965 - 57 - F Unit#: ??[id number] ? Location/Status: ??SPDIMAM/REG CLI ? Mnemonic/Ordering Site: ??DIGSC/SPMAM Ordering Physician: ??AVERY RODRIGUEZ MD [facility] Screening Digital - 05/18/23 - 1525 Report Status:Signed EXAM: [facility] Screening Digital EXAM DATE AND TIME: 05/18/2023 3:26 PM HISTORY: ??Screening. Reduction mammoplasty in 2016. Left breast LCIS found during reduction mammoplasty procedure. Patient declined tamoxifen. Previous MR guided right breast biopsies yielding benign pathology. COMPARISON: ??02/27/23, 05/07/22, 04/25/21, 04/23/20, 04/20/19 TECHNIQUE: Bilateral digital breast tomosynthesis was performed in the CC and MLO projections. Computer aided detection with [employer] 3D 3.1 was employed. TISSUE DENSITY: a. [...] Procedure Note Elham Agustin MD - 11/02/2023 [facility] Diagnostic Imaging Department [address] [place] [address] Patient: DESTINY LEON /Age/Sex: 1965 - 57 - F Unit#: [id number] Location/Status: SPDIMAM/REG CLI Mnemonic/Ordering Site: [facility] Ordering Physician: AVERY RODRIGUEZ MD [facility] Screening Digital - 05/18/23 - 1525 Report Status:Signed EXAM: [facility] Screening Digital EXAM DATE AND TIME: 05/18/2023 3:26 PM HISTORY: Screening. Reduction mammoplasty in 2015. Left breast LCISfound during reduction mammoplasty procedure. Patient declined tamoxifen.Previous MR guided right breast biopsies yielding benign pathology. COMPARISON: 02/27/23, 05/07/22, 04/25/21, 04/23/20, 04/20/19 TECHNIQUE: Bilateral digital breast tomosynthesis was performed in the CCand MLO projections. Computer aided detection with [employer] 3D 3.1was employed. TISSUE DENSITY: a. The [...] Most Recently Relevant to Health Maintenance Insurance [facility] ([facility]) Care Teams Manager Practice Relationship Specialty Start Date End Date Alem Carter MD PCP - General Internal Medicine 04/12/19
--- NOTE | 2024-07-19 07:53 | EMG_ITS ---
Bilateral tibial and peroneal motor studies were performed. Bilateral superficial peroneal, sural, median and lateral antecubital brachial sensory, and tibial H-reflexes were obtained. Paraspinal muscles were tested with a needle. IMPRESSION: Mild sensory more than motor. Somewhat patchy. 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 MD ALEXSANDER Sanchez/[facility] / [id number]
== END 2024-07-19 07:39 | disposition home or self-care (01) ==
LOC: HO.NEURO 07:38
PROVIDERS: PCP Internal Medicine
DX: R29.898 Other symptoms and signs involving the musculoskeletal system (principal)
CPT/HCPCS: 95886; 95913

== ENCOUNTER 2024-07-22 09:00 | Outpatient (RCR) | payer BC, SELFPAY ==
--- NOTE | 2024-05-04 14:49 | MHC.PT.EP ---
[facility] [place] Office [place] Office [place] Office [address] Kimberlyn Soto [address] [phone] F: [phone] F: [phone] F: [phone] F: [phone] Physical Therapy Plan of Care Date of Evaluation: 05/04/24 Date of Surgery: Diagnosis: This is a 58 yo female presenting to skilled PT with a script for tendonitis of R hip flexor. Assessment: This is a 58 yo female presenting to skilled PT with a script for tendonitis of R hip flexor and past medical history significant for pulmonary embolism and paroxysmal atrial fibrillation with secondary hypercoagulable state on anti-coagulation with rivaroxaban, polymyalgia rheumatica versus rheumatoid arthritis who presents with recurrent right-sided groin pain. This is a 58 yo female presenting to skilled PT with a script for tendonitis of R hip flexor and past medical history significant for pulmonary embolism and paroxysmal atrial fibrillation with secondary hypercoagulable state on anti-coagulation with rivaroxaban, polymyalgia rheumatica versus rheumatoid arthritis who presents with recurrent right-sided groin pain. Patient states her pain first started about a year ago. Patient was evaluated by facsimile machine operator who diagnosed her with polymyalgia rheumatica versus rheumatoid arthritis. Patient was placed on steroid therapy with prednisone however, the patient's facsimile machine operator has been tapering her prednisone and she is no longer taking this (this helped with UB symptoms but not the LB). Rheumatology also trialed a steroid injection (relief for 2 wks), hip aspiration without removal of fluid and ordered an MRI. Due to MRI results she was referred to [facility] ortho who referred her to PT to work on strengthening and stretching exercises. She is here today reporting B hip pain but the R is worse than the L. Pain is located at the R groin that is constant and also described as ripping, heavy and spasm. Functionally, she is limited with transfers, walking, standing and stairs She has to use a cane when walking distances, has bought a rollator and shower chair. She does not find relief with anything. Assessment reveals pain that ranges from up to a 10/10 at the worst. Patient demos decreased hip AROM, strength of B gluts, core and back, TTP at anterior hip with some associated SIJ tests due to gait deviations and impaired posture with forward head, forward trunk and rounded shoulders. Based on functional limitations, impaired QOL and pain tolerance patient is a good candidate for skilled PT 2x/wk for 4wks. Frequency and Duration: The patient will be seen 2x/wk for 4wks Short Term Goals: (in 2 weeks) Patient will improve hip AROM by at least 20 degs without assist for flexion, 10 degs rotation and extension Patient will demo good understanding and performance of quad set in multiple different planes without cues from PT Patient will be I in HEP [place] Goals: (in 4 weeks) Patient will report 75% improvement in gait pattern, walking tolerance and functional ADLs Patient will improve LEFs by 10 points Patient will demo WFL AROM of B LE's Patient will demo proper squat and lift techniques without increase in pain Patient will report normal transfers without pain into car, stairs and into tub Treatment Plan: Modalities to reduce pain, spasms and effusion. Manual therapy to restore motion and function. Therapeutic exercise to improve strength and flexibility. Neuromuscular re-education for posture and balance. Therapeutic activities to return to functional activities of daily living. Electronically signed by: Cecilia Ventura PT Please sign and return to therapist. Thank you for your referral.
--- NOTE | 2024-08-19 14:46 | MHC.PT.DC ---
[facility] [place] Office [place] Office [employer] Office [address] Kimberlyn Soto [address] [phone] F: [phone] F: [phone] F: [phone] F: [phone] Physical Therapy Discharge Report Diagnosis: This is a 58 yo female presenting to skilled PT with a script for tendonitis of R hip flexor. Date of Surgery: Date of Evaluation: 05/04/24 Date of Discharge: 08/19/24 Treatments to Date: 18 Cancellations to Date: 0 No Shows to Date: 0 Discharge Status: Independent with HEP Recommend MD Follow-up Discharge Summary: 07/22: Pt has had 18 visits of PT, she has not progressed much based off my last re-eval and pain tolerance/function. At this time I did recommend she continue on her own and follow up with MD's as PT cannot do much else to help her. She is I in her program. DC chart in 30 days. Electronically signed by: Cecilia Ventura PT Please sign and return to therapist. Thank you for your referral.
== END 2024-08-19 14:47 | disposition home or self-care (01) ==
LOC: HO.PTCHIC 09:00
PROVIDERS: PCP Internal Medicine; Visit Provider Physician Assistant
DX: M76.891 Other specified enthesopathies of right lower limb, excluding foot (principal)
CPT/HCPCS: 97012; 97110; 97140; 97162; 97164

== ENCOUNTER 2024-07-22 14:31 | Outpatient (AMB) | payer BC, SELFPAY ==
--- NOTE | 2024-07-22 14:32 | HO.NEPHOV_ITS ---
Vital Signs 07/22/24 14:33 Height 5 ft 2 in Weight 176 lb BMI 32.2 BP 120/74 Blood Pressure Location Rt brachial Position Sitting Pulse 67 Pulse Source Pulse Oximeter Pulse Oximetry (%) 97 Oxygen Delivery Method Room Air Intake Visit Reasons: Elevated serum creatinine/1 Year FU Conf Delphi Programmer Required: No Accompanied by: Self / Same As Patient Allergies NSAIDS (Non-Steroidal Anti-Inflamma Allergy (Unknown, Verified 07/22/24 14:35) Unknown sulfamethoxazole [From BACTRIM] Allergy (Unknown, Verified 07/22/24 14:35) RASH trimethoprim [From BACTRIM] Allergy (Unknown, Verified 07/22/24 14:35) RASH Medication List - Last Reconciled 07/22/24 by John Barajas MD acetaminophen (Tylenol Extra Strength) 500 mg PO Q6H PRN alprazolam 0.5 mg PO DAILY PRN bupropion HCl XL 300 mg PO DAILY buspirone 5 mg PO BID PRN flecainide 100 mg PO BID Kevzara (sarilumab) 200 mg (1.14 mL) subcut Q2W 28 days NS levothyroxine 88 mcg PO DAILY propranolol 10 mg PO BID rivaroxaban (Xarelto) 20 mg PO DAILY tramadol 50 mg PO DAILY PRN HPI Comments Details: Destiny is 58 yrs old and she donated a kidney about a year ago. 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 She also developed atrial fibrillation and she is on beta blockers for rate control. Her baseline creatinine has been around 0.8 or 0.9 mg/dL. Recently she was started on prednisone for seronegative rheumatoid arthritis. BUN is bumped up to 20 mg/dL the creatinine was 1.17 which is slightly higher than her baseline. Co rresponding serum sodium was 147 mg/dL. She has been increased see her fluid intake the repeat serum creatinine was 1.15 and she is here for further evaluation. She underwent a renal ultrasonogram which showed solitary kidney without any hydronephrosis or masses. Today she has no specific complaints. No headache nausea vomiting. No polyuria polydipsia. No diarrhea. No abdominal pain. No edema no fever no rash. 07/22/2024. She has hip pains Being followed by Rheumatology. Waiting for neurological evaluation [facility] Medical History (Updated 07/22/24 @ 14:46 by John Barajas MD) Lobular carcinoma in situ (LCIS) of left breast Factor 5 Leiden mutation, heterozygous Pulmonary embolism MORGAN (dyspnea on exertion) Colon cancer screening Hypothyroidism (acquired) Normal pelvic exam Anxiety Surgical History H/O thumb surgery History of surgery History of rectal abscess History of hysterectomy History of lipoma [place] teeth removed History of foot surgery History of breast biopsy History of section Family History (Updated 07/22/24 @ 14:36 by LOS Rader) Father HTN (hypertension) Cancer Mother HTN (hypertension) Sister Cancer of thyroid Cady's disease Graves disease Social History Household Members: Family Housing: House Alcohol intake: current Alcohol intake frequency: a few times a week Patient Tobacco Use Status: Never used Tobacco e-Cigarette/Vaping Use: Never Used service: No Current occupational status: employed 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[place] Cognitive needs: No Hearing needs: No Vision needs: Yes Physical Exam Vital Signs: Last Vital Signs Pulse 67 07/22/24 14:33 BP 120/74 07/22/24 14:33 Pulse Ox 97 07/22/24 14:33 Oxygen Delivery Method Room Air 07/22/24 14:33 BMI result Body Mass Index 32.2 Const General: comfortable Nutritional Appearance: well nourished Orientation/consciousness: patient oriented x3 HEENT Head: No normal to inspection Mouth: moist mucous membranes Neck Neck: Yes supple and Yes no JVD Resp Auscultation: clear to auscultation bilaterally and no rales Cardio Jugular venous distension: no JVD Palpation: no palpable S3 and no palpable S4 Heart sounds: no rubs GI Palpation (GI): Soft to palpation and nontender Percussion: No Fluid wave present General: Yes no CVA tenderness Back/Spine/Pelvis Back: no CVA tenderness Skin General skin exam: no rashes or lesions noted Neuro General: patient oriented x3 Extrem General: Yes no pedal edema and No clubbing Results Reviewed Nephrology Results: Hgb 14.2 g/dl (12.0-16.0) 06/18/24 WBC 5.2 X10*3/uL (4.8-10.8) 06/18/24 Plt Count 178 X10*3/uL (160-400) 06/18/24 Sodium 143 mmol/L (135-145) 07/18/24 Potassium 4.1 mmol/L (3.3-5.1) 07/18/24 Chloride 109 mmol/L (96-108) H 07/18/24 Carbon Dioxide 25 mmol/L (22-29) 07/18/24 BUN 17 mg/dL (9-16) H 07/18/24 Creatinine 0.94 mg/dL (0.5-1.4) 07/18/24 Calcium 9.1 mg/dL (8.4-10.2) 07/18/24 PTH Intact 107.7 pg/mL (8.7-77.1) H 07/18/24 Assessment & Plan Assessment & Plan (1) Elevated serum creatinine: Code(s): R79.89 - Other specified abnormal findings of blood chemistry Category: Medical (2) Hypercalcemia: Code(s): E83.52 - Hypercalcemia Category: Medical (3) Hypernatremia: Code(s): E87.0 - Hyperosmolality and hypernatremia Category: Medical (4) CKD (chronic kidney disease): Code(s): N18.9 - Chronic kidney disease, unspecified Category: Medical Plan Destiny is a 58-year-old woman with the solitary kidney with mild elevation serum creatinine and mild hypernatremia. Destiny most likely has elevation in serum creatinine due to volume depletion. Free water deficit could explain hypernatremia Renal ultrasonogram was unremarkable Elevatd PTH with low Vit D levels ; Ca normal Started Vit D REcheck in 2 - 3 months Orders: Orders Basic Metabolic Panel 2 Months N18.9 - Chronic kidney disease, unspecified Parathyroid Hormone Intact 2 Months N18.9 - Chronic kidney disease, unspecified TSH reflex Free T4 2 Months N18.9 - Chronic kidney disease, unspecified Phosphorus 2 Months N18.9 - Chronic kidney disease, unspecified Vitamin D 25-OH Total 2 Months N18.9 - Chronic kidney disease, unspecified Coding Level of Care Code Est Pt Level 4 (83066) Diagnoses Elevated serum creatinine R79.89 Hypercalcemia E83.52 Hypernatremia E87.0 CKD (chronic kidney disease) N18.9
[2024-07-22 14:33] VITALS: BP 120/74; PULSE 67; O2SAT 97; BMI 32.2
--- OUTSIDE RECORDS SUMMARY | 2024-07-22 14:33 | XMS_ITS | Patient Health Record ---
Author Organization [facility] Address [address] [place] [address] Care Team Providers Care Card Tender Name Role Phone DR ISACC PICKARD Primary Care Provider UnavailJennifer Eugene Unavailable [phone] Allergies Allergen (clinical drug ingredient) Drug/Non Drug [...] W/U Status Risk Notes Problem Depressive disorder (82421655) Depressive disorder, not elsewhere classified (311) Active confirmed Problem Human papilloma virus deoxyribonucleic acid test positive, high risk on vaginal specimen (840217849012224) Cervical high risk human papillomavirus (HPV) DNA test positive (R87.810) Active confirmed Problem Carcinoma in situ of breast (445226717) Lobular carcinoma in situ of unspecified breast (D05.00) Active confirmed Problem Lobular carcinoma in situ of right breast (960975533835242) Lobular carcinoma in situ of right breast (D05.01) Active confirmed Problem Localized morphea (125876067) 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) Active confirmed Problem Unspecified menopausal and perimenopausal disorder (N95.9) Active confirmed Problem Abnormal findings on diagnostic imaging of breast (880335646) Other abnormal and inconclusive findings on diagnostic imaging of breast (R92.8) Active confirmed Problem History of dysplasia of cervix (474767319) Personal history of cervical dysplasia (Z87.410) Active confirmed Problem Leiomyoma of uterus (73297685) Leiomyoma of uterus, unspecified (218.9) Active confirmed Major Problem Mild dysplasia of cervix (648566795) Mild dysplasia of cervix (622.11) Active confirmed Diag Problem Gynecological examination normal (602962757256917) Routine gynecological examination (V72.31) Active confirmed Diag Problem Screening for malignant neoplasm of cervix (399618907) Screening for malignant neoplasm of the cervix [...] End Date [employer] [address] [place] [phone] [id number] DEL LEON Self - patient is the [...]
--- OUTSIDE RECORDS SUMMARY | 2024-07-22 14:34 | XMS_ITS | Clinical Summary ---
Author Organization [facility] Facility Address [address] [place] [address] Care Team Providers Care Information Technology Manager Name Role Phone Unavailable Primary Care Provider [...] (Season Ended) [address] [place] [address] [facility] [address] ATTN: [place] [address] [place] [address] [facility] ATTN: [place] [address]
--- OUTSIDE RECORDS SUMMARY | 2024-07-22 14:34 | XMS_ITS | Clinical Summary ---
Author Organization [facility] Address [address] [place] [address] Phone Care Team Providers Care Crinkling Machine Operator Name Role Phone Alem Carter MD Primary Care Provider [phone] Allergies Active Allergy Reactions Criticality Noted Date [...] Noted Date Diagnosed Date Factor V Leiden ([facility] V24) 11/19/2021 Pulmonary embolism ([facility] V24, [facility] V28) Hypothyroidism 04/20/2019 Overview (02/23/2024): S/P Thyroidectomy; Dr. 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 Atypical lobular hyperplasia (ALH) of left breas t 05/06/2018 Lobular carcinoma in situ (LCIS) of breast 05/06 Encounters Date Type Department Care Team Description 06/30/2024 10:00 AM EDT Procedure visit [address] [place] [phone] Avery Rodriguez MD Mass of upper inner quadrant of left breast (Primary Dx); Lobular carcinoma in situ (LCIS) of left breast; At high risk for breast cancer 06/07/2024 3:40 PM EDT Office Visit [address] [phone] Avery Rodriguez MD Mass of upper inner quadrant of left breast (Primary Dx); At high risk for breast cancer; Lobular carcinoma in situ (LCIS) of left breast from Last 3 Months Surgical History Surgery Date Site/Laterality Comments BREAST REDUCTION 02/25/2016 Bilateral PROCEDURE: [place] BREAST REDUCTION HYSTERECTOMY 2011 PROCEDURE: HISTORICAL HYSTERECTOMY; [...] 1:15 PM EDT Office Visit Endocrinology - [address] [phone] Chika Benedict PA [address] [place] [address] 12/13/2024 9:00 AM EDT Office Visit [facility] [place] [address] [place] [phone] Avery Rodriguez MD [address] [place] [address] Health Maintenance Due Date Last Done Comments [...] been adequately sampled. 07/01/2024 9:46 AM EDT [facility] ([facility]) [facility] Gross Description A. Breast, Left, [...] 12.5 hours TS 07/01/2024 9:46 AM EDT [facility] Disclaimer Unless otherwise specified, all tissue is 10% NB formalin fixed and paraffin embedded. 07/01/2024 9:46 AM EDT [facility] Tissue Left breast structure / Unknown Non-blood Collection / Unknown 06/30/2024 11:14 AM EDT 06/30/2024 12:11 PM EDT us Avery Rodriguez MD LAB PATHOLOGY ORDERABLES Final R esult [facility]) [facility] [address] [place] [address], * Core needle biopsy of left breast [...] PM EST Narrative 05/18/2023 3:52 PM EST [facility] Diagnostic Imaging Department [address] [place] [address] Patient: ??DESTINY LEON ?/Age/Sex: 1965 - 57 - F Unit#: ??[id number] ? Location/Status: ??SPDIMAM/REG CLI ? Mnemonic/Ordering Site: ??DIGSC/SPMAM Ordering Physician: ??AVERY RODRIGUEZ MD Cel[facility] Screening Digital - 05/18/23 - 1525 Report Status:Signed EXAM: [facility] Screening Digital EXAM DATE AND TIME: 05/18/2023 3:26 PM HISTORY: ??Screening. Reduction mammoplasty in 2016. Left breast LCIS found during reduction mammoplasty procedure. Patient declined tamoxifen. Previous MR guided right breast biopsies yielding benign pathology. COMPARISON: ??02/27/23, 05/07/22, 04/25/21, 04/23/20, 04/20/19 TECHNIQUE: Bilateral digital breast tomosynthesis was performed in the CC and MLO projections. Computer aided detection with [employer] 3D 3.1 was employed. TISSUE DENSITY: a. [...] Procedure Note Elham Agustin MD - 11/02/2023 [facility] Diagnostic Imaging Department [address] [place] [address] Patient: DESTINY LEON /Age/Sex: 1965 - 57 - F Unit#: [id number] Location/Status: SPDIMAM/REG CLI Mnemonic/Ordering Site: [facility] Ordering Physician: AVERY RODRIGUEZ MD [facility] Screening Digital - 05/18/23 - 1525 Report Status:Signed EXAM: [facility] Screening Digital EXAM DATE AND TIME: 05/18/2023 3:26 PM HISTORY: Screening. Reduction mammoplasty in 2015. Left breast LCISfound during reduction mammoplasty procedure. Patient declined tamoxifen.Previous MR guided right breast biopsies yielding benign pathology. COMPARISON: 02/27/23, 05/07/22, 04/25/21, 04/23/20, 04/20/19 TECHNIQUE: Bilateral digital breast tomosynthesis was performed in the CCand MLO projections. Computer aided detection with [employer] 3D 3.1was employed. TISSUE DENSITY: a. The [...] Most Recently Relevant to Health Maintenance Insurance [facility] ([facility]) Care Teams Crinkling Machine Operator Relationship Specialty Start Date End Date Alem Carter MD PCP - General Internal Medicine 04/12/19
== END 2024-07-22 14:56 | disposition home or self-care (01) ==
LOC: HO.HKA 14:32
PROVIDERS: PCP Internal Medicine; Visit Provider Internal Medicine Hypertension Specialist
DX: R79.89 Other specified abnormal findings of blood chemistry (principal); E83.52 Hypercalcemia; E87.0 Hyperosmolality and hypernatremia; N18.9 Chronic kidney disease, unspecified
CPT/HCPCS: 99214

== ENCOUNTER → 2024-07-22 14:31 | Outpatient (BNVA) | payer BC, SELFPAY | PROVIDERS: PCP Internal Medicine; Visit Provider Internal Medicine Hypertension Specialist ==

== ENCOUNTER 2024-09-02 11:03 | Outpatient (AMB) | payer BC, SELFPAY ==
--- NOTE | 2024-09-02 11:06 | MHC.OFFVIS ---
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 Patient was referred from [facility] on 05/30/24.Patient reported that she has been attending and finished physical therapy for her right hip and SI joint with very little relief. Currently states she is now having pain in bilateral hips. Left is worse. Hx of lower back issues. States she had a EMG for lower extremity and would like to review results if possible. Allergies NSAIDS (Non-Steroidal Anti-Inflamma Allergy (Unknown, Verified 09/02/24 11:10) Unknown sulfamethoxazole (From BACTRIM) Allergy (Unknown, Verified 09/02/24 11:10) RASH trimethoprim (From BACTRIM) Allergy (Unknown, Verified 09/02/24 11:10) RASH Medication List - Last Reconciled 09/02/24 by Marleni Bradshaw MD acetaminophen (Tylenol Extra Strength) 500 mg PO Q6H PRN alprazolam 0.5 mg PO DAILY PRN bupropion HCl XL 300 mg PO DAILY buspirone 5 mg PO BID PRN flecainide 100 mg PO BID Kevzara (sarilumab) 200 mg (1.14 mL) subcut Q2W 28 days NS levothyroxine 88 mcg PO DAILY propranolol 10 mg PO BID rivaroxaban (Xarelto) 20 mg PO DAILY HPI Comments Details: Bilateral hip pain and lower back pain, started only as right hip pain 2 years ago. No inciting injuries. Used to have right groin pain, needed to snap or pop and would lock also. Always had chronic low back issue, which she says today is fine . Her main complaint is the hips. Right hip pain was initialliy thought to be PMR (initially diagnosed by PCP Dr. Carter, the referred to Dr. Torres). She is seeing Dr. Lopez now who, per patient, said that PMR is quiet now. MRI right hip 2023 showed moderate arthritis. Eliquis for afib, factor V. History of just one kidney, donated other one voluntarily. Hip MRI 06/24/24 left side, which did not show labral tear. Question presence of ganglion cyst. Lumbar MRI 06/23/24 showed small disc herniation L2-3 but not impinging nerve. Saw [facility] (Jackie), and also [facility] in [place], who initially thouight she'd need hip replacements then thought this is more lumbar related rather than hip. She has done extensive PT, no improvements seen. She is referred back to PT which now for core/lumbar, to start 09/19/24. EMG Dr. Sorto 07/19/24 showed possible neuropathy. Denies numbness on feet. Most of her symptoms are proximal, left rather than right. Denies pins/needles. No foot drop. No burning. No atrophy. No fasciculations. Still feels pelvis, pointing to groin, as unstable, heavy. Can't stand long, walk long, or do stairs. [facility] Medical History (Updated 09/02/24 @ 12:34 by Marleni Bradshaw MD) Lobular carcinoma in situ (LCIS) of left breast Factor 5 Leiden mutation, heterozygous Pulmonary embolism MORGAN (dyspnea on exertion) Colon cancer screening Hypothyroidism (acquired) Normal pelvic exam Anxiety Surgical History H/O thumb surgery History of surgery History of rectal abscess History of hysterectomy History of lipoma Victor teeth removed History of foot surgery History of breast biopsy History of section Family History (Updated 07/22/24 @ 14:36 by LOS Rader) Father HTN (hypertension) Cancer Mother HTN (hypertension) Sister Cancer of thyroid Cady's disease Graves disease Social History Household Members: Family Housing: House Alcohol intake: current Alcohol intake frequency: a few times a week Patient Tobacco Use Status: Never used Tobacco e-Cigarette/Vaping Use: Never Used service: No Current occupational status: employed 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 Patient was appropriately conversant and oriented. Good historian. MSK: No specific abnormalities found on inspection of the spine and all extremities. No pain with palpation over the lumbar area. SI and GT nontender. Indicates tenderness over bilateral hip joints. Rectus tendon not tender. Lumbar ROM was full. Limited left hip range of motion specifically with abduction and flexion. Straight-leg raising test negative. FABERE test positive bilateral groin pain. Gillet test is negative. Guru test is negative. Piriformis test is negative. Hip impingement test positive bilateral, worse on left. Strength is 5/5 in all muscle groups tested. No increased tone noted. Neurological: Bilateral hip flexors weak 4/5. Rest of lower extremity 5/5. Morales?s negative bilaterally. Babinski was down going bilaterally. Clonus was negative. Gait is antalgic without loss of balance. Results Reviewed Results Reviewed: I independently reviewed the results of the following: EMG done by Dr. Sorto. Needle EMG did not show denervation. Low amplitudes on NCS of both sensory and motor, lower extremities. Lumbar MRI shows small disc herniation L2-3 but does not impinge the nerve root. No spinal stenosis. EMG by Dr. Sorto 07/19/24 IMPRESSION: Mild sensory more than motor. Somewhat patchy. 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 Ordering Physician: Ivette Lopez MD Date of Service: 06/23/24 Procedure(s): MR hip LT wo con Accession Number(s): [id number] cc: Ivette Lopez MD; Alem Carter MD~ CLINICAL HISTORY: M16.12 - Unilateral primary osteoarthritis, left hip MR left hip without gadolinium Comparison: CR/SR - XR HIP LT MIN 2V - 11/09/23 13:34 EDT Findings: No fractures. No pathologic bone lesions. Acetabulum and femoral neck unremarkable. No acetabular retroversion. No effusion. Ganglion cysts are seen along the anterosuperior aspect of the acetabulum possibly paralabral. A discrete tear of the labrum is not identified. There is tendinosis of the gluteus minimus tendon associated with mild peritrochanteric edema and splitting of some of the distal fibers of the tendon. IMPRESSION: 1. Ganglion cysts are seen along the anterosuperior aspect of the acetabulum possibly paralabral. A discrete tear of the labrum is not identified. 2. There is tendinosis of the gluteus minimus tendon associated with mild peritrochanteric edema and splitting of some of the distal fibers of the tendon. Ordering Physician: Ivette Lopez MD Date of Service: 06/23/24 Procedure(s): MR lumbar spine wo con Accession Number(s): [id number] cc: Ivette Lopez MD; Alem Carter MD~ EXAMINATION: MR LUMBAR SPINE WITHOUT CONTRAST CLINICAL INFORMATION: Back pain with radiculopathy. COMPARISON: No prior MRI. Lumbar radiographs 11/09/2023. TECHNIQUE: Multiplanar multisequence MR imaging of the lumbar spine was done without IV contrast. Examination was performed on a 1.5 Michelle Siemens magnet, utilizing standard sequences. FINDINGS: CORONAL ALIGNMENT: -There is a mild right convex scoliosis, apex at L3. SAGITTAL ALIGNMENT: -There is a normal lordosis. -There is a 2 mm degenerative type retrolisthesis of L2 on L3, and L4 on L5. Alignment is otherwise anatomic. LUMBOSACRAL JUNCTION: -Normal. There are 5 [id number] lumbar-type vertebral bodies. VERTEBRAL BODIES/BONE MARROW: -There is mild endplate edema at L2-3. There is no additional regional bone marrow edema, or abnormal infiltrating bone marrow signal. -There are fatty type endplate changes at L4-5. DISCS: -Severe loss of disc height and signal at L4-5. There is moderate loss at L2-3, L3-4, and L5-S1. -T12-L1, and L1-L2 discs appear normal. SPINAL CANAL: -No abnormal developmental findings. CONUS MEDULLARIS: -Terminates at superior endplate L2. Morphology and signal is normal. INTRADURAL NERVE ROOTS: - Within normal limits. Axial Disc Space Images: T12-L1: No central canal or neural foraminal narrowing. Normal facets. L1-L2: No central canal or neural foraminal narrowing. Normal facets. L2-L3: Shallow concentric disc bulge extending into both foraminal zones. There is a superimposed small left lateral protrusion of disc material. This contacts but does not impinge the traversing left L3 roots. There is a mild central canal stenosis. There is mild left neural foraminal stenosis. L3-L4: Shallow concentric disc bulge present, minimally indenting upon the ventral thecal sac but not contacting nerve roots. There is minimal central canal stenosis. There is mild hypertrophic facet change bilaterally. There is mild bilateral neural foraminal narrowing. L4-L5: There is a shallow concentric disc bulge which is asymmetrically prominent to the right, into the right neural foramen and lateral to foramen. This indents upon the ventral thecal sac, but does not contact nerve roots. Mild hypertrophic facet changes bilaterally. There is mild central canal stenosis, mild right subarticular recess stenosis, and mild right greater than left neural foraminal stenosis. L5-S1: Shallow concentric disc bulge present with central annular fissuring. No significant mass effect upon the thecal sac or nerve roots. Mild degenerative hypertrophic facet changes bilaterally. No central canal stenosis, no subarticular recess stenosis, and there is mild to moderate left and mild right neural foraminal stenosis. There is contact of the exiting left L5 nerve root without evidence of nerve root impingement. IMAGED SI JOINTS: -Mild degenerative arthritis bilaterally. PARAVERTEBRAL AND INCLUDED EXTRASPINAL SOFT TISSUES: -The right kidney is not seen. -The paravertebral and paraspinous soft tissues appear normal. --- Aorta is normal in caliber. MR/MR lumbar spine wo con IMPRESSION: 1. Mild to moderate spondylosis of the lumbar spine as detailed above. There is no high-grade central canal or neural foraminal stenosis. 2. At L2-3, a left lateral disc protrusion contacts but does not impinge the traversing left L3 roots. 3. At L5-S1, there is mild to moderate left neural foraminal stenosis, with contact but no impingement of the exiting left L5 nerve root. I reviewed records from the following: familia ferreira and Yenny Assessment & Plan Assessment & Plan (1) Bilateral hip joint arthritis: Code(s): M16.0 - Bilateral primary osteoarthritis of hip Category: Medical (2) Weakness of both hips: Code(s): R29.898 - Other symptoms and signs involving the musculoskeletal system Category: Medical Plan Based on history and exam today, I believe her symptoms are coming from the hip joints, left worse than right. Possibly hip impingment. Images have shown moderate arthritis. I do not think or see signs that groin/hip pain is from the lumbar spine. We discussed results of the lumbar MRI which did not show nerve impingement or spinal stenosis. We discussed the EMG results which showed neuropathy, which I believe is not the cause nor is related to her hip/groin pains. We could repeat the EMG later this year to confirm findings. We talked about other causes of neuropathy which include but not limited to CKD or thyroid disorders or autoimmune. Discussed case with Dr. Ferraro. We recommend trial of hip joint intraarticular injection, which could be both diagnostic and therapeutic. She will think about this, since previous right hip injection provided only 2-3 weeks relief and she's had poor reactions to steroid in the past. We may also arrange for her to see Dr. Ferraro or she may stay with [facility]. She will let us know. Assessment and plan discussed with patient, and patient was agreeable. All questions were answered thoroughly. Total of 45 minutes spent today including chart review, results review, history taking, physical examination, discussion of assessment and plan, and coordination of care. Marleni Bradshaw MD, MAYA Board Certified, [place] [employer] and Rehabilitation (ABPMR) Board Certified, [place] Board [employer] Electrodiagnostic Medicine (ABEM) Coding Level of Care Code New Pt Level 4 (08597) Diagnoses Bilateral hip joint arthritis M16.0 Weakness of both hips R29.898
[2024-09-02 11:08] VITALS: BMI 32.2
--- OUTSIDE RECORDS SUMMARY | 2024-09-02 11:28 | XMS_ITS | Patient Health Record ---
Author Organization [facility] Address [address] [place] [address] Care Team Providers Care School Based Therapist Name Role Phone DR ISACC PICKARD Primary Care Provider UnavailJennifer Eugene Unavailable [phone] Allergies Allergen (clinical drug ingredient) Drug/Non Drug [...] W/U Status Risk Notes Problem Depressive disorder (55392764) Depressive disorder, not elsewhere classified (311) Active confirmed Problem Human papilloma virus deoxyribonucleic acid test positive, high risk on vaginal specimen (269245996461919) Cervical high risk human papillomavirus (HPV) DNA test positive (R87.810) Active confirmed Problem Carcinoma in situ of breast (464198910) Lobular carcinoma in situ of unspecified breast (D05.00) Active confirmed Problem Lobular carcinoma in situ of right breast (921887913035966) Lobular carcinoma in situ of right breast (D05.01) Active confirmed Problem Localized morphea (273770018) 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) Active confirmed Problem Unspecified menopausal and perimenopausal disorder (N95.9) Active confirmed Problem Abnormal findings on diagnostic imaging of breast (861493374) Other abnormal and inconclusive findings on diagnostic imaging of breast (R92.8) Active confirmed Problem History of dysplasia of cervix (374566045) Personal history of cervical dysplasia (Z87.410) Active confirmed Problem Leiomyoma of uterus (68191087) Leiomyoma of uterus, unspecified (218.9) Active confirmed Major Problem Mild dysplasia of cervix (111223763) Mild dysplasia of cervix (622.11) Active confirmed Diag Problem Gynecological examination normal (329786141437856) Routine gynecological examination (V72.31) Active confirmed Diag Problem Screening for malignant neoplasm of cervix (013220441) Screening for malignant neoplasm of the cervix [...] End Date [employer] [address] [place] [address] [id number] DEL LEON Self - patient is the [...]
== END 2024-09-02 11:49 | disposition home or self-care (01) ==
LOC: HO.HOS 11:04
PROVIDERS: PCP Internal Medicine; Visit Provider Physical Medicine & Rehabilitation
DX: M16.0 Bilateral primary osteoarthritis of hip (principal); R29.898 Other symptoms and signs involving the musculoskeletal system
CPT/HCPCS: 99204

== ENCOUNTER 2024-09-15 08:10 | Outpatient (REF) | payer BC, SELFPAY ==
--- OUTSIDE RECORDS SUMMARY | 2024-09-15 08:13 | XMS_ITS | Clinical Summary ---
Author Organization [facility] Address [address] [place] [address] Care Team Providers Care Sticker On Name Role Phone Unavailable Primary Care Provider [...] (Season Ended) [address] [place] [address] [facility] [address] ATTN: [place] [address] [place] [address] [facility] Transplant Program ATTN: [place] [address]
--- OUTSIDE RECORDS SUMMARY | 2024-09-15 08:13 | XMS_ITS | Clinical Summary ---
Author Organization [facility] Address [address] [place] [address] Phone Care Team Providers Care Senior Storage Administrator Name Role Phone Alem Carter MD Primary Care Provider [phone] Allergies Active Allergy Reactions Criticality Noted Date Comments Nsaids (Non-Steroidal Anti-Inflammatory Drug) 06/04/2023 only has 1 kidney Sulfamethoxazole-Trimethoprim Other,Rash 2018 Medications ALPRAZolam (XANAX) 0.5 mg tablet TAKE 1 TABLET BY MOUTH TWICE A DAY NEEDED 10/17/2021 Active buPROPion XL (WELLBUTRIN XL) 150 mg 24 hr tablet TAKE 1 TABLET BY MOUTH EVERY DAY IN THE MORNING 04/14/2023 Active busPIRone (BUSPAR) 5 mg tablet TAKE 1 TABLET BY MOUTH TWICE A DAY NEEDED 10/17/2021 Active flecainide (TAMBOCOR) 100 mg tablet Take 1 Tablet by mouth 2 times daily. 01/28/2023 Active hydrOXYzine pamoate (VISTARIL) 25 mg capsule TAKE 1-2 CAPSULES BY MOUTH EVERY DAY AT BEDTIME NEEDED 11/10/2023 Active levothyroxine (Synthroid) 88 mcg tablet Take 1 Tablet by mouth daily. 10/15/2023 Active propranoloL (INDERAL) 10 mg tablet Take 1 Tablet by mouth 2 Times Daily. 12/05/2022 Active rivaroxaban (XARELTO) 20 mg tablet Take by mouth. Active acetaminophen (Tylenol Arthritis Pain) 650 mg 8 hr tablet Take 2 tablets (1,300 mg total) by mouth. 08/24/2023 Active traMADoL (ULTRAM) 50 mg tablet Take 1 tablet (50 mg total) by mouth 1 (one) time each day if needed. for pain Max Daily Amount: 50 mg 03/23/2024 Active Active Problems Problem Noted Date Diagnosed Date Factor V Leiden ([facility] V24) 11/19/2021 Pulmonary embolism ([facility] V24, [facility] V28) Hypothyroidism 04/20/2019 Overview (02/23/2024): S/P Thyroidectomy; Dr. 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 Atypical lobular hyperplasia (ALH) of left breas t 05/06/2018 Lobular carcinoma in situ (LCIS) of breast 05/06 Encounters Date Type Department Care Team Description 06/30/2024 10:00 AM EDT Procedure visit [address] [place] [address] Avery Rodriguez MD Mass of upper inner quadrant of left breast (Primary Dx); Lobular carcinoma in situ (LCIS) of left breast; At high risk for breast cancer from Last 3 Months Surgical History Surgery Date Site/Laterality Comments BREAST REDUCTION 02/25/2016 Bilateral PROCEDURE: NE BREAST REDUCTION HYSTERECTOMY 2011 PROCEDURE: HISTORICAL HYSTERECTOMY; [...] 58 06/30/2024 10:02 AM EDT Temperature 35.8 C (96.4 F) 06/30/2024 10:02 AM EDT Respiratory Rate - - Oxygen Saturation - - Inhaled Oxygen Concentration - - Weight 74.4 kg (164 lb) 06/30/2024 10:02 AM EDT Height 157.5 cm (5' 2 ) 10/15/2023 2:48 PM EDT Body Mass Index 30 10/15/2023 2:48 PM EDT Plan of Treatment Upcoming Encounters Date Type Department Care Team (Late st Contact Info) Description 12/13/2024 9:00 AM EDT Office Visit [facility] [address] [place] [address] Avery Rodriguez MD [address] [place] [id number] Health Maintenance Due Date Last Done Comments [...] breast At high risk for breast cancer DOREEN SCREENING DIGITAL Routine 05/18/2023 3:52 PM [...] been adequately sampled. 07/01/2024 9:46 AM EDT [facility] Gross Description A. [...] 12.5 hours TS 07/01/2024 9:46 AM EDT [facility] Disclaimer Unless otherwise specified, all tissue is 10% NB formalin fixed and paraffin embedded. 07/01/2024 9:46 AM EDT [facility] Tissue Left breast structure / Unknown Non-blood Collection / Unknown 06/30/2024 11:14 AM EDT 06/30/2024 12:11 PM EDT us Avery Rodriguez MD LAB PATHOLOGY ORDERABLES Final R esult [facility] [address] [place] [address], [place] [phone] * Core needle biopsy of left breast mass (06/30/2024 10:36 AM EDT) Avery Byrnes MD - 06/30/2024 10:36 AM EDT Avery Rodriguez MD 06/30/2024 6:16 PM Core needle biopsy of left breast mass Date/Time: 06/30/2024 10:36 AM Performed by: Avery Rodriguez MD Authorized by: Avery Rodriguez MD Consent: Consent obtained: Written Consent given by: Patient Risks, benefits, and alternatives were discussed: yes Risks discussed: Bleeding, infection and pain Indications: Indications: Left breast mass, enlarging in size, no radiology correlate, pain to palpation. Pre-procedure details: Skin preparation: Chlorhexidine Preparation: Patient was prepped and draped in the usual sterile fashion Sedation: Sedation type: None Anesthesia: Anesthesia method: Local infiltration Local anesthetic: Lidocaine 2% WITH epi Procedure specific details: The indication, risks, benefits of procedure were discussed with the patient and consent was obtained. Breast exam demonstrated the previously identified mass at 11:00-12:00, 5cm FN. This appears more prominent, measure 3-4 cm, and increased in size from previous exam. The mass is tender to palpation. The overlying skin was cleansed with Chlorhexidine 4%. Local anesthetic with 2% lidocaine with epinephrine was used to infiltrate the skin and subcutaneous tissues. A 3 mm skin incision was made with scalpel for introduction of the biopsy device. 14G core needle biopsy device was used to obtain 4 biopsy cores fanning across the palpable mass. Specimens were placed in formalin. Biopsy clip was not placed. There was minimal bleeding from the skin incision. Steri-strips were placed to re-approximate the skin incision, and was dressed with gauze and Tegaderm. Ice pack applied to breast for comfort. There were no immediate complications. The patient tolerated the procedure well. Specimen: 1. Left breast mass, 11:00, 5 cm from nipple. Post-procedure details: Procedure completion: Tolerated well, no immediate complications Avery Rodriguez MD IN CLINIC/BEDSIDE ORDERABLES Fin al Result * DOREEN SCREENING DIGITAL (05/18/2023 3:52 PM EST) Anatomical Region Laterality Modality Mammography 05/18/2023 3:01 PM EST Narrative 05/18/2023 3:52 PM EST [facility] Diagnostic Imaging Department [address] [place] [address] Patient: DEL GARCIA /Age/Sex: 1965 - 57 - F Unit#: [id number] [facility] Mnemonic/Ordering Site: [facility] Ordering Physician: AVERY RODRIGUEZ MD [facility] Screening Digital - 05/18/23 - 1525 Report Status:Signed EXAM: [facility] Screening Digital EXAM DATE AND TIME: 05/18/2023 3:26 PM HISTORY: Screening. Reduction mammoplasty in 2015. Left breast LCIS found during reduction mammoplasty procedure. Patient declined tamoxifen. Previous MR guided right breast biopsies yielding benign pathology. COMPARISON: 02/27/23, 05/07/22, 04/25/21, 04/23/20, 04/20/19 TECHNIQUE: Bilateral digital breast tomosynthesis was performed in the CC and MLO projections. Computer aided detection with Fly Fishing Hunter 3D 3.1 was employed. TISSUE DENSITY: a. The breasts are almost entirely fatty. FINDINGS: Reduction mammoplasty sequelae are again noted. No suspicious masses, grouped microcalcifications, or developing architectural distortion are seen. Biopsy markers are again seen in the anterior right breast. The skin and vascularity are unremarkable. IMPRESSION: Stable mammographic appearance of the breasts. No evidence of malignancy is seen. A negative mammogram in the presence of a clinically suspicious palpable abnormality does not preclude the possibility of malignancy or alter the indications for biopsy. BI-RADS: Category 2: Benign RECOMMENDATION(S): 1: Routine screening mammogram BILATERAL in 1 year. Dictating Physician: ANNETTE AGUSTIN MD Electronically Signed by: ANNETTE AGUSTIN MD Dic Date/Time: 05/18/23 1551 Sign date/Time: 05/18/23 155 Procedure Note Annette Agustin MD - 11/02/2023 [facility] Diagnostic Imaging Department [address] [place] [address] Patient: DEL GARCIA /Age/Sex: 1965 - 57 - F Unit#: [id number] Location/Status: [facility] CLI Mnemonic/Ordering Site: [facility] Ordering Physician: AVERY RODRIGUEZ MD [facility] Screening Digital - 05/18/23 - 1525 Report Status:Signed EXAM: [facility] Screening Digital EXAM DATE AND TIME: 05/18/2023 3:26 PM HISTORY: Screening. Reduction mammoplasty in 2015. Left breast LCISfound during reduction mammoplasty procedure. Patient declined tamoxifen.Previous MR guided right breast biopsies yielding benign pathology. COMPARISON: 02/27/23, 05/07/22, 04/25/21, 04/23/20, 04/20/19 TECHNIQUE: Bilateral digital breast tomosynthesis was performed in the CCand MLO projections. Computer aided detection with iCAD Red-rabbit AI 3D 3.1was employed. TISSUE DENSITY: a. The [...] 05/18/231551 Avery Rodriguez MD IMG BI PROCEDURES Final Result from Last 3 Months or Most Recently Relevant to Health Maintenance Insurance [facility] Care Teams Senior Storage Administrator Relationship Specialty Start Date End Date Alem Carter MD PCP - General Internal Medicine 04/12/19
--- OUTSIDE RECORDS SUMMARY | 2024-09-15 08:13 | XMS_ITS | Data Portability ---
Author Organization JAY Rinku James [facility] Address [address] [place] [address] Care Team Providers Care Kindergartner Name Role Phone ARELIS CHAVES Primary Care Provider Assessment Encounter Date Assessment Date Assessment LastModified by Organization Details LastModified Time 10/12/2023 10/12/2023 Four-week follow-up status post first CMC joint arthroplasty. Patient's doing well complaining of some tightness runner cast. X-ray today early from her normal schedule postop. Edges are clean dry intact neurovascular intact. No signs of infection. Pain is better now the cast is off. No x-rays taken. At this point patient go to a thumb spica splints to remove this from additional therapy occupational therapy is actually scheduled for 2 days from now. She will follow up 6 weeks after this. Will call for any questions or concerns, we will plan happy with outcome [email or web address] Not available 10/12/2023 15:37:32 Plan of Treatment Reminders Order Date Submit Date Provider Last Modified By Organization Details Last Modified Time Details Appointments PT INITIAL EVAL 2024 03:00P M WM MCGARRY DPT Not available Not available Not available PT FOLLOW-UP 2024 03:30P M Kaye Formejest er, [employer] Not available Not available Not available PT FOLLOW-UP 2024 03:00P M Kaye Formejest er, [employer] Not available Not available Not available PT FOLLOW-UP 2024 03:00P M Kaye Formejest er, [employer] Not available Not available Not available PT FOLLOW-UP 2024 06:00P M WM MALGORZATA, DPT Not available Not available Not available PT FOLLOW-UP 2024 06:00P M WM MALGORZATA, DPT Not available Not available Not available PT FOLLOW-UP 2024 02:30P M WM BAILONTAINE, DPT Not available Not available Not available PT FOLLOW-UP 2024 11:30A M Kaye Formejest er, [employer] Not available Not available Not available PT FOLLOW-UP 2024 12:30P M Kaye Formejest er, [employer] Not available Not available Not available PT FOLLOW-UP 2024 02:30P M Kaye Formejest er, [employer] Not available Not available Not available PT FOLLOW-UP 2024 01:00P M Kaye Formejest er, [employer] Not available Not available Not available RECHECK 15 2024 02:15P M Naa Berry, PA-C Not available Not available Not available PT FOLLOW-UP 2024 12:00P M WM MALGORZATA, DPT Not available Not available Not available Lab None recorded. Referral physical therapist referral - Evaluate & Rx Lumbar Stabiliza tion Program 2024 025 [email or web address] Not available 08/30/2024 08:27:19 occupatio nal therapist , hand referral - Dr Craig Garnett / s/p right first CMC arthropla sty 09/11/232023 024 [email or web address] Not available 11/24/2023 15:31:10 Procedures None recorded. Surgeries None recorded. Imaging XR, hip + pelvis, unilatera l, 2 or 3 view - [address]IPS 2024 025 [email or web address] [facility], [address], [place], [address], 08/30/2024 08:27:19 Medication Orders None recorded. Patient TargetsNo targets recorded. Patient Instructions Encounter Date Encounter Id Patient Instructions Last Modified By Organization Details Last Modified Time 09/23/2023 [id number] application of cast, short arm cast* - Dr Garnett 09/11/23 arthroplasty Right CMC ; shorty short, MP flexed IP free [email or web address] Not available 09/23/2023 09:57:52 10/12/2023 [id number] [facility] Custom Hand Orthosis Information Sheet [address] [place] [address] Name: Destiny Garcia Right Diagnosis: First CMC arthroplasty 09/11/23 Orthosis Code: Finger Hand Wrist WHFO L 3808 Orthosis Style: forearm based wrist and thumb immobilization orthosis The PURPOSE for this custom orthosis is to: PRECAUTIONS to consider include: HEAT SOURCES: including, but not limited to, the manager retention, dryer, stove, furnace, heater, car (on a hot summer day). PETS: they like to chew the plastic. SKIN: watch for redness, blisters or any skin irritations. CLEANING: use warm soapy water, wipes or instrument setter to keep the plastic clean, cotton socks and straps can be hand washed. The PLAN is to wear this brace: to protect the surgery site and restrict tendon glide of the thumb and wrist range of motion For modifications to this custom piece please contact your hand therapy provider. If you have not been assigned to hand therapy please call this office to be seen for an adjustment. This orthosis is medically necessary for proper and appropriate treatment of the above noted diagnosis. This orthosis has been custom fabricated by: Stephanie Paul OTR/L, CHT I understand the purpose, precautions and plan for this custom orthosis Patient Signature: Not available 10/05/2023 11:13:24 10/12/2023 [id number] cast removal* - rm 314 cast removal [email or web address] Not available 10/12/2023 15:39:[address] Craig Garnett / s/p right first CMC arthroplasty 09/11/23 Referring Physician: Stephanie Paul, Occupational Therapy, Encounter Date: 10/12/2023 Physical Therapist Referral for Pain of hip region Evaluate & RxLumbar Stabilization Program Referring Physician: Naa Berry, Orthopedic Surgery, Encounter Date: 08/29/2024 Results Created Date Observation Date Name Description Value Unit Range Abnormal Flag Note LastModifiedBy Organization Detail LastModifiedTime 08/30/19 08/29/2024 XR, hip + pelvi s, unila teral , 2 or 3 view http:/ [email or web address] ?Encry pted=s hAaTro YD8dLq bEUv6g %2BXZw aYqtaq 0bqfl% 2Fg9IQ a4ajBk vP9nXo QUaueC m3YtLR FvZlgJ JJ8mAn HZtai3 1a5407 AC0Kla HiFUaS lKiQtr MwF INTERFACE [facility] [address] [facility] [address], [place], [address], 08/29/2024 15:41:15 08/30/1908/29/2024 XR, hip + pelvi s, unila teral , 2 or 3 view http:/ [email or web address] ?Encry pted=s hAaTro YD8dLq bEUv6g %2BXZw aYqtaq 0bqfl% 2Fg9IQ a4ajBk vP9nXo QUaueC m3YtLR FvZlgJ JJ8mAn HZtai3 6y6878 AC0Kla HiFUaS lKiQtr MwF INTERFACE [facility] [address] [facility] [address], [place], [address], 08/29/2024 15:41:17 Result Notes Documentation Provider Name and Address Organization Details Recorded Time Xr, Hip + Pelvis, Unilateral, 2 Or 3 View : [email or web address] Encrypted=kqPjMksIE6jHdpD Uv6g%5KHBvmTcxli3iopg%2Fg 7KTw3evOgqF1hPkAZqezUy4Tr UHVwGteTDI4sDkNUdvp53d880 3JO5RgaRsOBxSwPfPmkNhM Not Available [facility] 08/29/2024 15:41: 16 Xr, Hip + Pelvis, Unilateral, 2 Or 3 View : [email or web address] Encrypted=psJyOddPG8tJlzZ Uv6g%5CWPyxTthcj8mhdr%2Fg 1FPt7neBiwV1jQpUIqpgGt7On TTMoYczMOW3wLdJMczl40i511 5GC2XhyAaTKrEiMlFtlOcH Not Available [facility] 08/29/2024 15:41: 17 Problems Name Problem SNOMED Code Status Onset Date Resolution Date Notes Provider Name and Address Organization Details Recorded Time No complaints 592015029 Active Status: 'I'; Not Available [facility] 4 09:22:08 Idiopathic osteoarthri tis 738050183 Active 2018 Problem Code: M18.11; Problem Code Type: ICD-10; Status: 'A'; Not Available [facility] 4 11:29:38 Problem Notes None recorded. Procedures Surgical History Date Name Laterality Status Provider Name and Address Organization Details Recorded Time 2 Other completed Tracie Vail [facility] 08/29/2024 15:19:13 0 Head or Neck Surgery completed [facility]ac[facility] 08/29/2024 15:19:13 Imaging Results None recorded. Procedure Notes None recorded. Medical Equipment None Reported. Allergies Allergen ID Allergen Name Allergen Category Reaction Reaction Severity Criticality Documentation Date Start Date Code Code System Note Provider Name and Address Organization Details Recorded Time 068922 Non-stero idal anti-infl ammatory agent (product) medicatio n Not available Not available Not available 08/17/2023 15438 005 SNOMED SIA TRAY alicia [facility] 4 14:21:22 94176 Bactrim medicatio n Not available Not available Not available 05/18/20232022 99294 9 RxNorm Not Available [facility] 4 13:51:53 Medications Name Sig Start Date Stop Date Status Note LastModified by Organization Details LastModified Time buspirone 5 mg tablet TAKE 1 TABLET BY MOUTH TWICE A DAY active Not Available Not Available No t Available prednisone 10 mg tablet TAKE 3 TABLETS BY MOUTH EVERY DAY 08/26 completed Not Available Not Available Not Available prednisone 20 mg tablet TAKE 1 TABLET BY MOUTH EVERY DAY 08/26 completed Not Available Not Available Not Available Synthroid 100 mcg tablet TAKE 1 TABLET ( 100MCG ) BY MOUTH DAILY. 08/26 completed Not Available Not Available Not Available prednisone 5 mg tablet TAKE 1 TABLET BY MOUTH EVERY DAY 08/26 completed Not Available Not Available Not Available clobetasol 0.05 % topical cream APPLY TOPICALLY 2 TIMES A DAY FOR TWO WEEKS AND THEN ONCE A DAY AFTER active Not Available Not Available No t Available tramadol 50 mg tablet TAKE 1 TABLET BY MOUTH EVERY DAY NEEDED FOR PAIN 08/26 completed Not Available Not Available Not Available alprazolam 0.5 mg tablet TAKE 1 TABLET (0.5 MG) BY MOUTH EVERY DAY NEEDED active Not Available Not Available No t Available propranolol 10 mg tablet TAKE 1 TABLET BY MOUTH TWICE A DAY FOR 30 DAYS active Not Available Not Available No t Available methotrexat e sodium 2.5 mg tablet TAKE 8 TABLETS BY MOUTH EVERY WEEK 08/26 completed Not Available Not Available Not Available prednisone 1 mg tablet TAKE 1 TABLET BY MOUTH EVERY DAY 08/26 completed Not Available Not Available Not Available prednisone 2.5 mg tablet TAKE 1 TABLET BY MOUTH EVERY DAY 08/26 completed Not Available Not Available Not Available Synthroid 88 mcg tablet TAKE 1 TABLET BY MOUTH EVERY DAY active Not Available Not Available No t Available flecainide 50 mg tablet TAKE 1 TABLET BY MOUTH EVERY 12 HOURS 08/26 completed Not Available Not Available Not Available flecainide 100 mg tablet TAKE 1 TABLET BY MOUTH EVERY 12 HOURS active Not Available Not Available No t Available folic acid 1 mg tablet TAKE 1 TABLET BY MOUTH EVERY DAY 08/26 completed Not Available Not Available Not Available methylpredn isolone 4 mg tablets in a dose pack TAKE 6 TABLETS ON DAY 1 DIRECTED ON PACKAGE AND DECREASE BY 1 TAB EACH DAY FOR A TOTAL OF 6 DAYS 08/26 completed Not Available Not Available Not Available propranolol 20 mg tablet TAKE 1 TABLET BY MOUTH 2 TIMES A DAY. 08/26 completed Not Available Not Available Not Available doxycycline hyclate 100 mg tablet TAKE 1 TABLET BY MOUTH TWICE A DAY FOR 14 DAYS 08/26 completed Not Available Not Available Not Available oxycodone 5 mg tablet TAKE 1 TABLET BY MOUTH EVERY 4 HOURS NEEDED FOR 3 DAYS 08/26 completed Not Available Not Available Not Available hydroxyzine pamoate 25 mg capsule TAKE 1-2 CAPSULES BY MOUTH EVERY DAY AT BEDTIME NEEDED 08/26 completed Not Available Not Available Not Available bupropion HCl XL 300 mg 24 hr tablet, extended release TAKE 1 TABLET BY MOUTH EVERY DAY IN THE MORNING active Not Available Not Available No t Available bupropion HCl XL 150 mg 24 hr tablet, extended release TAKE 1 TABLET BY MOUTH EVERY DAY IN THE MORNING 08/26 completed Not Available Not Available Not Available oxycodone HCl-oxycodo ne-ASA PRN PAIN DO NOT DRIVE WHILE TAKING THIS MEDICATIO [facility]IVEN AT [facility] 08/26 completed Statu s: 'Curr ent'; Not Available Not Available Not Available Xarelto 20 mg tablet TAKE 1 TABLET BY MOUTH EVERY DAY BEFORE DINNER active Not Available Not Available No t Available Kevzara 200 mg/1.14 mL subcutaneou s pen injector active Not Available Not Available Not Available Vitals Date Recorded Body height Body mass index (BMI) Body weight Provider Name and Address Organization Details Last Updated DateTime 08/29/2024 157.48 cm 30.2 kg/m2 48848.74 g Tracie Vail [facility] 08/29/2024 15:19:23 Date Recorded Body height Provider Name an d Address Organization Details Last Updated DateTime 10/12/2023 157.48 cm Eugenio Lopez [facility] 10/12/2023 14:57:32 Date Recorded Body height Body mass index (BMI) Body weight Provider Name and Address Organization Details Last Updated DateTime 12/04/2023 157.48 cm 30.2 kg/m2 60187.74 shad FELIZ [facility] 12/04/2023 14:38:26 Social History Question Answer Notes LastModified by Organizat ion Details LastModified Time Tobacco Smoking Status Never Smoker Tracie alicia [facility] 08/29/2024 15:19:03 What Is Your Relationship Status? Single [email or web address] Information not available 08/29/2024 Sex: Unknown Functional Status Question Answer Note LastModified by Organizat ion Details LastModified Time How many times per week do you consume alcohol? 1-2 times per week [email or web address] Information not available 08/29/2024 Do you use any illicit or recreational drugs? No [email or web address] Information not available 08/29/2024 Do you or have you ever used any other forms of tobacco or nicotine? No Information not available 08/29/2024 Do you or have you ever used e-cigarettes or vape? Never used electronic cigarettes [email or web address] Information not available 08/29/2024 Mental Status None recorded. Family History Nothing Reported. Medical History Condition Response Anxiety/Depression Y Thyroid Problems Y Autoimmune disease Y Arthritis Y Sleep Apnea Y Arrhythmia Y Pulmonary Embolism Y Osteoporosis Y Gynecological HistoryNo gynecological history recorded. Obstetrics History GPAL:G 0 P 0 0 0 0 Past Encounters Encounter ID Performer Location Encounter Start Date Encounter Closed Date Diagnosis/Indication Diagnosis SNOMED-CT Code Diagnosis ICD10 Code Diagnosis Note [id number] MD [facility] [address] [place] [id number] 08/17/2023 13:43:31 08/25/2023 13:53:07 Pain of right wrist 2467549113 64837 M25.531 Osteoarthr itis of first carpometacarpal joint of right hand 2794723002 61789 M18.11 [id number] Stephanie Paul, OTR/L,CHT [facility] [address] [place] [id number] 09/23/2023 09:08:19 09/23/2023 10:02:25 Postoperative care 773318362 Z48.89 Today the suture tails are clipped and the Steri-Stri ps are removed. A light cleansing of the surgical site and the arm is done with an assessment of the tissue. Today the patient will be placed in a shorty short thumb spica cast with the IP free and the MP joint slightly flexed per the operative note. The patient will wear this for 2 weeks. The patient will return to the office for cast removal and fabricatio n of a custom thermoplas tic wrist and thumb immobiliza tion orthosis. At the next office visit the patient will be provided with a formal prescripti on to begin a course of occupation al hand therapy. Today the patient was provided with a list of local providers and instructed to call now to set up that appointmen t. Therapy should start 1-2 days after cast removal and continue for the next 6 weeks. The patient will then follow-up with the surgeon at 12 weeks post op. Osteoarthr osis of the carpometacarpal joint of the thumb 06816297 M18.11 This visit was completed today under the supervisio n of Dr. Tamir Adhikari n: Upon removal of the post op dressing, the incision sites are inspected. They are found to be clean and dry with intact running sutures with tails and Steri-Stri ps. The patient has intact neurovascu lar structures with only slight tenderness along the sides of the radial thumb incision. There is no surroundin g erythema, wound drainage, warmth or signs of infection. There is typical slight palpable postoperat brenda edema at the volar wrist incision. The patient states no proximal muscle pain. Active range of motion is not assessed at the wrist or thumb. However there is good digital range of motion without much swelling. Sensation is intact distally. There is numbness reported at the radial incision site and along the thumb as expected with this procedure. Impression : 2 weeks status post right first carpometac arpal arthroplas ty with flexor carpi radialis tendon transfer Plan: A good deal of time was spent in today's session reviewing the procedure, the involved anatomy, and the overall protocol for this surgery. There were questions with regard to the overall plan of care and timeline. All of these questions were answered to their satisfacti on. [id number] Stephanie Paul, AYER/L,CHT [facility] [address] [place] , [place] [id number] 10/12/2023 15:46:46 10/12/2023 15:48:47 Osteoarthrosis of the carpometacarpal joint of the thumb 38091148 M18.11 Today , after removal of the cast, to protect the surgery site and restrict tendon glide, a forearm based wrist and thumb immobiliza tion orthosis was fabricated . The purpose, precaution s and plan with this orthosis are reviewed with the patient who agrees to wear this full-time for removing it for hygiene and exercise The patient understand s that this is a custom orthosis made of low temp thermoplas tic. Any modificati ons to the orthosis should be done by a Certified Hand Therapist. The patient may call for an appointmen t with me in this office. Or if the patient is receiving hand therapy , the provider at that clinic may adjust the orthosis as needed. The orthosis fabricated today is the appropriat e style for the diagnosis and informatio n provided. A rigid style orthosis is needed to protect the injury / surgery site and maintain alignment of the involved structures . [id number] [facility] [address] [place] [id number] 10/12/2023 14:49:48 11/04/2023 13:01:59 Idiopathic osteoarthritis 843376545 M18.11 [id number] MD [facility] Zhang [address] [place] [id number] 12/04/2023 14:21:42 12/25/2023 14:30:05 Arthritis of first carpometacarpal joint of right hand 9975039627 544967 M13.601 [id number] [facility] [address] [place] [id number] 08/29/2024 15:05:38 09/02/2024 14:24:27 Pain of hip region 97952100 M25.551 M25.552 Health Concerns Section Related Observation LastModified by Organization Detai ls LastModified Time None Recorded Concern Status LastModified by Organization Details LastModified Time None Recorded Advance Directives Directive None Recorded Payers Insurance Date Sequence Insurance Name Policy Number Policy Tong Covered Member ID Tong Member ID Guarantor Name 09/12/2024 1 BALDO (PPO) [id number] Destiny L Jose [id number] Destiny L Jose 09/12/2024 1 KEELYCT: THEODORE COREA [id number] Destiny L Jose [id number] Destiny L Jose Notes Date Note Type Note Provider Name and Address Organization Details Recorded Time 09/23/2023 text/html This is a 57-yea r-old woman who had the right first carpometacarpal arthroplasty with tendon transfer surgery on 09/11/[address] Garnett. She presents to the office today at 2 weeks postop to remove the postop dressing, provide a wound check and suture removal and educate about the therapeutic protocol in process. Patient states overall she is doing quite well. She has been hesitant about function with this hand as her postop dressing includes a volar support but she feels like her thumb has good mobility and not enough radial support. She has only used pain medications 2 times and has been noticing a decrease in the finger swelling and an increase in mobility. Today she will be placed in a short a short wrist and thumb immobilization cast for 2 weeks per the operative note. She will then return to the office at 4 weeks for cast removal and application of a custom thermoplastic splint. At that time she will be referred for a course of occupational therapy and follow-up with the surgeon at 12 weeks. KIA Bear/Lyn,T [address], [place], [address], [facility] 09/23/2023 10:02:21 10/12/2023 text/html Surgery with Dr. Garnett 09/11/2023 for a CMC arthroplasty procedure. Patient was seen today by [facility] for cast removal and referred for a custom wrist and thumb immobilization orthosis and a referral for hand therapy is provided. BRODY Bear,T [address], [place], [address], [facility] 10/12/2023 15:48:42 12/04/2023 text/html Diagnosis: 3 mon ths status post left first CMC arthroplasty with FCR tendon transferThe patient returns our request. She is very pleased with the results of her surgery. She continues to have intermittent pain but this is mild.Past family, medical, social history and review of systems has been reviewed, updated and is located in the patient s chart.Examination: Healthy appearing patient in no apparent distress. Alert and oriented. Home is well aligned. Excellent digital range of motion. First CMC grind test is negative. No atrophy in either upper extremity. Brisk capillary refill in all digitsPlan: The patient has done well. She will continue to work on her own to maximize her range of motion strength. She will follow up at her discretion. Craig Garnett MD [address], [place], [address], [facility] 12/04/2023 16:06:42 08/29/2024 text/html I am seeing the patient today under the supervision of Dr. Song Who was available but who did not see the patient.HPI: Patient is a 58-year-old female who presents today for evaluation of bilateral hip and lower back pain. She describes pain in both of her hips both laterally as well as in her groin with radiation down her legs. She feels that her legs are heavy, she is frustrated with her treatment course thus far. She has had imaging of both hips including MRIPast family, medical, social history and review of systems has been reviewed, updated and signed by me and is located in the patient s chart.Examination:The patient is well appearing and in no apparent distress. Alert and oriented x3. Gait is symmetric. Bilateral hip skin intact, no erythema edema or ecchymosis. She is nontender to palpation laterally about the hips today. She has mild groin pain with internal rotation of bilateral hips. She has a positive straight leg raise bilaterally today which increases radicular symptoms. Distally neuromotor intact, sensation intact throughoutX-rays reviewed at [facility] including 2 views of bilateral hips which demonstrates no acute fractures or dislocations, minimal arthritic changes seenImpression: 58-year-old female with bilateral mild hip OA, more likely discomfort related to radicular symptoms from lower back degenerative disc diseasePlan: Discussed findings with the patient. At this point are recommended a new course of physical therapy for lumbar stabilization program and hip OA. She will follow-up in about 6 weeks for recheck or which point if she is not improving could consider lumbar spine MRI. All questions answeredDrTexas Health [facility] speech recognition casting machine operator automatic software was used to create portions of this document. An attempt at proofreading has been made to minimize errors. Please call for corrections. Naa Berry PA-C [address], [place], [address], [facility] 08/31/2024 09:06:01 OBGyn Episode No OBEpisode recorded.
--- OUTSIDE RECORDS SUMMARY | 2024-09-15 08:13 | XMS_ITS | Patient Health Record ---
Author Organization [facility] Address [address] [place] [address] Care Team Providers Care Air Route Traffic Controller Name Role Phone DR ISACC PICKARD Primary Care Provider Unavaila Jennifer Paul Unavailable [phone] Allergies Allergen (clinical drug ingredient) Drug/Non Drug [...] application to aff ected area Externally ONCE DAILY; Duration: 30 days 03/26/2018 Active Social History Tobacco [...] W/U Status Risk Notes Problem Depressive disorder (59413994) Depressive disorder, not elsewhere classified (311) Active confirmed Problem Human papilloma virus deoxyribonucleic acid test positive, high risk on vaginal specimen (279631777629350) Cervical high risk human papillomavirus (HPV) DNA test positive (R87.810) Active confirmed Problem Carcinoma in situ of breast (665422296) Lobular carcinoma in situ of unspecified breast (D05.00) Active confirmed Problem Lobular carcinoma in situ of right breast (923972174097374) Lobular carcinoma in situ of right breast (D05.01) Active confirmed Problem Localized morphea (080915438) 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) Active confirmed Problem Unspecified menopausal and perimenopausal disorder (N95.9) Active confirmed Problem Abnormal findings on diagnostic imaging of breast (548954905) Other abnormal and inconclusive findings on diagnostic imaging of breast (R92.8) Active confirmed Problem History of dysplasia of cervix (761206995) Personal history of cervical dysplasia (Z87.410) Active confirmed Problem Leiomyoma of uterus (70634752) Leiomyoma of uterus, unspecified (218.9) Active confirmed Major Problem Mild dysplasia of cervix (762117139) Mild dysplasia of cervix (622.11) Active confirmed Diag Problem Gynecological examination normal (422978372856966) Routine gynecological examination (V72.31) Active confirmed Diag Problem Screening for malignant neoplasm of cervix (186078667) Screening for malignant neoplasm of the cervix [...] End Date [employer] [place] [address] [place] [phone] [id number] DEL LEON Self - patient is the [...]
--- OUTSIDE RECORDS SUMMARY | 2024-09-15 08:13 | XMS_ITS ---
Author Name [facility] Organization Unknown Care Team Organization Name Specialty Phone Email Start Date End Da te Office of the [facility] ([facility]) 01/29/2024 09/14/2024
[2024-09-15 10:10] LABS: MANUAL DIFF FLAG NO
[2024-09-15 10:19] LABS: Hematocrit 43.9 % (37.0-47.0); Hemoglobin 14.8 g/dl (12.0-16.0); Imm Gran Abs Auto 0.01 X10*3/uL (0.00-0.03); Imm Gran Pct Auto 0.2 % (0.0-0.4); Lymphocytes Absolute Auto 1.7 X10*3/uL (1.2-4.9); Mean Corpuscular HGB Conc 33.7 g/dl (31.0-35.0); Mean Corpuscular Hemoglobin 31.7 pg (27.0-33.0); Mean Corpuscular Volume 94.0 fL (80.0-98.0); NRBC Abs Auto 0.000 X10*3/uL (0.0-0.012); NRBC Pct Auto 0.0 /100WBC (0.0-0.2); Platelet Count 191 X10*3/uL (160-400); Red Blood Count 4.67 X10*6/uL (4.20-5.50); White Blood Count 4.4 X10*3/uL (4.8-10.8)
[2024-09-15 10:37] LABS: Alanine Aminotransferase 22 U/L (0-31); Albumin Level 4.6 g/dL (3.5-5.0); Alkaline Phosphatase 68 U/L (39-117); Anion Gap 11 (12-20); Aspartate Amino Transferase 21 U/L (5-31); Blood Urea Nitrogen 19 mg/dL (9-16); Calcium 9.2 mg/dL (8.4-10.2); Carbon Dioxide 29 mmol/L (22-29); Chloride 108 mmol/L (96-108); Cholesterol 236 mg/dL (<200); Estimated Glomerular Filt Rate 49; HDL Cholesterol 52 mg/dL (>40); Potassium 4.3 mmol/L (3.3-5.1); Sodium 144 mmol/L (135-145); Total Protein 6.6 g/dL (6.5-8.0); Triglycerides 108 mg/dL (<150)
[2024-09-15 10:46] LABS: Alanine Aminotransferase 23 U/L (0-31); Albumin Level 4.6 g/dL (3.5-5.0); Alkaline Phosphatase 66 U/L (39-117); Anion Gap 11 (12-20); Aspartate Amino Transferase 23 U/L (5-31); Blood Urea Nitrogen 20 mg/dL (9-16); Calcium 9.2 mg/dL (8.4-10.2); Carbon Dioxide 28 mmol/L (22-29); Chloride 108 mmol/L (96-108); Cholesterol 236 mg/dL (<200); Estimated Glomerular Filt Rate 48; HDL Cholesterol 51 mg/dL (>40); Potassium 4.4 mmol/L (3.3-5.1); Sodium 143 mmol/L (135-145); Total Protein 6.6 g/dL (6.5-8.0); Triglycerides 109 mg/dL (<150)
[2024-09-15 11:01] LABS: Parathyroid Hormone Intact 116.7 pg/mL (8.7-77.1)
[2024-09-15 11:15] LABS: HBS Num1 126.94 mIU/mL (0-7.99); HBc Num1 0.05 S/CO (0.00-0.79); HBsAGNum1 0.51 S/CO (0.00-0.99); Hepatitis A Antibody IgM 0.20 Index (0-0.79); Hepatitis B Surface Antigen Negative (Negative); ~HepC Num1 0.09 S/CO (0.00-0.79); ~Hepatitis A Antibody IgM Nonreactive (Nonreactive); ~Hepatitis B Surface Antibody REACTIVE (Nonreactive); ~Hepatitis C Antibody Nonreactive (Nonreactive)
[2024-09-19 01:27] LABS: TS Negative Control Passed; TS Panel A 0; TS Panel B 0; TS Positive Control Passed; TSpotTB Negative (Negative)
== END 2024-09-15 08:11 | disposition home or self-care (01) ==
LOC: HO.HMGCLDS 08:10
PROVIDERS: Internal Medicine Hypertension Specialist; PCP Internal Medicine; Referring Provider Student in an Organized Health Care Education/Training Program; Visit Provider Internal Medicine
DX: M35.3 Polymyalgia rheumatica (principal); N18.9 Chronic kidney disease, unspecified; N18.30 Chronic kidney disease, stage 3 unspecified; E03.9 Hypothyroidism, unspecified
CPT/HCPCS: 36415; 80053; 80061; 82306; 83970; 84100; 84443; 85025; 85652; 86140; 86481; 86704; 86706; 86709; 86803; 87340

== ENCOUNTER 2024-09-30 08:26 | Outpatient (AMB) | payer BC, SELFPAY ==
--- OUTSIDE RECORDS SUMMARY | 2024-09-30 08:29 | XMS_ITS | Continuity of Care Document ---
Author Organization [facility], [facility] Address [address] [place] [address] Care Team Providers Care Paper Sales Representative Name Role Phone ARELIS CHAVES Primary Care Provider [phone] Assessment Encounter Date Assessment Date Assessment LastModified by Organization Details LastModified Time 09/29/2024 09/29/2024 Assessment: Pt not able to do marches with halo secondary to increased hip pain, eas able to perform other exercises with some discomfort. Plan: 2x per week for 6 weeks focus on hip strengthening and mobility. [email or web address] Not available 09/29/2024 16:32:32 Plan of Treatment Reminders Order Date Submit Date Provider Last Modified By Organization Details Last Modified Time Details Appointments PT FOLLOW-U P 2024 06:00P M WM MALGORZATA, DPT Not available Not available Not available PT FOLLOW-U P 2024 06:00P M WM MALGORZATA, DPT Not available Not available Not available PT FOLLOW-U P 2024 02:30P M WM MALGORZATA, DPT Not available Not available Not available PT FOLLOW-U P 2024 11:30A M Kaye Formejest er, CAR PORTER Not available Not available Not available PT FOLLOW-U P 2024 12:30P M Kaye Formejest er, CAR PORTER Not available Not available Not available PT FOLLOW-U P 2024 02:30P M Kaye Formejest er, CAR PORTER Not available Not available Not available PT FOLLOW-U P 2024 01:00P M Kaye Formejest er, CAR PORTER Not available Not available Not available RECHECK 15 2024 02:15P M Naa Berry PA-C Not available Not available Not available PT FOLLOW-U P 2024 12:00P M WM MCGARRY DPT Not available Not available Not available Lab None recorded . Referral None recorded . Procedures None recorded . Surgeries None recorded . Imaging None recorded . Medication Orders None recorded . Patient Targets Encounter Date Encounter Id Patient Goals Patient Target Last Modified By Organization Details Last Modified Time 09/29/2024 [id number] 3 weeks of Walking up or down stairs with step to gait. Not available Not available Not available [facility] goal of Walking up or down stairs with reciprocal gait. Not available Not available Not available lobsterman goal of Left extremity strength Hip flex 5/5; Abd 5/5; Knee ext 5/5; flex 5/5 Not available Not available Not available lobsterman goal of Functional Scores LEFS improved by 10 pts Not available Not available Not available Next visit of Other PT/OT subsequent I with HEP Not available Not available Not available 3 weeks of Gait and Stance: Normalize gait on level surface without AD Not available Not available Not available [facility] goal of Gait and Stance: I community ambulation with normal gait Not available Not available Not available 3 weeks of Pain <3/10 Not available Not available Not available lobsterman goal of Pain 0/10 Not available Not available Not available Patient InstructionsNo instructions recorded. Reason for Referral None Reported. Problems Name Problem SNOMED Code Status Onset Date Resolution Date Notes Provider Name and Address Organization Details Recorded Time No complaints 582019182 Active Status: 'I'; Not Available [facility] 4 09:22:08 Idiopathic osteoarthri tis 889543249 Active 2018 Problem Code: M18.11; Problem Code Type: ICD-10; Status: 'A'; Not Available [facility] 4 11:29:38 Problem Notes None recorded. Procedures Surgical History Date Name Laterality Status Provider Name and Address Organization Details Recorded Time 5 93069 Therapeutic Exercise (1:1) completed Kaye Guerrero PTA [address] [address], [place], [address], [facility] 09/29/2024 14:58:37 5 86240: Manual therapy completed Kaye Formejester, CAR PORTER [address], [place], [address], [facility] 09/29/2024 14:58:37 5 70947 Therapeutic Exercise (1:1) completed Kaye Formejester, CAR PORTER [address], [place], [address], [facility] 09/26/2024 15:00:46 5 77960: Manual therapy completed Kaye Formejester, CAR PORTER [address], [place], [address], [facility] 09/26/2024 15:00:46 5 95815 Therapeutic Exercise (1:1) completed Kaye Formejester, CAR PORTER [address], [place], [address], [facility] 09/22/2024 13:41:04 5 70780: Manual therapy completed Kaye Formejester, CAR PORTER [address], [place], [address], [facility] 09/22/2024 12:59:20 5 39415 Therapeutic Exercise (1:1) completed WM MCGARRY, DPT [address], [place], [address], [facility] 09/20/2024 15:40:35 5 39119: Low complexity PT Eval completed WM MCGARRY, DPT [address], [place], [address], [facility] 09/20/2024 15:40:36 2 Other completed Tracie Vail [facility] 08/29/2024 15:19:13 0 Head or Neck Surgery completed Tracie Vail [facility] 08/29/2024 15:19:13 Imaging Results None recorded. Procedure Notes None recorded. Medical Equipment None Reported. Allergies Allergen ID Allergen Name Allergen Category Reaction Reaction Severity Criticality Documentation Date Start Date Code Code System Note Provider Name and Address Organization Details Recorded Time 944018 Non-stero idal anti-infl ammatory agent (product) medicatio n Not available Not available Not available 08/17/2023 55124 005 SNOMED SIA TRAY alicia [place] - [facility] 4 14:21:22 67942 Bactrim medicatio n Not available Not available Not available 05/18/20232022 89808 9 RxNorm Not Available [facility] 4 13:51:53 Medications Name Sig Start Date [...] DRIVE WHILE TAKING THIS MEDICATIO [facility] AT [facility] 08/26 completed Statu s: 'Curr ent'; Not Available Not Available Not Available Xarelto 20 mg tablet TAKE 1 TABLET BY MOUTH EVERY DAY BEFORE DINNER active Not Available Not Available No t Available Kevzara 200 mg/1.14 mL subcutaneou s pen injector active Not Available Not Available Not Available Vitals None Recorded Social History Question Answer Notes LastModified by Organizat ion Details LastModified Time Tobacco Smoking Status Never Smoker Tracie alicia [place] - [facility] 08/29/2024 15:19:03 What Is Your Relationship Status? Single [email or web address] Information not available 08/29/2024 Sex: Unknown Functional Status Question Answer Note LastModified by Organizat ion Details LastModified Time How many times per week do you consume alcohol? 1-2 times per week Information not available 08/29/2024 Do you use any illicit or recreational drugs? No [email or web address] Information not available 08/29/2024 Do you or have you ever used any other forms of tobacco or nicotine? No [email or web address] Information not available 08/29/2024 Do you or have you ever used e-cigarettes or vape? Never used electronic cigarettes [email or web address] Information not available 08/29/2024 Mental Status None recorded. Family History Nothing Reported. Medical History Condition Response Autoimmune disease Y Anxiety/Depression Y Arthritis Y Sleep Apnea Y Arrhythmia Y Pulmonary Embolism Y Thyroid Problems Y Osteoporosis Y Gynecological HistoryNo gynecological history recorded. Obstetrics History GPAL:G 0 P 0 0 0 0 Past Encounters Encounter ID Performer Location Encounter Start Date Encounter Closed Date Diagnosis/Indication Diagnosis SNOMED-CT Code Diagnosis ICD10 Code Diagnosis Note [id number] WM MCGARRY DPT [facility] [address] [place] [address] 09/19/2024 14:37:41 09/19/2024 15:36:02 Osteoarthritis of hip 557965848 M16.11 [id number] Kaye torres, CAR PORTER [facility] [address] [place] [address] 09/21/2024 15:15:00 09/21/2024 16:04:15 Osteoarthritis of hip 917827945 M16.11 [id number] Kaye torres, CAR PORTER [facility] [address] [place] [address] 09/26/2024 14:44:18 09/26/2024 15:56:46 Osteoarthritis of hip 978325073 M16.11 [id number] Kaye torres, CAR PORTER [facility] [address] [place] [address] 09/29/2024 14:50:06 09/29/2024 15:30:51 Osteoarthritis of hip 846384528 M16.11 Health Concerns Section Related Observation LastModified by Organization Detai ls LastModified Time None Recorded Concern Status LastModified by Organization Details LastModified Time None Recorded Payers Encounter Date Sequence Insurance Name Policy Number Policy Tong Covered Member ID Tong Member ID Guarantor Name 09/29/2024 1 [place] [employer] [id number] Destiny Lyn Jose [id number] Destiny Lyn Jose Notes Date Note Type Note Provider Name and Address Organization Details Recorded Time 09/29/2024 text/html Patient reports she was able to go up the stairs today without holding on and that has not. happen in a while. Kaye Guerrero, CAR PORTER [address] [facility] [address], [place], [address], [facility] 09/29/2024 16:32:58 OBGyn Episode No OBEpisode recorded.
--- OUTSIDE RECORDS SUMMARY | 2024-09-30 08:29 | XMS_ITS | Clinical Summary ---
Author Organization [facility] Address [address] [place] [address] Phone Care Team Providers Care Power Project Manager Name Role Phone Alem Carter MD Primary Care Provider [phone] Allergies Active Allergy Reactions Criticality Noted Date [...] Noted Date Diagnosed Date Factor V Leiden ([facility] V24) 11/19/2021 Pulmonary embolism ([facility] V24, [facility] V28) Hypothyroidism 04/20/2019 Overview (02/23/2024): S/P Thyroidectomy; Dr. 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 [address] [place] [address] Avery Rodriguez MD [address] [place] [address] Health Maintenance Due Date Last Done Comments Hepatitis B Vaccines (1 of 3 - 19+ 3-dose series) 11/26/1986 Pneumococcal Vaccine: 50+ Years (1 of 2 - PCV) 11/26/1986 Zoster Vaccines (1 of 2) 11/26/1986 Cervical Cancer Screening: Pap Smear 11/26/1988 Depression Screening 02/22/2022 HIV Screening 02/22/2022 Hepatitis C Screening 02/22/2022 Social Influencers of Health Screening 02/22/2022 COVID-19 Vaccine ( season) 2023 09/30/2021, 01/13/2021, 04/27/2020, Additional history exists Influenza Vaccine (#1) 2024 02/05/2020 Breast Cancer Screening 12/13/2025 12/14/19 [...] Procedure Name Priority Date/Time Associated Diagnosis Comments [facility] SCREENING DIGITAL Routine 05/18/2023 3:52 PM EST Encounter for screening mammogram for malignant neoplasm of breast from Last 3 Months or Most Recently Relevant to Health Maintenance Results * [facility] SCREENING DIGITAL (05/18/2023 3:52 PM EST) Anatomical Region Laterality Modality Mammography 05/18/2023 3:01 PM EST Narrative 05/18/2023 3:52 PM EST [facility] Diagnostic Imaging Department [address] [place], [place] [address] Patient: DEL LEON /Age/Sex: 1965 - 57 - F Unit#: [id number] Location/Status: SPDIMAM/REG CLI Mnemonic/Ordering Site: DIGSC/SPMAM Ordering Physician: AVERY RODRIGUEZ MD [facility] Screening Digital - 05/18/23 - 1525 Report Status:Signed EXAM: [facility] Screening Digital EXAM DATE AND TIME: 05/18/2023 3:26 PM HISTORY: Screening. Reduction mammoplasty in 2015. Left breast LCIS found during reduction mammoplasty procedure. Patient declined tamoxifen. Previous MR guided right breast biopsies yielding benign pathology. COMPARISON: 02/27/23, 05/07/22, 04/25/21, 04/23/20, 04/20/19 TECHNIQUE: Bilateral digital breast tomosynthesis was performed in the CC and MLO projections. Computer aided detection with Auramist 3D 3.1 was employed. TISSUE DENSITY: a. [...] Date/Time: 05/18/23 1551 Sign date/Time: 05/18/23 1552 Procedure Note Annette Agustin MD - 11/02/2023 [facility] Diagnostic Imaging Department [address] [place], [place] [address] Patient: DEL LEON /Age/Sex: 1965 - 57 - F Unit#: [id number] Location/Status: SPDIMAM/REG CLI Mnemonic/Ordering Site: [facility] Ordering Physician: AVERY RODRIGUEZ MD [facility] Screening Digital - 05/18/23 - 1525 Report Status:Signed EXAM: [facility] Screening Digital EXAM DATE AND TIME: 05/18/2023 3:26 PM HISTORY: Screening. Reduction mammoplasty in 2015. Left breast LCISfound during reduction mammoplasty procedure. Patient declined tamoxifen.Previous MR guided right breast biopsies yielding benign pathology. COMPARISON: 02/27/23, 05/07/22, 04/25/21, 04/23/20, 04/20/19 TECHNIQUE: Bilateral digital breast tomosynthesis was performed in the CCand MLO projections. Computer aided detection with Auramist 3D 3.1was employed. TISSUE DENSITY: a. The [...] MD Dic Date/Time: 05/18/23 1551 Sign date/Time: 03/04/24 1552 Avery Rodriguez MD IMG BI PROCEDURES Final Result from Last 3 Months or Most Recently Relevant to Health Maintenance Insurance [facility] Care Teams Power Project Manager Relationship Specialty Start Date End Date Alem Carter MD PCP - General Internal Medicine 04/12/19
--- OUTSIDE RECORDS SUMMARY | 2024-09-30 08:29 | XMS_ITS | Clinical Summary ---
Author Organization [facility] Facility Address [address] [place] [address] Care Team Providers Care Glass Installer Technician Name Role Phone Unavailable Primary Care Provider [...] of 1 - PCV) 018 Influenza Vaccine (#1) 2024 Insurance Amanda [place] [facility] [address] ATTN: [place] [address] [place] [id number] [facility] Program ATTN: [place] [address]
--- OUTSIDE RECORDS SUMMARY | 2024-09-30 08:29 | XMS_ITS | Patient Health Record ---
Author Organization [facility] Address [address] [place] [address] Care Team Providers Care Staff Veterinarian Name Role Phone DR ISACC PICKARD Primary Care Provider Unavaila Jennifer Paul Unavailable [phone] Allergies Allergen (clinical drug ingredient) Drug/Non Drug [...] W/U Status Risk Notes Problem Depressive disorder (85977093) Depressive disorder, not elsewhere classified (311) Active confirmed Problem Human papilloma virus deoxyribonucleic acid test positive, high risk on vaginal specimen (738097549958985) Cervical high risk human papillomavirus (HPV) DNA test positive (R87.810) Active confirmed Problem Carcinoma in situ of breast (119827093) Lobular carcinoma in situ of unspecified breast (D05.00) Active confirmed Problem Lobular carcinoma in situ of right breast (883527551650456) Lobular carcinoma in situ of right breast (D05.01) Active confirmed Problem Localized morphea (231121345) 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) Active confirmed Problem Unspecified menopausal and perimenopausal disorder (N95.9) Active confirmed Problem Abnormal findings on diagnostic imaging of breast (923915309) Other abnormal and inconclusive findings on diagnostic imaging of breast (R92.8) Active confirmed Problem History of dysplasia of cervix (584039334) Personal history of cervical dysplasia (Z87.410) Active confirmed Problem Leiomyoma of uterus (36276761) Leiomyoma of uterus, unspecified (218.9) Active confirmed Major Problem Mild dysplasia of cervix (537043052) Mild dysplasia of cervix (622.11) Active confirmed Diag Problem Gynecological examination normal (276579756102668) Routine gynecological examination (V72.31) Active confirmed Diag Problem Screening for malignant neoplasm of cervix (736846585) Screening for malignant neoplasm of the cervix [...] End Date [employer] [place] [address] [place] [phone] [id number] DEL LEON Self - patient is the [...]
--- NOTE | 2024-09-30 08:35 | A.OFFVIS_ITS ---
Vital Signs 09/30/24 08:38 Height 5 ft 2 in Weight 169 lb 8.568 oz BMI 31.0 BP 120/80 Blood Pressure Location Lt brachial Position Sitting Pulse 57 Pulse Source Pulse Oximeter Pulse Oximetry (%) 99 Oxygen Delivery Method Room Air Intake Visit Reasons: PMR Intake Note: Patient presents for PMR follow up. Allergies NSAIDS (Non-Steroidal Anti-Inflamma Allergy (Unknown, Verified 09/30/24 08:38) Unknown sulfamethoxazole (From BACTRIM) Allergy (Unknown, Verified 09/30/24 08:38) RASH trimethoprim (From BACTRIM) Allergy (Unknown, Verified 09/30/24 08:38) RASH Medication List - Last Reconciled 09/30/24 by Ivette Lopez MD acetaminophen (Tylenol Extra Strength) 500 mg PO Q6H PRN alprazolam 0.5 mg PO DAILY PRN bupropion HCl XL 300 mg PO DAILY buspirone 5 mg PO BID PRN flecainide 100 mg PO BID Kevzara (sarilumab) 200 mg (1.14 mL) subcut Q2W 28 days NS levothyroxine 88 mcg PO DAILY propranolol 10 mg PO BID rivaroxaban (Xarelto) 20 mg PO DAILY HPI Comments Details: Patient is a 58-year-old female with hypothyroidism, paroxysmal AFib on Eliquis, factor 5 Leiden mutation complicated by PE, and polyarthralgias attributed to PMR here today for follow up Interval History: Patient last seen 05/24/24 - On Kevzara for PMR - Currently working up bilateral hip pain - Received steroid injection of the right hip 01/2024 with relief but not sustained - Evaluated by ortho 04/2024 and thought to have right hip flexor tendonitis and was sent to PT - Not much progress from PT - PMR sx under control Since then - Continued to complain of hip pain - Had MRI of left hip and L spine - Currently following with physiatry and ortho - Considering hip replacement Rheumatologic History: Onset 07/2022 ESR nl elevated CRP improved with prednisone MTX 03/2023 DC 06/2023 due to Cr elevation Kevzara 08/2023, prednisone tapered off 03/2024 Initial history: This is a 57-year-old female who presents for evaluation of PMR. In late July/early August she started having bilateral shoulder stiffness, worse in the morning, takes hours to loosen up. Then it started to affect both eyes. She was evaluated by Orthopedics and had bilateral shoulder x-rays and was told they were normal. She received bilateral shoulder injections which provided dramatic relief for about 4 days then everything came back with a vengeance. Back in September patient presented to the hospital with the same symptoms of bilateral shoulder and bilateral thigh stiffness, she denies any swollen joints. In September was found to have significantly elevated CRP and was started on prednisone. She had been on multiple doses of prednisone including 40 mg and 20 mg. She was starting to have side effects especially with mood changes and weight distribution changes. She had been on 20 mg of prednisone for 2 weeks then 27 mg for 2 weeks. Only today she started taking 25 mg daily. She would like to reduce the dose. She denies any swollen joints or skin rashes. She denies any history of psoriasis. She denies any headaches, jaw, extremity or tongue claudication. Denied blurry vision. She has a history of PE and was found to have factor 5 leiden mutation. She is currently on Xarelto. Mentions that her history has history of thyroid disease and eventually had to have thyroidectomy for thyroid cancer. In December 20 patient went to the ER and was found to be in AFib with RVR. They were getting ready to cardiovert her but she spontaneously converted back to sinus rhythm. A few days later she went back to the emergency room with AFib with RVR and had successful cardioversion. Currently she follows up with a splash line operator and is wearing a monitor. Current Rheumatology Medication(s): Kevzara 200mg every other week Tylenol prn OTC Tramadol 50mg bid prn PFSH Medical History (Updated 09/28/24 @ 14:04 by Meghann Josue, DNP, BOAT OFFICER-) Lobular carcinoma in situ (LCIS) of left breast Factor 5 Leiden mutation, heterozygous Pulmonary embolism MORGAN (dyspnea on exertion) Colon cancer screening Hypothyroidism (acquired) Normal pelvic exam Anxiety Surgical History H/O thumb surgery History of surgery History of rectal abscess History of hysterectomy History of lipoma [employer] teeth removed History of foot surgery History of breast biopsy History of section Family History Father HTN (hypertension) Cancer Mother HTN (hypertension) Sister Cancer of thyroid Cady's disease Graves disease Social History Household Members: Family Housing: House Alcohol intake: current Alcohol intake frequency: a few times a week Patient Tobacco Use Status: Never used Tobacco e-Cigarette/Vaping Use: Never Used service: No Current occupational status: employed 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[place] Cognitive needs: No Hearing needs: No Vision needs: Yes Review of Systems Const Details: Review of Systems Constitutional: Denies fever, chills, weight loss ENT: Denies vision changes, eye pain or eye redness, dental caries, dry mouth GI: Denies nausea, vomiting, diarrhea, abdominal pain, change in BM Pulm: Denies SOB, MORGAN, hemoptysis, wheezing Cards: Denies chest pain, palpitations Skin: Denies Raynaud's, rash, nail changes, photosensitivity, GAS OPERATOR: Denies headaches, weakness, paresthesias, recurrent falls MSK: as per HPI All other systems reviewed and are unremarkable except noted above Physical Exam Vital Signs: Last Vital Signs Pulse 57 09/30/24 08:38 BP 120/80 09/30/24 08:38 Pulse Ox 99 09/30/24 08:38 Oxygen Delivery Method Room Air 09/30/24 08:38 BMI result Body Mass Index 31.0 Vital signs reviewed Physical Examination CONSTITUITIONAL Patient alert and cooperative. Well appearing and in no apparent painful distress HEENT Conjunctiva and sclera clear. ?Pupils equal round and reactive to light. ?No lymphadenopathy. ? CHEST/RESPIRATORY SYSTEM Normal respiratory effort and able to speak in complete sentences. ?Clear to auscultation bilaterally. ?No crackles, rales, rhonchi, wheezes heard. CARDIAC SYSTEM Regular rate and rhythm. ?S1 and S2 heard no murmurs. ?Radial pulses intact bilaterally MSK Hands: ?Good channel development manager strength bilaterally. No deformities noted. ?No synovitis noted to the MCPs, PIPs or DIPs. ?No tenderness to palpation of these joints. Wrists: ?Full range of motion at the wrists without pain. ?No tenderness to palpation or synovitis noted to the wrists. Elbows: Full range of motion without pain. No tenderness, weakness, swelling, increased warmth or erythema. Shoulders: Full range of motion without pain. No tenderness, weakness, swelling, increased warmth or erythema. Hips: Full range of motion. No pain elicited on STEPHEN maneuver but FLAIR luis carlos urizver reproduced pain in the groin and not in the SI joint Hip bursa: No tenderness to palpation Knees: ?Full range of motion. ?No tenderness, swelling, increased warmth or erythema.?No effusion or crepitations Ankles: Full range of motion. ?No tenderness, swelling, increased warmth or erythema.? Feet: ?Negative squeeze test. ?No tenderness to palpation or swelling of the MTPs. Tender points:?No tenderness to palpation of the bilateral trapezius, supraspinatus, greater trochanters, anterior costochondral junctions, bilateral gluteal areas, bilateral suboccipital muscle insertions SKIN Skin intact without rashes. Results Reviewed Results Reviewed: Laboratory Tests 09/15/24 08:15 WBC 4.4 L RBC 4.67 Hgb 14.8 Hct 43.9 Plt Count 191 ESR 1 Sodium 143 Potassium 4.4 Chloride 108 Carbon Dioxide 28 BUN 20 H Creatinine 1.17 Estimated GFR 48 AST 23 ALT 23 C-Reactive Protein < 0.10 Triglycerides 109 Cholesterol 236 H LDL Cholesterol, Calc 164 H HDL Cholesterol 51 25-OH Vitamin D Total 56.8 MRI Left Hip 06/24/2024 Findings: No fractures. No pathologic bone lesions. Acetabulum and femoral neck unremarkable. No acetabular retroversion. No effusion. Ganglion cysts are seen along the anterosuperior aspect of the acetabulum possibly paralabral. A discrete tear of the labrum is not identified. There is tendinosis of the gluteus minimus tendon associated with mild peritrochanteric edema and splitting of some of the distal fibers of the tendon. IMPRESSION: 1. Ganglion cysts are seen along the anterosuperior aspect of the acetabulum possibly paralabral. A discrete tear of the labrum is not identified. 2. There is tendinosis of the gluteus minimus tendon associated with mild peritrochanteric edema and splitting of some of the distal fibers of the tendon. MRI L spine 06/2024 FINDINGS: CORONAL ALIGNMENT: -There is a mild right convex scoliosis, apex at L3. SAGITTAL ALIGNMENT: -There is a normal lordosis. -There is a 2 mm degenerative type retrolisthesis of L2 on L3, and L4 on L5. Alignment is otherwise anatomic. LUMBOSACRAL JUNCTION: -Normal. There are 5 wlh-hvi-yxvical lumbar-type vertebral bodies. VERTEBRAL BODIES/BONE MARROW: -There is mild endplate edema at L2-3. There is no additional regional bone marrow edema, or abnormal infiltrating bone marrow signal. -There are fatty type endplate changes at L4-5. DISCS: -Severe loss of disc height and signal at L4-5. There is moderate loss at L2-3, L3-4, and L5-S1. -T12-L1, and L1-L2 discs appear normal. SPINAL CANAL: -No abnormal developmental findings. CONUS MEDULLARIS: -Terminates at superior endplate L2. Morphology and signal is normal. INTRADURAL NERVE ROOTS: - Within normal limits. Axial Disc Space Images: T12-L1: No central canal or neural foraminal narrowing. Normal facets. L1-L2: No central canal or neural foraminal narrowing. Normal facets. L2-L3: Shallow concentric disc bulge extending into both foraminal zones. There is a superimposed small left lateral protrusion of disc material. This contacts but does not impinge the traversing left L3 roots. There is a mild central canal stenosis. There is mild left neural foraminal stenosis. L3-L4: Shallow concentric disc bulge present, minimally indenting upon the ventral thecal sac but not contacting nerve roots. There is minimal central canal stenosis. There is mild hypertrophic facet change bilaterally. There is mild bilateral neural foraminal narrowing. L4-L5: There is a shallow concentric disc bulge which is asymmetrically prominent to the right, into the right neural foramen and lateral to foramen. This indents upon the ventral thecal sac, but does not contact nerve roots. Mild hypertrophic facet changes bilaterally. There is mild central canal stenosis, mild right subarticular recess stenosis, and mild right greater than left neural foraminal stenosis. L5-S1: Shallow concentric disc bulge present with central annular fissuring. No significant mass effect upon the thecal sac or nerve roots. Mild degenerative hypertrophic facet changes bilaterally. No central canal stenosis, no subarticular recess stenosis, and there is mild to moderate left and mild right neural foraminal stenosis. There is contact of the exiting left L5 nerve root without evidence of nerve root impingement. IMAGED SI JOINTS: -Mild degenerative arthritis bilaterally. PARAVERTEBRAL AND INCLUDED EXTRASPINAL SOFT TISSUES: -The right kidney is not seen. -The paravertebral and paraspinous soft tissues appear normal. --- Aorta is normal in caliber. IMPRESSION: 1. Mild to moderate spondylosis of the lumbar spine as detailed above. There is no high-grade central canal or neural foraminal stenosis. 2. At L2-3, a left lateral disc protrusion contacts but does not impinge the traversing left L3 roots. 3. At L5-S1, there is mild to moderate left neural foraminal stenosis, with contact but no impingement of the exiting left L5 nerve root. Assessment & Plan Assessment & Plan (1) PMR (polymyalgia rheumatica): Comment: onset 07/2022 ESR nl elevated CRP improved with prednisone MTX 03/2023 DC 06/2023 due to Cr elevation Kevzara 08/2023, prednisone tapered off 03/2024 Code(s): M35.3 - Polymyalgia rheumatica Category: Medical Plan: #PMR Patient is a 58-year-old female with polymyalgia rheumatica currently on Kevzara and has been tapered off of Prednisone since 03/2024. Remains in remission. ESR and CRP are both normal. Her current hip pains are currently being evaluated by Orthopedics and she is currently undergoing physical therapy. I do not believe these pains are related to her PMR. Patient has been on Kevzara since 08/2023. We will start to taper Plan - Decrease frequency of Kevzara 200mg SC to every 3 weeks - Monitor off prednisone - RTC 4 months - Labs before visit: CBC, CMP, ESR, CRP, lipid panel (2) Arthritis of right hip: Code(s): M16.11 - Unilateral primary osteoarthritis, right hip Category: Medical Plan: #OA of the right hip Patient with relief from the steroid injection however this was transient. 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 ? Benefits include decreased pain, improved mortality, improved quality of life Risks include LFT abnormalities, elevated triglycerides, GI perforations Contraindicated in a patient with history of diverticulitis Monitoring: ?CBC, CMP, triglycerides Plan I spent 30 minutes reviewing the record and labs, taking a history, examining the patient, discussing the treatment plan, ordering diagnostic work up and documenting in the medical record Orders: Orders C Reactive Protein 4 Months M35.3 - Polymyalgia rheumatica Erythrocyte Sedimentation Rate 4 Months M35.3 - Polymyalgia rheumatica Lipid Panel 4 Months M35.3 - Polymyalgia rheumatica US Gd Asp Inj Intmd Joint LT Today M76.02 - Gluteal tendinitis, left hip Complete Blood Count Auto Diff 4 Months M35.3 - Polymyalgia rheumatica Comprehensive Met. 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
[2024-09-30 08:38] VITALS: BP 120/80; PULSE 57; O2SAT 99; BMI 31.0
== END 2024-09-30 09:38 | disposition home or self-care (01) ==
LOC: HO.RHE 08:27
PROVIDERS: PCP Internal Medicine; Visit Provider Student in an Organized Health Care Education/Training Program
DX: M35.3 Polymyalgia rheumatica (principal); M16.11 Unilateral primary osteoarthritis, right hip; M76.892 Other specified enthesopathies of left lower limb, excluding foot; Z79.620 Long term (current) use of immunosuppressive biologic
CPT/HCPCS: 99214

== ENCOUNTER 2024-10-07 08:55 | Outpatient (REF) | payer BC, SELFPAY ==
--- OUTSIDE RECORDS SUMMARY | 2024-10-07 09:13 | XMS_ITS | Patient Health Record ---
Author Organization [facility] Address [address] [place] [address] Care Team Providers Care Oilfield Plant And Field Operator Name Role Phone DR ISACC PICKARD Primary Care Provider UnavailJennifer Eugene Unavailable [phone] Allergies Allergen (clinical drug ingredient) Drug/Non Drug [...] W/U Status Risk Notes Problem Depressive disorder (03464372) Depressive disorder, not elsewhere classified (311) Active confirmed Problem Human papilloma virus deoxyribonucleic acid test positive, high risk on vaginal specimen (189862583882080) Cervical high risk human papillomavirus (HPV) DNA test positive (R87.810) Active confirmed Problem Carcinoma in situ of breast (813925282) Lobular carcinoma in situ of unspecified breast (D05.00) Active confirmed Problem Lobular carcinoma in situ of right breast (838711436913104) Lobular carcinoma in situ of right breast (D05.01) Active confirmed Problem Localized morphea (693613384) 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) Active confirmed Problem Unspecified menopausal and perimenopausal disorder (N95.9) Active confirmed Problem Abnormal findings on diagnostic imaging of breast (512859977) Other abnormal and inconclusive findings on diagnostic imaging of breast (R92.8) Active confirmed Problem History of dysplasia of cervix (173645341) Personal history of cervical dysplasia (Z87.410) Active confirmed Problem Leiomyoma of uterus (73298637) Leiomyoma of uterus, unspecified (218.9) Active confirmed Major Problem Mild dysplasia of cervix (210266185) Mild dysplasia of cervix (622.11) Active confirmed Diag Problem Gynecological examination normal (901428370748843) Routine gynecological examination (V72.31) Active confirmed Diag Problem Screening for malignant neoplasm of cervix (206471778) Screening for malignant neoplasm of the cervix [...] End Date [employer] [address] [place] [phone] [id number] DEL LEON Self - patient is the [...]
--- OUTSIDE RECORDS SUMMARY | 2024-10-07 09:13 | XMS_ITS | Clinical Summary ---
Author Organization [facility] Facility Address [address] [place] [id number] Care Team Providers Care Finisher Machine Name Role Phone Unavailable Primary Care Provider [...] Vaccine (#1) 2024 Insurance Amanda [place] [facility] [address] ATTN: [place] [address] [place] [address] [facility] ATTN: [place] [phone]
--- OUTSIDE RECORDS SUMMARY | 2024-10-07 09:13 | XMS_ITS | Clinical Summary ---
Author Organization [facility] Address [address] [place] [address] Phone Care Team Providers Care Profile Saw Operator Name Role Phone Alem Carter MD Primary Care Provider [phone] Allergies Active Allergy Reactions Criticality Noted Date [...] Noted Date Diagnosed Date Factor V Leiden ([facility] V24) 11/19/2021 Pulmonary embolism ([facility] V24, [facility] V28) Hypothyroidism 04/20/2019 Overview (02/23/2024): S/P Thyroidectomy; Dr. 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 [address] [place] [phone] Avery Rodriguez MD [address] [place] [address] Health Maintenance Due Date Last Done Comments Hepatitis B Vaccines (1 of 3 - 19+ 3-dose series) 11/26/1986 Pneumococcal Vaccine: 50+ Years (1 of 2 - PCV) 11/26/1986 Zoster Vaccines (1 of 2) 11/26/1986 Cervical Cancer Screening: Pap Smear 11/26/1988 HIV Screening 02/22/2022 Hepatitis C Screening 02/22/2022 Social Influencers of Health Screening 02/22/2022 COVID-19 Vaccine ( season) 2023 09/30/2021, 01/13/2021, 04/27/2020, Additional history exists Depression Screening 03/16/2024 Influenza Vaccine (#1) 2024 02/05/2020 Breast Cancer [...] Procedure Name Priority Date/Time Associated Diagnosis Comments [facility] SCREENING DIGITAL Routine 05/18/2023 3:52 PM EST Encounter for screening mammogram for malignant neoplasm of breast from Last 3 Months or Most Recently Relevant to Health Maintenance Results * [facility] SCREENING DIGITAL (05/18/2023 3:52 PM EST) Anatomical Region Laterality Modality Mammography 05/18/2023 3:01 PM EST Narrative 05/18/2023 3:[address] [facility] Diagnostic Imaging Department [address] [place], [place] [id number] Patient: DEL LEON /Age/Sex: 1965 - 57 - F Unit#: [id number] Location/Status: SPDIMAM/REG CLI Mnemonic/Ordering Site: DIGSC/SPMAM Ordering Physician: AVERY RODRIGUEZ MD [facility] Screening Digital - 05/18/23 - 1525 Report Status:Signed EXAM: [facility] Screening Digital EXAM DATE AND TIME: 05/18/2023 3:26 PM HISTORY: Screening. Reduction mammoplasty in 2015. Left breast LCIS found during reduction mammoplasty procedure. Patient declined tamoxifen. Previous MR guided right breast biopsies yielding benign pathology. COMPARISON: 02/27/23, 05/07/22, 04/25/21, 04/23/20, 04/20/19 TECHNIQUE: Bilateral digital breast tomosynthesis was performed in the CC and MLO projections. Computer aided detection with D square nv 3D 3.1 was employed. TISSUE DENSITY: a. [...] Note Annette Agustin MD - 11/02/2023 [facility] Diagnostic Imaging Department [address] [place], [place] [id number] Patient: DEL LEON /Age/Sex: 1965 - 57 - F Unit#: [id number] Location/Status: SPDIMAM/REG CLI Mnemonic/Ordering Site: [facility] Ordering Physician: AVERY RODRIGUEZ MD [facility] Screening Digital - 05/18/23 - 1525 Report Status:Signed EXAM: [facility] Screening Digital EXAM DATE AND TIME: 05/18/2023 3:26 PM HISTORY: Screening. Reduction mammoplasty in 2015. Left breast LCISfound during reduction mammoplasty procedure. Patient declined tamoxifen.Previous MR guided right breast biopsies yielding benign pathology. COMPARISON: 02/27/23, 05/07/22, 04/25/21, 04/23/20, 04/20/19 TECHNIQUE: Bilateral digital breast tomosynthesis was performed in the CCand MLO projections. Computer aided detection with D square nv 3D 3.1was employed. TISSUE DENSITY: a. The [...] Most Recently Relevant to Health Maintenance Insurance [facility] ([facility]) Care Teams Profile Saw Operator Relationship Specialty Start Date End Date Alem Carter MD PCP - General Internal Medicine 04/12/19
--- OUTSIDE RECORDS SUMMARY | 2024-10-07 09:13 | XMS_ITS | Continuity of Care Document ---
Author Organization [place] - [facility], [facility] Address [address] [place] [address] Care Team Providers Care Inpatient Coder Name Role Phone ARELIS CHAVES Primary Care Provider [phone] Assessment Encounter Date Assessment Date Assessment LastModified by Organization Details LastModified Time 10/06/2024 10/06/2024 Assessment: Relief of hip symptoms noted with lateral distraction. Pt able to do most exercise with minimal issue. Pt needed rest breaks on occasion. Verbal cues provided on occasion. Plan: 2x per week for 6 weeks focus on hip strengthening and mobility. [email or web address] Not available 10/07/2024 08:11:45 Plan of Treatment Reminders Order Date Submit Date Provider Last Modified By Organization Details Last Modified Time Details Appointments PT FOLLOW-U P 2024 02:30P M WM MCGARRY, DPT Not available Not available Not available PT FOLLOW-U P 2024 02:30P M Kaye Formejest er, BEHAVIORAL THERAPIST Not available Not available Not available PT FOLLOW-U P 2024 01:00P M Kaye Formejest er, BEHAVIORAL THERAPIST Not available Not available Not available RECHECK [...] Modified By Organization Details Last Modified Time 10/06/2024 [id number] 3 weeks of Walking up or down stairs with step to gait. 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 Not available Not available Not available snf goal of Left extremity strength Hip flex 5/5; Abd 5/5; Knee ext 5/5; flex 5/5 Not available Not available Not available snf goal of Functional Scores LEFS improved by 10 pts Not available Not available Not available Next visit of Other PT/OT subsequent I with HEP Not available Not available Not available 3 weeks of Gait and Stance: Normalize gait on level surface without AD Not available Not available Not available snf goal of Gait and Stance: I community ambulation with normal gait Not available Not available Not available 3 weeks of Pain <3/10 Not available Not available 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 Reason for Referral None Reported. Problems Name Problem SNOMED Code Status Onset Date Resolution Date Notes Provider Name and Address Organization Details Recorded Time No complaints [id number] Active Status: 'I'; Not Available [facility] 4 09:22:08 Idiopathic osteoarthri tis 022397082 Active 2018 Problem Code: M18.11; Problem Code Type: ICD-10; Status: 'A'; Not Available [facility] 4 11:29:38 Problem Notes None recorded. Procedures Surgical History Date Name Laterality Status Provider Name and Address Organization Details Recorded Time 5 23530 Therapeutic Exercise (1:1) completed SOLOMON MICHELET [address] [facility], [place], [address], [facility] 10/07/2024 08:09:47 5 39469: Manual therapy completed SOLOMON MICHLEET [address], [place], [address], [facility] 10/07/2024 08:09:47 5 17090 Therapeutic Exercise (1:1) completed SOLOMON MICHELET [address], [place], [address], [facility] 10/05/2024 11:27:53 5 80100: Manual therapy completed WM MALGORZATA, DPT [address], [place], [address], [facility] 10/04/2024 18:01:03 5 06599 Therapeutic Exercise (1:1) completed Kaye Guerrero, BEHAVIORAL THERAPIST [address], [place], [address], [facility] 09/29/2024 14:58:37 49544: Manual therapy completed Kaye Guerrero, BEHAVIORAL THERAPIST [address], [place], [address], [facility] 09/29/2024 14:58:37 81959 Therapeutic Exercise (1:1) completed Kaye Guerrero, BEHAVIORAL THERAPIST [address], [place], [address], [facility] 09/26/2024 15:00:46 93501: Manual therapy completed Kaye Guerrero, BEHAVIORAL THERAPIST [address], [place], [address], [facility] 09/26/2024 15:00:46 38335 Therapeutic Exercise (1:1) completed Kaye Guerrero, BEHAVIORAL THERAPIST [address], [place], [address], [facility] 09/22/2024 13:41:04 11757: Manual therapy completed Kaye Guerrero, BEHAVIORAL THERAPIST [address], [place], [address], [facility] 09/22/2024 12:59:20 61010 Therapeutic Exercise (1:1) completed WM MCGARRY, DPT [address], [place], [address], [facility] 09/20/2024 15:40:35 42822: Low complexity PT Eval completed WM MCGARRY, DPT [address], [place], [address], [facility] 09/20/2024 15:40:36 2 Other completed Tracie Vail [facility] 08/29/2024 15:19:13 0 Head or Neck Surgery completed Tracie Vail [facility] 08/29/2024 15:19:13 Imaging Results None recorded. Procedure Notes None recorded. Medical Equipment None Reported. Allergies Allergen ID Allergen Name Allergen Category Reaction Reaction Severity Criticality Documentation Date Start Date Code Code System Note Provider Name and Address Organization Details Recorded Time 831378 Non-stero idal anti-infl ammatory agent (product) medicatio n Not available Not available Not available 08/17/2023 32730 005 SNOMED SIA alicia [facility] 4 14:21:22 51837 Bactrim medicatio n Not available Not available Not available 05/18/20232022 24143 9 RxNorm Not Available [facility] 4 13:51:53 Medications Name Sig Start [...] DRIVE WHILE TAKING THIS MEDICATIO NGIVEN AT [facility] 08/26 completed Statu s: 'Curr ent'; Not [...] Status Never Smoker Tracie alicia [place] - [place] [facility] 08/29/2024 15:19:03 What Is Your Relationship Status? Single [email or web address] Information not available 08/29/2024 Sex: Unknown Functional Status Question Answer Note LastModified by Organizat ion Details LastModified Time How many times per week do you consume alcohol? 1-2 times per week [email or web address] Information not available 08/29/2024 Do you use any illicit or recreational drugs? No [email or web address] Information not available 08/29/2024 Do you or have you ever used any other forms of tobacco or nicotine? No [email or web address] Information not available 08/29/2024 Do you or have you ever used e-cigarettes or vape? Never used electronic cigarettes [email or web address] Information not available 08/29/2024 Mental Status None recorded. Family History Nothing Reported. Medical History Condition Response Anxiety/Depression Y Autoimmune disease Y Arthritis Y Arrhythmia Y Thyroid Problems Y Sleep Apnea Y Pulmonary Embolism Y Osteoporosis Y Gynecological HistoryNo gynecological history recorded. Obstetrics History GPAL:G 0 P 0 0 0 0 Past Encounters Encounter ID Performer Location Encounter Start Date Encounter Closed Date Diagnosis/Indication Diagnosis SNOMED-CT Code Diagnosis ICD10 Code Diagnosis Note [id number] [facility] [address] [place] [address] 09/19/2024 14:37:41 09/19/2024 15:36:02 Osteoarthritis of hip 692437360 M16.11 [id number] Kaye torres, BEHAVIORAL THERAPIST [facility] [address] [place] [address] 09/21/2024 15:15:00 09/21/2024 16:04:15 Osteoarthritis of hip 118716548 M16.11 [id number] Kaye torres, BEHAVIORAL THERAPIST [facility] [address] [place] [address] 09/26/2024 14:44:18 09/26/2024 15:56:46 Osteoarthritis of hip 007378649 M16.11 [id number] Kaye torres, [facility] [address] [place] [address] 09/29/2024 14:50:06 09/29/2024 15:30:51 Osteoarthritis of hip 864314655 M16.11 [id number] [facility] [address] [place] [address] 10/04/2024 17:51:52 10/05/2024 07:45:47 Osteoarthritis of hip 151062061 M16.11 [id number] [facility] [address] [place] [address] 10/06/2024 17:48:04 10/07/2024 08:27:23 Osteoarthritis of hip 064400218 M16.11 Health Concerns Section Related Observation LastModified by Organization Detai ls LastModified Time None Recorded Concern Status LastModified by Organization Details LastModified Time None Recorded Payers Encounter Date Sequence Insurance Name Policy Number Policy Tong Covered Member ID Tong Member ID Guarantor Name 10/06/2024 1 [facility]: [place] [facility] [id number] Destiny Garcia [id number] Destiny Garcia Notes Date Note Type Note Provider Name and Address Organization Details Recorded Time 10/06/2024 text/html Pt reports that she is sore today. Pt notes that she was feeling good yesterday and tried to do more but it caused greater pain today. Pt notes that the L is more painful that the right today and feels like pinching in the area of the groin. WM MCGARRY DPT [address] [facility] [address], [place], [address], [facility] [place] [facility] 10/07/2024 08:11:56 OBGyn Episode No OBEpisode recorded.
== END 2024-10-07 08:56 | disposition home or self-care (01) ==
LOC: HO.US 08:55
PROVIDERS: PCP Internal Medicine; Visit Provider Student in an Organized Health Care Education/Training Program
DX: M76.02 Gluteal tendinitis, left hip (principal)
CPT/HCPCS: 20606; 76881

== ENCOUNTER → 2024-10-24 10:33 | Outpatient (REF) | payer BC, SELFPAY ==
--- NOTE | ~2024-10-24 | NM_ITS ---
EXAMINATION: NM PARATHYROID SPECT AND CT HISTORY: E21.3 - Hyperparathyroidism, unspecified. TECHNIQUE: A parathyroid imaging study was performed following the intravenous administration of 30 mCi technetium 90 9M-sestamibi. Planar imaging was obtained at 20 minutes and 2 hours after injection of the radiopharmaceutical. SPECT/CT imaging was performed at 2 hours. COMPARISON: There are no prior studies available for comparison. FINDINGS: Early planar images demonstrate activity within the parotid and submandibular glands. No thyroid activity is identified, consistent with the patient's history of prior total thyroidectomy. There are no foci of abnormal uptake in the neck on delayed planar images. SPECT/CT images confirm the above findings. NM/NM parathyroid SPECT w CT IMPRESSION: No scintigraphic evidence of a parathyroid adenoma. Electronically signed by: Esvin Reynoso MD 10/24/2024 03:02 PM EDT
--- OUTSIDE RECORDS SUMMARY | 2024-10-24 11:12 | XMS_ITS | Clinical Summary ---
Author Organization [facility] Address [address] [place] [address] Phone Care Team Providers Care Pairer Substandard Name Role Phone Alem Carter MD Primary Care Provider [phone] Allergies Active Allergy Reactions Criticality Noted Date [...] EVERY DAY AT BEDTIME NEEDED 4 Active propranoloL (INDERAL) 10 mg tablet [...] Max Daily Amount: 50 mg 5 Active Synthroid 88 mcg tablet TAKE 1 TABLET BY MOUTH EVERY DAY 90 tablet 5 Active levothyroxine (Synthroid) 88 mcg tablet Take 1 Tablet by mouth daily. 4 025 Discontinued Active Problems Problem Noted Date Diagnosed Date Factor V Leiden ([facility] V24) 11/19/2021 Pulmonary embolism ([facility] V24, [facility] V28) Hypothyroidism 04/20/2019 Overview (02/23/2024): S/P Thyroidectomy; Dr. 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 Atypical lobular hyperplasia (ALH) of left breas t 05/06/2018 Lobular carcinoma in situ (LCIS) of breast 05/06 Surgical History Surgery Date Site/Laterality Comments BREAST REDUCTION 02/25/2016 Bilateral PROCEDURE: [place] BREAST REDUCTION HYSTERECTOMY 2011 PROCEDURE: HISTORICAL HYSTERECTOMY; [...] Care Team (Late st Contact Info) Description 12/15/2024 8:00 AM EDT Office Visit Breast Care [facility] [address] [place] [address] Avery Rodriguez MD [address] [place] [address] Health Maintenance Due Date Last Done Comments [...] Procedure Name Priority Date/Time Associated Diagnosis Comments [facility] SCREENING DIGITAL Routine 05/18/2023 3:52 PM EST Encounter for screening mammogram for malignant neoplasm of breast from Last 3 Months or Most Recently Relevant to Health Maintenance Results * [facility] SCREENING DIGITAL (05/18/2023 3:52 PM EST) Anatomical Region Laterality Modality Mammography 05/18/2023 3:01 PM EST Narrative 05/18/2023 3:52 PM EST [facility] Diagnostic Imaging Department [address] [place] [address] Patient: DEL LEON D.O.B./Age/Sex: 1965 - 57 - F Unit#: [id number] [facility] Physician: AVERY RODRIGUEZ MD [facility] Screening Digital - 05/18/23 - 6335 Report Status:Signed EXAM: [facility] Screening Digital EXAM DATE AND TIME: 05/18/2023 3:26 PM HISTORY: Screening. Reduction mammoplasty in 2015. Left breast LCIS found during reduction mammoplasty procedure. Patient declined tamoxifen. Previous MR guided right breast biopsies yielding benign pathology. COMPARISON: 02/27/23, 05/07/22, 04/25/21, 04/23/20, 04/20/19 TECHNIQUE: Bilateral digital breast tomosynthesis was performed in the CC and MLO projections. Computer aided detection with [employer] 3D 3.1 was employed. TISSUE DENSITY: a. [...] [facility] Diagnostic Imaging Department [address] [place], [place] [address] Patient: DEL LEON /Age/Sex: 1965 - 57 - F Unit#: [id number] Location/Status: [facility] CLI Mnemonic/Ordering Site: [facility] Ordering Physician: AVERY RODRIGUEZ MD [facility] Screening Digital - 05/18/23 - 1525 Report Status:Signed EXAM: [facility] Screening Digital EXAM DATE AND TIME: 05/18/2023 3:26 PM HISTORY: Screening. Reduction mammoplasty in 2015. Left breast LCISfound during reduction mammoplasty procedure. Patient declined tamoxifen.Previous MR guided right breast biopsies yielding benign pathology. COMPARISON: 02/27/23, 05/07/22, 04/25/21, 04/23/20, 04/20/19 TECHNIQUE: Bilateral digital breast tomosynthesis was performed in the CCand MLO projections. Computer aided detection with [employer] 3D 3.1was employed. TISSUE DENSITY: a. The [...] Most Recently Relevant to Health Maintenance Insurance [facility] ([facility]) Care Teams Pairer Substandard Relationship Specialty Start Date End Date Alem Carter MD PCP - General Internal Medicine 04/12/19
--- OUTSIDE RECORDS SUMMARY | 2024-10-24 11:12 | XMS_ITS | Clinical Summary ---
Author Organization [facility] Address [address] [place] [address] Care Team Providers Care E Commerce Merchandising Coordinator Name Role Phone Unavailable Primary Care Provider [...] Vaccine (#1) 2024 Insurance Amanda [place] [facility] [address]: [place] [address] [place] [address] [facility] Program ATTN: [place] [address]
--- OUTSIDE RECORDS SUMMARY | 2024-10-24 11:12 | XMS_ITS | Patient Health Record ---
Author Organization [facility] Address [address] [place] [address] Care Team Providers Care Health Navigator Name Role Phone DR ISACC PICKARD Primary Care Provider Unavaila Jennifer Paul Unavailable [phone] Allergies Allergen (clinical drug ingredient) Drug/Non Drug [...] W/U Status Risk Notes Problem Depressive disorder (13006884) Depressive disorder, not elsewhere classified (311) Active confirmed Problem Human papilloma virus deoxyribonucleic acid test positive, high risk on vaginal specimen (905309913041821) Cervical high risk human papillomavirus (HPV) DNA test positive (R87.810) Active confirmed Problem Carcinoma in situ of breast (879717840) Lobular carcinoma in situ of unspecified breast (D05.00) Active confirmed Problem Lobular carcinoma in situ of right breast (855500881271323) Lobular carcinoma in situ of right breast (D05.01) Active confirmed Problem Localized morphea (248499656) 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) Active confirmed Problem Unspecified menopausal and perimenopausal disorder (N95.9) Active confirmed Problem Abnormal findings on diagnostic imaging of breast (509511618) Other abnormal and inconclusive findings on diagnostic imaging of breast (R92.8) Active confirmed Problem History of dysplasia of cervix (656965546) Personal history of cervical dysplasia (Z87.410) Active confirmed Problem Leiomyoma of uterus (35638297) Leiomyoma of uterus, unspecified (218.9) Active confirmed Major Problem Mild dysplasia of cervix (677907451) Mild dysplasia of cervix (622.11) Active confirmed Diag Problem Gynecological examination normal (360141302805053) Routine gynecological examination (V72.31) Active confirmed Diag Problem Screening for malignant neoplasm of cervix (410047085) Screening for malignant neoplasm of the cervix [...] End Date [employer] [address] [place] [phone] [id number] DEL LEON Self - patient is the [...]
== END ==
LOC: HO.NUCMED 10:33
PROVIDERS: PCP Internal Medicine; Visit Provider Nurse Practitioner Family
DX: E21.3 Hyperparathyroidism, unspecified (principal)
CPT/HCPCS: 78072; A9500

== ENCOUNTER → 2024-10-24 10:34 | Outpatient (BNV) | payer BC, SELFPAY | PROVIDERS: PCP Internal Medicine; Visit Provider Radiology Diagnostic Radiology | DX: E21.3 Hyperparathyroidism, unspecified (principal) | CPT/HCPCS: 78072 ==

== ENCOUNTER 2024-11-10 07:36 | Outpatient (AMB) | payer BC, SELFPAY ==
--- OUTSIDE RECORDS SUMMARY | 2024-11-10 07:39 | XMS_ITS | Patient Health Record ---
Author Organization [facility] Address [address] [place] [address] Care Team Providers Care Blood Bank Technician Name Role Phone DR ISACC PICKARD Primary Care Provider UnavailJennifer Eugene Unavailable [phone] Allergies Allergen (clinical drug ingredient) Drug/Non Drug [...] W/U Status Risk Notes Problem Depressive disorder (62636112) Depressive disorder, not elsewhere classified (311) Active confirmed Problem Human papilloma virus deoxyribonucleic acid test positive, high risk on vaginal specimen (201308741275979) Cervical high risk human papillomavirus (HPV) DNA test positive (R87.810) Active confirmed Problem Carcinoma in situ of breast (242777993) Lobular carcinoma in situ of unspecified breast (D05.00) Active confirmed Problem Lobular carcinoma in situ of right breast (490797266633097) Lobular carcinoma in situ of right breast (D05.01) Active confirmed Problem Localized morphea (086341310) 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) Active confirmed Problem Unspecified menopausal and perimenopausal disorder (N95.9) Active confirmed Problem Abnormal findings on diagnostic imaging of breast (567647730) Other abnormal and inconclusive findings on diagnostic imaging of breast (R92.8) Active confirmed Problem History of dysplasia of cervix (001394267) Personal history of cervical dysplasia (Z87.410) Active confirmed Problem Leiomyoma of uterus (96494710) Leiomyoma of uterus, unspecified (218.9) Active confirmed Major Problem Mild dysplasia of cervix (939648217) Mild dysplasia of cervix (622.11) Active confirmed Diag Problem Gynecological examination normal (881641246437055) Routine gynecological examination (V72.31) Active confirmed Diag Problem Screening for malignant neoplasm of cervix (279510210) Screening for malignant neoplasm of the cervix [...] End Date [employer] [address] [place] [phone] [id number] DEL LEON Self - patient is the [...]
--- OUTSIDE RECORDS SUMMARY | 2024-11-10 07:39 | XMS_ITS | Clinical Summary ---
Author Organization [facility] Address [address] [place] [address] Phone Care Team Providers Care Diesel Electrician Name Role Phone Alem Carter MD Primary Care Provider [phone] Allergies Active Allergy Reactions Criticality Noted Date [...] Noted Date Diagnosed Date Factor V Leiden ([facility] V24) 11/19/2021 Pulmonary embolism ([facility] V24, [facility] V28) Hypothyroidism 04/20/2019 Overview (02/23/2024): S/P Thyroidectomy; Dr. 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 Atypical lobular hyperplasia (ALH) of left breas t 05/06/2018 Lobular carcinoma in situ (LCIS) of breast 05/06 Surgical History Surgery Date Site/Laterality Comments BREAST REDUCTION 02/25/2016 Bilateral PROCEDURE: [place] BREAST REDUCTION HYSTERECTOMY 2011 PROCEDURE: HISTORICAL HYSTERECTOMY; [...] 8:00 AM EDT Office Visit Breast Care [facility] [address] [place] [address] Avery Rodriguez MD [address] [place] [address] Health Maintenance Due Date Last Done Comments [...] Procedure Name Priority Date/Time Associated Diagnosis Comments [facility] SCREENING DIGITAL Routine 05/18/2023 3:52 PM EST Encounter for screening mammogram for malignant neoplasm of breast from Last 3 Months or Most Recently Relevant to Health Maintenance Results * [facility] SCREENING DIGITAL (05/18/2023 3:52 PM EST) Anatomical Region Laterality Modality Mammography 05/18/2023 3:01 PM EST Narrative 05/18/2023 3:52 PM EST [facility] Diagnostic Imaging Department [address] [place], [place] [address] Patient: DEL LEON /Age/Sex: 1965 - 57 - F Unit#: [id number] Location/Status: SPDIMAM/REG CLI Mnemonic/Ordering Site: [facility] Ordering Physician: AVERY RODRIGUEZ MD [facility] Screening Digital - 05/18/23 - 1525 Report Status:Signed EXAM: [facility] Screening Digital EXAM DATE AND TIME: 05/18/2023 3:26 PM HISTORY: Screening. Reduction mammoplasty in 2015. Left breast LCIS found during reduction mammoplasty procedure. Patient declined tamoxifen. Previous MR guided right breast biopsies yielding benign pathology. COMPARISON: 02/27/23, 05/07/22, 04/25/21, 04/23/20, 04/20/19 TECHNIQUE: Bilateral digital breast tomosynthesis was performed in the CC and MLO projections. Computer aided detection with [employer] 3D 3.1 was employed. TISSUE DENSITY: a. [...] Procedure Note Annette Agustin MD - 11/02/2023 [facility] Diagnostic Imaging Department [address] [place] [address] Patient: DEL LEON /Age/Sex: 1965 - 57 - F Unit#: [id number] [facility]ing [facility] Ordering Physician: AVERY RODRIGUEZ MD [facility] Screening Digital - 05/18/23 - 1525 Report Status:Signed EXAM: [facility] Screening Digital EXAM DATE AND TIME: 05/18/2023 3:26 PM HISTORY: Screening. Reduction mammoplasty in 2015. Left breast LCISfound during reduction mammoplasty procedure. Patient declined tamoxifen.Previous MR guided right breast biopsies yielding benign pathology. COMPARISON: 02/27/23, 05/07/22, 04/25/21, 04/23/20, 04/20/19 TECHNIQUE: Bilateral digital breast tomosynthesis was performed in the CCand MLO projections. Computer aided detection with [employer] 3D 3.1was employed. TISSUE DENSITY: a. The [...] Most Recently Relevant to Health Maintenance Insurance [facility] ([facility]) Care Teams Diesel Electrician Relationship Specialty Start Date End Date Alem Carter MD PCP - General Internal Medicine 04/12/19
--- OUTSIDE RECORDS SUMMARY | 2024-11-10 07:39 | XMS_ITS | Clinical Summary ---
Author Organization [facility] Facility Address [address] [place] [id number] Care Team Providers Care Conference Coordinator Name Role Phone Unavailable Primary Care [...] Vaccine (#1) 2024 Insurance Amanda BELTRE [place] [facility] Transplant Program [address] ATTN: [place] [address] [place] [address] [facility] Transplant Program ATTN: [place] [address]
--- NOTE | 2024-11-10 07:45 | MHC.OFFVIS ---
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 Correctional Captain Required: No Accompanied by: Self / Same As Patient Allergies NSAIDS (Non-Steroidal Anti-Inflamma Allergy (Unknown, Verified 11/10/24 07:49) Unknown sulfamethoxazole (From BACTRIM) Allergy (Unknown, Verified 11/10/24 07:49) RASH trimethoprim (From BACTRIM) Allergy (Unknown, Verified 11/10/24 07:49) RASH Medication List - Last Reconciled 11/10/24 by Esvin Mesa MD acetaminophen (Tylenol Extra Strength) 500 mg PO Q6H PRN alprazolam 0.5 mg PO DAILY PRN bupropion HCl XL 300 mg PO DAILY buspirone 5 mg PO BID PRN cholecalciferol (vitamin D3) 25 mcg PO DAILY flecainide 100 mg PO BID Kevzara (sarilumab) 200 mg (1.14 mL) subcut .every 3 weeks NS levothyroxine 88 mcg PO DAILY propranolol 10 mg PO BID rivaroxaban (Xarelto) 20 mg PO DAILY Synthroid (levothyroxine) 88 mcg PO DAILY NS HPI Comments Details: The patient is a 58-year-old female presenting with hyperparathyroidism and thyroid issues. She was diagnosed with elevated parathyroid hormone levels last year, with calcium irregularities noted by her reading coach. Vitamin D supplementation was adjusted due to fluctuating levels, initially high at 95 ng/mL, later dropping to 24 ng/mL, leading to a current dose of 1000 IU daily. The patient has a history of hyperthyroidism, resulting in a thyroidectomy in 2019 due to Graves' disease. She reports osteoporosis, though recent evaluations suggest osteopenia. Family history includes thyroid cancer and potential hyperparathyroidism, with her sister diagnosed with a parathyroid adenoma. 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 Diagnosed with polymyalgia rheumatica in 2022, she was treated with prednisone, which she suspects contributed to hip issues. 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 The patient also has atrial fibrillation and is considering an ablation procedure for management. Calcium was noted to be normal Not Currently using Calcium supplement . Takes 1000 IU of Vitamin D daily in 06/2024 . Was taking 5000 IU/day Not Currently using HCTZ. Kidney stones: N Osteoporosis: Y History of [place] use: N Biotin use: N Family history of high calcium or kidney stones: sister ? hyperparathyroidism due to parathyroid adenoma and thyroid cancer Renal imaging: no stones DXA: Labs: Patient had a sestamibi scan which did not show parathyroid adenoma - Vitamin D: Previously 5000 IU daily, adjusted to 1000 IU due to elevated levels - Prednisone: Used for polymyalgia rheumatica, highest dose was 40 mg [facility] Medical History (Updated 09/28/24 @ 14:04 by Meghann Josue, DNP, DOG CONTROL OFFICER-BC) Lobular carcinoma in situ (LCIS) of left breast Factor 5 Leiden mutation, heterozygous Pulmonary embolism MORGAN (dyspnea on exertion) Colon cancer screening Hypothyroidism (acquired) Normal pelvic exam Anxiety Surgical History H/O thumb surgery History of surgery History of rectal abscess History of hysterectomy History of lipoma [place] teeth removed History of foot surgery History of breast biopsy History of section Family History Father HTN (hypertension) Cancer Mother HTN (hypertension) Sister Cancer of thyroid Cady's disease Graves disease Social History Household Members: Family Housing: House Alcohol intake: current Alcohol intake frequency: a few times a week Patient Tobacco Use Status: Never used Tobacco e-Cigarette/Vaping Use: Never Used service: No Current occupational status: employed 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 There are no thyroid nodules palpated Assessment & Plan Assessment & Plan (1) Hyperparathyroidism: Code(s): E21.3 - Hyperparathyroidism, unspecified Category: Medical Plan: This is a 58-year-old white female found to have elevated PTH. Differential diagnosis includes secondary hyperparathyroidism due to vitamin-D deficiency with contribution from renal insufficiency. We will rule out hypercalciuria or low calcium intake leading to increased PTH. Other differential diagnoses include spurious lab elevation of PTH. Lastly patient can have normal calcium of primary hyperparathyroidism with normal sestamibi scan and hyperplasia. Plan is to repeat labs including calcium, albumin, PTH, 25 hydroxy vitamin-D as well as 24 hour urine for calcium and creatinine at BR L (lab Corps) in a.m. fasting. Further workup will be based on the above. We will have patient follow up with Nephrology to optimize CKD-BMD 1. Hyperparathyroidism Elevated parathyroid hormone levels with fluctuating calcium levels require confirmation through a 24-hour urine calcium test and fasting PTH levels. Follow-up with nephrology is advised for kidney function assessment and potential activated vitamin D therapy. 2. Osteoporosis Recent scans indicate osteopenia. Continued monitoring of bone density is recommended, with optimization of calcium and vitamin D supplementation. During the visit, I discussed the potential causes of the patient's elevated parathyroid hormone levels, including primary and secondary hyperparathyroidism. I explained the importance of confirming the diagnosis with a 24-hour urine calcium test and fasting PTH levels. We also reviewed the patient's history of osteoporosis and the need for continued monitoring and supplementation. I advised the patient to follow up with nephrology to assess kidney function and consider activated vitamin D therapy if necessary. The patient had an opportunity to ask questions regarding treatment plan. The patient expressed understanding and agreement with the above treatment plan. Patient was informed and verbally consented to the use of an ambient scribe for clinic note documentation during this visit. Orders: Orders Calcium Today E21.3 - Hyperparathyroidism, unspecified Albumin Level Today E21.3 - Hyperparathyroidism, unspecified Vitamin D 25-OH Total Today E21.3 - Hyperparathyroidism, unspecified Parathyroid Hormone Intact Today E21.3 - Hyperparathyroidism, unspecified Calcium, 24 Hr Ur Today E21.3 - Hyperparathyroidism, unspecified Creatinine, 24 Hr Group Today E21.3 - Hyperparathyroidism, unspecified Coding Level of Care Code New Pt Level 4 (81577) Diagnoses Hyperparathyroidism E21.3
[2024-11-10 07:46] VITALS: BP 116/70; PULSE 55; BMI 30.6
== END 2024-11-10 08:43 | disposition home or self-care (01) ==
LOC: HO.ENCR 07:37
PROVIDERS: PCP Internal Medicine; Visit Provider Internal Medicine Endocrinology, Diabetes & Metabolism
DX: E21.3 Hyperparathyroidism, unspecified (principal)
CPT/HCPCS: 99204

== ENCOUNTER 2024-11-28 07:49 | Outpatient (AMB) | payer BC, SELFPAY ==
--- NOTE | 2024-11-28 07:51 | MHC.OFFVIS ---
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 Accompanied by: Self / Same As Patient Allergies NSAIDS (Non-Steroidal Anti-Inflamma Allergy (Unknown, Verified 11/28/24 07:51) Unknown sulfamethoxazole (From BACTRIM) Allergy (Unknown, Verified 11/28/24 07:51) RASH trimethoprim (From BACTRIM) Allergy (Unknown, Verified 11/28/24 07:51) RASH Medication List - Last Reconciled 11/28/24 by Cassi Barajas MD acetaminophen (Tylenol Extra Strength) 500 mg PO Q6H PRN alprazolam 0.5 mg PO DAILY PRN bupropion HCl XL 300 mg PO DAILY buspirone 5 mg PO BID PRN cholecalciferol (vitamin D3) 25 mcg PO DAILY flecainide 100 mg PO BID Kevzara (sarilumab) 200 mg (1.14 mL) subcut .every 3 weeks NS levothyroxine 88 mcg PO DAILY propranolol 10 mg PO BID rivaroxaban (Xarelto) 20 mg PO DAILY Synthroid (levothyroxine) 88 mcg PO DAILY NS HPI Comments Details: 59y/o female comes for neurological evaluation. she had EMG and nCS of her LE done 4 mths arteaga when she c/o joint pains in her back hips , knees. The EMG showed mild axonal neuropathy . she denies and paresthesias , numbness or burning sensation in her feet. she has polymyalgia rheumatica 2 years ago but doing good now. Her CRP is stable.she has been on prednisone for 2 years. she is also a kidney donor and has been stable. No fh/o neuroptahy , no exposure to toxins, no chemo . she denies any radiating pain from the back. [facility] Medical History (Updated 11/28/24 @ 10:21 by Cassi Barajas MD) Neuropathy Lobular carcinoma in situ (LCIS) of left breast Factor 5 Leiden mutation, heterozygous Pulmonary embolism MORGAN (dyspnea on exertion) Colon cancer screening Hypothyroidism (acquired) Normal pelvic exam Anxiety Surgical History H/O thumb surgery History of surgery History of rectal abscess History of hysterectomy History of lipoma [place] teeth removed History of foot surgery History of breast biopsy History of section Family History Father HTN (hypertension) Cancer Mother HTN (hypertension) Sister Cancer of thyroid Cady's disease Graves disease Social History Household Members: Family Housing: House Alcohol intake: current Alcohol intake frequency: a few times a week Patient Tobacco Use Status: Never used Tobacco e-Cigarette/Vaping Use: Never Used service: No Current occupational status: employed 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[place] Cognitive needs: No Hearing needs: No Vision needs: Yes Physical Exam Vital Signs: Last Vital Signs Pulse 61 11/28/24 07:52 BP 122/80 11/28/24 07:52 Pulse Ox 98 11/28/24 07:52 Oxygen Delivery Method Room Air 11/28/24 07:52 BMI result Body Mass Index 30.4 Const General: cooperative, healthy appearing and comfortable Nutritional Appearance: average body habitus Orientation/consciousness: patient oriented x3 Eyes Pupils: Equal, round and reactive pupils present Neuro Other: had difficulty lifting her legs- but power was 5/5 - had pain in abelardo hips and knees General: patient oriented x3, tone normal, moves all extremities and no focal motor deficits Cranial nerves: Yes Equal, round and reactive pupils present, Yes Bilaterally intact EOM present, Yes Nystagmus not present, Yes Normal facial strength present, Yes Midline tongue present and Yes Ability to bilaterally elevate shoulders present Gait exam (Neuro): Antalgic gait present Motor exam (neuro): 5/5 motor strength present throughout and Normal motor muscle tone present throughout Deep tendon reflexes (DTR's): Right triceps reflex intensity grade: 1+, Left triceps reflex intensity grade: 1+, Rt Biceps (C5, C6): 1+, Left biceps reflex intensity grade: 1+, Right brachioradialis reflex intensity grade: 1+, Left brachioradialis reflex intensity grade: 1+, Right patellar reflex intensity grade: 1+ and Left patellar reflex intensity grade: 1+ Coordination: [id number] test normal Assessment & Plan Assessment & Plan (1) Peripheral neuropathy: Comment: unclear etiology and mild symptoms Code(s): G62.9 - Polyneuropathy, unspecified Category: Medical Plan I will check her Vit B 12 levels F/u Rheumatology Repeat EMG /NCS in 1 year and f/u Orders: Orders NE nerve conduction velocity 1 Year G62.9 - Polyneuropathy, unspecified Vitamin B12 and Folate Today G62.9 - Polyneuropathy, unspecified NE electromyogram (EMG) 1 Year G62.9 - Polyneuropathy, unspecified Coding Level of Care Code New Pt Level 4 (16684) Complex EM visit Add On G2211 Diagnoses Peripheral neuropathy G62.9
[2024-11-28 07:52] VITALS: BP 122/80; PULSE 61; O2SAT 98; BMI 30.4
--- OUTSIDE RECORDS SUMMARY | 2024-11-28 07:53 | XMS_ITS | Clinical Summary ---
Author Organization [facility] Address [address] [place] [address] Phone Care Team Providers Care Absorption Operator Name Role Phone Alem Carter MD Primary Care Provider [phone] Allergies Active Allergy Reactions Criticality Noted Date [...] EVERY DAY AT BEDTIME NEEDED 11/10/2023 Active propranoloL (INDERAL) 10 mg tablet Take [...] Max Daily Amount: 50 mg 03/23/2024 Active Synthroid 88 mcg tablet TAKE 1 TABLET BY MOUTH EVERY DAY 90 tablet 10/14/2024 Active Active Problems Problem Noted Date Diagnosed Date Factor V Leiden ([facility] V24) 11/19/2021 Pulmonary embolism ([facility] V24, [facility] V28) Hypothyroidism 04/20/2019 Overview (02/23/2024): S/P Thyroidectomy; Dr. 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 Atypical lobular hyperplasia (ALH) of left breas t 05/06/2018 Lobular carcinoma in situ (LCIS) of breast 05/06 Surgical History Surgery Date Site/Laterality Comments BREAST REDUCTION 02/25/2016 Bilateral PROCEDURE: [place] BREAST REDUCTION HYSTERECTOMY 2011 PROCEDURE: HISTORICAL HYSTERECTOMY; [...] Description 12/15/2024 8:00 AM EDT Office Visit [facility] [address] [place] [address] Avery Rodriguez MD [address] [place] [address] Health Maintenance Due Date Last Done Comments Hepatitis B Vaccines (1 of 3 - 19+ 3-dose series) 11/26/1986 Pneumococcal Vaccine: 50+ Years (1 of 2 - PCV) 11/26/1986 Zoster Vaccines (1 of 2) 11/26/1986 Cervical Cancer Screening: Pap Smear 11/26/1988 HIV Screening 02/22/2022 Hepatitis C Screening 02/22/2022 Social Influencers of Health Screening 02/22/2022 Depression Screening 03/16/2024 COVID-19 Vaccine ( season) 2024 09/30/2021, 01/13/2021, 04/27/2020, Additional history exists Influenza [...] Procedure Name Priority Date/Time Associated Diagnosis Comments [facility] SCREENING DIGITAL Routine 05/18/2023 3:52 PM EST Encounter for screening mammogram for malignant neoplasm of breast from Last 3 Months or Most Recently Relevant to Health Maintenance Results * [facility] SCREENING DIGITAL (05/18/2023 3:52 PM EST) Anatomical Region Laterality Modality Mammography 05/18/2023 3:01 PM EST Narrative 05/18/2023 3:[address] [facility] Diagnostic Imaging Department [address] [place] [address] Patient: DEL LEON /Age/Sex: 1965 - 57 - F Unit#: [id number] Location/Status: SPDIMAM/REG CLI Mnemonic/Ordering Site: DIGSC/SPMAM Ordering Physician: AVERY RODRIGUEZ MD [facility] Screening Digital - 05/18/23 - 1525 Report Status:Signed EXAM: [facility] Screening Digital EXAM DATE AND TIME: 05/18/2023 3:26 PM HISTORY: Screening. Reduction mammoplasty in 2015. Left breast LCIS found during reduction mammoplasty procedure. Patient declined tamoxifen. Previous MR guided right breast biopsies yielding benign pathology. COMPARISON: 02/27/23, 05/07/22, 04/25/21, 04/23/20, 04/20/19 TECHNIQUE: Bilateral digital breast tomosynthesis was performed in the CC and MLO projections. Computer aided detection with [employer] 3D 3.1 was employed. TISSUE DENSITY: a. [...] MD - 11/02/2023 [facility] Diagnostic Imaging Department [address] [place] [address] Patient: DEL LEON /Age/Sex: 1965 - 57 - F Unit#: [id number] Location/Status: SPDIMAM/REG CLI Mnemonic/Ordering Site: [facility] Ordering Physician: AVREY RODRIGUEZ MD [facility] Screening Digital - 05/18/23 - 1525 Report Status:Signed EXAM: [facility] Screening Digital EXAM DATE AND TIME: 05/18/2023 3:26 PM HISTORY: Screening. Reduction mammoplasty in 2015. Left breast LCISfound during reduction mammoplasty procedure. Patient declined tamoxifen.Previous MR guided right breast biopsies yielding benign pathology. COMPARISON: 02/27/23, 05/07/22, 04/25/21, 04/23/20, 04/20/19 TECHNIQUE: Bilateral digital breast tomosynthesis was performed in the CCand MLO projections. Computer aided detection with [employer] 3D 3.1was employed. TISSUE DENSITY: a. The [...] by: ANNETTE AGUSTIN MD Dic Date/Time: 05/18/23 2251 Sign date/Time: 05/18/23 1552 Avery Rodriguez MD IMG BI PROCEDURES Final Result from Last 3 Months or Most Recently Relevant to Health Maintenance Insurance [facility]) Care Teams Absorption Operator Relationship Specialty Start Date End Date Alem Carter MD PCP - General Internal Medicine 04/12/19
--- OUTSIDE RECORDS SUMMARY | 2024-11-28 07:53 | XMS_ITS | Clinical Summary ---
Author Organization [facility] Facility Address [address] [place] [address] Care Team Providers Care Organ Teacher Name Role Phone Unavailable Primary Care [...] Vaccine (#1) 2024 Insurance Amanda BELTRE MA [facility] Transplant Program [address] ATTN: [place] [address] [place] [address] [facility] Transplant Program ATTN: [place] [address]
--- OUTSIDE RECORDS SUMMARY | 2024-11-28 07:53 | XMS_ITS | Patient Health Record ---
Author Organization [facility] Address [address] [facility] [address] [place] [address] Care Team Providers Care Gift Wrapper Name Role Phone DR ISACC PICKARD Primary Care Provider UnavailJennifer Eugene Unavailable [phone] Allergies Allergen (clinical drug ingredient) Drug/Non Drug [...] W/U Status Risk Notes Problem Depressive disorder (50670894) Depressive disorder, not elsewhere classified (311) Active confirmed Problem Human papilloma virus deoxyribonucleic acid test positive, high risk on vaginal specimen (201739253277388) Cervical high risk human papillomavirus (HPV) DNA test positive (R87.810) Active confirmed Problem Carcinoma in situ of breast (057543358) Lobular carcinoma in situ of unspecified breast (D05.00) Active confirmed Problem Lobular carcinoma in situ of right breast (500673969621239) Lobular carcinoma in situ of right breast (D05.01) Active confirmed Problem Localized morphea (342382642) 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) Active confirmed Problem Unspecified menopausal and perimenopausal disorder (N95.9) Active confirmed Problem Abnormal findings on diagnostic imaging of breast (077932838) Other abnormal and inconclusive findings on diagnostic imaging of breast (R92.8) Active confirmed Problem History of dysplasia of cervix (666235677) Personal history of cervical dysplasia (Z87.410) Active confirmed Problem Leiomyoma of uterus (60812643) Leiomyoma of uterus, unspecified (218.9) Active confirmed Major Problem Mild dysplasia of cervix (815614349) Mild dysplasia of cervix (622.11) Active confirmed Diag Problem Gynecological examination normal (148287844001464) Routine gynecological examination (V72.31) Active confirmed Diag Problem Screening for malignant neoplasm of cervix (444073297) Screening for malignant neoplasm of the cervix [...] End Date [employer] [place] [address] [place] [phone] [id number] DEL LEON Self - patient is the [...]
== END 2024-11-28 08:36 | disposition home or self-care (01) ==
LOC: HO.HSMS 07:50
PROVIDERS: PCP Internal Medicine; Visit Provider Psychiatry & Neurology Neurology
DX: G62.9 Polyneuropathy, unspecified (principal)
CPT/HCPCS: 99204

== ENCOUNTER 2024-11-28 07:49 | Outpatient (REF) | payer BC, SELFPAY ==
[2024-11-28 14:14] LABS: Cholesterol 197 mg/dL (<200); HDL Cholesterol 47 mg/dL (>40); Triglycerides 97 mg/dL (<150)
[2024-11-28 14:45] LABS: Folate 9.5 ng/mL (> or = 4.0); Vitamin B12 434 pg/mL (200-900)
== END 2024-11-28 07:50 | disposition home or self-care (01) ==
LOC: HO.HKASLDS 07:49
PROVIDERS: PCP Internal Medicine; Visit Provider Psychiatry & Neurology Neurology
DX: G62.9 Polyneuropathy, unspecified (principal); E78.5 Hyperlipidemia, unspecified; E03.9 Hypothyroidism, unspecified; Z79.890 Hormone replacement therapy
CPT/HCPCS: 36415; 80061; 82607; 82746; 84443

== ENCOUNTER 2025-01-26 08:08 | Outpatient (REF) | payer BC, SELFPAY ==
--- OUTSIDE RECORDS SUMMARY | 2025-01-26 08:22 | XMS_ITS | Clinical Summary ---
Author Organization [facility] Address [address] [place] [address] Phone Care Team Providers Care Inspector Packer Glass Container Name Role Phone Alem Carter MD Primary Care Provider [phone] Allergies Active Allergy Reactions Criticality Noted Date [...] Noted Date Diagnosed Date Factor V Leiden ([facility] V24) 11/19/2021 Pulmonary embolism ([facility] V24, [facility] V28) Hypothyroidism 04/20/2019 Overview (02/23/2024): S/P Thyroidectomy; Dr. 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 Atypical lobular hyperplasia (ALH) of left breas t 05/06/2018 Lobular carcinoma in situ (LCIS) of breast 05/06 Encounters Date Type Department Care Team Description 12/29/2024 8:38 AM EDT - 12/29/2024 11:59 PM EDT [facility] [address] [address] At high risk for breast cancer Discharge Disposition: Home or Self Care 12/19/2024 1:40 PM EDT Office Visit Breast [address] [address] Joy Rodriguez MD At high risk for breast cancer (Primary Dx) from Last 3 Months Surgical History Surgery Date Site/Laterality Comments BREAST REDUCTION 02/25/2016 Bilateral PROCEDURE: [place] BREAST REDUCTION HYSTERECTOMY 2011 PROCEDURE: HISTORICAL HYSTERECTOMY; [...] negative; COMMENT: BRCA 1 and BRCA 2 BRCA1 gene mutation negative BRCA2 gene mutation negative Family History Medical History Relation Name Comments Lung cancer Father Breast cancer Father's Sister 1 40s Colon cancer Father's Sister 2 50s Lung cancer Maternal Grandmother age 57 Breast cancer Mother Lobular carcin gale Breast cancer Mother's Sister Thyroid cancer Sister Relation Name Status Comments Father Alive Father's Sister 1 Alive Father's Sister 2 Alive Maternal Grandmother age 57 Mother Alive Mother's Sister Alive Sister Social History Tobacco Use Types Packs/Day Years Used Date Smoking Tobacco: Never Smokeless Tobacco: Never Alcohol Use Standard Drinks/Week Comments Yes 0 (1 standard drink = 0.6 oz pur e alcohol) Comments No Sex and Gender Information Value Date Recorded Sex Assigned at Female 12/21/2024 1:18 PM EDT Legal Sex Female 3:46 PM EST Gender Identity Not on file Sexual Orientation Not on file Obstetrics History Para Term AB IAB SAB Ectopic Multiple Livin g Live Births 1 Last Filed Vital Signs Vital Sign Reading Time Taken Comments Blood Pressure 95/60 12/19/2024 1:43 PM EDT Pulse 62 12/19/2024 1:43 PM EDT Temperature 36.4 C (97.6 F) 12/19/2024 1:43 PM EDT Respiratory Rate - - Oxygen Saturation - - Inhaled Oxygen Concentration - - Weight 74.8 kg (165 lb) 12/29/2024 8:44 AM EDT Height 160 cm (5' 3 ) 12/29/2024 8:44 AM EDT Body Mass Index 29.23 12/29/2024 8:44 AM EDT Plan of Treatment Upcoming Encounters Date Type Department Care Team (Late st Contact Info) Description 06/19/2025 9:40 AM EDT Office Visit [facility] [address] [place] [phone] Joy Rodriguez MD [address] [place] [address] Health Maintenance Due Date Last Done Comments Hepatitis B Vaccines (1 of 3 - 19+ 3-dose series) 11/26/1986 Pneumococcal Vaccine: 50+ Years (1 of 2 - PCV) 11/26/1986 Zoster Vaccines (1 of 2) 11/26/1986 Cervical Cancer Screening: Pap Smear 11/26/1988 RSV Immunization Adult Patients (1 - Risk 50-74 years 1-dose series) 11/26/2017 HIV Screening 02/22/2022 Hepatitis C Screening 02/22/2022 Social Influencers of Health Screening 02/22/2022 Depression Screening 03/16/2024 COVID-19 Vaccine ( season) 2024 09/30/2021, 01/13/2021, 04/27/2020, Additional history exists Influenza Vaccine (#1) 2024 02/05/2020 DTaP,Tdap,and Td Vaccines (2 - Td or Tdap) 02/12/2026 02/13/2016 Colorectal Cancer Screening: FIT-DNA (Cologuard) 08/01/2026 08/02/2023, 08/02/2023, 04/15/2020 Breast Cancer Screening 12/29/2026 12/30/19 25, 12/14/2023, 05/18/2023, Additional history exists HIB Vaccines Aged Out No longer eligi [...] Procedure Name Priority Date/Time Associated Diagnosis Comments MG MAMMO DIGITAL SCREENING W WERNER BILAT Routine 12/29/2024 9:00 AM EDT At high risk for breast cancer from Last 3 Months Results * MG Mammo Digital Screening w Werner bilat (12/29/2024 9:00 AM EDT) Anatomical Region Laterality Modality Breast Bilateral Mammography 12/29/2024 9:14 AM EDT Impressions 12/29/2024 9:16 AM EDT No evidence of breast malignancy. BI-RADS CATEGORY: 1 - NEGATIVE RECOMMENDATION: Screening bilateral mammogram is recommended in 1 year. [facility]ammo Location: [facility], [address] [place] [address], [address], . -------- FINAL REPORT -------- Dictated By: Chitra Powell Dictated Date: 12/29/2024 09:14 ET Assigned Physician: Chitra Powell Reviewed and Electronically Signed By: Chitra Powell Signed Date: 12/29/2024 09:16 ET Workstation ID: [id number] Transcribed By: Self Edit Transcribed Date: 12/29/2024 09:14 ET Narrative 12/29/2024 9:16 AM EDT CLINICAL: 59 years old, Female, routine annual exam. COMPARISON: Multiple prior studies dating back to 2019 TECHNIQUE: Bilateral MLO and CC views were obtained digitally with 3-D mammogram (digital breast tomosynthesis). Computer-aided detection was utilized in evaluation of this exam (CAD). FINDINGS: There is no evidence of suspicious mass or architectural distortion. No worrisome calcifications are evident. There has been no significant change from prior exam(s). Stable biopsy markers in the right breast. BREAST DENSITY: B - There are scattered areas of fibroglandular density. Procedure Note Chitra Powell MD - 12/29/2024 CLINICAL: 59 years old, Female, routine annual exam. COMPARISON: Multiple prior studies dating back to 2019 TECHNIQUE: Bilateral MLO and CC views were obtained digitally with 3-Dmammogram (digital breast tomosynthesis). Computer-aided detection wasutilized in evaluation of this exam (CAD). FINDINGS: There is no evidence of suspicious mass or architectural distortion. Noworrisome calcifications are evident. There has been no significantchange from prior exam(s). Stable biopsy markers in the rightbreast. BREAST DENSITY: B - There are scattered areas of fibroglandular density. IMPRESSION: No evidence of breast malignancy. BI-RADS CATEGORY: 1 - NEGATIVE RECOMMENDATION: Screening bilateral mammogram is recommended in 1 year. Mammo Location: [facility], [address] [place] [address], [address], . -------- FINAL REPORT -------- Dictated By: Chitra Powell Dictated Date: 12/29/2024 09:14 ET Assigned Physician: Chitra Powell Reviewed and Electronically Signed By: Chitra Powell Signed Date: 12/29/2024 09:16 ET Workstation ID: [id number] Transcribed By: Self Edit Transcribed Date: 12/29/2024 09:14 ET Joy Rodriguez MD IMG BI PROCEDURES Final Result from Last 3 Months Insurance [facility] Care Teams Inspector Packer Glass Container Relationship Specialty Start Date End Date Alem Carter MD [address] [place] [address] PCP - General Internal Medicine 04/12/19
[2025-01-26 10:25] LABS: MANUAL DIFF FLAG NO
[2025-01-26 10:44] LABS: Hematocrit 43.2 % (37.0-47.0); Hemoglobin 14.3 g/dl (12.0-16.0); Imm Gran Abs Auto 0.01 X10*3/uL (0.00-0.03); Imm Gran Pct Auto 0.2 % (0.0-0.4); Lymphocytes Absolute Auto 2.0 X10*3/uL (1.2-4.9); Mean Corpuscular HGB Conc 33.1 g/dl (31.0-35.0); Mean Corpuscular Hemoglobin 31.5 pg (27.0-33.0); Mean Corpuscular Volume 95.2 fL (80.0-98.0); NRBC Abs Auto 0.000 X10*3/uL (0.0-0.012); NRBC Pct Auto 0.0 /100WBC (0.0-0.2); Platelet Count 210 X10*3/uL (160-400); Red Blood Count 4.54 X10*6/uL (4.20-5.50); White Blood Count 5.2 X10*3/uL (4.8-10.8)
[2025-01-26 11:15] LABS: Alanine Aminotransferase 33 U/L (0-31); Albumin Level 4.5 g/dL (3.5-5.0); Alkaline Phosphatase 66 U/L (39-117); Anion Gap 12 (12-20); Aspartate Amino Transferase 28 U/L (5-31); Blood Urea Nitrogen 22 mg/dL (9-16); Calcium 9.1 mg/dL (8.4-10.2); Carbon Dioxide 24 mmol/L (22-29); Chloride 111 mmol/L (96-108); Cholesterol 213 mg/dL (<200); Estimated Glomerular Filt Rate 53; HDL Cholesterol 60 mg/dL (>40); Potassium 4.4 mmol/L (3.3-5.1); Sodium 143 mmol/L (135-145); Total Protein 6.5 g/dL (6.5-8.0); Triglycerides 93 mg/dL (<150)
[2025-01-26 11:20] LABS: Parathyroid Hormone Intact 116.0 pg/mL (8.7-77.1)
[2025-01-26 11:30] LABS: Albumin Level 4.4 g/dL (3.5-5.0); Calcium 9.2 mg/dL (8.4-10.2)
[2025-01-26 12:51] LABS: Free T4 (Free Thyroxine) 1.05 ng/dL (0.71-1.85)
== END 2025-01-26 08:09 | disposition home or self-care (01) ==
LOC: HO.HMGCLDS 08:08
PROVIDERS: Internal Medicine Endocrinology, Diabetes & Metabolism; Absent Provider Student in an Organized Health Care Education/Training Program; PCP Internal Medicine; Visit Provider Internal Medicine
DX: R79.89 Other specified abnormal findings of blood chemistry (principal); N18.30 Chronic kidney disease, stage 3 unspecified; M35.3 Polymyalgia rheumatica; E03.9 Hypothyroidism, unspecified; E21.3 Hyperparathyroidism, unspecified
CPT/HCPCS: 36415; 80053; 80061; 82040; 82306; 82310; 83970; 84439; 84443; 85025; 85652; 86140

== ENCOUNTER 2025-02-01 08:31 | Outpatient (AMB) | payer BC, SELFPAY ==
--- NOTE | 2025-02-01 08:54 | A.OFFVIS_ITS ---
Vital Signs 02/01/25 08:59 Height 5 ft 2 in Weight 167 lb 15.876 oz BMI 30.7 BP 122/80 Blood Pressure Location Lt brachial Position Sitting Pulse 59 Pulse Source Pulse Oximeter Pulse Oximetry (%) 98 Oxygen Delivery Method Room Air Intake Visit Reasons: follow up Intake Note: Patient presents for PMR follow up. Allergies NSAIDS (Non-Steroidal Anti-Inflamma Allergy (Unknown, Verified 02/01/25 08:58) Unknown sulfamethoxazole (From BACTRIM) Allergy (Unknown, Verified 02/01/25 08:58) RASH trimethoprim (From BACTRIM) Allergy (Unknown, Verified 02/01/25 08:58) RASH HPI Comments Details: Patient is a 59-year-old female with hypothyroidism, paroxysmal AFib on Eliquis, factor 5 Leiden mutation complicated by PE, and polyarthralgias attributed to PMR here today for follow up Interval History: Patient last seen 09/30/24 - On Kevzara 200mg SC every 2 weeks, Tramadol 50mg bid prn - Continued to complain of hip pain - Had MRI of left hip and L spine - Currently following with physiatry and ortho - Considering hip replacement - Kevzara decreased to every 3 weeks Today. - On Kevzara 200mg SC every 3 weeks, Tramadol 50mg bid prn - Planning to get right hip replacement February 16 - No return of PMR symptoms - Father 11/2022 on her birthday Rheumatologic History: Onset 07/2022 ESR nl elevated CRP improved with prednisone MTX 03/2023 DC 06/2023 due to Cr elevation Kevzara 08/2023, prednisone tapered off 03/2024 Initial history: This is a 57-year-old female who presents for evaluation of PMR. In late July/early August she started having bilateral shoulder stiffness, worse in the morning, takes hours to loosen up. Then it started to affect both eyes. She was evaluated by Orthopedics and had bilateral shoulder x-rays and was told they were normal. She received bilateral shoulder injections which provided dramatic relief for about 4 days then everything came back with a vengeance. Back in September patient presented to the hospital with the same symptoms of bilateral shoulder and bilateral thigh stiffness, she denies any swollen joints. In September was found to have significantly elevated CRP and was started on prednisone. She had been on multiple doses of prednisone including 40 mg and 20 mg. She was starting to have side effects especially with mood changes and weight distribution changes. She had been on 20 mg of prednisone for 2 weeks then 27 mg for 2 weeks. Only today she started taking 25 mg daily. She would like to reduce the dose. She denies any swollen joints or skin rashes. She denies any history of psoriasis. She denies any headaches, jaw, extremity or tongue claudication. Denied blurry vision. She has a history of PE and was found to have factor 5 leiden mutation. She is currently on Xarelto. Mentions that her history has history of thyroid disease and eventually had to have thyroidectomy for thyroid cancer. In December 20 patient went to the ER and was found to be in AFib with RVR. They were getting ready to cardiovert her but she spontaneously converted back to sinus rhythm. A few days later she went back to the emergency room with AFib with RVR and had successful cardioversion. Currently she follows up with a hydroelectric mechanic and is wearing a monitor. Current Rheumatology Medication(s): Kevzara 200mg every 3 weeks Tylenol prn OTC Tramadol 50mg bid prn PFSH Medical History (Updated 11/28/24 @ 10:21 by Cassi Barajas MD) Neuropathy Lobular carcinoma in situ (LCIS) of left breast Factor 5 Leiden mutation, heterozygous Pulmonary embolism MORGAN (dyspnea on exertion) Colon cancer screening Hypothyroidism (acquired) Normal pelvic exam Anxiety Surgical History H/O thumb surgery History of surgery History of rectal abscess History of hysterectomy History of lipoma [place] teeth removed History of foot surgery History of breast biopsy History of section Family History (Updated 02/01/25 @ 08:59 by JESSE Copeland) Father HTN (hypertension) Cancer Mother HTN (hypertension) Sister Cancer of thyroid Cady's disease Graves disease Social History Household Members: Family Housing: House Alcohol intake: current Alcohol intake frequency: a few times a week Patient Tobacco Use Status: Never used Tobacco e-Cigarette/Vaping Use: Never Used service: No Current occupational status: employed 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[place] Cognitive needs: No Hearing needs: No Vision needs: Yes Review of Systems Narrative Review of Systems Constitutional: Denies fever, chills, weight loss ENT: Denies vision changes, eye pain or eye redness, dental caries, dry mouth GI: Denies nausea, vomiting, diarrhea, abdominal pain, change in BM Pulm: Denies SOB, MORGAN, hemoptysis, wheezing Cards: Denies chest pain, palpitations Skin: Denies Raynaud's, rash, nail changes, photosensitivity, KITCHEN AND BATH DESIGNER: Denies headaches, weakness, paresthesias, recurrent falls MSK: as per HPI All other systems reviewed and are unremarkable except noted above Physical Exam Exam Exam: Vital signs reviewed Physical Examination CONSTITUITIONAL Patient alert and cooperative. Well appearing and in no apparent painful distress MSK Hands * Right Hand: Able to make a fist. No swelling or tenderness to palpation of the MCPs, PIPs or DIPs. * Left Hand: Able to make a fist. No swelling or tenderness to palpation of the MCPs, PIPs or DIPs. Wrists * Right Wrist: Full ROM to flexion and extension. No swelling or TTP * Left Wrist: Full ROM to flexion and extension. No swelling or TTP Elbows * Right Elbow: Full ROM. No swelling or TTP. No TTP of the medial epicondyle. No TTP of the lateral epicondyle * Left Elbow: Full ROM. No swelling or TTP. No TTP of the medial epicondyle. No TTP of the lateral epicondyle Shoulders * Right shoulder: Full ROM. No swelling noted. No TTP of the AC joint. No TTP of the subacromial bursa. No TTP of the posterior shoulder * Left shoulder: Full ROM. No swelling noted. No TTP of the AC joint. No TTP of the subacromial bursa. No TTP of the posterior shoulder Knees * Right knee: Full ROM. No swelling noted. No TTP of the knee joint line. No TTP of pes anserine bursa * Left knee: Full ROM. No swelling noted. No TTP of the knee joint line. No TTP of pes anserine bursa. Ankles * Right ankle: Good ankle dorsiflexion and plantar flexion. No swelling. No TTP of the ankle joint * Left ankle: Good ankle dorsiflexion and plantar flexion. No swelling. No TTP of the ankle joint Feet * Right foot: Negative squeeze test * Left foot: Negative squeeze test Tender points? * No tenderness to palpation of the bilateral trapezius, supraspinatus, anterior costochondral junctions, bilateral suboccipital muscle insertions SKIN No rashes Vital Signs: Last Vital Signs Pulse 59 02/01/25 08:59 BP 122/80 02/01/25 08:59 Pulse Ox 98 02/01/25 08:59 Oxygen Delivery Method Room Air 02/01/25 08:59 BMI result Body Mass Index 30.7 Results Reviewed Results Reviewed: Laboratory Tests 01/26/25 08:15 WBC 5.2 RBC 4.54 Hgb 14.3 Hct 43.2 Plt Count 210 ESR 2 Sodium 143 Potassium 4.4 Chloride 111 H Carbon Dioxide 24 BUN 22 H Creatinine 1.07 AST 28 ALT 33 H C-Reactive Protein < 0.10 Triglycerides 93 Cholesterol 213 H LDL Cholesterol, Calc 135 H HDL Cholesterol 60 Laboratory Tests 09/15/24 08:15 Hepatitis A IgM Ab Nonreactive Hep Bs Antigen Negative Hep Bs Antibody REACTIVE Hep B Core Total Ab Nonreactive Hepatitis C Ab (EIA) Nonreactive TB Test (T-Spot) Com Negative Assessment & Plan Assessment & Plan (1) PMR (polymyalgia rheumatica): Comment: onset 07/2022 ESR nl elevated CRP improved with prednisone MTX 03/2023 DC 06/2023 due to Cr elevation Kevzara 08/2023, prednisone tapered off 03/2024 Code(s): M35.3 - Polymyalgia rheumatica Category: Medical Plan: #PMR Patient is a 59-year-old female with polymyalgia rheumatica currently on Kevzara and has been tapered off of Prednisone since 03/2024. Remains in remission. ESR and CRP are both normal. Her current hip pains are currently being evaluated by Orthopedics with plan for replacement in February. I do not believe these pains are related to her PMR. Doing well on the every 3 week frequency will continue to decrease frequency Plan - Decrease frequency of Kevzara 200mg SC to every 4 weeks - Monitor off prednisone - RTC 4 months - Labs before visit: CBC, CMP, ESR, CRP, lipid panel (2) Arthritis of right hip: Code(s): M16.11 - Unilateral primary osteoarthritis, right hip Category: Medical Plan: #OA of the right hip Patient with relief from the steroid injection however this was transient. Currently following up with ortho and doing physical therapy Ok to proceed with hip replacement Patient is to take her next dose of Kevzara and then restart dose 4 weeks later (2 weeks after the surgery) (3) superintendent terminal current use of sarilumab: Code(s): Z79.620 - superintendent terminal (current) use of immunosuppressive biologic Plan: #Long-term Use of Sarilumab Discussed the risks and benefits of sarilumab with the management of this patient's rheumatic condition. ? Benefits include decreased pain, improved mortality, improved quality of life Risks include LFT abnormalities, elevated triglycerides, GI perforations Contraindicated in a patient with history of diverticulitis Monitoring: ?CBC, CMP, triglycerides Plan I spent 30 minutes reviewing the record and labs, taking a history, examining the patient, discussing the treatment plan, ordering diagnostic work up and documenting in the medical record Coding Level of Care Code Est Pt Level 4 (39357) Complex EM visit Add On G2211 Diagnoses PMR (polymyalgia rheumatica) M35.3 Arthritis of right hip M16.11 superintendent terminal current use of sarilumab Z79.620
[2025-02-01 08:59] VITALS: BP 122/80; PULSE 59; O2SAT 98; BMI 30.7
--- OUTSIDE RECORDS SUMMARY | 2025-02-01 16:16 | XMS_ITS | Clinical Summary ---
Author Organization [facility] Address [address] [place] [address] Care Team Providers Care Broadcast Operations Director Name Role Phone Unavailable Primary Care Provider [...] Vaccine (#1) 2024 [place] [address] [facility] [address]N: [place] [address] [place] [address] [facility] ATTN: [place] [address]
--- OUTSIDE RECORDS SUMMARY | 2025-02-01 16:16 | XMS_ITS | Patient Health Record ---
Author Organization [facility] Address [address] [place] [address] Care Team Providers Care Industrial Truck Mechanic Name Role Phone DR ISACC PICKARD Primary Care Provider Unavaila Jennifer Paul Unavailable [phone] Allergies Allergen (clinical drug ingredient) Drug/Non Drug [...] W/U Status Risk Notes Problem Depressive disorder (32933959) Depressive disorder, not elsewhere classified (311) Active confirmed Problem Human papilloma virus deoxyribonucleic acid test positive, high risk on vaginal specimen (423298945075970) Cervical high risk human papillomavirus (HPV) DNA test positive (R87.810) Active confirmed Problem Carcinoma in situ of breast (737930744) Lobular carcinoma in situ of unspecified breast (D05.00) Active confirmed Problem Lobular carcinoma in situ of right breast (391878479149414) Lobular carcinoma in situ of right breast (D05.01) Active confirmed Problem Localized morphea (147506025) 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) Active confirmed Problem Unspecified menopausal and perimenopausal disorder (N95.9) Active confirmed Problem Abnormal findings on diagnostic imaging of breast (295213444) Other abnormal and inconclusive findings on diagnostic imaging of breast (R92.8) Active confirmed Problem History of dysplasia of cervix (184459518) Personal history of cervical dysplasia (Z87.410) Active confirmed Problem Leiomyoma of uterus (73667804) Leiomyoma of uterus, unspecified (218.9) Active confirmed Major Problem Mild dysplasia of cervix (806384116) Mild dysplasia of cervix (622.11) Active confirmed Diag Problem Gynecological examination normal (169643300572838) Routine gynecological examination (V72.31) Active confirmed Diag Problem Screening for malignant neoplasm of cervix (668154465) Screening for malignant neoplasm of the cervix [...] End Date [employer] [place] [address] [place] [phone] [id number] DEL LEON Self - patient is the [...]
--- OUTSIDE RECORDS SUMMARY | 2025-02-01 16:16 | XMS_ITS | Clinical Summary ---
Author Organization [facility] Address [address] [place] [address] Phone Care Team Providers Care Washroom Attendant Name Role Phone Alem Carter MD Primary Care Provider [phone] Allergies Active Allergy Reactions Criticality Noted Date [...] Noted Date Diagnosed Date Factor V Leiden ([facility] V24) 11/19/2021 Pulmonary embolism ([facility] V24, [facility] V28) Hypothyroidism 04/20/2019 Overview (02/23/2024): S/P Thyroidectomy; Dr. 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 Atypical lobular hyperplasia (ALH) of left breas t 05/06/2018 Lobular carcinoma in situ (LCIS) of breast 05/06 Encounters Date Type Department Care Team Description 12/29/2024 8:38 AM EDT - 12/29/2024 11:59 PM EDT [facility] [address] [address] At high risk for breast cancer Discharge Disposition: Home or Self Care 12/19/2024 1:40 PM EDT Office Visit Breast [address] [address] Joy Rodriguez MD At high risk for breast cancer (Primary Dx) from Last 3 Months Surgical History Surgery Date Site/Laterality Comments BREAST REDUCTION 02/25/2016 Bilateral PROCEDURE: [place] BREAST REDUCTION HYSTERECTOMY 2011 PROCEDURE: HISTORICAL HYSTERECTOMY; [...] AM EDT Office Visit [facility] [address] [place] [phone] Joy Rodriguez MD [address] [place] [address] Health Maintenance Due Date Last Done Comments [...] year. Mammo Location: [facility], [address] [place] [address], [address], . -------- FINAL REPORT -------- Dictated By: Chitra Powell Dictated Date: 12/29/2024 09:14 ET Assigned Physician: Chitra Powell Reviewed and Electronically Signed By: Chitra Powell Signed Date: 12/29/2024 09:16 ET Workstation ID: [id number] Transcribed By: Self Edit Transcribed Date: 12/29/2024 [...] year. Mammo Location: [facility], [address] [place] [address], [address], . -------- FINAL REPORT -------- Dictated By: Chitra Powell Dictated Date: 12/29/2024 09:14 ET Assigned Physician: Chitra Powell Reviewed and Electronically Signed By: Chitra Powell Signed Date: 12/29/2024 09:16 ET Workstation ID: [id number] Transcribed By: Self Edit Transcribed Date: 12/29/2024 09:14 ET Joy Rodriguez MD IMG BI PROCEDURES Final Result from Last 3 Months Insurance [facility] ([facility]) Care Teams Washroom Attendant Relationship Specialty Start Date End Date Alem Carter MD [address] [place] [address] PCP - General Internal Medicine 04/12/19
== END 2025-02-01 09:25 | disposition home or self-care (01) ==
LOC: HO.RHES 08:32
PROVIDERS: PCP Internal Medicine; Visit Provider Student in an Organized Health Care Education/Training Program
DX: M35.3 Polymyalgia rheumatica (principal); M16.11 Unilateral primary osteoarthritis, right hip; Z79.620 Long term (current) use of immunosuppressive biologic
CPT/HCPCS: 99214

== ENCOUNTER 2025-02-14 08:38 | Outpatient (AMB) | payer BC, SELFPAY ==
--- OUTSIDE RECORDS SUMMARY | 2025-02-14 08:43 | XMS_ITS | Clinical Summary ---
Author Organization [facility] Facility Address [address] [place] [address] Care Team Providers Care Wastewater Analyst Name Role Phone Unavailable Primary Care Provider [...] Vaccine (#1) 2024 [place] [address] [facility] [address] ATTN: [place] [address] [place] [address] [facility] [place]: [place] [address]
--- OUTSIDE RECORDS SUMMARY | 2025-02-14 08:43 | XMS_ITS | Clinical Summary ---
Author Organization [facility] Address [address] [place] [address] Phone Care Team Providers Care Floatman Name Role Phone Alem Carter MD Primary Care Provider [phone] Allergies Active Allergy Reactions Criticality Noted Date [...] Noted Date Diagnosed Date Factor V Leiden ([facility] V24) 11/19/2021 Pulmonary embolism ([facility] V24, [facility] V28) Hypothyroidism 04/20/2019 Overview (02/23/2024): S/P Thyroidectomy; Dr. 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 Atypical lobular hyperplasia (ALH) of left breas t 05/06/2018 Lobular carcinoma in situ (LCIS) of breast 05/06 Encounters Date Type Department Care Team Description 12/29/2024 8:38 AM EDT - 12/29/2024 11:59 PM EDT Hospital [facility] [address] [address] At high risk for breast cancer Discharge Disposition: Home or Self Care 12/19/2024 1:40 PM EDT Office Visit Breast [address] [phone] Joy Rodriguez MD At high risk for breast cancer (Primary Dx) from Last 3 Months Surgical History Surgery Date Site/Laterality Comments BREAST REDUCTION 02/25/2016 Bilateral PROCEDURE: ME BREAST REDUCTION HYSTERECTOMY 2011 PROCEDURE: HISTORICAL HYSTERECTOMY; [...] AM EDT Office Visit [facility] [address] [place] [id number] Joy Rodriguez MD [address] [place] [address] Health Maintenance Due Date Last Done Comments [...] year. Mammo Location: [facility], [address] [place] [address], [id number], . -------- FINAL REPORT -------- Dictated By: Chitra Powell Dictated Date: 12/29/2024 09:14 ET Assigned Physician: Chitra Powell Reviewed and Electronically Signed By: Chitra Powell Signed Date: 12/29/2024 09:16 ET Workstation ID: [id number] Transcribed By: Self Edit Transcribed Date: 12/29/2024 [...] year. Mammo Location: [facility], [address] [place] [address], [id number], . -------- FINAL REPORT -------- Dictated By: Chitra Powell Dictated Date: 12/29/2024 09:14 ET Assigned Physician: Chitra Powell Reviewed and Electronically Signed By: Chitra Powell Signed Date: 12/29/2024 09:16 ET Workstation ID: [id number] Transcribed By: Self Edit Transcribed Date: 12/29/2024 09:14 ET Joy Rodriguez MD IMG BI PROCEDURES Final Result from Last [address] [facility]) Care Teams Floatman Relationship Specialty Start Date End Date Alem Carter MD [address] [place] [address] PCP - General Internal Medicine 04/12/19
[2025-02-14 08:45] VITALS: BP 92/62; PULSE 64; O2SAT 97; BMI 30.8
--- NOTE | 2025-02-14 08:45 | MHC.OFFVIS ---
Vital Signs 02/14/25 08:45 Height 5 ft 2 in Weight 168 lb 3.403 oz BMI 30.8 BP 92/62 Blood Pressure Location Rt brachial Position Sitting Pulse 64 Pulse Source Pulse Oximeter Pulse Oximetry (%) 97 Oxygen Delivery Method Room Air Intake Visit Reasons: f/u hyperparathyroidism Intake Note: Patient present today for Hyperparathyroidism follow up. 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14 mL) subcut .every 4 weeks NS propranolol 10 mg PO BID rivaroxaban (Xarelto) 20 mg PO DAILY Synthroid (levothyroxine) 100 mcg PO DAILY NS HPI Comments Details: The patient is a 59-year-old female presenting with hyperparathyroidism and thyroid issues. 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 Vitamin D supplementation was adjusted due to fluctuating levels, initially high at 95 ng/mL, later dropping to 24 ng/mL, leading to a current dose of 1000 IU daily. The patient has a history of hyperthyroidism, resulting in a thyroidectomy in 2019 due to Graves' disease. She reports osteoporosis, though recent evaluations suggest osteopenia. Family history includes thyroid cancer and potential hyperparathyroidism, with her sister diagnosed with a parathyroid adenoma. 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 Diagnosed with polymyalgia rheumatica in 2022, she was treated with prednisone, which she suspects contributed to hip issues. 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 The patient also has atrial fibrillation and is considering an ablation procedure for management. Calcium was noted to be normal Not Currently using Calcium supplement . Takes 1000 IU of Vitamin D daily in 06/2024 . Was taking 5000 IU/day Not Currently using HCTZ. Kidney stones: N Osteoporosis: Y History of Sebastian use: N Biotin use: N Family history of high calcium or kidney stones: sister ? hyperparathyroidism due to parathyroid adenoma and thyroid cancer Renal imaging: no stones DXA: Labs: Patient had a sestamibi scan which did not show parathyroid adenoma - Vitamin D: Previously 5000 IU daily, adjusted to 1000 IU due to elevated levels - Prednisone: Used for polymyalgia rheumatica, highest dose was 40 mg Repeat testing [facility] ([facility]) showed a slightly low 25 hydroxy vitamin-D but normal calcium, albumin and PTH COUNTS INCLUDE [facility] BEDS AT THE [facility] Medical History (Updated 11/28/24 @ 10:21 by Cassi Barajas MD) Neuropathy Lobular carcinoma in situ (LCIS) of left breast Factor 5 Leiden mutation, heterozygous Pulmonary embolism MORGAN (dyspnea on exertion) Colon cancer screening Hypothyroidism (acquired) Normal pelvic exam Anxiety Surgical History H/O thumb surgery History of surgery History of rectal abscess History of hysterectomy History of lipoma Gable teeth removed History of foot surgery History of breast biopsy History of section Family History Father HTN (hypertension) Cancer Mother HTN (hypertension) Sister Cancer of thyroid Cady's disease Graves disease Social History Household Members: Family Housing: House Alcohol intake: current Alcohol intake frequency: a few times a week Patient Tobacco Use Status: Never used Tobacco e-Cigarette/Vaping Use: Never Used service: No Current occupational status: employed 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 Labs done at [facility] ([facility]) showed normal calcium, albumin, PTH a slightly low 25 hydroxy vitamin-D as well as normal 24 hour urine for calcium and creatinine Plan is to have the patient increase the vitamin D3 to 2000 IU per day. There was no need for any further endocrine workup or follow-up at this point. Patient returned to the care of her primary care provider and watershed engineer. She returned back to endocrinology as needed Coding Level of Care Code Est Pt Level 3 (16246) Diagnoses Hyperparathyroidism E21.3
== END 2025-02-14 09:08 | disposition home or self-care (01) ==
LOC: HO.ENCR 08:38
PROVIDERS: PCP Internal Medicine; Visit Provider Internal Medicine Endocrinology, Diabetes & Metabolism
DX: E21.3 Hyperparathyroidism, unspecified (principal)
CPT/HCPCS: 99213